=== PATIENT | female | born 1940 | race Caucasian/White ===

== ENCOUNTER 2016-12-23 14:49 | Emergency (ER) | payer OTHER, BC ==
--- NOTE | 2016-12-23 16:00 | CPEKG ---
Heart Rate: 89 RR Interval: 674 P-R Interval: 148 QRSD Interval: 94 QT Interval: 388 QTC Interval: 473 P Neville: 34 QRS Neville: -2 T Wave Neville: 28 EKG Severity - ABNORMAL ECG - EKG Impression: SINUS RHYTHM EKG Impression: PROBABLE LEFT VENTRICULAR HYPERTROPHY Electronically Signed By: Lucas Madrid 27-Dec-2016 09:02:51
[2016-12-23 16:02] LABS: % IMMATURE GRANULYOCYTES 0.6 % (0.0-1.1); ABSOLUTE IMMATURE GRANULOCYTES 0.11 10^3/uL (0.00-0.10); ADD DIFF? NO; ADD MORPH? YES; ADD SCAN? NO; ATYPICAL LYMPHOCYTE FLAG 0 (0-99); FRAGMENT RBC FLAG 40 (0-99); HEMATOCRIT 28.2 % (38.0-47.0); LEFT SHIFT FLG 0 (0-99); LIPEMIA HEMOLYSIS FLAG 80 (0-99); MEAN CELL HEMOGLOBIN 23.4 pg (27.9-34.1); MEAN CELL HEMOGLOBIN CONCENTR. 31.9 g/dL (32.4-36.7); MEAN CELL VOLUME 73.2 fL (81.5-99.8); PLATELET CLUMPS FLAG 0 (0-99); PLATELET COUNT 175 10^3/uL (150-400); RED BLOOD CELL COUNT 3.85 10^6/uL (4.18-5.33)
[2016-12-23 16:03] LABS: RED CELL DISTRIBUTION WIDTH 22.3 % (11.5-15.2)
[2016-12-23 16:16] LABS: ANION GAP 17 mEq/L (8-16); CALCIUM 9.5 mg/dL (8.5-10.4); CARBON DIOXIDE 24 mEq/l (22-31); CHLORIDE 85 mEq/L (97-110); CREATININE 1.1 mg/dL (0.6-1.0); GLOMERULAR FILTRATION RATE 48; GLUCOSE 144 mg/dL (70-100); POTASSIUM 4.2 mEq/L (3.5-5.2); SODIUM 126 mEq/L (134-144)
[2016-12-23 16:28] LABS: TROPONIN I < 0.012 ng/mL (0-0.034)
[2016-12-23] MEDS ORDERED: NS 500 ML IV ONE ×2 (16:36→17:02)
[2016-12-23 16:43] LABS: HYPOCHROMIA 1+; MICROCYTES 1+; PLATELET ESTIMATE ADEQUATE (ADEQ); STOMATOCYTES 1+
[2016-12-23] MEDS ORDERED: ACETAMINOPHEN 325 MG TAB PO ONE (17:05)
[2016-12-23 17:39] LABS: COLOR YELLOW; LEUKOCYTE ESTERASE,URINE TRACE (NEGATIVE); NITRITE,URINE NEGATIVE (NEGATIVE)
--- NOTE | 2016-12-23 17:39 | EDPHY ---
H & P Stated Complaint: Neck and low back pain after fall onto back 3 days ago. NO LOC. Time Seen by Provider: 12/23/16 15:19 HPI/ROS: While still in [place] preparing to move here to [place] this patient stumbled over her feet in her kitchen and fell backward striking the occiput of her head against a cardboard box and then falling to the floor. She reports that she was not dazed but she has had a steady headache since that time that is moderate in intensity, similar to previous headaches but is not resolving. She reports that she had nausea and vomiting x2 over the past 2 days associated with her headache. She flew from [place] to [place], arriving today and her son, hearing about the fall and her symptoms brought her in for evaluation. She is moving to [place] in this is her 1st day here. She reports associated neck pain that is 6/10 in intensity from the fall and upper thoracic pain that is 8/10 and feels muscular to her. On top of the symptoms she feels very fatigued. She also reports mild dyspnea that she attributes to altitude and fatigue. She also reports a chronic cough. She explains that she has had this cough for more than a year and that she does not know the cause of it. She is uncertain of when she has had most recent chest x-ray. She explains that she has not established care here in [place] in all of her records are in [place] regarding her past medical history. She does report a recent UTI and she is taking Cipro antibiotic for that starting this antibiotic 4 days prior to arrival. She denies any ongoing urinary symptoms at this time. ROS: No high fevers or chills. Fatigue as noted no other constitutional symptoms HEENT: Headache is generalized in location. She has no recent URI symptoms. No sore throat. No other complaints Neuro: No visual changes. No numbness tingling or focal weakness. Pulmonary: She reports that her chronic cough has not changed recently and is dry in nature. No hemoptysis. Cardiovascular: No chest pain. No calf swelling or pain. GI: No belly pain. She did tolerate breakfast this morning but has not had lunch. : Her urinary symptoms have resolved starting Cipro Endocrine: She denies polyuria or polydipsia. Her last hemoglobin A1c was 6.6 3 weeks ago. Integumentary: No lacerations or abrasions from the fall. 10 point ROS is otherwise negative. Source: Patient, Family (Her son accompanies her) Exam Limitations: No limitations - Personal History Current Tetanus Diphtheria and Acellular Pertussis (TDAP): Yes Tetanus Vaccine Date: within 10 years - Medical/Surgical History Hx Asthma: No Hx Chronic Respiratory Disease: No Hx Diabetes: Yes Hx Cardiac Disease: Yes Hx Renal Disease: No Hx Cirrhosis: No Hx Alcoholism: No Hx HIV/AIDS: No Hx Splenectomy or Spleen Trauma: No Other PMH: C1 FX, heart arrythmia, tonsillectomy, c section, cholecystectomy, pacemaker, HTN, DM type II, hyperlipidemia - Social History Smoking Status: Never smoked Alcohol Use: None Drug Use: None Additional Social History: Moved here from [place] arriving today. Accompanied by her son - Physical Exam Exam: Pleasant, kyphotic 68-year-old female in no acute distress General Appearance: Alert, no distress. Eyes: Pupils equal and round no pallor or injection. ENT, Mouth: Mucous membranes moist. Respiratory: Diminished breath sounds at the bases, otherwise clear to auscultation bilaterally. Cardiovascular: Regular rate and rhythm. She has a 2/6 systolic murmur. No JVD. No peripheral edema. Gastrointestinal: Abdomen is soft and nontender, no masses, bowel sounds normal. Neurological: GCS 15. Cranial nerves 2-12 grossly intact 5/5 strength in all extremities. No pronator drift. Skin: Warm and dry, no rashes. Musculoskeletal: Neck: Mild tenderness from T1 to the occiput. She retains a good range of motion despite this. Back: She has midline thoracic pain to about T6. Paraspinous muscular tenderness as well in this region. No significant lumbar tenderness. She is very kyphotic. Mild left CVA tenderness Extremities are symmetrical, full range of motion. Psychiatric: Mood and affect normal. DIFFERENTIAL DIAGNOSIS: After history and physical exam differential diagnosis was considered for minor head injury, concussion, subdural hemorrhage, cervical strain, cervical fracture, thoracic strain, thoracic fracture, the bronchitis, pneumonia, pulmonary lesion, coronary syndrome, metabolic disarray, UTI Constitutional: Initial Vital Signs Temperature (C) 37 C 12/23/16 15:02 Heart Rate 94 12/23/16 15:02 Respiratory Rate 18 12/23/16 15:02 Blood Pressure 108/63 12/23/16 15:02 O2 Sat (%) 91 L 12/23/16 15:02 O2 Delivery Mode Room Air Allergies/Adverse Reactions: adhesive Allergy (Intermediate, Verified 12/23/16 15:10) Rash cephalexin Allergy (Intermediate, Verified 12/23/16 15:10) Rash niacin Allergy (Intermediate, Verified 12/23/16 15:10) Rash sulfamethoxazole [Sulfamethoxazole] Allergy (Intermediate, Verified 12/23/16 15: 10) "UPSET STOMACH" gabapentin Allergy (Unknown, Verified 12/23/16 15:10) UNABLE TO FALL ASLEEP Home Medications: Medication Instructions Recorded Albuterol Hfa Anes Only [Proair 2 puffs IH Q4 PRN #1 mdi 12/23/16 Hfa Icu (*)] Aleve 12/23/16 Aspirin 12/23/16 Azithromycin [Zithromax] 250 mg PO DAILY #6 tab 12/23/16 Duloxetine HCl 12/23/16 Hydrochlorothiazide 12/23/16 ISOSORBIDE DINITRATE 12/23/16 Janumet 50-1,000 mg Tablet 12/23/16 Levemir 12/23/16 Metanx Capsule 12/23/16 Metoclopramide 12/23/16 Metoclopramide HCl 12/23/16 Nitroglycerin 12/23/16 Ondansetron Odt [Zofran Odt] 4 - 8 mg PO Q4PRN PRN #4 tab 12/23/16 Rosuvastatin Calcium 12/23/16 Tums 500MG (*) 12/23/16 Medical Decision Making - Diagnostics EKG Interpretation: 12 lead EKG performed shortly after arrival reveals sinus rhythm at 89 Intervals: Normal throughout Overall assessment: sinus rhythm with inferior Q-wave no acute ST abnormalities , no previous for comparison, voltage criteria consistent with LVH Imaging Results: Imaging Impressions Chest X-Ray 12/23/16 15:48 Impression: 1. Mild perihilar bronchitis, without a focal infiltrate. 2. Borderline-cardiomegaly (without congestive heart failure), and evidence of a prior pacemaker. 3. Nodular asymmetry in the left apex. Correlation with prior studies versus proceeding to chest CT imaging is suggested. Findings were discussed with CONRAD LIMA MD at 16:47, on 12/23/2016. Cervical Spine CT 12/23/16 15:49 Impression: 1. Old C1 and C2 fractures. 2. Severe degenerative disk disease and facet arthropathy from C4-C5 to C7-T1. 3. No acute fracture. Findings and recommendations discussed with Dr. Conrad Lima at 1650 hour , 12/23/2016. Final report concurs with initial preliminary interpretation. Head CT 12/23/16 15:49 Impression: Atrophy and microvascular ischemic disease. Findings and recommendations discussed with CONRAD LIMA at 1650 hour, 12/23/2016. Final report concurs with initial preliminary interpretation. Thoracic Spine CT 12/23/16 15:49 Impression: No definitive acute process in the thoracic spine. Findings and recommendations discussed with Dr. Conrad Lima at 1655 hour , 12/23/2016. Final report concurs with initial preliminary interpretation. Chest x-ray: Significant kyphosis bronchitic findings no acute pneumonia by my interpretation. Also discussed his with radiologist. Imaging: Discussed imaging studies w/ call center recruiter Radiologist ED Course/Re-evaluation: IV normal saline bolus I counseled the patient regarding her hyponatremia and leukocytosis She is given a DuoNeb with decreased cough and wheeze. History with 1st dose of Zithromax for bronchitis. I called the outpatient physician on-call to help establish a close follow up with Dr. Mota. Their office has an answering machine but no physician to speak to. I did leave a message regarding this patient. Patient tolerated p.o. intake without emesis prior to discharge. Discussion: This patient is somewhat complicated having new arrived to [place] with multiple ailments. Her workup here ruled out intracranial injury from her head injury 3 days ago. She has no bony injury from the fall regarding her neck or back. She does have bronchitis and is improving with treatment for that here. She had significant leukocytosis but normal lactic acid level. She also has some hyponatremia the think is associated with dehydration and may be medication related. She is treated with a L of normal saline IV and felt improvement. She reports compliance with her Cipro. Her urine micro was not back prior to her discharge from here and her initial urinalysis revealed only leuk esterase positive. We do have a culture pending for her urine and she will have close follow up with Dr. Mota the outpatient physician on-call. She is accompanied by her son with her throughout the stay is familiar with today's findings and plan. She also does have a pulmonary lesion in the right lung discussed with her. She will seek to get records from the [facility] including recent radiographs see if that the baseline lesion or a new finding that will warrant outpatient CT scan for further evaluation. She states that her systolic heart murmur is longstanding for her. Technically the patient have 2 positive SIRS criteria source of infection-pulmonary in respiratory and that she had initial pulse of 94 and a white count was elevated. However with saline her pulse normalized and she is not interested in admission to the hospital. She will stay with her son who observe for any worsening of her condition and return her here call 911 should her clinical condition worsen. She does not have findings of severe sepsis or septic shock. - Data Points Laboratory Results: Laboratory Results 12/23/16 15:50 12/23/16 15:50 12/23/16 12/23/16 12/23/16 17:35 17:19 15:50 WBC RBC Hgb Hct MCV MCH MCHC RDW Plt Count MPV Neut % (Auto) Lymph % (Auto) Sherman % (Auto) Eos % (Auto) Baso % (Auto) Nucleat RBC Rel Count Absolute Neuts (auto) Absolute Lymphs (auto) Absolute Monos (auto) Absolute Eos (auto) Absolute Basos (auto) Absolute Nucleated RBC Immature Gran % Immature Gran # Platelet Estimate Hypochromasia Microcytic Cells Stomatocytes VBG Lactic Acid 1.1 mmol/L mmol/L (0.7-2.1) Sodium 126 mEq/L L mEq/L (134-144) Potassium 4.2 mEq/L mEq/L (3.5-5.2) Chloride 85 mEq/L L mEq/L (97-110) Carbon Dioxide 24 mEq/l mEq/l (22-31) Anion Gap 17 mEq/L H mEq/L (8-16) BUN 21 mg/dL mg/dL (7-23) Creatinine 1.1 mg/dL H mg/dL (0.6-1.0) Estimated GFR 48 Glucose 144 mg/dL H mg/dL (70-100) Calcium 9.5 mg/dL mg/dL (8.5-10.4) Troponin I < 0.012 ng/mL ng/mL (0-0.034) Urine Color YELLOW Urine Appearance HAZY Urine pH 6.0 (5.0-7.5) Ur Specific [place] 1.015 (1.002-1.030) Urine Protein TRACE H (NEGATIVE) Urine Ketones TRACE H (NEGATIVE) Urine Blood NEGATIVE (NEGATIVE) Urine Nitrate NEGATIVE (NEGATIVE) Urine Bilirubin NEGATIVE (NEGATIVE) Urine Urobilinogen 0.2 EU EU (0.2-1.0) Ur Leukocyte Esterase TRACE H (NEGATIVE) Urine RBC NONE SEEN /hpf /hpf (0-3) Urine WBC 50-182 /hpf H /hpf (0-3) Ur Epithelial Cells 3+ /lpf H /lpf (NONE-1+) Urine Bacteria 3+ /hpf H /hpf (NONE SEEN) Hyaline Casts 50-182 /lpf H /lpf (0-1) Urine Glucose NEGATIVE (NEGATIVE) 12/23/16 15:50 WBC 18.04 10^3/uL H 10^3/uL (3.80-9.50) RBC 3.85 10^6/uL L 10^6/uL (4.18-5.33) Hgb 9.0 g/dL L g/dL (12.6-16.3) Hct 28.2 % L % (38.0-47.0) MCV 73.2 fL L fL (81.5-99.8) MCH 23.4 pg L pg (27.9-34.1) MCHC 31.9 g/dL L g/dL (32.4-36.7) RDW 22.3 % H % (11.5-15.2) Plt Count 175 10^3/uL 10^3/uL (150-400) MPV 10.0 fL fL (8.7-11.7) Neut % (Auto) 82.9 % H % (39.3-74.2) Lymph % (Auto) 9.7 % L % (15.0-45.0) Sherman % (Auto) 5.1 % % (4.5-13.0) Eos % (Auto) 1.4 % % (0.6-7.6) Baso % (Auto) 0.3 % % (0.3-1.7) Nucleat RBC Rel Count 0.0 % % (0.0-0.2) Absolute Neuts (auto) 14.95 10^3/uL H 10^3/uL (1.70-6.50) Absolute Lymphs (auto) 1.75 10^3/uL 10^3/uL (1.00-3.00) Absolute Monos (auto) 0.92 10^3/uL H 10^3/uL (0.30-0.80) Absolute Eos (auto) 0.26 10^3/uL 10^3/uL (0.03-0.40) Absolute Basos (auto) 0.05 10^3/uL 10^3/uL (0.02-0.10) Absolute Nucleated RBC 0.00 10^3/uL 10^3/uL (0-0.01) Immature Gran % 0.6 % % (0.0-1.1) Immature Gran # 0.11 10^3/uL H 10^3/uL (0.00-0.10) Platelet Estimate ADEQUATE (ADEQ) Hypochromasia 1+ H Microcytic Cells 1+ H Stomatocytes 1+ H VBG Lactic Acid Sodium Potassium Chloride Carbon Dioxide Anion Gap BUN Creatinine Estimated GFR Glucose Calcium Troponin I Urine Color Urine Appearance Urine pH Ur Specific [place] Urine Protein Urine Ketones Urine Blood Urine Nitrate Urine Bilirubin Urine Urobilinogen Ur Leukocyte Esterase Urine RBC Urine WBC Ur Epithelial Cells Urine Bacteria Hyaline Casts Urine Glucose Medications Given: Discontinued Medications Acetaminophen (Tylenol) 975 mg PO EDNOW ONE Stop: 12/23/16 17:06 Last Admin: 12/23/16 17:10 Dose: 975 mg Sodium Chloride (Ns) 500 mls @ 0 mls/hr IV ONCE ONE; Wide Open PRN Reason: Protocol Stop: 12/23/16 16:37 Last Admin: 12/23/16 16:36 Dose: 500 mls Sodium Chloride (Ns) 500 mls @ 0 mls/hr IV ONCE ONE; Wide Open PRN Reason: Protocol Stop: 12/23/16 17:03 Last Admin: 12/23/16 17:14 Dose: 500 mls Levalbuterol (Xopenex 1.25mg Neb) 1.25 mg IH EDNOW ONE Stop: 12/23/16 17:46 Last Admin: 12/23/16 18:04 Dose: 1.25 mg Departure - Departure Disposition: Home, Routine, Self-Care Clinical Impression: Hyponatremia, Pulmonary lesion, right Minor head injury without loss of consciousness Qualifiers: Encounter type: initial encounter Qualified Code(s): S09.90XA - Unspecified injury of head, initial encounter Neck muscle strain Qualifiers: Encounter type: initial encounter Qualified Code(s): S16.1XXA - Strain of muscle, fascia and tendon at neck level, initial encounter Upper back strain Qualifiers: Encounter type: initial encounter Qualified Code(s): S29.012A - Strain of muscle and tendon of back wall of thorax, initial encounter Urinary tract infection Qualifiers: Urinary tract infection type: acute cystitis Hematuria presence: without hematuria Qualified Code(s): N30.00 - Acute cystitis without hematuria Acute bronchitis Qualifiers: Bronchitis organism: unspecified organism Qualified Code(s): J20.9 - Acute bronchitis, unspecified Condition: Good Instructions: Head Injury (ED), Acute Bronchitis (ED) Additional Instructions: Diagnoses: 1. Minor head injury 2. Neck strain 3. Back strain 4. Bronchitis 5. Right pulmonary lesion 6. Bladder infection 7. Low-sodium 8. Vomiting Plan: Humidifier Albuterol inhaler spacer for cough, wheeze or shortness of breath Zithromax Tylenol for headaches and back pain. Continue other medications. Zofran if needed for nausea or vomiting Call Dr. Mota-internal medicine physician [facility] to establish a primary care physician. Try to follow up with her within the next 2-7 days. Return for any recurrent vomiting, shortness of breath, unbearable headache or other concerns despite the treatment plan Referrals: NONE *PRIMARY CARE P,. [Primary Care Provider] - As per Instructions Samia Mota MD [Medical Doctor] - As per Instructions Prescriptions: Albuterol Hfa Anes Only [Proair Hfa Icu (*)] 2 puffs IH Q4 PRN #1 mdi PRN Reason: Wheezing Azithromycin [Zithromax] 250 mg PO DAILY #6 tab Ondansetron Odt [Zofran Odt] 4 - 8 mg PO Q4PRN PRN #4 tab PRN Reason: Vomiting
[2016-12-23] MEDS ORDERED: LEVALBUTEROL 1.25 MG/3 ML DEYVIAL IH ONE (17:45)
[2016-12-23 17:55] VITALS: TEMP 98.4
[2016-12-23 18:01] LABS: BACTERIA 3+ /hpf (NONE SEEN); RBC,URINE NONE SEEN /hpf (0-3); WBC,URINE 50-182 /hpf (0-3)
[2016-12-23 18:02] LABS: HYALINE CASTS 50-182 /lpf (0-1)
[2016-12-23 18:31] VITALS: BP 139/62; PULSE 95; RESP 20; O2SAT 91
== END 2016-12-23 18:15 | disposition home or self-care (01) ==
LOC: CED 14:49
DX: S09.90XA Unspecified injury of head, initial encounter (principal); S16.1XXA Strain of muscle, fascia and tendon at neck level, initial encounter; S29.012A Strain of muscle and tendon of back wall of thorax, initial encounter; E87.1 Hypo-osmolality and hyponatremia; J98.4 Other disorders of lung; N30.00 Acute cystitis without hematuria; J20.9 Acute bronchitis, unspecified; B96.89 Other specified bacterial agents as the cause of diseases classified elsewhere; Z79.82 Long term (current) use of aspirin; W01.198A Fall on same level from slipping, tripping and stumbling with subsequent striking against other object, initial encounter; Y92.000 Kitchen of unspecified non-institutional (private) residence as the place of occurrence of the external cause
CPT/HCPCS: 70450-PO; 71020-PO; 72125-PO; 72128-PO; 80048-PO; 81003-PO; 81015-PO; 83605-PO; 84484-PO; 85025-PO

== ENCOUNTER → 2017-01-02 | Outpatient (CLI) | payer OTHER, BC | LOC: CIMAGING 11:25 | PROVIDERS: ATTEND Internal Medicine | DX: M89.8X8 Other specified disorders of bone, other site (principal) | CPT/HCPCS: 71250-PO ==

== ENCOUNTER 2017-01-19 14:23 | Emergency (ER) | payer OTHER, BC ==
[2017-01-19 14:44] VITALS: TEMP 99
--- NOTE | 2017-01-19 14:49 | EDPHY ---
H & P - Personal History Tetanus Vaccine Date: within 10 years - Medical/Surgical History Hx Asthma: No Hx Chronic Respiratory Disease: No Hx Diabetes: Yes Hx Cardiac Disease: Yes Hx Renal Disease: No Hx Cirrhosis: No Hx Alcoholism: No Hx HIV/AIDS: No Hx Splenectomy or Spleen Trauma: No Other PMH: C1 FX, heart arrythmia, tonsillectomy, c section, cholecystectomy, pacemaker, HTN, DM type II, hyperlipidemia - Social History Smoking Status: Never smoked Time Seen by Provider: 01/19/17 14:36 Constitutional: Initial Vital Signs Temperature (C) 37.2 C 01/19/17 14:42 Heart Rate 74 01/19/17 14:42 Respiratory Rate 18 01/19/17 14:42 Blood Pressure 113/69 01/19/17 14:42 O2 Sat (%) 90 L 01/19/17 14:42 O2 Delivery Mode Room Air O2 (L/minute) 2 Allergies/Adverse Reactions: adhesive Allergy (Intermediate, Verified 12/23/16 15:10) Rash cephalexin Allergy (Intermediate, Verified 12/23/16 15:10) Rash niacin Allergy (Intermediate, Verified 12/23/16 15:10) Rash sulfamethoxazole [Sulfamethoxazole] Allergy (Intermediate, Verified 12/23/16 15: 10) "UPSET STOMACH" gabapentin Allergy (Unknown, Verified 12/23/16 15:10) UNABLE TO FALL ASLEEP Home Medications: Medication Instructions Recorded Albuterol Hfa Anes Only [Proair 2 puffs IH Q4 PRN #1 mdi 12/23/16 Hfa Icu (*)] Aleve 12/23/16 Aspirin 12/23/16 Azithromycin [Zithromax] 250 mg PO DAILY #6 tab 12/23/16 Duloxetine HCl 12/23/16 Hydrochlorothiazide 12/23/16 ISOSORBIDE DINITRATE 12/23/16 Janumet 50-1,000 mg Tablet 12/23/16 Levemir 12/23/16 Metanx Capsule 12/23/16 Metoclopramide 12/23/16 Metoclopramide HCl 12/23/16 Nitroglycerin 12/23/16 Ondansetron Odt [Zofran Odt] 4 - 8 mg PO Q4PRN PRN #4 tab 12/23/16 Rosuvastatin Calcium 06/09/17 Tums 500MG (*) 12/23/16 Lidocaine [Lidoderm] 1 each TP DAILY PRN #30 adh..patch 01/19/17 Medical Decision Making - Diagnostics Imaging Results: Imaging Impressions Chest X-Ray 01/19/17 14:41 Impression: Stable chest.. Extremity Venous Study 01/19/17 16:37 Impression: No evidence of deep vein thrombosis in the left leg. Results discussed with Ines Costa. Chest/Thorax CTA 01/19/17 16:38 Impression:1.No pulmonary embolic disease. 2. Coronary artery disease. 3. Dilated, incompletely included, extrahepatic biliary tree in a patient with previous cholecystectomy. Query choledocholithiasis? Is there elevated bilirubin ? 4. Small hiatal hernia and esophageal gas, suggesting reflux. Results discussed with Ines Costa. General information for patients regarding this examination can be found at [email or web address]. If you have questions or comments about this report, please contact me at (hospital) or [phone] (cell). ED Course/Re-evaluation: CHIEF COMPLAINT: Chronic back pain, left knee pain, dizziness and some shortness of breath HISTORY OF PRESENT ILLNESS: 76-year-old female who moved here from [place] just a couple weeks ago. She has established care with a local physician and has had her 1st visit. She states that she has has chronic back and neck pain after C1-2 fracture couple years ago. At that pain sometimes acts up and that was going on since yesterday. She tried to take hydrocodone overnight and she is not sure if that is why she is dizzy today but she does not think so. She took it because the back pain and a new pain which is in her left knee and she is not sure why that is occurring she does not have any trauma. The patient claims that she is having some difficulty catching her breath but not significant and her vital signs and oxygen saturation normal. She recently had a urinary tract infection and she does not know she still has that. REVIEW OF SYSTEMS: A 10 point review of systems was performed and is negative with the exception of the elements mentioned in the history of present illness. PHYSICAL EXAM: HR, BP, O2 Sat, RR. Temp noted General Appearance: Alert, well hydrated, appropriate, and non-toxic appearing. Head: Atraumatic without scalp tenderness or obvious injury Eyes: Pupils equal, round, reactive to light and accommodation, EOMI, no trauma , no injection. Ears: Clear bilaterally, no perforation, normal landmarks Nose: Atraumatic, no rhinorrhea, clear. Throat: There is no erythema or exudates, no lesions, normal tonsils, mucus membranes moist. Neck: Supple, 2+ carotid upstroke, nontender, no lymphadenopathy. Respiratory: No retractions, no distress, no wheezes, and no accessory muscle use. Lungs are clear to auscultation bilaterally. Cardiovascular: Regular rate and rhythm, no murmurs, rubs, or gallops. Bilateral carotid, radial, dorsalis pedis, and posterior tibial pulses intact. Good capillary refill all extremities. Gastrointestinal: Abdomen is soft, nontender, non-distended, no masses, no rebound, no guarding, no peritoneal signs. Musculoskeletal: Normal active ROM of all extremities, atraumatic. Neurological: Alert, appropriate, and interactive. The patient has normal DTRs and non-focal cranial nerves, motor, sensory, and cerebellar exam. Skin: No rashes, good turgor, no nodules on palpation. Past medical history: Hypertension, diabetes, chronic neck and back pain Past surgical history: Pacemaker Family history: Noncontributory Social history: , does not abuse tobacco drugs or alcohol, moved here from [facility] about 3 weeks ago DIAGNOSTICS/PROCEDURES/CRITICAL CARE TIME: The 12 lead EKG was interpreted by myself. See hard copy and/or "tracemaster" electronic copy for interpretation. Study: PA and Lateral Chest X-ray Indication: shortness of breath Results: After viewing the images myself on the PACS system. My interpretation of the images is: The x-ray will be interpreted by Dr. Costa DIFFERENTIAL DIAGNOSIS: The differential diagnosis for the patient's shortness of breath included but was not limited to pneumonia, myocardial infarction, acute mountain sickness, high altitude pulmonary edema, congestive heart failure , and pulmonary embolus. MEDICAL DECISION MAKING: This patient has some mild dizziness and some orthopedic complaints. I am not picking up any objective shortness of breath as her respiratory rate is normal, her heart rate is normal, she is not hypoxemic, she is new to altitude, and I have a normal lung exam. Chest x-ray is pending, EKG is pending, laboratory studies are pending including urinalysis to see if her dizziness is from an ongoing urinary tract infection. This patient will be signed out at shift change for final evaluation of laboratory studies, chest x-ray, EKG and disposition (Jassi Kaur) Other Provider: Patient care turned over to me at 3:00 p.m. pending laboratory studies, EKG and chest x-ray. EKG shows a normal sinus rhythm with no acute ischemic changes Chest x-ray stable chest Laboratories with a positive D-dimer Ultrasound left lower extremity negative for DVT CT chest negative for pulmonary embolus Troponin negative Hemoglobin 8.9, patient states this is chronic Magnesium 1.1 Patient given 2 g IV piggyback magnesium Patient also given morphine 4 mg for pain control. Impression/plan Patient with multiple complaints since moving to [place] Difficult to ascertain if some of this is altitude related illness With patient's combination of complaints of dizziness and shortness of breath, I recommended admission for further evaluation of her cardiac Health, after discussing the case with the hospitalist , he recommended an observation admission with potential nuclear scan tomorrow. Patient refused admission Allowed the patient to sign out against medical advice Patient given Rx for lidocaine patches for her back and neck pain Advised to follow up with her primary care physician for our concern with her Cardiac Health. (Ines Costa) - Data Points Laboratory Results: Laboratory Results 01/19/17 14:50 01/19/17 14:50 01/19/17 01/19/17 01/19/17 Unknown Unknown Unknown WBC RBC Hgb Hct MCV MCH MCHC RDW Plt Count MPV Neut % (Auto) Lymph % (Auto) [place] % (Auto) Eos % (Auto) Baso % (Auto) Nucleat RBC Rel Count Absolute Neuts (auto) Absolute Lymphs (auto) Absolute Monos (auto) Absolute Eos (auto) Absolute Basos (auto) Absolute Nucleated RBC Immature Gran % Immature Gran # ESR PT 13.3 SEC SEC (12.0-15.0) INR 1.04 (0.83-1.16) APTT 29.6 SEC SEC (23.0-38.0) D-Dimer 2.46 ug/mLFEU H ug/mLFEU (0.00-0.50) Sodium Potassium Chloride Carbon Dioxide Anion Gap BUN Creatinine Estimated GFR Glucose Calcium Magnesium 1.1 mg/dL L mg/dL (1.6-2.3) Total Bilirubin 0.7 mg/dL mg/dL (0.1-1.4) Conjugated Bilirubin 0.4 mg/dL mg/dL (0.0-0.5) Unconjugated Bilirubin 0.3 mg/dL mg/dL (0.0-1.1) AST 33 IU/L IU/L (14-46) ALT 28 IU/L IU/L (9-52) Alkaline Phosphatase 66 IU/L IU/L (38-126) Creatine Kinase 123 IU/L IU/L (0-156) Troponin I < 0.012 ng/mL ng/mL (0-0.034) NT-Pro-B Natriuret Pep Total Protein 6.6 g/dL g/dL (6.3-8.2) Albumin 3.9 g/dL g/dL (3.5-5.0) Urine Color Urine Appearance Urine pH Ur Specific Webster Urine Protein Urine Ketones Urine Blood Urine Nitrate Urine Bilirubin Urine Urobilinogen Ur Leukocyte Esterase Urine RBC Urine WBC Ur Epithelial Cells Urine Bacteria Hyaline Casts Urine Mucus Urine Yeast Urine Glucose 01/19/17 01/19/17 01/19/17 16:05 14:50 14:50 WBC 13.32 10^3/uL H 10^3/uL (3.80-9.50) RBC 3.95 10^6/uL L 10^6/uL (4.18-5.33) Hgb 8.9 g/dL L g/dL (12.6-16.3) Hct 28.8 % L % (38.0-47.0) MCV 72.9 fL L fL (81.5-99.8) MCH 22.5 pg L pg (27.9-34.1) MCHC 30.9 g/dL L g/dL (32.4-36.7) RDW 19.2 % H % (11.5-15.2) Plt Count 177 10^3/uL 10^3/uL (150-400) MPV 9.8 fL fL (8.7-11.7) Neut % (Auto) 78.9 % H % (39.3-74.2) Lymph % (Auto) 13.4 % L % (15.0-45.0) Hickory % (Auto) 4.9 % % (4.5-13.0) Eos % (Auto) 2.1 % % (0.6-7.6) Baso % (Auto) 0.2 % L % (0.3-1.7) Nucleat RBC Rel Count 0.0 % % (0.0-0.2) Absolute Neuts (auto) 10.50 10^3/uL H 10^3/uL (1.70-6.50) Absolute Lymphs (auto) 1.79 10^3/uL 10^3/uL (1.00-3.00) Absolute Monos (auto) 0.65 10^3/uL 10^3/uL (0.30-0.80) Absolute Eos (auto) 0.28 10^3/uL 10^3/uL (0.03-0.40) Absolute Basos (auto) 0.03 10^3/uL 10^3/uL (0.02-0.10) Absolute Nucleated RBC 0.00 10^3/uL 10^3/uL (0-0.01) Immature Gran % 0.5 % % (0.0-1.1) Immature Gran # 0.07 10^3/uL 10^3/uL (0.00-0.10) ESR 49 MM/HR H MM/HR (0-30) PT INR APTT D-Dimer Sodium 130 mEq/L L mEq/L (134-144) Potassium 4.4 mEq/L mEq/L (3.5-5.2) Chloride 92 mEq/L L mEq/L (97-110) Carbon Dioxide 24 mEq/l mEq/l (22-31) Anion Gap 14 mEq/L mEq/L (8-16) BUN 25 mg/dL H mg/dL (7-23) Creatinine 0.9 mg/dL mg/dL (0.6-1.0) Estimated GFR > 60 Glucose 205 mg/dL H mg/dL (70-100) Calcium 9.9 mg/dL mg/dL (8.5-10.4) Magnesium Total Bilirubin Conjugated Bilirubin Unconjugated Bilirubin AST ALT Alkaline Phosphatase Creatine Kinase Troponin I < 0.012 ng/mL ng/mL (0-0.034) NT-Pro-B Natriuret Pep 1020 pg/mL H pg/mL (0-450) Total Protein Albumin Urine Color DARK YELLOW Urine Appearance HAZY Urine pH 5.5 (5.0-7.5) Ur Specific Webster 1.020 (1.002-1.030) Urine Protein TRACE H (NEGATIVE) Urine Ketones NEGATIVE (NEGATIVE) Urine Blood NEGATIVE (NEGATIVE) Urine Nitrate NEGATIVE (NEGATIVE) Urine Bilirubin NEGATIVE (NEGATIVE) Urine Urobilinogen 0.2 EU EU (0.2-1.0) Ur Leukocyte Esterase TRACE H (NEGATIVE) Urine RBC NONE SEEN /hpf /hpf (0-3) Urine WBC 3-5 /hpf H /hpf (0-3) Ur Epithelial Cells 1+ /lpf /lpf (NONE-1+) Urine Bacteria 2+ /hpf H /hpf (NONE SEEN) Hyaline Casts 10-15 /lpf H /lpf (0-1) Urine Mucus 2+ /lpf H /lpf (NONE-1+) Urine Yeast OCCASIONAL /hpf H /hpf (NONE SEEN) Urine Glucose NEGATIVE (NEGATIVE) Medications Given: Discontinued Medications Magnesium Sulfate (Magnesium Sulf 2 Gm (Premix)) 50 mls @ 50 mls/hr IV EDNOW ONE Stop: 01/19/17 18:43 Last Admin: 01/19/17 18:00 Dose: 50 mls Morphine Sulfate (Morphine) 4 mg IVP EDNOW ONE Stop: 01/19/17 16:45 Last Admin: 01/19/17 16:56 Dose: 4 mg Morphine Sulfate (Morphine) 2 mg IVP EDNOW ONE Stop: 01/19/17 18:02 Last Admin: 01/19/17 18:16 Dose: 2 mg Departure - Departure Disposition: Against Medical Advice Clinical Impression: Dizziness, Neck pain, Anemia, Low magnesium level Condition: Good Instructions: Hypomagnesemia (ED), Dizziness (ED), Anemia (ED) Additional Instructions: Follow up with your primary care as soon as possible Referrals: Poncho Terry MD [Primary Care Provider] - As per Instructions Prescriptions: Lidocaine [Lidoderm] 1 each TP DAILY PRN #30 adh..patch PRN Reason: Pain, Severe
[2017-01-19 14:57] LABS: % IMMATURE GRANULYOCYTES 0.5 % (0.0-1.1); ABSOLUTE IMMATURE GRANULOCYTES 0.07 10^3/uL (0.00-0.10); ADD DIFF? NO; ADD MORPH? NO; ADD SCAN? NO; ATYPICAL LYMPHOCYTE FLAG 0 (0-99); FRAGMENT RBC FLAG 40 (0-99); HEMATOCRIT 28.8 % (38.0-47.0); HEMOGLOBIN 8.9 g/dL (12.6-16.3); LEFT SHIFT FLG 0 (0-99); LIPEMIA HEMOLYSIS FLAG 80 (0-99); MEAN CELL HEMOGLOBIN 22.5 pg (27.9-34.1); MEAN CELL HEMOGLOBIN CONCENTR. 30.9 g/dL (32.4-36.7); MEAN CELL VOLUME 72.9 fL (81.5-99.8); MEAN PLATELET VOLUME 9.8 fL (8.7-11.7); PLATELET CLUMPS FLAG 10 (0-99); PLATELET COUNT 177 10^3/uL (150-400); RED BLOOD CELL COUNT 3.95 10^6/uL (4.18-5.33); RED CELL DISTRIBUTION WIDTH 19.2 % (11.5-15.2)
--- NOTE | 2017-01-19 15:01 | CPEKG ---
Heart Rate: 81 RR Interval: 741 P-R Interval: 136 QRSD Interval: 82 QT Interval: 359 QTC Interval: 417 P Lenora: 34 QRS Lenora: 3 T Wave Lenora: 24 EKG Severity - NORMAL ECG - EKG Impression: SINUS RHYTHM Electronically Signed By: Ming Palacio 20-Jan-2017 14:00:06
[2017-01-19 15:10] LABS: ANION GAP 14 mEq/L (8-16); CALCIUM 9.9 mg/dL (8.5-10.4); CARBON DIOXIDE 24 mEq/l (22-31); CHLORIDE 92 mEq/L (97-110); CREATININE 0.9 mg/dL (0.6-1.0); GLOMERULAR FILTRATION RATE > 60; GLUCOSE 205 mg/dL (70-100); POTASSIUM 4.4 mEq/L (3.5-5.2); SODIUM 130 mEq/L (134-144)
[2017-01-19 15:23] LABS: TROPONIN I < 0.012 ng/mL (0-0.034)
[2017-01-19 15:23] LABS: APTT 29.6 SEC (23.0-38.0); INR 1.04 (0.83-1.16); PROTIME(PATIENT) 13.3 SEC (12.0-15.0)
[2017-01-19 16:12] LABS: LEUKOCYTE ESTERASE,URINE TRACE (NEGATIVE); NITRITE,URINE NEGATIVE (NEGATIVE); PH,URINE 5.5 (5.0-7.5)
[2017-01-19 16:13] LABS: COLOR DARK YELLOW
[2017-01-19 16:21] LABS: BACTERIA 2+ /hpf (NONE SEEN); MUCUS 2+ /lpf (NONE-1+); RBC,URINE NONE SEEN /hpf (0-3); YEAST OCCASIONAL /hpf (NONE SEEN)
[2017-01-19] MEDS ORDERED: IOPAMIDOL (ISOVUE 370) 100 ML BTL IV ONE (16:49)
[2017-01-19 17:00] LABS: MAGNESIUM 1.1 mg/dL (1.6-2.3)
[2017-01-19 17:01] VITALS: O2SAT 91
[2017-01-19 17:01] LABS: SEDIMENTATION RATE 49 MM/HR (0-30)
[2017-01-19] MEDS ORDERED: MAGNESIUM SULF 2 GM/WATER 50 ML IV ONE (17:44)
[2017-01-19 17:55] LABS: ALANINE AMINOTRANSFERASE 28 IU/L (9-52); ALBUMIN 3.9 g/dL (3.5-5.0); ALKALINE PHOSPHATASE 66 IU/L (38-126); ASPARTATE AMINOTRANSFERASE 33 IU/L (14-46); BILIRUBIN,TOTAL 0.7 mg/dL (0.1-1.4); BILIRUBIN-CONJUGATED 0.4 mg/dL (0.0-0.5); BILIRUBIN-UNCONJUGATED 0.3 mg/dL (0.0-1.1); TOTAL PROTEIN 6.6 g/dL (6.3-8.2)
[2017-01-19 18:05] LABS: TROPONIN I < 0.012 ng/mL (0-0.034)
[2017-01-19 20:30] VITALS: BP 104/55; PULSE 92; RESP 16
== END 2017-01-19 20:18 | disposition left against medical advice (07) ==
LOC: CED 14:23
DX: M54.2 Cervicalgia (principal); D64.9 Anemia, unspecified; E83.42 Hypomagnesemia; E11.9 Type 2 diabetes mellitus without complications; I10 Essential (primary) hypertension; Z79.82 Long term (current) use of aspirin; Z95.0 Presence of cardiac pacemaker
CPT/HCPCS: 71010; 71275; 93005; 93971; 96365; 96375; 96376; 99285; Q9967; 80048-PO; 80076-PO; 81003-PO; 81015-PO; 82550-PO; 83735-PO; 83880-PO; 84484-PO; 85025-PO; 85378-PO; 85610-PO; 85652-PO; 85730-PO

== ENCOUNTER → 2017-03-10 | Outpatient (CLI) | payer OTHER, BC | LOC: FIMAGING 08:21 | PROVIDERS: ATTEND Internal Medicine ==

== ENCOUNTER 2017-05-13 12:05 | Inpatient (IN) | payer OTHER, BC ==
--- NOTE | 2017-05-13 12:22 | CPEKG ---
Heart Rate: 70 RR Interval: 857 P-R Interval: 136 QRSD Interval: 88 QT Interval: 404 QTC Interval: 436 P Oxford: 13 QRS Oxford: -4 T Wave Oxford: 19 EKG Severity - ABNORMAL ECG - EKG Impression: SINUS RHYTHM EKG Impression: PROBABLE LEFT VENTRICULAR HYPERTROPHY EKG Impression: Similar to previous Electronically Signed By: Tu Smalls 13-May-2017 12:30:49
[2017-05-13] MEDS ORDERED: ASPIRIN 81 MG CHEWABLE TAB PO ONE (12:27)
--- NOTE | 2017-05-13 12:30 | EDPHY ---
H & P Stated Complaint: CP 2 days mid sternal worse when aying flat Time Seen by Provider: 05/13/17 12:21 HPI/ROS: CHIEF COMPLAINT: Chest pain HISTORY OF PRESENT ILLNESS: Patient is a 76-year-old female with history of pacemaker for 30 years who comes to the emergency department complaining of mild chest pain for the last 3 days that has been consistent. Also shortness of breath when she lies flat or exerts herself. She denies history of CHF. No lower extremity swelling. No recent fevers or illness. She also has a history of diabetes and hypertension. She denies any pulmonary history. No diaphoresis , nausea vomiting. Nonsmoker. REVIEW OF SYSTEMS: Constitutional: denies: chills, fever, recent illness, recent injury EENTM: denies: blurred vision, double vision, nose congestion Respiratory: denies: cough, shortness of breath Cardiac: See HPI Gastrointestinal/Abdominal: denies: abdominal pain, diarrhea, nausea, vomiting, blood streaked stools Genitourinary: denies: dysuria, frequency, hematuria, pain Musculoskeletal: denies: joint pain, muscle pain Skin: denies: lesions, rash, jaundice, bruising Neurological: denies: headache, numbness, paresthesia, tingling, dizziness, weakness Hematologic/Lymphatic: denies: blood clots, easy bleeding, easy bruising Immunologic/allergic: denies: HIV/AIDS, transplant EXAM: GENERAL: Well-appearing, well-nourished and in no acute distress. HEAD: Atraumatic, normocephalic. EYES: Pupils equal round and reactive to light, extraocular movements intact, sclera anicteric, conjunctiva are normal. ENT: TMs normal, nares patent, oropharynx clear without exudates. Moist mucous membranes. NECK: Normal range of motion, supple without lymphadenopathy or JVD. LUNGS: Breath sounds clear to auscultation bilaterally and equal. No wheezes rales or rhonchi. HEART: Regular rate and rhythm without murmurs, rubs or gallops. ABDOMEN: Soft, nontender, normoactive bowel sounds. No guarding, no rebound. No masses appreciated. BACK: No CVA tenderness, no spinal tenderness, step-offs or deformities EXTREMITIES: Normal range of motion, no pitting or edema. No clubbing or cyanosis. NEUROLOGICAL: Cranial nerves II through XII grossly intact. Normal speech, normal gait. 5/5 strength, normal movement in all extremities, normal sensation PSYCH: Normal mood, normal affect. SKIN: Warm, dry, normal turgor, no visible rashes or lesions. Source: Patient Exam Limitations: No limitations - Personal History Current Tetanus Diphtheria and Acellular Pertussis (TDAP): Yes Tetanus Vaccine Date: within 10 years - Medical/Surgical History Hx Asthma: No Hx Chronic Respiratory Disease: No Hx Diabetes: Yes Hx Cardiac Disease: Yes Hx Renal Disease: No Hx Cirrhosis: No Hx Alcoholism: No Hx HIV/AIDS: No Hx Splenectomy or Spleen Trauma: No Other PMH: C1 FX, heart arrythmia, tonsillectomy, c section, cholecystectomy, pacemaker, HTN, DM type II, hyperlipidemia - Family History Significant Family History: No pertinent family hx - Social History Smoking Status: Never smoked Alcohol Use: Sober Drug Use: None Constitutional: Initial Vital Signs Temperature (C) 36.8 C 05/13/17 12:16 Heart Rate 72 05/13/17 12:16 Respiratory Rate 16 05/13/17 12:16 Blood Pressure 153/113 H 05/13/17 12:16 O2 Sat (%) 89 L 05/13/17 12:16 O2 Delivery Mode Room Air O2 (L/minute) 1 Allergies/Adverse Reactions: adhesive Allergy (Intermediate, Verified 05/13/17 12:16) Rash cephalexin Allergy (Intermediate, Verified 05/13/17 12:16) Rash niacin Allergy (Intermediate, Verified 05/13/17 12:16) Rash sulfamethoxazole [Sulfamethoxazole] Allergy (Intermediate, Verified 05/13/17 12: 16) "UPSET STOMACH" gabapentin Allergy (Unknown, Verified 05/13/17 12:16) UNABLE TO FALL ASLEEP Home Medications: Medication Instructions Recorded Aspirin EC [Aspirin EC 81 mg (*)] 81 mg PO HS 05/13/17 Cholecalciferol Vit D3 [Vitamin D3 1,000 units PO DAILY 05/13/17 (*)] Cyanocobalamin [Vitamin B12 (*)] 1,000 mcg PO DAILY 05/13/17 DULoxetine [Cymbalta 60 MG (*)] 60 mg PO DAILY 05/13/17 Herbals/Supplements -Info Only 1 ea PO DAILY 05/13/17 Hydrochlorothiazide [HCTZ (*)] 12.5 mg PO BID PRN 05/13/17 Insulin Detemir [Levemir Flextouch] 20 unit SQ HS 05/13/17 Isosorbide Mononitrate [Imdur 30 30 mg PO DAILY 05/13/17 mg (*)] Lisinopril [Zestril 10 mg (*)] 10 mg PO DAILY 05/13/17 Metoclopramide [Reglan 10 mg tab 10 mg PO AC 05/13/17 (*)] Multivitamins [Multivitamin (*)] 1 each PO DAILY 05/13/17 Nebivolol HCl [Bystolic 5 mg (*)] 5 mg PO DAILY 05/13/17 Nortriptyline HCl [Pamelor 10 mg 20 mg PO HS 05/13/17 (*)] Rosuvastatin Calcium [Crestor 5mg] 5 mg PO DAILY 05/13/17 Sitagliptin Phos/Metformin HCl 1 each PO BIDMEAL 05/13/17 [Janumet 50-1,000 mg Tablet] Medical Decision Making - Diagnostics EKG Interpretation: An EKG obtained and was read and documented in trace view. Please see trace view for full reading and report. Sinus rhythm, no acute ischemic changes Imaging Results: Imaging Impressions Myocardial Perfusion Scan Nuc Med 05/14/17 10:00 Impression: 1. Inferior lateral myocardial wall defect which appears larger on the stress images than the rest images either representing inferior lateral ischemia or inferior lateral eddie-infarct ischemia. 2. Recommend cardiology consultation. Findings and recommendations given to Dr. Sofy Orantes at 13:04 hour, 2016. Final report concurs with initial preliminary interpretation. Cosign: Dr. Harpreet Owens Imaging: Discussed imaging studies w/ call or contact centre team leader Radiologist ED Course/Re-evaluation: 2:00 p.m. the patient is feeling well. We discussed her lab imaging results which are reassuring. She is tells us now that she has vomited several times over the last 24 hours and had diarrhea. This may be primarily dehydration and electrolyte abnormality rather than what initially presented with complaints consistent with CHF. I will admit her for hydration and observation. Patient understands and agrees with this plan. Differential Diagnosis: Partial list of the Differential diagnosis considered include but were not limited to; CHF, acute coronary disease, PE, dehydration, electrolyte abnormality and although unlikely based on the history and physical exam, I also considered infection, aneurysm, dissection. - Data Points Laboratory Results: Laboratory Results 05/14/17 04:20 05/14/17 04:20 Medications Given: Acetaminophen (Tylenol) 650 mg PO Q4HRS PRN PRN Reason: Pain, Mild/Fever, Can Take PO Stop: 11/09/17 17:02 Last Admin: 05/15/17 08:57 Dose: 650 mg Aspirin Buffered (Aspirin Ec) 81 mg PO HS BETSEY Stop: 11/09/17 20:59 Last Admin: 05/14/17 20:17 Dose: 81 mg Duloxetine HCl (Cymbalta) 60 mg PO DAILY BETSEY Stop: 11/10/17 08:59 Last Admin: 05/15/17 08:38 Dose: 60 mg Ferrous Sulfate (Slow Fe) 140 mg PO DAILY BETSEY Stop: 11/10/17 12:59 Last Admin: 05/15/17 08:37 Dose: 140 mg Sodium Chloride (Ns) 1,000 mls @ 75 mls/hr IV CONT BETSEY Stop: 11/09/17 16:14 Last Admin: 05/14/17 08:34 Dose: 1,000 mls Insulin Human Lispro (Humalog Lispro) 0 unit SC TIDMEAL BETSEY PRN Reason: Protocol Stop: 11/10/17 17:59 Last Admin: 05/15/17 11:57 Dose: 2 units Isosorbide Mononitrate (Imdur) 30 mg PO DAILY BETSEY Stop: 11/10/17 08:59 Last Admin: 05/15/17 08:38 Dose: 30 mg Lisinopril (Zestril) 10 mg PO DAILY BETSEY Stop: 11/10/17 08:59 Last Admin: 05/15/17 04:09 Dose: 10 mg Metoclopramide HCl (Reglan) 10 mg PO AC BETSEY Stop: 11/09/17 17:29 Last Admin: 05/15/17 11:57 Dose: 10 mg Nebivolol (Bystolic) 5 mg PO DAILY BETSEY Stop: 11/10/17 08:59 Last Admin: 05/15/17 08:38 Dose: 5 mg Nitroglycerin (Nitrostat) 0.4 mg SL Q5M PRN PRN Reason: Chest Pain Last Admin: 05/13/17 12:40 Dose: 0.4 mg Nortriptyline HCl (Pamelor) 20 mg PO HS BETSEY Stop: 11/09/17 20:59 Last Admin: 05/14/17 20:17 Dose: 20 mg Rosuvastatin Calcium (Crestor) 5 mg PO DAILY BETSEY Stop: 11/10/17 08:59 Last Admin: 05/15/17 08:46 Dose: 5 mg Temazepam (Restoril) 15 mg PO HS PRN PRN Reason: Sleep/Insomnia Stop: 11/09/17 17:02 Last Admin: 05/14/17 21:27 Dose: 15 mg Discontinued Medications Aspirin (Aspirin) 324 mg PO EDNOW ONE Stop: 05/13/17 12:28 Last Admin: 05/13/17 12:37 Dose: 324 mg Sodium Chloride (Ns) 1,000 mls @ 0 mls/hr IV EDNOW ONE; Wide Open PRN Reason: Protocol Stop: 05/13/17 14:07 Last Admin: 05/13/17 14:13 Dose: 1,000 mls Influenza Virus Vaccine Quadrival (Fluarix Quad [id number]) 0.5 ml IM .ONCE ONE Stop: 05/14/17 14:23 Last Admin: 05/14/17 15:37 Dose: 0.5 ml Departure - Departure Disposition: [facility] Clinical Impression: Hyponatremia, Shortness of breath Condition: Fair
[2017-05-13] MEDS: NITROGLYCERIN 0.4 MG BTL SL PRN (12:40)
[2017-05-13 12:41] LABS: PLATELET COUNT 180 10^3/uL (150-400)
[2017-05-13 12:54] LABS: INR 0.93 (0.83-1.16); PROTIME(PATIENT) 12.2 SEC (12.0-15.0)
[2017-05-13] MEDS ORDERED: IOPAMIDOL (ISOVUE 370) 100 ML BTL IV ONE (13:26)
[2017-05-13] MEDS ORDERED: NS 1,000 ML IV ONE (14:06)
[2017-05-13] MEDS ORDERED: ONDANSETRON DISINTEGRATING 4 MG TAB PO PRN (17:03)
[2017-05-13] MEDS ORDERED: ONDANSETRON 4 MG/2 ML VIAL IVP PRN (17:03)
--- NOTE | 2017-05-13 17:38 | GHP ---
[f rep st] HISTORY AND PHYSICAL DATE OF ADMISSION: 05/13/2017 CHIEF COMPLAINT: Chest pain, weakness, diarrhea. HISTORY OF PRESENT ILLNESS: This is a 76-year-old female, with a history of pacemaker, type 2 diabet es, presents with several days of diarrhea. This is nonbloody. She usually actually has 1 to 2 loos e bowel movements per day, but this has been more, especially over last night. She is not having any abdominal pain. She does intermittently vomit and attributes this to GERD and coughing spells. Thi s has not increased. She has had some chills. She has had some urinary frequency as well, but no dy suria. She complains of mostly back pain when she lies on her back that is sharp and radiates someti mes to her chest. She also describes a little bit of shortness of breath when lying flat as well. N o sick contacts. REVIEW OF SYSTEMS: A 10-point review of systems was obtained. Other than stated above, is negative. PAST MEDICAL HISTORY: 1. Type 2 diabetes. 2. GERD. 3. Hypertension. 4. Cervical fracture, but it has not been operated on. SOCIAL HISTORY: No smoking or alcohol. Lives alone. FAMILY HISTORY: Reviewed and noncontributory. PHYSICAL EXAMINATION: VITAL SIGNS: Afebrile. Blood pressure is 145/76, heart rate 84, oxygen satur ation 92% on 1 L. GENERAL: Patient is well developed, no apparent distress. HEENT: Nonicteric scl erae. Extraocular movements intact. Slightly dry mucous membranes. NECK: Supple without thyromega ly. LUNGS: Good effort. Decreased breath sounds. CARDIOVASCULAR: Regular rate and rhythm. No mu rmurs or gallops. ABDOMEN: Positive bowel sounds. Soft, nontender, nondistended. No hepatosplenom egaly. EXTREMITIES: No clubbing, cyanosis, or edema. SKIN: Without rash, dry, intact. NEURO: Al ert and oriented x3. Moving all 4 extremities equally. PSYCHIATRIC: Normal mood and affect. LABORATORY DATA: CBC showed microcytic anemia. Chemistry shows sodium 128, potassium 4.1, creatinin e is 0.7, glucose 148. Troponin is negative. CT scan of the chest showed no pulmonary embolism. EK G does not show any acute changes, personally reviewed, interpreted. ASSESSMENT: This is a 76-year-old female presenting with diarrhea, dehydration, and chest pain. PLAN: 1. Diarrhea. We will check stool studies. 2. Dehydration, continue IV fluids. She is on a diuretic, and in the setting of diarrhea, is probab ly dry and possibly precipitating some of her other symptoms. 3. Hyponatremia, probably related to dehydration. We will hold the hydrochlorothiazide and give IV fluids. We will check the urine studies, although this may not be accurate due to the use of her hyd rochlorothiazide. 4. Chest pain. Somewhat atypical, but she does have significant risk factors for coronary artery di sease. Her EKG is normal. We will check another troponin in the morning. We will go ahead and get a nuclear stress test in the morning. We will also probably get an echocardiogram due to her shortne ss of breath. 5. Type 2 diabetes. We will use a sliding scale insulin, probably hold her long-acting since she wi ll probably be n.p.o. for some period of time. CODE STATUS: Patient is full code. /[id number]/MODL
[2017-05-13] MEDS: NS 1,000 ML IV SCH (17:39)
[2017-05-13] MEDS: METOCLOPRAMIDE 10 MG TAB PO SCH (17:41)
[2017-05-13] MEDS: ASPIRIN EC 81 MG TAB PO SCH (21:12)
[2017-05-13] MEDS: NORTRIPTYLINE HCL 10 MG CAP PO SCH (21:12)
[2017-05-13] MEDS: ACETAMINOPHEN 325 MG TAB PO PRN (21:17)
[2017-05-13] MEDS: TEMAZEPAM 15 MG CAP PO PRN (21:17)
[2017-05-14 05:06] LABS: PLATELET COUNT 135 10^3/uL (150-400)
[2017-05-14] MEDS: METOCLOPRAMIDE 10 MG TAB PO SCH ×3 (07:54→17:35)
[2017-05-14] MEDS: LISINOPRIL 10 MG TAB PO SCH (08:05)
[2017-05-14] MEDS: DULoxetine 60 MG CAP PO SCH (08:05)
[2017-05-14] MEDS: ROSUVASTATIN CALCIUM 10 MG TAB PO SCH (08:05)
[2017-05-14] MEDS: NEBIVOLOL HCL 5 MG TAB PO SCH (08:05)
[2017-05-14] MEDS: ISOSORBIDE MONONITRATE 30 MG TAB.SR PO SCH (08:07)
[2017-05-14] MEDS: NS 1,000 ML IV SCH (08:34)
[2017-05-14] MEDS ORDERED: NON-FORMULARY NEW DRUG (Rosuvastatin Calcium [Crestor 5mg] 5 MG) PO SCH (09:00)
[2017-05-14] MEDS ORDERED: REGADENOSON 0.4 MG/5 ML SYR IVP ONE (09:46)
[2017-05-14] MEDS: ACETAMINOPHEN 325 MG TAB PO PRN ×2 (12:30→21:27)
[2017-05-14] MEDS ORDERED: D50W 25 GM/50 ML SYR IVP PRN (12:46)
--- NOTE | 2017-05-14 12:51 | HOSPPROG ---
Hospitalist Progress Note Assessment/Plan: 76y female with c/o CP, n/v. First encounter, chart reviewed. D/W RN. #CP resolved trop neg stress test for further eval #N/V ?etiol possible viral cont supportive care #Diarrhea none since admission check stool studies #Dehydration resolved with fluids in the setting of D/V #Hyponatremia resolved with hydration #Anemia iron def add replacement consider GI consult heme stools #DM add SSI follow #Dispo unclear, nuc stress pending cont supportive care stool studies change to inpt, further workup of CP and acute illness needed Subjective: Feeling ok. Still having some nausea and epigastric discomfort. Objective: Vital Signs Temp Pulse Resp BP Pulse Ox 36.3 C 89 16 126/92 H 92 05/14/17 11:25 05/14/17 11:25 05/14/17 11:25 05/14/17 11:25 05/14/17 11:25 Laboratory Results 05/14/17 04:20 05/14/17 04:20 05/13/17 05/14/17 05/15/17 05:59 05:59 05:59 Intake Total 1500 Output Total 800 Balance 700 PT 12.2 SEC (12.0-15.0) 05/13/17 12:30 INR 0.93 (0.83-1.16) 05/13/17 12:30 - Physical Exam Constitutional: appears nourished, not in pain, uncomfortable Eyes: PERRL, anicteric sclera, EOMI Ears, Nose, Mouth, Throat: moist mucous membranes, hearing normal, ears appear normal Cardiovascular: regular rate and rhythym, No JVD, No edema Respiratory: no respiratory distress, no rales or rhonchi, reduced air movement Gastrointestinal: normoactive bowel sounds, No tenderness, No ascites Skin: warm, normal color, No mottled Musculoskeletal: normal joint ROM, no joint effusions, generalized weakness Neurologic: AAOx3 Psychiatric: interacting appropriately, not encephalopathic, thought process linear ICD10 Worksheet Patient Problems: Problems Problem Status Onset Hyponatremia Acute Shortness of breath Acute
--- NOTE | 2017-05-14 13:22 | PDMN ---
Medical Necessity Medical necessity: C/M review: est. > 2 MN LOS for eval and TX of acute chest pain, myocardial perfusion scan pending, nausea / vomiting, diarrhea, dehydration, hyponatremia, anemia requiring planned stool studies, ongoing cardiac monitoring, IV fluids, comorbid diabetes per 05/14/2017 Hospitalist progress note.
[2017-05-14] MEDS: FERROUS SULFATE 140 MG TAB.ER PO SCH (13:55)
[2017-05-14] MEDS ORDERED: FLU VACC QS 2017-18 (3YR+)/PF 0.5 ML SYR (FLUARIX QUAD) IM ONE (14:22)
--- NOTE | 2017-05-14 14:27 | ASMTCMCOM ---
CM Note CM Note Notes: Pt admitted with chest pain, diarrhea, n/v. CP resolved. Currently on IVF and PT eval is pending. Pt lives alone and has hx of pacer and DM2. CM to follow for any d/c needs. Date Signed: 05/14/2017 02:27 PM Electronically Signed By:ERASMO Strong
[2017-05-14] MEDS: INSULIN LISPRO 100 UNIT/ML SC SCH (17:40)
[2017-05-14] MEDS: NORTRIPTYLINE HCL 10 MG CAP PO SCH (20:17)
[2017-05-14] MEDS: ASPIRIN EC 81 MG TAB PO SCH (20:17)
[2017-05-14] MEDS: TEMAZEPAM 15 MG CAP PO PRN (21:27)
[2017-05-15] MEDS: LISINOPRIL 10 MG TAB PO SCH (04:09)
[2017-05-15] MEDS: INSULIN LISPRO 100 UNIT/ML SC SCH ×3 (08:36→17:37)
[2017-05-15] MEDS: FERROUS SULFATE 140 MG TAB.ER PO SCH (08:37)
[2017-05-15] MEDS: METOCLOPRAMIDE 10 MG TAB PO SCH ×3 (08:38→17:37)
[2017-05-15] MEDS: DULoxetine 60 MG CAP PO SCH (08:38)
[2017-05-15] MEDS: ISOSORBIDE MONONITRATE 30 MG TAB.SR PO SCH (08:38)
[2017-05-15] MEDS: NEBIVOLOL HCL 5 MG TAB PO SCH (08:38)
[2017-05-15] MEDS: ROSUVASTATIN CALCIUM 10 MG TAB PO SCH (08:46)
[2017-05-15] MEDS: ACETAMINOPHEN 325 MG TAB PO PRN ×2 (08:57→21:38)
--- NOTE | 2017-05-15 15:35 | HOSPPROG ---
Hospitalist Progress Note Assessment/Plan: 76y female with c/o CP, n/v. D/W RN. D/W Cards and GI. #CP resolved trop neg stress test abnormal cards consult ordered wants diagnostic cath but will need anemia evaluated first #N/V nausea resolved, vomiting with eating, sounds mechanical in nature esophagram reviewed GI consult ordered cont supportive care #Diarrhea none since admission unable to check stool studies #Dehydration resolved with fluids in the setting of D/V #Hyponatremia resolved with hydration #Anemia iron def add replacement GI consult heme stools may need EGD and colon #DM add SSI follow #Hiatal hernia per report #Constipation since iron replacement started pt with hx of this add bowel protocol #Dispo unclear, needs further GI and cards eval cont supportive care stool studies Subjective: Feeling better. Still having some throwing up. Still having some chest discomfort when moving. Objective: Vital Signs Temp Pulse Resp BP Pulse Ox 36.9 C 93 16 122/78 H 92 05/15/17 11:44 05/15/17 11:44 05/15/17 11:44 05/15/17 11:44 05/15/17 11:44 05/14/17 05/15/17 05/16/17 05:59 05:59 05:59 Intake Total 550 Output Total 2550 Balance -2000 PT 12.2 SEC (12.0-15.0) 05/13/17 12:30 INR 0.93 (0.83-1.16) 05/13/17 12:30 - Physical Exam Constitutional: no apparent distress, appears nourished, not in pain Eyes: PERRL, anicteric sclera, EOMI Ears, Nose, Mouth, Throat: moist mucous membranes, hearing normal, ears appear normal Cardiovascular: regular rate and rhythym, No JVD, No edema Respiratory: no respiratory distress, no rales or rhonchi, reduced air movement Gastrointestinal: normoactive bowel sounds, No tenderness, No ascites Skin: warm, normal color, No erythema Musculoskeletal: normal joint ROM, no joint effusions, generalized weakness Neurologic: AAOx3 Psychiatric: interacting appropriately, not anxious, not encephalopathic, thought process linear ICD10 Worksheet Patient Problems: Problems Problem Status Onset Hyponatremia Acute Shortness of breath Acute
--- NOTE | 2017-05-15 17:12 | ECHO ---
[email or web address] [address] [address] Main: [phone] Fax: Transthoracic Echocardiogram Name: HALEY ZAVALA MR#: [id number] Study Date: 05/15/2017 Study Time: 03:08 PM Date of : 1940 Age: 76 year(s) Height: 149.9 cm (59 in.) Weight: 59.87 kg (132 lb.) BSA: 1.55 m2 Gender: Female Examination: Echo Indication: CP, abn stress; mpi unable to assess LVFX Image Quality: Adequate Contrast: Requested by: Marco Perry BP: 102 mmHg/61 mmHg Heart Rate: 75 bpm Rhythm: Normal sinus rhythm Indication: CP, abn stress; mpi unable to assess LVFX Procedure Staff Microfiche Camera Operator: Kelsey Reddy Reading Physician: Serafin Millard Requesting Provider: Conclusions: normal left ventricular size. Normal left ventricular systolic function without regional wall motion abnormalities. Sclerosis of thickening of the mitral and aortic valves. Trace mitral regurgitation mild tricuspid regurgitation with normal right ventricular systolic pressure. Measurements: Chambers Valvular Assessment AV/MV Valvular Assessment TV/PV Normal Normal Normal Name Value Range Name Value Range Name Value Range Ao Ashli (MM): 3.2 cm (2.2 cm-3.7 AV Vmax: 1.38 m/s (1 m/s-1.7 TR Vmax: 2.52 mm/s ( - ) cm) m/s) TR PGmax: 25 mmHg ( - ) IVSd (2D): 0.9 cm (0.6 cm-1.1 AV maxP mmHg ( - ) syst. PAP: 30 mmHg ( - ) cm) LVOT Vmax: 0.97 m/s (0.7 m/s-1.1 PV Vmax: 0.76 m/s (0.6 m/s-0.9 LVDd (2D): 4.2 cm (3.9 cm-5.3 m/s) m/s) cm) MV E Vmax: 0.73 m/s ( - ) PV PGmax: 2 mmHg ( - ) LVDs (2D): 2.6 cm (2.1 cm-4 MV A Vmax: 1.06 m/s ( - ) cm) MV E/A: 0.69 ( - ) LVPWd (2D): 0.9 cm ( - ) LVEF (BP): 59 % (>=55 %) Continued Measurements: Chambers Valvular Assessment AV/MV Valvular Assessment TV/PV Name Value Name Value Name Value LADs Lon.2 cm MV DecTime: 264 m/s CVP (est.): 5 mmHg LA Area: 19.4 cm2 MV E/E' Septal: 16.70 LA Volume: 58 ml MV E/E' Lateral: 17.40 LA Volume Index: 37.4 ml/m2 RA Area: 10.5 cm2 Patient: HALEY ZAVALA Study Date: 05/15/2017 Page 1 of 2 03:08 PM Additional Vessels Name Value Ao Ascendin.3 cm Findings: Left Ventricle: Normal size left ventricle. No LV hypertrophy. Normal global systolic LV function. EF is 59 %. No regional wall motion abnormality. Grade 1 diastolic dysfunction (abnormal relaxation). Right Ventricle: Normal size right ventricle. Normal RV function. Left Atrium: The left atrium is mildly dilated. Right Atrium: The right atrium is normal in size. Mitral Valve: The mitral valve is normal in appearance and function. There is mild thickening of the mitral valve leaflets. Mild mitral annular calcification. Trivial mitral valve regurgitation. Aortic Valve: The aortic valve is tri-leaflet and functions normally. Aortic sclerosis is present. There is no aortic valve regurgitation. No aortic valve stenosis is present. Tricuspid Valve: The tricuspid valve is normal in appearance and function. Mild tricuspid regurgitation is present. The pulmonary artery pressure is normal. Pulmonic Valve: Pulmonary valve not well visualized. Aorta: The aorta is normal. Normal size aortic root measuring 3.2 cm. Normal size ascending aorta measuring 3.3 cm. IVC: The IVC is normal sized. There is inspiratory collapse of the IVC. Pericardium: No pericardial effusion. (No Signature Object) Patient: HALEY ZAVALA Study Date: 05/15/2017 Page 2 of 2 03:08 PM [id number]
--- NOTE | 2017-05-15 17:12 | ECHO ---
[email or web address] [address] [address] Main: [phone] Fax: Transthoracic Echocardiogram Name: HALEY ZAVALA MR#: [id number] Study Date: 05/15/2017 Study Time: 03:08 PM Date of : 1940 Age: 76 year(s) Height: 149.9 cm (59 in.) Weight: 59.87 kg (132 lb.) BSA: 1.55 m2 Gender: Female Examination: Echo Indication: CP, abn stress; mpi unable to assess LVFX Image Quality: Adequate Contrast: Requested by: Marco Perry BP: 102 mmHg/61 mmHg Heart Rate: 75 bpm Rhythm: Normal sinus rhythm Indication: CP, abn stress; mpi unable to assess LVFX Procedure Staff Imaging Manager: Kelsey Reddy Reading Physician: Serafin Millard Requesting Provider: Conclusions: normal left ventricular size. Normal left ventricular systolic function without regional wall motion abnormalities. Sclerosis of thickening of the mitral and aortic valves. Trace mitral regurgitation mild tricuspid regurgitation with normal right ventricular systolic pressure. Measurements: Chambers Valvular Assessment AV/MV Valvular Assessment TV/PV Normal Normal Normal Name Value Range Name Value Range Name Value Range Ao Ashli (MM): 3.2 cm (2.2 cm-3.7 AV Vmax: 1.38 m/s (1 m/s-1.7 TR Vmax: 2.52 mm/s ( - ) cm) m/s) TR PGmax: 25 mmHg ( - ) IVSd (2D): 0.9 cm (0.6 cm-1.1 AV maxP mmHg ( - ) syst. PAP: 30 mmHg ( - ) cm) LVOT Vmax: 0.97 m/s (0.7 m/s-1.1 PV Vmax: 0.76 m/s (0.6 m/s-0.9 LVDd (2D): 4.2 cm (3.9 cm-5.3 m/s) m/s) cm) MV E Vmax: 0.73 m/s ( - ) PV PGmax: 2 mmHg ( - ) LVDs (2D): 2.6 cm (2.1 cm-4 MV A Vmax: 1.06 m/s ( - ) cm) MV E/A: 0.69 ( - ) LVPWd (2D): 0.9 cm ( - ) LVEF (BP): 59 % (>=55 %) Continued Measurements: Chambers Valvular Assessment AV/MV Valvular Assessment TV/PV Name Value Name Value Name Value LADs Lon.2 cm MV DecTime: 264 m/s CVP (est.): 5 mmHg LA Area: 19.4 cm2 MV E/E' Septal: 16.70 LA Volume: 58 ml MV E/E' Lateral: 17.40 LA Volume Index: 37.4 ml/m2 RA Area: 10.5 cm2 Patient: HALEY ZAVALA Study Date: 05/15/2017 Page 1 of 2 03:08 PM Additional Vessels Name Value Ao Ascendin.3 cm Findings: Left Ventricle: Normal size left ventricle. No LV hypertrophy. Normal global systolic LV function. EF is 59 %. No regional wall motion abnormality. Grade 1 diastolic dysfunction (abnormal relaxation). Right Ventricle: Normal size right ventricle. Normal RV function. Left Atrium: The left atrium is mildly dilated. Right Atrium: The right atrium is normal in size. Mitral Valve: The mitral valve is normal in appearance and function. There is mild thickening of the mitral valve leaflets. Mild mitral annular calcification. Trivial mitral valve regurgitation. Aortic Valve: The aortic valve is tri-leaflet and functions normally. Aortic sclerosis is present. There is no aortic valve regurgitation. No aortic valve stenosis is present. Tricuspid Valve: The tricuspid valve is normal in appearance and function. Mild tricuspid regurgitation is present. The pulmonary artery pressure is normal. Pulmonic Valve: Pulmonary valve not well visualized. Aorta: The aorta is normal. Normal size aortic root measuring 3.2 cm. Normal size ascending aorta measuring 3.3 cm. IVC: The IVC is normal sized. There is inspiratory collapse of the IVC. Pericardium: No pericardial effusion. (No Signature Object) Patient: HALEY ZAVALA Study Date: 05/15/2017 Page 2 of 2 03:08 PM [id number]
--- NOTE | 2017-05-15 17:12 | ECHO ---
[email or web address] [address] [address] Main: [phone] Fax: Transthoracic Echocardiogram Name: HALEY ZAVALA MR#: [id number] Study Date: 05/15/2017 Study Time: 03:08 PM Date of : 1940 Age: 76 year(s) Height: 149.9 cm (59 in.) Weight: 59.87 kg (132 lb.) BSA: 1.55 m2 Gender: Female Examination: Echo Indication: CP, abn stress; mpi unable to assess LVFX Image Quality: Adequate Contrast: Requested by: Marco Perry BP: 102 mmHg/61 mmHg Heart Rate: 75 bpm Rhythm: Normal sinus rhythm Indication: CP, abn stress; mpi unable to assess LVFX Procedure Staff First Cook: Kelsey Reddy Reading Physician: Serafin Millard Requesting Provider: Conclusions: normal left ventricular size. Normal left ventricular systolic function without regional wall motion abnormalities. Sclerosis of thickening of the mitral and aortic valves. Trace mitral regurgitation mild tricuspid regurgitation with normal right ventricular systolic pressure. Measurements: Chambers Valvular Assessment AV/MV Valvular Assessment TV/PV Normal Normal Normal Name Value Range Name Value Range Name Value Range Ao Ashli (MM): 3.2 cm (2.2 cm-3.7 AV Vmax: 1.38 m/s (1 m/s-1.7 TR Vmax: 2.52 mm/s ( - ) cm) m/s) TR PGmax: 25 mmHg ( - ) IVSd (2D): 0.9 cm (0.6 cm-1.1 AV maxP mmHg ( - ) syst. PAP: 30 mmHg ( - ) cm) LVOT Vmax: 0.97 m/s (0.7 m/s-1.1 PV Vmax: 0.76 m/s (0.6 m/s-0.9 LVDd (2D): 4.2 cm (3.9 cm-5.3 m/s) m/s) cm) MV E Vmax: 0.73 m/s ( - ) PV PGmax: 2 mmHg ( - ) LVDs (2D): 2.6 cm (2.1 cm-4 MV A Vmax: 1.06 m/s ( - ) cm) MV E/A: 0.69 ( - ) LVPWd (2D): 0.9 cm ( - ) LVEF (BP): 59 % (>=55 %) Continued Measurements: Chambers Valvular Assessment AV/MV Valvular Assessment TV/PV Name Value Name Value Name Value LADs Lon.2 cm MV DecTime: 264 m/s CVP (est.): 5 mmHg LA Area: 19.4 cm2 MV E/E' Septal: 16.70 LA Volume: 58 ml MV E/E' Lateral: 17.40 LA Volume Index: 37.4 ml/m2 RA Area: 10.5 cm2 Patient: HALEY ZAVALA Study Date: 05/15/2017 Page 1 of 2 03:08 PM Additional Vessels Name Value Ao Ascendin.3 cm Findings: Left Ventricle: Normal size left ventricle. No LV hypertrophy. Normal global systolic LV function. EF is 59 %. No regional wall motion abnormality. Grade 1 diastolic dysfunction (abnormal relaxation). Right Ventricle: Normal size right ventricle. Normal RV function. Left Atrium: The left atrium is mildly dilated. Right Atrium: The right atrium is normal in size. Mitral Valve: The mitral valve is normal in appearance and function. There is mild thickening of the mitral valve leaflets. Mild mitral annular calcification. Trivial mitral valve regurgitation. Aortic Valve: The aortic valve is tri-leaflet and functions normally. Aortic sclerosis is present. There is no aortic valve regurgitation. No aortic valve stenosis is present. Tricuspid Valve: The tricuspid valve is normal in appearance and function. Mild tricuspid regurgitation is present. The pulmonary artery pressure is normal. Pulmonic Valve: Pulmonary valve not well visualized. Aorta: The aorta is normal. Normal size aortic root measuring 3.2 cm. Normal size ascending aorta measuring 3.3 cm. IVC: The IVC is normal sized. There is inspiratory collapse of the IVC. Pericardium: No pericardial effusion. (No Signature Object) Patient: HALEY ZAVALA Study Date: 05/15/2017 Page 2 of 2 03:08 PM [id number]
[2017-05-15] MEDS: TEMAZEPAM 15 MG CAP PO PRN (21:38)
[2017-05-15] MEDS: ASPIRIN EC 81 MG TAB PO SCH (21:38)
[2017-05-15] MEDS: NORTRIPTYLINE HCL 10 MG CAP PO SCH (21:38)
[2017-05-16] MEDS: METOCLOPRAMIDE 10 MG TAB PO SCH ×3 (07:49→17:51)
[2017-05-16 08:58] LABS: PLATELET COUNT 140 10^3/uL (150-400)
[2017-05-16] MEDS: INSULIN LISPRO 100 UNIT/ML SC SCH ×3 (09:21→19:23)
[2017-05-16] MEDS: DULoxetine 60 MG CAP PO SCH (09:22)
[2017-05-16] MEDS: ISOSORBIDE MONONITRATE 30 MG TAB.SR PO SCH (09:22)
[2017-05-16] MEDS: FERROUS SULFATE 140 MG TAB.ER PO SCH (09:22)
[2017-05-16] MEDS: ROSUVASTATIN CALCIUM 10 MG TAB PO SCH (09:22)
[2017-05-16] MEDS: NEBIVOLOL HCL 5 MG TAB PO SCH (09:22)
[2017-05-16] MEDS: LISINOPRIL 10 MG TAB PO SCH (09:22)
--- NOTE | 2017-05-16 10:20 | ASMTCMCOM ---
CM Note CM Note Notes: CM spoke w/ Sofy O'Gonzalez regarding d/c POC. Pts stress test result came back abnormal. Pt is having a colonoscopy today and scheduled for a possible heart cath. As of 05/15/17, PT is recommending home independent. CM available should d/c needs arise. Date Signed: 05/16/2017 10:19 AM Electronically Signed By:GRETEL Garrido
[2017-05-16] MEDS ORDERED: PEG 3350/NA SULF,BICARB,CL/KCL (GAVILYTE-G) 4000 ML BTL PO ONE (10:24)
--- NOTE | 2017-05-16 10:42 | PDCARPN ---
Cardiology Progress Note Chief Complaint: Patient reporting episode of back pain, but no episodes of chest pressure last evening Assessment/Plan: Assessment: 76-year-old female with reported history of syncope caused by bradycardia ( uncertain of what arrhythmia) with remote pacemaker implantation, hypertension, hyperlipidemia, and reported past history of fast heart rate in which she had been on Eliquis in the past, but was stopped due to bleeding. Admitted on 05/13 for chest pain, nausea, and diarrhea. Negative troponins x2, no significant EKG changes suggesting acute ischemia. Reports no further episodes of chest pressure since hospital admission. MPI study done on 05/15, showing inferior lateral myocardial wall deficit which appeared larger on stress imaging than on rest imaging either representing inferior lateral ischemia or inferior lateral eddie-infarct ischemia. Echocardiogram done on 05/15 showing normal LV size and LV systolic function without regional wall motion abnormality cues comma EF was estimated at 59%. Mild MR. PPM check done on showed episode of what appears to be atrial tachycardia in late February, lasting 15 minutes. No other malignant arrhythmias or pauses noted. Patient only uses the device around 1% of the time. Patient noted on admission to be mildly anemic H&H of 9.4 and 28.6. Today, patient reports no chest pressure, but reports occasional episode of back pressure that brought her in on admission. Reports no shortness of breath , orthopnea PND, palpitations, lightheadedness, near-syncope or syncopal events. On continuous cardiac monitoring showing sinus rhythm with occasional PVC comma noted 2 days ago 1 run of SVT for round 16 beats. Patient was asymptomatic. H&H mildly improved to 10.2 in 32.3. Plan: 1. Chest pain/abnormal stress test: Patient with multiple cardiac risk factors including age, hypertension, hyperlipidemia, and diabetes. No further episodes of chest pressure since hospital admission. Patient reporting normal MPI study in 2012 (done in [facility]). Patient has been continued on anti- platelet therapy of aspirin, remains on beta-trena Bystolic, long-acting nitrate isosorbide. Patient denies of any significant history of CAD in the past, but is somewhat a poor historian of her medical health. We have request copies from her previous fish agent in [facility]. Reports are pending. I do think it would be valid for patient to undergo cardiac catheterization for further evaluation, but concerning with anemia, and reported bleeding history, if patient needs to be started on dual anti-platelet therapy if requiring stents. She is being worked up currently by GI, with plan colonoscopy today. Pending results, we will tentatively plan for her to undergo coronary angiogram tomorrow for evaluation. She will be made NPO after midnight. 2. Tachy-andrews arrhythmias: Patient reporting history of past bradycardic arrhythmia, ppm check done yesterday showing patient uses pacemaker around 1% of the time. Patient noted to have episodes of what appears to be atrial tachycardia on device check in late February. Patient reports in the past she has been on full anticoagulation of Eliquis for arrhythmia, but this was stopped due to bleeding issues. She will continue on current beta-trena. Again, awaiting for past medical reports from prior fish agent. Device check showed pacemaker function within normal limits. 3. Hypertension: Blood pressure appears to be fairly controlled on current doses of Bystolic, lisinopril, and isosorbide. Echocardiogram did show some diastolic dysfunction, pending on catheterization results, consideration of about potentially restarting her on low-dose diuretic. Will hold off of this time due to appearing mildly dehydrated on admission. 4. Anemia: The patient noted with initial H&H of 9 and 30. Being worked up by GI with colonoscopy later today. 5. Hyperlipidemia: Patient has resume home dosage of Crestor. 05/16/17 10:34 Subjective: Patient reports back pain last evening, but no chest pressure. Denies of any palpitations, orthopnea, lightheadedness, PND, near-syncope or syncopal events. Reviewed/Discussed With: hospitalist (Vashti MONIQUE), other (Dr Millard) Objective: Vital Signs (8 Hrs) Temp Pulse Resp BP Pulse Ox 05/16/17 09:22 66 138/87 H 05/16/17 07:21 36.3 C 66 18 138/87 H 89 L 05/16/17 04:00 36.9 C 88 14 142/77 H 91 L Intake/Output (24 Hrs) 05/15/17 05/16/17 05/17/17 05:59 05:59 05:59 Intake Total 550 Output Total 2550 Balance -1999 Intake: Oral (ml) 550 Output: Urine (ml) 2550 Toilet 2550 Other: Intake Quantity Yes Sufficient Output Comment Toilet emptied 300 from previous Number of Voids Toilet 5 3 Number of Stools Toilet 0 Result Diagrams: 05/16/17 08:46 05/14/17 04:20 - Physical Exam Constitutional: WDWN, no apparent distress Ears, Nose, Mouth, Throat: moist mucous membranes Cardiovascular: regular rate and rhythm, no murmurs, no rubs, no gallops Peripheral Pulses: 1+: dorsalis-pedis (R), dorsalis-pedis (L), 2+: carotid (R), carotid (L) Respiratory: clear to auscultate bilat, no crackles, no wheezes Gastrointestinal: normoactive bowel sounds, no tenderness, no masses Skin: no rashes, warm, no edema Neurologic: AAOx3 Psychiatric: cooperative, following commands ICD10 Worksheet Patient Problems: Problems Problem Status Onset Hyponatremia Acute Shortness of breath Acute
--- NOTE | 2017-05-16 11:24 | GCON ---
[f rep st] CONSULTATION CARDIOLOGY CONSULTATION INDICATION FOR CARDIOLOGY CONSULTATION: Chest pressure, abnormal stress testing. HISTORY OF PRESENT ILLNESS: The patient is a 76-year-old female. She reports she has recently moved from [facility] to [place] to be closer to her sons in January of this year. She reports significant past history of "slow heart rates " in which she has had pacemaker implanted in 1993. She reports she is on her current 3rd generator in which the last revision was done in 2012. She also reports past cardiology history of "irregular fast heartbeat" in which she was placed on Eliquis and reported it was discontinued due to bleeding issues. She reports few months' history of nausea and diarrhea, not reporting it happening every day, but happening more frequently. She reports symptoms had worsened on the . She also developed a mild back pain with radiation into her chest, reporting that she felt some mild shortness of breath when she lay flat but denied any diaphoresis. She reports she has had "angina" in the past in [place] in 2012, in which she was started on medications. She does report she had a stress test done in 2012, which was negative. Upon arrival to the hospital, she reports she was pretty much chest pain-free. Her initial troponin level in the emergency department was negative. Electrocardiogram was done showing sinus rhythm, leftward axis, with no significant ST or T-wave abnormalities suggesting of ischemia. She was admitted to [facility] to [facility], which she was given hydration. She reports she has had no further episodes of chest pressure or pain since hospitalization. Due to her multiple cardiac risk factors, diabetes, hyperlipidemia, age and hypertension, she did undergo myocardial perfusion imaging. Resting images were done this morning. Those results showed an inferolateral myocardial wall deficit which appeared larger on stressing images than resting images either representing inferolateral ischemia or inferolateral eddie-infarct ischemia. Unfortunately, LV function was unable to be assessed. She has had a repeated troponin in the hospital ans it has all been negative. Also described on hospitalization, the patient to be anemic with initial hemoglobin of 10.4 and 31.4. Hemoglobin repeated was 9.4 and 28 yesterday. She reports that, despite diarrhea, she has had no bloody stools. Denies any hematemesis. Reports no significant bleeding issues. Besides as mentioned above , she also denies any recent fevers, chills or night sweats. PAST MEDICAL HISTORY: Includes 1. Arrhythmias, both tachy and andrews per patient. 2. Gastroesophageal reflux disease. 3. Hypertension. 4. Hyperlipidemia. 5. Diabetes. 6. Anemia. PAST SURGICAL HISTORY: Includes pacemaker implantation, originally in 1993. Patient reports [employer] device. Last revision in 2013 in [place]. FAMILY HISTORY: The patient reports mother of emphysema. Father dying of cancer. Younger brother, who is 8 years younger, recently just diagnosed with CAD and requiring stents. SOCIAL HISTORY: She lives 1 block from her son, alone. 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 She is a for 3 years. She has 4 adult sons that are alive and well. She denies of any significant history of smoking, but does mention that she was exposed to secondhand exposure extensively from both her parents when she was a child. She drinks 1-2 alcoholic beverages a day. Denies any illicit drug use. ALLERGIES: The patient has significant allergies that include 1. Adhesives. 2. Cephalexin. 3. Niacin. 4. Sulfa. 5. Gabapentin. MEDICATIONS: 1. Crestor 5 mg p.o. daily. 2. Hydrochlorothiazide 12.5 mg p.o. b.i.d. p.r.n. 3. Reglan 10 mg p.o. a.c. 4. Vitamin D3 1000 units p.o. daily. 5. Multivitamin 1 tablet p.o. daily. 6. Vitamin B12 1000 mcg p.o. daily. 7. Aspirin 81 mg p.o. h.s. 8. Janumet mg 1 tablet p.o. b.i.d. meals. 9. Pamelor (nortriptyline) 20 mg p.o. h.s. 10. Bystolic 5 mg p.o. daily. 11. Lisinopril 10 mg p.o. daily. 12. Isosorbide 30 mg p.o. daily. 13. Levemir insulin 20 units subcu h.s. 14. Cymbalta 60 mg p.o. daily. REVIEW OF SYSTEMS: A 10-point review of systems done on this patient all negative except as mentioned above. PHYSICAL EXAMINATION: GENERAL APPEARANCE: Medium built, well-groomed female. She is alert and oriented to person, place, time and situation. Appears to be under no acute distress. VITAL SIGNS: Blood pressure 122/78. Heart rate 93 , sinus rhythm on the monitor. Respirations are 16. Saturating 92% on room air. Temperature 36.9 degrees Celsius. HEENT: Head is normocephalic. Lips and tongue are pink and moist with no signs of cyanosis. Conjunctivae pink. NECK: Trachea is midline, +2 carotid pulses bilateral. No auscultated bruits. No jugular vein distention. RESPIRATORY: Lungs are clear to auscultation. No rhonchi, rales or wheezes. No accessory muscle use. No intercostal muscle retraction noted. CARDIAC: Regular rate, regular rhythm. S1, S2. 1-2 over 6 systolic murmur along the left sternal border. No rubs or gallops noted. ABDOMEN: Soft, nontender. Bowel sounds x4 quadrants. No organomegaly. No palpable masses. SKIN: Pale, pink. Warm, dry. EXTREMITIES: No cyanosis. No clubbing. No peripheral edema. VASCULAR: +2 carotids bilateral. +2 radials bilateral. +1 dorsal pedal and posterior tibial pulses bilateral. LABORATORY: Drawn 05/14/2017: WBC of 4.03, hemoglobin 9.4, hematocrit 28.6, platelet count 135. Sodium 135, potassium 3.9, chloride 97, CO2 28, BUN 11, creatinine 0.6, glucose 133, calcium 9.0. The patient did have an iron study done on the 05/13/2017, showing iron of 23.0, TIBC 435 and saturation 5, ferritin 7.9. Patient noted to have 2 troponin levels drawn since admission; both of them less than 0.012. On admission, was noted to have a proBNP of 311. UA was done showing a specific gravity of 1.035. The rest are negative. IMAGING: Chest x-ray on admission showing no acute cardiopulmonary process with dual chamber pacemaker implantation. CTA of the chest done on 05/13/2017, showing negative CT exam for acute pulmonary thrombolytic disease. Myocardial perfusion imaging as mentioned above. Electrocardiogram on admission as mentioned above. ASSESSMENT/PLAN: 1. Chest pain, abnormal stress test. Patient reports no further episodes of chest pain since hospital admission. Reports no significant history of coronary artery disease. Does have cardiac risk factors including age, hypertension, hyperlipidemia, diabetes. Reporting she had a normal stress test in 2012 in [place] by her previous director of physiotherapy services. Recommendation is for patient to undergo further evaluation for cardiac ischemia by coronary angiogram. We are somewhat hesitant at this time especially in light of her recent anemia due to unknown cause, Negative troponins, and having no further episodes of chest pain. I have discussed this with Sofy MONIQUE of the hospitalist services, who will be consulting GI for further evaluation prior to Heart catheterization. At the current time, she will continue on current anti-platelet therapy of aspirin. She is also already on a beta-trena of Bystolic and isosorbide. Pending results of her GI workup, we will schedule her for a coronary angiogram to follow; more than likely be done on Monday. We will attempt to contact her director of physiotherapy services in [place] and try to get her old records to evaluate what arrhythmias she has had, any previous echocardiogram results, pacemaker results and stress testing results. Will order for patient to have an echocardiogram evaluate LV systolic function comma since MPI study was unable to determine. 2. History of arrhythmias. The patient is uncertain of exactly what arrhythmias she has had, but it does sound like a tachy arrhythmia in the past and bradycardia. She does have a permanent pacemaker. She knows device is [employer]. I have asked the [employer] rep to come out and interrogate her device. She will need long-term followup. Before she is discharged, I would like to make sure that she is entered into our [facility] for future followup. On continuous cardiac monitoring since she has been in the hospital, it appears she has been sinus rhythm with rare premature ventricular contraction. No pauses have been noted. I did note one 16-beat of supraventricular tachycardia at 2 a.m. on 05/13/2017. The patient denies of any palpitations, lightheadedness , near-syncope or syncopal events. 3. Hyperlipidemia. Patient with noted history of hyperlipidemia. She has been continued on her current Crestor dosage. 4. Hypertension. Her blood pressure appears fairly well controlled at the current time. No change in her Bystolic as mentioned above. Continue on current dose of lisinopril. Thank you for this consultation. We will be glad to follow along with you. /[id number]/MODL MTDD
--- NOTE | 2017-05-16 14:58 | HOSPPROG ---
Hospitalist Progress Note Assessment/Plan: 76y female with c/o CP, n/v. D/W RN. D/W Cards and GI. #CP resolved trop neg stress test abnormal cards consult appreciated needs cath but will need anemia evaluated first #N/V nausea resolved, vomiting with eating, sounds mechanical in nature esophagram reviewed GI consult ordered EGD today cont supportive care #Diarrhea none since admission unable to check stool studies #Dehydration resolved with fluids in the setting of D/V #Hyponatremia resolved with hydration #Anemia iron def add replacement GI consult heme stools getting EGD and colon today #DM add SSI follow #Hiatal hernia per report #Constipation since iron replacement started pt with hx of this bowel prep today #Hx ulcerative colitis pt from [place], trying to get records #Dispo unclear, needs further GI and cards eval cont supportive care stool studies Subjective: Still feeling weak. Eating well. Still some throwing up. Objective: Vital Signs Temp Pulse Resp BP Pulse Ox 36.6 C 77 14 136/80 H 91 L 05/16/17 11:36 05/16/17 11:36 05/16/17 11:36 05/16/17 11:36 05/16/17 11:36 Laboratory Results 05/16/17 08:46 05/15/17 05/16/17 05/17/17 05:59 05:59 05:59 Intake Total 550 Output Total 2550 Balance -2000 PT 12.2 SEC (12.0-15.0) 05/13/17 12:30 INR 0.93 (0.83-1.16) 05/13/17 12:30 - Physical Exam Constitutional: no apparent distress, appears nourished, not in pain Eyes: PERRL, anicteric sclera, EOMI Ears, Nose, Mouth, Throat: moist mucous membranes, hearing normal, ears appear normal Cardiovascular: regular rate and rhythym, No JVD, No edema Respiratory: no respiratory distress, no rales or rhonchi, reduced air movement Gastrointestinal: normoactive bowel sounds, No tenderness, No ascites, No guarding Skin: warm, normal color, No erythema Musculoskeletal: full muscle strength, normal joint ROM, no joint effusions Neurologic: AAOx3 Psychiatric: interacting appropriately, not anxious, not encephalopathic, thought process linear ICD10 Worksheet Patient Problems: Problems Problem Status Onset Hyponatremia Acute Shortness of breath Acute
[2017-05-16] MEDS: ACETAMINOPHEN 325 MG TAB PO PRN ×2 (17:51→22:20)
[2017-05-16] MEDS: ASPIRIN EC 81 MG TAB PO SCH (22:14)
[2017-05-16] MEDS: NORTRIPTYLINE HCL 10 MG CAP PO SCH (22:14)
[2017-05-16] MEDS: TEMAZEPAM 15 MG CAP PO PRN (22:20)
--- NOTE | 2017-05-17 03:32 | GCON ---
[f rep st] CONSULTATION GI CONSULTATION DATE OF CONSULTATION: 05/16/2017 CHIEF COMPLAINT: Chest pain, weakness, diarrhea, and nausea and vomiting. HISTORY OF PRESENT ILLNESS: The patient is a 76-year-old female who was admitted today with recent onset of watery diarrhea, as well as recurrent nausea and vomiting. I was asked to see this patient in consultation by Dr Micheal helton the above symptosm. She does have a longstanding history of GERD, as well as remote history of ulcerative colitis of greater than 20 years duration. Her last colonoscopy was performed 2 years ago in [facility], which she states was normal. She has not had a recent esophagogastroduodenoscopy. She has relocated from [facility] to [place] several years ago. MEDICATION: Prior to admission included Humalog insulin, Imdur, Zestril, Raglan , Bystolic, Nitrostat, and daily aspirin. ALLERGIES: She is allergic to adhesives, cephalosporins, niacin, sulfamethoxazole, and gabapentin. PAST MEDICAL HISTORY: Significant for type 2 diabetes mellitus, GERD, remote history of ulcerative colitis which has "burned out", essential hypertension, and a history of cervical fracture which was not treated surgically. SOCIAL HISTORY: She does not drink alcohol or smoke tobacco. She lives independently and alone. She has 2 sons who live in the area. FAMILY HISTORY: Negative for GI malignancies or inflammatory bowel disease, peptic ulcer disease. REVIEW OF SYSTEMS: Significant for heartburn, recurrent nausea and vomiting, diarrhea which has resolved since admission. Otherwise, comprehensive review of systems is negative. PHYSICAL EXAMINATION: VITAL SIGNS: On my examination, temperature 36.3 Celsius , pulse 68, respiratory rate 12, blood pressure 136/69, O2 saturation 90% on room air. GENERAL: Well developed, well nourished female in no apparent distress. INTEGUMENT: Clear without ecchymosis. HEENT: Head atraumatic, normocephalic. Pupils equally round, reactive to light. EOMs intact. Sclerae nonicteric. Nares patent. Mucous membranes moist. Dentition good. NECK: Supple. Trachea was midline. LYMPHATICS: No palpable cervical adenopathy. PULMONARY: Lungs show decreased breath sounds bilaterally without wheezing or rhonchi. CARDIOVASCULAR: Regular rhythm rate. Normal S1, S2 without murmur. Peripheral pulses strong bilaterally. No pedal edema. GASTROINTESTINAL: Abdomen protuberant and soft. Positive bowel sounds. No fluid wave. No liver edge or spleen tip palpable. EXTREMITIES: Without deformity. NEUROLOGIC: Patient was alert, oriented x3. There are no focal neurologic deficits. LABORATORY DATA: White count 4.59, hemoglobin 10.2, hematocrit 32.3, MCV 77.1, MCHC 31.6. RDW 17.4, blood sugar 235. Prothrombin time 12.2, INR 0.93, PTT 27.1. Radionucleotide: Myocardial perfusion stress and rest scan showed inferior lateral myocardial wall defect, larger on stress images versus rest. Echocardiogram revealed normal LV size, normal LV systolic function without regional wall motion abnormalities. Sclerotic thickening of the mitral and aortic valves with trace mitral regurgitation. Mild tricuspid regurgitation and normal right ventricular systolic pressure. IMPRESSION: 1. History of diarrhea in a patient with longstanding ulcerative colitis, it has since resolved, rule out active colitis. 2. Microcytic anemia. Rule out iron deficiency. Rule out GI malignancy or peptic ulcer disease. 3. Questionable underlying atherosclerotic cardiovascular disease. 4. History of gastroesophageal reflux disease, rule out Browning's esophagus. 5. Type 2 diabetes mellitus. RECOMMENDATIONS: 1. Colyte prep. 2. Esophagogastroduodenoscopy and total colonoscopy tomorrow with propofol anesthesia. Copy requested to: Domingo Garcia /[id number]/MODL MTDD
[2017-05-17 05:23] LABS: INR 1.12 (0.83-1.16); PROTIME(PATIENT) 14.3 SEC (12.0-15.0)
[2017-05-17] MEDS ORDERED: NS 1,000 ML IV ONE (06:00)
[2017-05-17] MEDS ORDERED: ATROPINE SULFATE 1 MG/10 ML SYR IVP ONE (06:00)
--- NOTE | 2017-05-17 08:01 | PDANEPAE ---
ANE Past Medical History - Cardiovascular History Hx Hypertension: Yes Hx Arrhythmias: Yes Hx Chest Pain: Yes - Pulmonary History Hx Oxygen in Use at Home: No Hx Sleep Apnea: No Sleep Apnea Screening Result - Last Documented: Positive - Endocrine History Hx Diabetes: Yes - Chronic Pain History Chronic Pain: No ANE Review of Systems Review of Systems: - Pacemaker Pacemaker [employer] Professional: 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 Model: [id number] Date Pacemaker Last Checked: during this admit ANE Patient History - Allergies Allergies/Adverse Reactions: adhesive Allergy (Intermediate, Verified 05/13/17 12:16) Rash cephalexin Allergy (Intermediate, Verified 05/13/17 12:16) Rash niacin Allergy (Intermediate, Verified 05/13/17 12:16) Rash sulfamethoxazole [Sulfamethoxazole] Allergy (Intermediate, Verified 05/13/17 12: 16) "UPSET STOMACH" gabapentin Allergy (Unknown, Verified 05/13/17 12:16) UNABLE TO FALL ASLEEP - Home Medications Home Medications: Aspirin EC [Aspirin EC 81 mg (*)] 81 mg PO HS 05/13/17 [Last Taken 05/12/17] Cholecalciferol Vit D3 [Vitamin D3 (*)] 1,000 units PO DAILY 05/13/17 [Last Taken 05/13/17] Cyanocobalamin [Vitamin B12 (*)] 1,000 mcg PO DAILY 05/13/17 [Last Taken ] DULoxetine [Cymbalta 60 MG (*)] 60 mg PO DAILY 05/13/17 [Last Taken 05/13/17] Herbals/Supplements -Info Only 1 ea PO DAILY 05/13/17 [Last Taken Unknown] Hydrochlorothiazide [HCTZ (*)] 12.5 mg PO BID PRN 05/13/17 [Last Taken Unknown] Insulin Detemir [Levemir Flextouch] 20 unit SQ HS 05/13/17 [Last Taken 05/12/17] Isosorbide Mononitrate [Imdur 30 mg (*)] 30 mg PO DAILY 05/13/17 [Last Taken ] Lisinopril [Zestril 10 mg (*)] 10 mg PO DAILY 05/13/17 [Last Taken 05/13/17] Metoclopramide [Reglan 10 mg tab (*)] 10 mg PO AC 05/13/17 [Last Taken 05/13/17] Multivitamins [Multivitamin (*)] 1 each PO DAILY 05/13/17 [Last Taken 05/13/17] Nebivolol HCl [Bystolic 5 mg (*)] 5 mg PO DAILY 05/13/17 [Last Taken 05/13/17] Nortriptyline HCl [Pamelor 10 mg (*)] 20 mg PO HS 05/13/17 [Last Taken 05/12/17] Rosuvastatin Calcium [Crestor 5mg] 5 mg PO DAILY 05/13/17 [Last Taken 05/13/17] Sitagliptin Phos/Metformin HCl [Janumet 50-1,000 mg Tablet] 1 each PO BIDMEAL [Last Taken 05/13/17 09:00] - NPO status NPO Since - Liquids (Date): 05/17/17 NPO Since - Liquids (Time): 00:00 NPO Since - Solids (Date): 05/17/17 NPO Since - Solids (Time): 00:00 - Smoking Hx Smoking Status: Never smoked - Alcohol Use Alcohol Use: None ANE Labs/Vital Signs - Labs Result Diagrams: 05/16/17 08:46 05/17/17 04:19 - Vital Signs Blood Pressure: 86/60 Heart Rate: 108 Respiratory Rate: 9 O2 Sat (%): 100 Height: 152.4 cm Weight: 60.129 kg ANE Physical Exam - Airway Mallampati Score: Class 2 - ASA Status ASA Status: III ANE Anesthesia Plan Total IV Anesthesia: Yes
[2017-05-17] MEDS ORDERED: LR 1,000 ML IV ONE (08:12)
[2017-05-17] MEDS ORDERED: PROPOFOL/EMULSION 500 MG/50 ML BOTTLE IV ONE (08:14)
--- NOTE | 2017-05-17 08:35 | HOSPPROG ---
Hospitalist Progress Note Assessment/Plan: 76y female with c/o CP. Reviewed her care with the nursing staff. Patient had a large Liquid red bloody bowel movement this morning. The plan was her to get a colonoscopy and EGD. Of note she was also hypotensive and tachycardic. #CP echo ok trop neg stress test abnormal cards consult appreciated needs cath but will need anemia evaluated first # hypotension Parameters placed on when to hold blood pressure medications Due to blood loss #N/V none during my evaluation #Diarrhea GI panel is negative #Dehydration resolved with fluids #Hyponatremia resolved with hydration #Anemia iron def EGD was done and it was noted that she had a hiatal hernia that was clipped Notes from procedures not posted yet Hemoglobin down to 6.8 and hematocrit 21.1 Will give her 2 units of packed red blood cells with Lasix in between #DM add SSI follow #Hiatal hernia per report #Constipation since iron replacement started pt with hx of this bowel prep today #Hx ulcerative colitis pt from [place] area #Dispo: Reviewed her care with Cardiology. They would like to do a heart catheterization when she is stable. In the meantime will transfer to ICU for close monitoring. Will give her 2 units of packed red blood cells with Lasix in between. I reviewed this plan with the patient. And she is comfortable with being transferred to the unit for further and closer monitoring. During my evaluation she is not having any chest pain. Of note aspirin has been placed on hold Subjective: Sarah has no complaints of pain. Just up from the endoscopy suite Objective: Vital Signs Temp Pulse Resp BP Pulse Ox 98.5 C H 108 H 9 L 86/60 L 100 05/17/17 08:13 05/17/17 08:13 05/17/17 08:13 05/17/17 08:13 05/17/17 08:13 Microbiology 05/16/17 Unknown Gastrointestinal Tract Panel (PCR) - Final Stool No Organism Detected Laboratory Results 05/16/17 08:46 05/17/17 04:19 05/16/17 05/17/17 05/18/17 05:59 05:59 05:59 Output Total 1999 Balance -1999 PT 14.3 SEC (12.0-15.0) 05/17/17 04:19 INR 1.12 (0.83-1.16) 05/17/17 04:19 - Physical Exam Constitutional: no apparent distress, not in pain, chronically ill appearing Eyes: PERRL Ears, Nose, Mouth, Throat: hearing normal Cardiovascular: regular rate and rhythym, no murmur, rub, or gallop, tachycardia Respiratory: no respiratory distress Skin: warm, No normal color (Pale) Neurologic: AAOx3 Psychiatric: interacting appropriately, not anxious, not encephalopathic, thought process linear ICD10 Worksheet Patient Problems: Problems Problem Status Onset Hyponatremia Acute Shortness of breath Acute
[2017-05-17] MEDS ORDERED: fentaNYL 100 MCG/2 ML INJ IVP PRN (08:54)
[2017-05-17] MEDS ORDERED: NALOXONE HCL 0.4 MG/ML INJ IVP PRN (08:54)
[2017-05-17] MEDS ORDERED: LR 500 ML IV PRN (08:54)
--- NOTE | 2017-05-17 08:56 | POSTANESTH ---
Post Anesthetic Evaluation Cardiovascular Status: Other, See Comment (Stat hematocrit returned 21, t&c sent , hemodynamics stable.) Respiratory Status: Normal, Stable Level of Consciousness/Mental Status: Can Participate in Eval Pain Control: Adequate, Prn Tx Ordered Nausea/Vomiting Control: Adequate, Prn Tx Ordered Complications Possibly Related to Anesthesia: None Noted
--- NOTE | 2017-05-17 08:57 | GIREPORT ---
[facility] - Endoscopy Department Patient Name: Sarah Braswell Procedure Date: 05/17/2017 7:51 AM Patient Type: Inpatient Attending MD/ ER Physician: Joey Love MD Procedure: Upper GI endoscopy Indications: Heartburn, Melena, Iron deficiency anemia Providers: Joey Love MD Medicines: Monitored Anesthesia Care Complications: No immediate complications. Description of Procedure: After obtaining informed consent, the endoscope was passed under direct vision. Throughout the procedure, the patient's blood pressure, pulse, and oxygen saturations were monitored continuously. The Endoscope was intro duced through the mouth, and advanced to the second part of duodenum. The [facility] er GI endoscopy was accomplished without difficulty. The patient tolerated th e procedure well. Findings: The examined esophagus was normal. A medium-sized hiatal hernia was present. One oozing cratered and linear gastric ulcer with a visible vessel was found in the hiatal hernia/cardia. The lesion was 10 mm in largest dimension. For hemostasis, four hemostatic clips were successfully placed. There was n o bleeding at the end of the procedure. The gastric fundus, gastric body and gastric antrum were normal. The examined duodenum was normal. Estimated Blood Loss: Estimated blood loss: none. Estimated blood loss was minimal. Post Op Diagnosis: - Normal esophagus. - Medium-sized hiatal hernia. - Oozing gastric ulcer with a visible vessel. Clips were placed. - Normal gastric fundus, gastric body and antrum. - Normal examined duodenum. - No specimens collected. Recommendation: - Return patient to [facility] for [facility] care. - Clear liquid diet today. - Type and cross 2 u prbc and transfuse today (HGB 6.8 this morning). - Give Protonix (pantoprazole): initiate therapy with 80 mg IV bolus, t hen 8 mg/hr IV by continuous infusion today. - Colonoscopy cancelled today due to patient's deteriated medical condi tion (severe anemia) as well as inadequite prep (likely melena throughout co melyssa). Attending Participation: I personally performed the entire procedure. Joey Love MD Joey Love MD 05/17/2017 8:56:33 AM This report has been signed electronicallyJoey Love MD Number of Addenda: 0 Note Initiated On: 05/17/2017 7:51 AM [email or web address]
--- NOTE | 2017-05-17 08:57 | GIREPORT ---
[facility] Surgical Services - Endoscopy Department Patient Name: Sarah Braswell Procedure Date: 05/17/2017 7:51 AM Patient Type: Inpatient Attending MD/ ER Physician: Joey Love MD Procedure: Upper GI endoscopy Indications: Heartburn, Melena, Iron deficiency anemia Providers: Joey Love MD Medicines: Monitored Anesthesia Care Complications: No immediate complications. Description of Procedure: After obtaining informed consent, the endoscope was passed under direct vision. Throughout the procedure, the patient's blood pressure, pulse, and oxygen saturations were monitored continuously. The Endoscope was intro duced through the mouth, and advanced to the second part of duodenum. The [facility] er GI endoscopy was accomplished without difficulty. The patient tolerated th e procedure well. Findings: The examined esophagus was normal. A medium-sized hiatal hernia was present. One oozing cratered and linear gastric ulcer with a visible vessel was found in the hiatal hernia/cardia. The lesion was 10 mm in largest dimension. For hemostasis, four hemostatic clips were successfully placed. There was n o bleeding at the end of the procedure. The gastric fundus, gastric body and gastric antrum were normal. The examined duodenum was normal. Estimated Blood Loss: Estimated blood loss: none. Estimated blood loss was minimal. Post Op Diagnosis: - Normal esophagus. - Medium-sized hiatal hernia. - Oozing gastric ulcer with a visible vessel. Clips were placed. - Normal gastric fundus, gastric body and antrum. - Normal examined duodenum. - No specimens collected. Recommendation: - Return patient to [facility] for [facility] care. - Clear liquid diet today. - Type and cross 2 u prbc and transfuse today (HGB 6.8 this morning). - Give Protonix (pantoprazole): initiate therapy with 80 mg IV bolus, t hen 8 mg/hr IV by continuous infusion today. - Colonoscopy cancelled today due to patient's deteriated medical condi tion (severe anemia) as well as inadequite prep (likely melena throughout co melyssa). Attending Participation: I personally performed the entire procedure. Joey Love MD Joey Love MD 05/17/2017 8:56:33 AM This report has been signed electronicallyJoey Love MD Number of Addenda: 0 Note Initiated On: 05/17/2017 7:51 AM [email or web address]
--- NOTE | 2017-05-17 08:57 | GIREPORT ---
[facility] Surgical Services - Endoscopy Department Patient Name: Sarah Braswell Procedure Date: 05/17/2017 7:51 AM Patient Type: Inpatient Attending MD/ ER Physician: Joey Love MD Procedure: Upper GI endoscopy Indications: Heartburn, Melena, Iron deficiency anemia Providers: Joey Love MD Medicines: Monitored Anesthesia Care Complications: No immediate complications. Description of Procedure: After obtaining informed consent, the endoscope was passed under direct vision. Throughout the procedure, the patient's blood pressure, pulse, and oxygen saturations were monitored continuously. The Endoscope was intro duced through the mouth, and advanced to the second part of duodenum. The [facility] er GI endoscopy was accomplished without difficulty. The patient tolerated th e procedure well. Findings: The examined esophagus was normal. A medium-sized hiatal hernia was present. One oozing cratered and linear gastric ulcer with a visible vessel was found in the hiatal hernia/cardia. The lesion was 10 mm in largest dimension. For hemostasis, four hemostatic clips were successfully placed. There was n o bleeding at the end of the procedure. The gastric fundus, gastric body and gastric antrum were normal. The examined duodenum was normal. Estimated Blood Loss: Estimated blood loss: none. Estimated blood loss was minimal. Post Op Diagnosis: - Normal esophagus. - Medium-sized hiatal hernia. - Oozing gastric ulcer with a visible vessel. Clips were placed. - Normal gastric fundus, gastric body and antrum. - Normal examined duodenum. - No specimens collected. Recommendation: - Return patient to [facility] for [facility] care. - Clear liquid diet today. - Type and cross 2 u prbc and transfuse today (HGB 6.8 this morning). - Give Protonix (pantoprazole): initiate therapy with 80 mg IV bolus, t hen 8 mg/hr IV by continuous infusion today. - Colonoscopy cancelled today due to patient's deteriated medical condi tion (severe anemia) as well as inadequite prep (likely melena throughout co melyssa). Attending Participation: I personally performed the entire procedure. Joey Love MD Joey Love MD 05/17/2017 8:56:33 AM This report has been signed electronicallyJoey Love MD Number of Addenda: 0 Note Initiated On: 05/17/2017 7:51 AM [email or web address]
[2017-05-17] MEDS ORDERED: ACETAMINOPHEN 325 MG TAB PO ONE (09:53)
[2017-05-17] MEDS ORDERED: FUROSEMIDE 20 MG/2 ML VIAL IVP ONE (09:53)
[2017-05-17] MEDS: PANTOPRAZOLE SODIUM 80 MG in NS 100 ML IV SCH ×2 (12:29→20:12)
[2017-05-17] MEDS: INSULIN LISPRO 100 UNIT/ML SC SCH ×4 (12:59→18:14)
[2017-05-17] MEDS: DULoxetine 60 MG CAP PO SCH (13:00)
[2017-05-17] MEDS: FERROUS SULFATE 140 MG TAB.ER PO SCH (13:00)
[2017-05-17] MEDS: ROSUVASTATIN CALCIUM 10 MG TAB PO SCH (13:01)
[2017-05-17] MEDS: ISOSORBIDE MONONITRATE 30 MG TAB.SR PO SCH (13:02)
[2017-05-17] MEDS: LISINOPRIL 10 MG TAB PO SCH (13:03)
[2017-05-17] MEDS: METOCLOPRAMIDE 10 MG TAB PO SCH ×2 (13:03→18:14)
[2017-05-17] MEDS: NEBIVOLOL HCL 5 MG TAB PO SCH (13:06)
--- NOTE | 2017-05-17 14:07 | PDCARPN ---
Cardiology Progress Note Chief Complaint: Patient reports significant fatigue. Assessment/Plan: Assessment: 76-year-old female with reported history of syncope caused by bradycardia ( uncertain of what arrhythmia) with remote pacemaker implantation, hypertension, hyperlipidemia, and reported past history of fast heart rate in which she had been on Eliquis in the past, but was stopped due to bleeding. Admitted on 05/13 for chest pain, nausea, and diarrhea. Negative troponins x2, no significant EKG changes suggesting acute ischemia. Reports no further episodes of chest pressure since hospital admission. MPI study done on 05/15, showing inferior lateral myocardial wall deficit which appeared larger on stress imaging than on rest imaging either representing inferior lateral ischemia or inferior lateral eddie-infarct ischemia. Echocardiogram done on 05/15 showing normal LV size and LV systolic function without regional wall motion abnormality cues comma EF was estimated at 59%. Mild MR. PPM check done on showed episode of what appears to be atrial tachycardia in late February, lasting 15 minutes. No other malignant arrhythmias or pauses noted. Patient only uses the device around 1% of the time. Patient noted on admission to be mildly anemic H&H of 9.4 and 28.6. Patient was prepped colonoscopy and EGD today, unfortunately, earlier this morning she became hypotensive, H&H drop (6.8 and 21.1) , was taken to GI at lab by Dr. Love. Upper GI was done, noting large gastric ulcer and hiatal hernia requiring for clips. Colonoscopy was not done due to do to deteriorating medical condition and melena throughout colon. She been transferred to the intensive care unit. Her blood pressures been stable. She remains in sinus rhythm, occasional PVC, no other malignant arrhythmias noted. She informs me she has had no chest pain or pressure. Her lisinopril has been held due to hypotension. Her aspirin is also on hold. She is currently awaiting to be transfused 2 units of PRBC. I have been able to review her most recent office visit from previous cullet crusher and washer in [facility], Dr Hoyos, reviewing the records, it shows she has significant past cardiac history that includes hypertension, previous history of syncope, AV lobo disease, paroxysmal SVT, hyperlipidemia, CAD (uncertain of diagnosis no catheterization report with records), and history of heart failure at higher [place]. Plan: 1. Chest pain/abnormal stress test: Per patient's prior cullet crusher and washer, patient with known history of CAD. Patient with multiple cardiac risk factors including age, hypertension, hyperlipidemia, and diabetes. No further episodes of chest pressure since hospital admission. Stress testing during this hospitalization showed inferior lateral wall ischemia. Patient has had no further episodes of chest pressure or pain. Echocardiogram noted to have normal LV wall motion, with EF of 59%. At this current time, in the setting of GI bleed, We will not be taking her to the cardiac catheterization lab, until bleeding has resolved, and she is cleared by GI, unless absolutely necessary. Aspirin therapy has been held in the setting of GI bleeding. She remains on beta-trena Bystolic and long-acting nitrate Imdur. She is planning to have 2 units of packed red blood cells transfused today, would consider goal of transfusion of Hct of 30 with suspected underlying ischemic heart disease. 2. Tachy-andrews arrhythmias: Reviewing patient's previous cullet crusher and washer notes, showing patient with history of PSVT, and AV node disease, ppm check done during this admission, patient uses pacemaker around 1% of the time. Patient noted to have episodes of what appears to be atrial tachycardia on device check in late February. Device functioning within normal limits. Patient is on continuous cardiac 3. Hypertension: Blood pressure appears to be fairly controlled on current doses of Bystolic, lisinopril, and isosorbide. Echocardiogram did show some diastolic dysfunction, pending on catheterization results, consideration of about potentially restarting her on low-dose diuretic. Will hold off of this time due to appearing mildly dehydrated on admission. 4. Anemia: Upper EGD done today, showing large gastric ulcer, requiring clips. Drop in H&H, plan on transfusion today. Colonoscopy was not done at this time. 5. Hyperlipidemia: Patient has resume home dosage of Crestor. 05/17/17 14:07 Subjective: She denies of any chest pressure, palpitations, orthopnea, lightheadedness. Reviewed/Discussed With: hospitalist (Catrina Scott NP), other (Dr Millard and Dr Wang) Objective: Vital Signs (8 Hrs) Temp Pulse Resp BP Pulse Ox 05/17/17 13:06 102 H 135/71 H 05/17/17 12:00 101 H 16 135/71 H 100 05/17/17 09:54 97 16 125/69 H 100 05/17/17 09:32 133/77 H 100 11/01/17 09:26 148/83 H 100 05/17/17 09:23 37.0 C 91 16 151/79 H 86 L 05/17/17 09:11 118/70 95 05/17/17 09:06 17 118/63 96 05/17/17 09:01 16 99/54 L 98 05/17/17 08:57 20 90/54 L 96 05/17/17 08:51 20 106/53 L 97 05/17/17 08:49 18 103/60 96 05/17/17 08:13 98.5 C H 108 H 9 L 86/60 L 100 05/17/17 08:01 108 H 9 L 86/60 L 100 05/17/17 07:27 98.5 C H 108 H 9 L 86/60 L 100 05/17/17 07:15 36.9 C 108 H 9 L 86/60 L 100 Intake/Output (24 Hrs) 05/16/17 05/17/17 05/18/17 05:59 05:59 05:59 Intake Total 1650 Output Total 1999 Balance -1999 1650 Intake: IV Intake (ml) 1650 Output: Liquid Stool (ml) 1999 Bedside Commode 1000 Toilet 1000 Other: Weight 60.129 kg Intake Quantity Yes Sufficient Number of Voids Toilet 3 Number of Stools Bedside Commode 1 Result Diagrams: 05/17/17 08:05 05/17/17 04:19 - Physical Exam Constitutional: no apparent distress, other (Pale) Ears, Nose, Mouth, Throat: moist mucous membranes Cardiovascular: regular rate and rhythm, pulses symmetric bilat, No jugular vein distention Respiratory: clear to auscultate bilat, no crackles, no wheezes Skin: no edema, other (Pale) Neurologic: AAOx3 Psychiatric: cooperative, following commands ICD10 Worksheet Patient Problems: Problems Problem Status Onset Hyponatremia Acute Shortness of breath Acute
--- NOTE | 2017-05-17 14:33 | CPEKG ---
Heart Rate: 95 RR Interval: 632 P-R Interval: 144 QRSD Interval: 88 QT Interval: 360 QTC Interval: 453 P [place]: 51 QRS [place]: 22 T Wave [place]: 40 EKG Severity - ABNORMAL ECG - EKG Impression: SINUS RHYTHM EKG Impression: PROBABLE INFERIOR INFARCT, OLD EKG Impression: CONSIDER POSTERIOR WALL INVOLVEMENT Electronically Signed By: Lucas Madrid 17-May-2017 17:38:44
--- NOTE | 2017-05-17 14:33 | CPEKG ---
Heart Rate: 95 RR Interval: 632 P-R Interval: 144 QRSD Interval: 88 QT Interval: 360 QTC Interval: 453 P [place]: 51 QRS [place]: 22 T Wave [place]: 40 EKG Severity - ABNORMAL ECG - EKG Impression: SINUS RHYTHM EKG Impression: PROBABLE INFERIOR INFARCT, OLD EKG Impression: CONSIDER POSTERIOR WALL INVOLVEMENT Electronically Signed By: Lucas Madrid 17-May-2017 17:38:44
[2017-05-17] MEDS: NORTRIPTYLINE HCL 10 MG CAP PO SCH (21:02)
[2017-05-17] MEDS: NITROGLYCERIN 0.4 MG BTL SL PRN (21:04)
[2017-05-17] MEDS ORDERED: FUROSEMIDE 20 MG/2 ML VIAL ONE (23:58)
[2017-05-18] MEDS: TEMAZEPAM 15 MG CAP PO PRN ×2 (01:26→22:21)
[2017-05-18] MEDS: PANTOPRAZOLE SODIUM 80 MG in NS 100 ML IV SCH (05:21)
[2017-05-18 05:34] LABS: PLATELET COUNT 105 10^3/uL (150-400)
[2017-05-18] MEDS: METOCLOPRAMIDE 10 MG TAB PO SCH ×3 (08:55→19:05)
--- NOTE | 2017-05-18 09:07 | SOAPPROG ---
SOAP Progress Note Assessment/Plan: Assessment: 1. UGI bleed secondary to hiatal hernia ulcer; s/p endo-clipped x 4 with hemostasis. 2. Post-hemorrhagic anemia; improved after transfusion of prbcs. 3. 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 4. Probable IHD. Plan: 1. No need for colonoscopy from GI perspective at this time. 2. 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 3. Regular diet. 4. Daily H/H. 5. Cardiac work-up per [employer] humanities council director. Joey Love MD 05/18/17 09:09 Subjective: CC: Bleeding . Interval HPI: No BM since endoscopy. Tolerating po clears. Objective: Vital Signs Temp Pulse Resp BP Pulse Ox 36.6 C 94 16 161/68 H 98 05/18/17 04:00 05/18/17 04:00 05/18/17 04:00 05/18/17 04:00 05/18/17 04:00 Laboratory Results 05/18/17 04:36 05/18/17 04:36 05/17/17 05/18/17 05/19/17 05:59 05:59 05:59 Intake Total 3283 Output Total 1999 1000 Balance -1999 2283 PT 14.3 SEC (12.0-15.0) 05/17/17 04:19 INR 1.12 (0.83-1.16) 05/17/17 04:19 Physical Exam - Physical Exam General Appearance: WD/WN, alert, no apparent distress Neck: supple Respiratory: lungs clear, normal breath sounds Cardiac/Chest: normal peripheral pulses, regular rate, rhythm Abdomen: normal bowel sounds, non-tender, soft Skin: normal color, warm/dry Neuro/Psych: alert, normal mood/affect, oriented x 3 ICD10 Worksheet Patient Problems: Problems Problem Status Onset Hyponatremia Acute Shortness of breath Acute
--- NOTE | 2017-05-18 09:07 | SOAPPROG ---
SOAP Progress Note Assessment/Plan: Assessment: 1. UGI bleed secondary to hiatal hernia ulcer; s/p endo-clipped x 4 with hemostasis. 2. Post-hemorrhagic anemia; improved after transfusion of prbcs. 3. 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 4. Probable IHD. Plan: 1. No need for colonoscopy from GI perspective at this time. 2. 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 3. Regular diet. 4. Daily H/H. 5. Cardiac work-up per electrical and instrument mechanic. Joey Love MD 05/18/17 09:09 Subjective: CC: Bleeding . Interval HPI: No BM since endoscopy. Tolerating po clears. Objective: Vital Signs Temp Pulse Resp BP Pulse Ox 36.6 C 94 16 161/68 H 98 05/18/17 04:00 05/18/17 04:00 05/18/17 04:00 05/18/17 04:00 05/18/17 04:00 Laboratory Results 05/18/17 04:36 05/18/17 04:36 05/17/17 05/18/17 05/19/17 05:59 05:59 05:59 Intake Total 3283 Output Total 1999 1000 Balance -1999 2283 PT 14.3 SEC (12.0-15.0) 05/17/17 04:19 INR 1.12 (0.83-1.16) 05/17/17 04:19 Physical Exam - Physical Exam General Appearance: WD/WN, alert, no apparent distress Neck: supple Respiratory: lungs clear, normal breath sounds Cardiac/Chest: normal peripheral pulses, regular rate, rhythm Abdomen: normal bowel sounds, non-tender, soft Skin: normal color, warm/dry Neuro/Psych: alert, normal mood/affect, oriented x 3 ICD10 Worksheet Patient Problems: Problems Problem Status Onset Hyponatremia Acute Shortness of breath Acute
--- NOTE | 2017-05-18 09:07 | SOAPPROG ---
SOAP Progress Note Assessment/Plan: Assessment: 1. UGI bleed secondary to hiatal hernia ulcer; s/p endo-clipped x 4 with hemostasis. 2. Post-hemorrhagic anemia; improved after transfusion of prbcs. 3. 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 4. Probable IHD. Plan: 1. No need for colonoscopy from GI perspective at this time. 2. bung remover to oral Protonix 40 mg PO BID. 3. Regular diet. 4. Daily H/H. 5. Cardiac work-up per chief general pediatric clinic. Joey Love MD 05/18/17 09:09 Subjective: CC: Bleeding . Interval HPI: No BM since endoscopy. Tolerating po clears. Objective: Vital Signs Temp Pulse Resp BP Pulse Ox 36.6 C 94 16 161/68 H 98 05/18/17 04:00 05/18/17 04:00 05/18/17 04:00 05/18/17 04:00 05/18/17 04:00 Laboratory Results 05/18/17 04:36 05/18/17 04:36 05/17/17 05/18/17 05/19/17 05:59 05:59 05:59 Intake Total 3283 Output Total 1999 1000 Balance -1999 2283 PT 14.3 SEC (12.0-15.0) 05/17/17 04:19 INR 1.12 (0.83-1.16) 05/17/17 04:19 Physical Exam - Physical Exam General Appearance: WD/WN, alert, no apparent distress Neck: supple Respiratory: lungs clear, normal breath sounds Cardiac/Chest: normal peripheral pulses, regular rate, rhythm Abdomen: normal bowel sounds, non-tender, soft Skin: normal color, warm/dry Neuro/Psych: alert, normal mood/affect, oriented x 3 ICD10 Worksheet Patient Problems: Problems Problem Status Onset Hyponatremia Acute Shortness of breath Acute
[2017-05-18] MEDS: POTASSIUM CL 20 MEQ/15 ML UDCUP PO SCH (09:39)
[2017-05-18] MEDS: ROSUVASTATIN CALCIUM 10 MG TAB PO SCH (09:39)
[2017-05-18] MEDS: FERROUS SULFATE 140 MG TAB.ER PO SCH (09:39)
[2017-05-18] MEDS: DULoxetine 60 MG CAP PO SCH (09:41)
[2017-05-18] MEDS: NEBIVOLOL HCL 5 MG TAB PO SCH (09:41)
[2017-05-18] MEDS: INSULIN LISPRO 100 UNIT/ML SC SCH ×3 (09:44→19:04)
[2017-05-18] MEDS ORDERED: LISINOPRIL 10 MG TAB PO ONE (09:45)
--- NOTE | 2017-05-18 12:18 | HOSPPROG ---
Hospitalist Progress Note Assessment/Plan: #. UGI - secondary to gastric ulcer. The ulcer was noted to be oozing and with a visible vessel. PPI has been adjusted to PO BID. Diet has been advanced. Monitor closely over the next 72 hours after endoscopic treatment. #. ABLA - appropriate improvement s/p 2 units yesterday. #. Chest Pain - asymptomatic today, negative troponins but abnormal nuclear medicine testing. Cardiac Cath when more stable. #. Hypokalemia - daily potassium supplementation started. #. HTN - resolved hypotension. Lisinopril resume. Continue along with Bystolic and isosorbide. #. DM2 - Good control with current insulin. No changes today. Check A1c with AM labs. #. Bowel/Bladder - no constipation. Monitor. #. DVT prophylaxis - compression, mobilization. No heparin/lovenox in light of bleed. #. Dispo - will need close monitoring over the next 48 hours, likely could return home. Will see how she does with PT. Subjective: Patient's nursed contacted me regarding elevated SBP into the 160' s. Lisinopril resumed. Patient states no BM's this morning. No nausea or vomiting and she is ordering a regular diet. Objective: Vital Signs Temp Pulse Resp BP Pulse Ox 36.6 C 94 16 161/68 H 98 05/18/17 04:00 05/18/17 04:00 05/18/17 04:00 05/18/17 04:00 05/18/17 04:00 Laboratory Results 05/18/17 04:36 05/18/17 04:36 05/17/17 05/18/17 05/19/17 05:59 05:59 05:59 Intake Total 3283 Output Total 1999 999 Balance -19993 PT 14.3 SEC (12.0-15.0) 05/17/17 04:19 INR 1.12 (0.83-1.16) 05/17/17 04:19 - Physical Exam Constitutional: no apparent distress (sitting in chair at bedside), appears nourished, not in pain Cardiovascular: regular rate and rhythym, no murmur, rub, or gallop, No edema Respiratory: no respiratory distress, no rales or rhonchi, clear to auscultation Gastrointestinal: normoactive bowel sounds, soft, non-tender abdomen, no palpable masses ICD10 Worksheet Patient Problems: Problems Problem Status Onset Hyponatremia Acute Shortness of breath Acute
--- NOTE | 2017-05-18 14:15 | PDCARPN ---
Cardiology Progress Note Chief Complaint: Patient reports fatigue symptoms have improved with transfusion Assessment/Plan: Assessment: 76-year-old female with reported history of syncope caused by bradycardia ( uncertain of what arrhythmia) with remote pacemaker implantation, hypertension, hyperlipidemia, and reported past history of fast heart rate in which she had been on Eliquis in the past, but was stopped due to bleeding. Admitted on 05/13 for chest pain, nausea, and diarrhea. Negative troponins x2, no significant EKG changes suggesting acute ischemia. MPI study done on 05/15, showing inferior lateral myocardial wall deficit which appeared larger on stress imaging than on rest imaging either representing inferior lateral ischemia or inferior lateral eddie-infarct ischemia. Echocardiogram done on showing normal LV size and LV systolic function without regional wall motion abnormality cues comma EF was estimated at 59%. Mild MR. PPM check done on showed episode of what appears to be atrial tachycardia in late February, lasting 15 minutes. No other malignant arrhythmias or pauses noted. Patient only uses the device around 1% of the time. Patient noted on admission to be anemic H&H of 9.4 and 28.6. 05/17 comma patient hypotensive with H&H drop to 6.8 and 21.1, upper GI done noting a large for of gastric ulcer requiring clips. Today, patient's H&H improved to 9.4 and 29.2 status post 2 units packed red blood cells. She reports no chest pain or shortness of breath. She has been resumed on lisinopril for hypertension, she remains on Bystolic. Potassium 3.3 this morning. On continuous cardiac monitoring she has been sinus rhythm, noted with 1 episode of SVT for 11 beats with a rate around 150 BPM at 04:42 this morning. Patient has had no chest pressure or pain or symptoms suggesting of ischemia since hospital admission. Plan: 1. 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 Cardiac risk factors including age, hypertension, hyperlipidemia, and diabetes. No further episodes of chest pressure since hospital admission. Stress testing during this hospitalization showed inferior lateral wall ischemia. Echocardiogram noted to have normal LV wall motion, with EF of 59%. With recent GI bleed,it is felt best that we grocery manager her with medical therapy at this time re-evaluate her in few weeks in out patient setting for need of cardiac cath. She will continue current medication regime Bystolic, lisinopril isosorbide. Currently aspirin is hold, I will attempt to contact GI to see when be an appropriate time for to resume. Patient is in agreement with this plan. 2. Tachy-andrews arrhythmias: Reviewing patient's previous correspondence school instructor notes, showing patient with history of PSVT, and AV node disease, ppm check done during this admission, patient uses pacemaker around 1% of the time. Patient noted to have episodes of what appears to be atrial tachycardia on device check in late February. Device functioning within normal limits. Continuous cardiac monitoring showing 1 episode of SVT this early AM, lasting for approximately 4- 5 seconds, patient asymptomatic. Continue on current beta-trena as above. 3. Hypertension: Bout of hypotension with GI bleed yesterday, patient hypertensive today post transfusion, has been resumed on Bystolic, lisinopril, and isosorbide. 4. GI bleed: Upper GI scope done yesterday, showing ulcer requiring clips, 2 units of PRBC given. Being followed by GI services, continue monitoring anemia. 5. Hyperlipidemia: Patient has resume home dosage of Crestor. 05/18/17 14:12 Subjective: Patient denies of any chest pressure or pain, reports no orthopnea, PND palpitations, lightheadedness, or shortness of breath. Reviewed/Discussed With: hospitalist (Dr Torres), other (Dr Wang) Objective: Vital Signs (8 Hrs) Temp Pulse Resp BP Pulse Ox 05/18/17 12:00 37.2 C 86 13 133/86 H 92 05/18/17 08:00 37.0 C 82 16 166/96 H 92 Intake/Output (24 Hrs) 05/17/17 05/18/17 05/19/17 05:59 05:59 05:59 Intake Total 3283 Output Total 1999 999 Balance -1999 2282 Intake: Oral (ml) 1580 IV Intake (ml) 1650 IV Infused (ml) 53 Pantoprazole Sodium 80 mg 53 In Ns 100 ml @ 10 mls/hr IV Q[facility] Rx#: [id number] Output: Urine (ml) 400 Bedside Commode 400 Liquid Stool (ml) 2000 600 Bedside Commode 1000 600 Toilet 1000 Other: Weight 60.129 kg Output Comment Bedside Commode about 600 of maroon dark blood Number of Voids Bedside Commode 2 Toilet 1 Number of Stools Bedside Commode 1 Toilet 4 Result Diagrams: 05/18/17 04:36 05/18/17 04:36 - Physical Exam Constitutional: WDWN Ears, Nose, Mouth, Throat: moist mucous membranes Cardiovascular: regular rate and rhythm, no murmurs, no rubs, no gallops, pulses symmetric bilat, No jugular vein distention Peripheral Pulses: 1+: dorsalis-pedis (R), dorsalis-pedis (L), 2+: carotid (R), carotid (L) Respiratory: clear to auscultate bilat, no crackles, no wheezes Gastrointestinal: normoactive bowel sounds, no tenderness Skin: warm, no edema Neurologic: AAOx3 Psychiatric: cooperative, interactive, following commands ICD10 Worksheet Patient Problems: Problems Problem Status Onset Hyponatremia Acute Shortness of breath Acute
--- NOTE | 2017-05-18 14:15 | PDCARPN ---
Cardiology Progress Note Chief Complaint: Patient reports fatigue symptoms have improved with transfusion Assessment/Plan: Assessment: 76-year-old female with reported history of syncope caused by bradycardia ( uncertain of what arrhythmia) with remote pacemaker implantation, hypertension, hyperlipidemia, and reported past history of fast heart rate in which she had been on Eliquis in the past, but was stopped due to bleeding. Admitted on 05/13 for chest pain, nausea, and diarrhea. Negative troponins x2, no significant EKG changes suggesting acute ischemia. MPI study done on 05/15, showing inferior lateral myocardial wall deficit which appeared larger on stress imaging than on rest imaging either representing inferior lateral ischemia or inferior lateral eddie-infarct ischemia. Echocardiogram done on showing normal LV size and LV systolic function without regional wall motion abnormality cues comma EF was estimated at 59%. Mild MR. PPM check done on showed episode of what appears to be atrial tachycardia in late February, lasting 15 minutes. No other malignant arrhythmias or pauses noted. Patient only uses the device around 1% of the time. Patient noted on admission to be anemic H&H of 9.4 and 28.6. 05/17 comma patient hypotensive with H&H drop to 6.8 and 21.1, upper GI done noting a large for of gastric ulcer requiring clips. Today, patient's H&H improved to 9.4 and 29.2 status post 2 units packed red blood cells. She reports no chest pain or shortness of breath. She has been resumed on lisinopril for hypertension, she remains on Bystolic. Potassium 3.3 this morning. On continuous cardiac monitoring she has been sinus rhythm, noted with 1 episode of SVT for 11 beats with a rate around 150 BPM at 04:42 this morning. Patient has had no chest pressure or pain or symptoms suggesting of ischemia since hospital admission. Plan: 1. Chest pain/abnormal stress test: Per patient's prior escrow agent, patient with known history of CAD. Cardiac risk factors including age, hypertension, hyperlipidemia, and diabetes. No further episodes of chest pressure since hospital admission. Stress testing during this hospitalization showed inferior lateral wall ischemia. Echocardiogram noted to have normal LV wall motion, with EF of 59%. With recent GI bleed,it is felt best that we manager game her with medical therapy at this time re-evaluate her in few weeks in out patient setting for need of cardiac cath. She will continue current medication regime Bystolic, lisinopril isosorbide. Currently aspirin is hold, I will attempt to contact GI to see when be an appropriate time for to resume. Patient is in agreement with this plan. 2. Tachy-andrews arrhythmias: Reviewing patient's previous escrow agent notes, showing patient with history of PSVT, and AV node disease, ppm check done during this admission, patient uses pacemaker around 1% of the time. Patient noted to have episodes of what appears to be atrial tachycardia on device check in late February. Device functioning within normal limits. Continuous cardiac monitoring showing 1 episode of SVT this early AM, lasting for approximately 4- 5 seconds, patient asymptomatic. Continue on current beta-trena as above. 3. Hypertension: Bout of hypotension with GI bleed yesterday, patient hypertensive today post transfusion, has been resumed on Bystolic, lisinopril, and isosorbide. 4. GI bleed: Upper GI scope done yesterday, showing ulcer requiring clips, 2 units of PRBC given. Being followed by GI services, continue monitoring anemia. 5. Hyperlipidemia: Patient has resume home dosage of Crestor. 05/18/17 14:12 Subjective: Patient denies of any chest pressure or pain, reports no orthopnea, PND palpitations, lightheadedness, or shortness of breath. Reviewed/Discussed With: hospitalist (Dr Torres), other (Dr Wang) Objective: Vital Signs (8 Hrs) Temp Pulse Resp BP Pulse Ox 05/18/17 12:00 37.2 C 86 13 133/86 H 92 05/18/17 08:00 37.0 C 82 16 166/96 H 92 Intake/Output (24 Hrs) 05/17/17 05/18/17 05/19/17 05:59 05:59 05:59 Intake Total 3283 Output Total 1999 999 Balance -1999 2282 Intake: Oral (ml) 1580 IV Intake (ml) 1650 IV Infused (ml) 53 Pantoprazole Sodium 80 mg 53 In Ns 100 ml @ 10 mls/hr IV Q10H [facility] Rx#: [id number] Output: Urine (ml) 400 Bedside Commode 400 Liquid Stool (ml) 2000 600 Bedside Commode 1000 600 Toilet 1000 Other: Weight 60.129 kg Output Comment Bedside Commode about 600 of maroon dark blood Number of Voids Bedside Commode 2 Toilet 1 Number of Stools Bedside Commode 1 Toilet 4 Result Diagrams: 05/18/17 04:36 05/18/17 04:36 - Physical Exam Constitutional: WDWN Ears, Nose, Mouth, Throat: moist mucous membranes Cardiovascular: regular rate and rhythm, no murmurs, no rubs, no gallops, pulses symmetric bilat, No jugular vein distention Peripheral Pulses: 1+: dorsalis-pedis (R), dorsalis-pedis (L), 2+: carotid (R), carotid (L) Respiratory: clear to auscultate bilat, no crackles, no wheezes Gastrointestinal: normoactive bowel sounds, no tenderness Skin: warm, no edema Neurologic: AAOx3 Psychiatric: cooperative, interactive, following commands ICD10 Worksheet Patient Problems: Problems Problem Status Onset Hyponatremia Acute Shortness of breath Acute
--- NOTE | 2017-05-18 14:15 | PDCARPN ---
Cardiology Progress Note Chief Complaint: Patient reports fatigue symptoms have improved with transfusion Assessment/Plan: Assessment: 76-year-old female with reported history of syncope caused by bradycardia ( uncertain of what arrhythmia) with remote pacemaker implantation, hypertension, hyperlipidemia, and reported past history of fast heart rate in which she had been on Eliquis in the past, but was stopped due to bleeding. Admitted on 05/13 for chest pain, nausea, and diarrhea. Negative troponins x2, no significant EKG changes suggesting acute ischemia. MPI study done on 05/15, showing inferior lateral myocardial wall deficit which appeared larger on stress imaging than on rest imaging either representing inferior lateral ischemia or inferior lateral eddie-infarct ischemia. Echocardiogram done on showing normal LV size and LV systolic function without regional wall motion abnormality cues comma EF was estimated at 59%. Mild MR. PPM check done on showed episode of what appears to be atrial tachycardia in late February, lasting 15 minutes. No other malignant arrhythmias or pauses noted. Patient only uses the device around 1% of the time. Patient noted on admission to be anemic H&H of 9.4 and 28.6. 05/17 comma patient hypotensive with H&H drop to 6.8 and 21.1, upper GI done noting a large for of gastric ulcer requiring clips. Today, patient's H&H improved to 9.4 and 29.2 status post 2 units packed red blood cells. She reports no chest pain or shortness of breath. She has been resumed on lisinopril for hypertension, she remains on Bystolic. Potassium 3.3 this morning. On continuous cardiac monitoring she has been sinus rhythm, noted with 1 episode of SVT for 11 beats with a rate around 150 BPM at 04:42 this morning. Patient has had no chest pressure or pain or symptoms suggesting of ischemia since hospital admission. Plan: 1. 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 Cardiac risk factors including age, hypertension, hyperlipidemia, and diabetes. No further episodes of chest pressure since hospital admission. Stress testing during this hospitalization showed inferior lateral wall ischemia. Echocardiogram noted to have normal LV wall motion, with EF of 59%. With recent GI bleed,it is felt best that we manager support her with medical therapy at this time re-evaluate her in few weeks in out patient setting for need of cardiac cath. She will continue current medication regime Bystolic, lisinopril isosorbide. Currently aspirin is hold, I will attempt to contact GI to see when be an appropriate time for to resume. Patient is in agreement with this plan. 2. Tachy-andrews arrhythmias: Reviewing patient's previous purifying plant operator notes, showing patient with history of PSVT, and AV node disease, ppm check done during this admission, patient uses pacemaker around 1% of the time. Patient noted to have episodes of what appears to be atrial tachycardia on device check in late February. Device functioning within normal limits. Continuous cardiac monitoring showing 1 episode of SVT this early AM, lasting for approximately 4- 5 seconds, patient asymptomatic. Continue on current beta-trena as above. 3. Hypertension: Bout of hypotension with GI bleed yesterday, patient hypertensive today post transfusion, has been resumed on Bystolic, lisinopril, and isosorbide. 4. GI bleed: Upper GI scope done yesterday, showing ulcer requiring clips, 2 units of PRBC given. Being followed by GI services, continue monitoring anemia. 5. Hyperlipidemia: Patient has resume home dosage of Crestor. 05/18/17 14:12 Subjective: Patient denies of any chest pressure or pain, reports no orthopnea, PND palpitations, lightheadedness, or shortness of breath. Reviewed/Discussed With: hospitalist (Dr Torres), other (Dr Wang) Objective: Vital Signs (8 Hrs) Temp Pulse Resp BP Pulse Ox 05/18/17 12:00 37.2 C 86 13 133/86 H 92 05/18/17 08:00 37.0 C 82 16 166/96 H 92 Intake/Output (24 Hrs) 05/17/17 05/18/17 05/19/17 05:59 05:59 05:59 Intake Total 3283 Output Total 1999 999 Balance -1999 2282 Intake: Oral (ml) 1580 IV Intake (ml) 1650 IV Infused (ml) 53 Pantoprazole Sodium 80 mg 53 In Ns 100 ml @ 10 mls/hr IV Q10H [facility] Rx#: [id number] Output: Urine (ml) 400 Bedside Commode 400 Liquid Stool (ml) 2000 600 Bedside Commode 1000 600 Toilet 1000 Other: Weight 60.129 kg Output Comment Bedside Commode about 600 of maroon dark blood Number of Voids Bedside Commode 2 Toilet 1 Number of Stools Bedside Commode 1 Toilet 4 Result Diagrams: 05/18/17 04:36 05/18/17 04:36 - Physical Exam Constitutional: WDWN Ears, Nose, Mouth, Throat: moist mucous membranes Cardiovascular: regular rate and rhythm, no murmurs, no rubs, no gallops, pulses symmetric bilat, No jugular vein distention Peripheral Pulses: 1+: dorsalis-pedis (R), dorsalis-pedis (L), 2+: carotid (R), carotid (L) Respiratory: clear to auscultate bilat, no crackles, no wheezes Gastrointestinal: normoactive bowel sounds, no tenderness Skin: warm, no edema Neurologic: AAOx3 Psychiatric: cooperative, interactive, following commands ICD10 Worksheet Patient Problems: Problems Problem Status Onset Hyponatremia Acute Shortness of breath Acute
--- NOTE | 2017-05-18 16:17 | ASMTCMCOM ---
CM Note CM Note Notes: 05/18/2017 Case Management Note Attempted to meet w/pt but pt was sound asleep. Reviewed chart. PT recommends no further PT follow up. No other case management d/c needs identified. Case Management d/c poc: Home independent when medically stable with follow up as directed. Case management available if needs change. Date Signed: 05/18/2017 04:16 PM Electronically Signed By:Ángela Naranjo RN
[2017-05-18] MEDS ORDERED: INSULIN GLARGINE 100 UNITS/ML SYRINGE SC ONE (21:00)
[2017-05-18] MEDS: ACETAMINOPHEN 325 MG TAB PO PRN (21:04)
[2017-05-18] MEDS: NORTRIPTYLINE HCL 10 MG CAP PO SCH (22:18)
[2017-05-18] MEDS: PANTOPRAZOLE SODIUM 40 MG TAB PO SCH (22:20)
[2017-05-19 05:07] LABS: PLATELET COUNT 129 10^3/uL (150-400)
[2017-05-19 08:04] VITALS: O2SAT 95
[2017-05-19] MEDS: METOCLOPRAMIDE 10 MG TAB PO SCH ×2 (08:31→12:49)
[2017-05-19] MEDS: INSULIN LISPRO 100 UNIT/ML SC SCH ×2 (08:31→14:55)
[2017-05-19] MEDS: DULoxetine 60 MG CAP PO SCH (09:37)
[2017-05-19] MEDS: FERROUS SULFATE 140 MG TAB.ER PO SCH (09:38)
[2017-05-19] MEDS: ROSUVASTATIN CALCIUM 10 MG TAB PO SCH (09:38)
[2017-05-19] MEDS: LISINOPRIL 10 MG TAB PO SCH (09:38)
[2017-05-19] MEDS: ISOSORBIDE MONONITRATE 30 MG TAB.SR PO SCH (09:38)
[2017-05-19] MEDS: POTASSIUM CL 20 MEQ/15 ML UDCUP PO SCH (09:39)
[2017-05-19] MEDS: PANTOPRAZOLE SODIUM 40 MG TAB PO SCH (09:39)
[2017-05-19] MEDS: NEBIVOLOL HCL 5 MG TAB PO SCH (09:39)
--- NOTE | 2017-05-19 10:57 | SOAPPROG ---
SOAP Progress Note Assessment/Plan: Assessment: 1. UGI bleed secondary to hiatal hernia ulcer; s/p endo-clipped x 4 with hemostasis. 2. Post-hemorrhagic anemia; stabilized. 3. 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 4. Probable IHD; stable. Plan: 1. No need for colonoscopy from GI perspective at this time , well do as outpatient in 2 months combined with F/U EGD. 2. Protonix 40 mg PO BID x 2 months. 3. Regular diet. 4. OK to D/C home today from GI standpoint Joey Love MD 05/19/17 10:54 Subjective: CC: with bleed. Interval HPI; Patient tolerating diet. No BM in 24 hours. Objective: Vital Signs Temp Pulse Resp BP Pulse Ox 36.7 C 83 13 138/88 H 95 05/19/17 08:00 05/19/17 08:00 05/19/17 08:00 05/19/17 08:00 05/19/17 08:00 Laboratory Results 05/19/17 03:42 05/19/17 03:42 05/18/17 05/19/17 05/20/17 05:59 05:59 05:59 Intake Total 3283 800 Output Total 1000 950 Balance 2283 -150 PT 14.3 SEC (12.0-15.0) 05/17/17 04:19 INR 1.12 (0.83-1.16) 05/17/17 04:19 Physical Exam - Physical Exam General Appearance: alert, no apparent distress Neck: supple Respiratory: lungs clear, normal breath sounds Cardiac/Chest: normal peripheral pulses, regular rate, rhythm Abdomen: normal bowel sounds, non-tender, soft Skin: warm/dry Neuro/Psych: alert, normal mood/affect, oriented x 3 ICD10 Worksheet Patient Problems: Problems Problem Status Onset Hyponatremia Acute Shortness of breath Acute
[2017-05-19 11:14] VITALS: BP 128/76; PULSE 84; RESP 14; TEMP 98.4
--- NOTE | 2017-05-19 11:27 | PDCARPN ---
Cardiology Progress Note Chief Complaint: Patient reports she is anxious and would like to go home. Assessment/Plan: Assessment: 76-year-old female with reported history of syncope caused by bradycardia ( uncertain of what arrhythmia) with remote pacemaker implantation, hypertension, hyperlipidemia, and reported past history of fast heart rate in which she had been on Eliquis in the past, but was stopped due to bleeding. Admitted on 05/13 for chest pain, nausea, and diarrhea. Negative troponins x2, no significant EKG changes suggesting acute ischemia. MPI study done on 05/15, showing inferior lateral myocardial wall deficit which appeared larger on stress imaging than on rest imaging either representing inferior lateral ischemia or inferior lateral eddie-infarct ischemia. Echocardiogram done on showing normal LV size and LV systolic function without regional wall motion abnormality cues comma EF was estimated at 59%. Mild MR. PPM check done on showed episode of what appears to be atrial tachycardia in late February, lasting 15 minutes. No other malignant arrhythmias or pauses noted. Patient only uses the device around 1% of the time. Patient noted on admission to be anemic H&H of 9.4 and 28.6. 05/17 Patient hypotensive with H&H drop to 6.8 and 21.1, upper GI done noting a large for of gastric ulcer requiring clips. Today, patient's H&H appears to be stable, (9.5 and 28.5), she reports no episodes of chest pain or pressure. Denies of any orthopnea or PND. On continuous import export manager she remains in sinus rhythm, no runs of PSVT or malignant arrhythmias noted overnight. No further episodes of hypotension, she has been resumed on all home blood pressure medications except hydrochlorothiazide. Plan: 1. 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 Cardiac risk factors including age, hypertension, hyperlipidemia, and diabetes. No further episodes of chest pressure since hospital admission. Negative troponins comma Stress testing during this hospitalization showed inferior lateral wall ischemia. Echocardiogram noted to have normal LV wall motion, with EF of 59%. With recent GI bleed,it is felt best that we manager commercial sales her with medical therapy at this time re-evaluate her in few weeks in out patient setting for need of cardiac cath. She will continue current medication regime Bystolic, lisinopril isosorbide. I have spoken with Dr. Bruno, GI Services, they would like to hold off on restarting patient on aspirin therapy at this time, for at least a week. Potentially patient will be discharged today, I have made an appointment for her to see Dr. Madrid, 1 of our cardiologists, in our [place] office close to her home on May 29. Patient is in agreement with this plan. 2. Tachy-andrews arrhythmias: Reviewing patient's previous technical sales support manager notes, showing patient with history of PSVT, and AV node disease, ppm check done during this admission, patient uses pacemaker around 1% of the time. Patient noted to have episodes of what appears to be atrial tachycardia on device check in late February. Device functioning within normal limits. No runs of PSVT overnight, patient denies of any palpitations. Will continue her on current beta blockage therapy. We will schedule her to be seen in our outpatient pacemaker clinic for routine follow-up. 3. Hypertension: Patient's blood pressure appears to be well controlled on current medication regime, echocardiogram did show some diastolic dysfunction, at some point we may consider starting her back on low-dose hydrochlorothiazide , consideration to be done as an outpatient. 4. GI bleed: H&H stable after upper GI procedure with clipping and 2 units of packed red blood cells given 2 days ago. Patient is being followed GI services. 5. Hyperlipidemia: Patient has resume home dosage of Crestor. 05/19/17 11:19 Subjective: Patient denies of any chest pressure or pain, reports no shortness of breath, orthopnea, palpitations, or lightheadedness. Reviewed/Discussed With: other (Dr Wang, Dr Keys) Objective: Vital Signs (8 Hrs) Temp Pulse Resp BP Pulse Ox 05/19/17 11:14 36.9 C 84 14 128/76 H 95 05/19/17 08:00 36.7 C 83 13 138/88 H 95 05/19/17 03:54 36.5 C 83 11 L 145/82 H 94 Intake/Output (24 Hrs) 05/18/17 05/19/17 05/20/17 05:59 05:59 05:59 Intake Total 3283 800 Output Total 1000 950 Balance 2283 -150 Intake: Oral (ml) 1580 800 IV Intake (ml) 1650 IV Infused (ml) 53 Pantoprazole Sodium 80 mg 53 In Ns 100 ml @ 10 mls/hr IV Q10H [facility] Rx#: [id number] Output: Urine (ml) 400 600 Bedside Commode 400 600 Liquid Stool (ml) 600 350 Bedside Commode 600 350 Other: Weight 60.129 kg Intake Quantity Yes Sufficient Output Comment Bedside Commode about 600 of maroon dark blood Number of Voids Bedside Commode 2 2 Toilet 1 3 Number of Stools Toilet 4 Result Diagrams: 05/19/17 03:42 05/19/17 03:42 - Physical Exam Constitutional: no apparent distress Ears, Nose, Mouth, Throat: moist mucous membranes Cardiovascular: regular rate and rhythm, no gallops, systolic murmur (1-2/6 LSB) , pulses symmetric bilat, carotid bruit, No jugular vein distention Peripheral Pulses: 1+: dorsalis-pedis (R), dorsalis-pedis (L) Respiratory: clear to auscultate bilat, no crackles, no wheezes Gastrointestinal: normoactive bowel sounds, no tenderness Skin: warm, no edema Neurologic: AAOx3 Psychiatric: cooperative, interactive, following commands ICD10 Worksheet Patient Problems: Problems Problem Status Onset Hyponatremia Acute Shortness of breath Acute
--- NOTE | 2017-05-19 11:27 | PDCARPN ---
Cardiology Progress Note Chief Complaint: Patient reports she is anxious and would like to go home. Assessment/Plan: Assessment: 76-year-old female with reported history of syncope caused by bradycardia ( uncertain of what arrhythmia) with remote pacemaker implantation, hypertension, hyperlipidemia, and reported past history of fast heart rate in which she had been on Eliquis in the past, but was stopped due to bleeding. Admitted on 05/13 for chest pain, nausea, and diarrhea. Negative troponins x2, no significant EKG changes suggesting acute ischemia. MPI study done on 05/15, showing inferior lateral myocardial wall deficit which appeared larger on stress imaging than on rest imaging either representing inferior lateral ischemia or inferior lateral eddie-infarct ischemia. Echocardiogram done on showing normal LV size and LV systolic function without regional wall motion abnormality cues comma EF was estimated at 59%. Mild MR. PPM check done on showed episode of what appears to be atrial tachycardia in late February, lasting 15 minutes. No other malignant arrhythmias or pauses noted. Patient only uses the device around 1% of the time. Patient noted on admission to be anemic H&H of 9.4 and 28.6. 05/17 Patient hypotensive with H&H drop to 6.8 and 21.1, upper GI done noting a large for of gastric ulcer requiring clips. Today, patient's H&H appears to be stable, (9.5 and 28.5), she reports no episodes of chest pain or pressure. Denies of any orthopnea or PND. On continuous guide winder she remains in sinus rhythm, no runs of PSVT or malignant arrhythmias noted overnight. No further episodes of hypotension, she has been resumed on all home blood pressure medications except hydrochlorothiazide. Plan: 1. 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 Cardiac risk factors including age, hypertension, hyperlipidemia, and diabetes. No further episodes of chest pressure since hospital admission. Negative troponins comma Stress testing during this hospitalization showed inferior lateral wall ischemia. Echocardiogram noted to have normal LV wall motion, with EF of 59%. With recent GI bleed,it is felt best that we data processing manager her with medical therapy at this time re-evaluate her in few weeks in out patient setting for need of cardiac cath. She will continue current medication regime Bystolic, lisinopril isosorbide. I have spoken with Dr. Bruno, GI Services, they would like to hold off on restarting patient on aspirin therapy at this time, for at least a week. Potentially patient will be discharged today, I have made an appointment for her to see Dr. Madrid, 1 of our cardiologists, in our [place] office close to her home on May 29. Patient is in agreement with this plan. 2. Tachy-andrews arrhythmias: Reviewing patient's previous womens volleyball coach notes, showing patient with history of PSVT, and AV node disease, ppm check done during this admission, patient uses pacemaker around 1% of the time. Patient noted to have episodes of what appears to be atrial tachycardia on device check in late February. Device functioning within normal limits. No runs of PSVT overnight, patient denies of any palpitations. Will continue her on current beta blockage therapy. We will schedule her to be seen in our outpatient pacemaker clinic for routine follow-up. 3. Hypertension: Patient's blood pressure appears to be well controlled on current medication regime, echocardiogram did show some diastolic dysfunction, at some point we may consider starting her back on low-dose hydrochlorothiazide , consideration to be done as an outpatient. 4. GI bleed: H&H stable after upper GI procedure with clipping and 2 units of packed red blood cells given 2 days ago. Patient is being followed GI services. 5. Hyperlipidemia: Patient has resume home dosage of Crestor. 05/19/17 11:19 Subjective: Patient denies of any chest pressure or pain, reports no shortness of breath, orthopnea, palpitations, or lightheadedness. Reviewed/Discussed With: other (Dr Wang, Dr Keys) Objective: Vital Signs (8 Hrs) Temp Pulse Resp BP Pulse Ox 05/19/17 11:14 36.9 C 84 14 128/76 H 95 05/19/17 08:00 36.7 C 83 13 138/88 H 95 05/19/17 03:54 36.5 C 83 11 L 145/82 H 94 Intake/Output (24 Hrs) 05/18/17 05/19/17 05/20/17 05:59 05:59 05:59 Intake Total 3283 800 Output Total 1000 950 Balance 2283 -150 Intake: Oral (ml) 1580 800 IV Intake (ml) 1650 IV Infused (ml) 53 Pantoprazole Sodium 80 mg 53 In Ns 100 ml @ 10 mls/hr IV Q10H [facility] Rx#: [id number] Output: Urine (ml) 400 600 Bedside Commode 400 600 Liquid Stool (ml) 600 350 Bedside Commode 600 350 Other: Weight 60.129 kg Intake Quantity Yes Sufficient Output Comment Bedside Commode about 600 of maroon dark blood Number of Voids Bedside Commode 2 2 Toilet 1 3 Number of Stools Toilet 4 Result Diagrams: 05/19/17 03:42 05/19/17 03:42 - Physical Exam Constitutional: no apparent distress Ears, Nose, Mouth, Throat: moist mucous membranes Cardiovascular: regular rate and rhythm, no gallops, systolic murmur (1-2/6 LSB) , pulses symmetric bilat, carotid bruit, No jugular vein distention Peripheral Pulses: 1+: dorsalis-pedis (R), dorsalis-pedis (L) Respiratory: clear to auscultate bilat, no crackles, no wheezes Gastrointestinal: normoactive bowel sounds, no tenderness Skin: warm, no edema Neurologic: AAOx3 Psychiatric: cooperative, interactive, following commands ICD10 Worksheet Patient Problems: Problems Problem Status Onset Hyponatremia Acute Shortness of breath Acute
--- NOTE | 2017-05-19 11:27 | PDCARPN ---
Cardiology Progress Note Chief Complaint: Patient reports she is anxious and would like to go home. Assessment/Plan: Assessment: 76-year-old female with reported history of syncope caused by bradycardia ( uncertain of what arrhythmia) with remote pacemaker implantation, hypertension, hyperlipidemia, and reported past history of fast heart rate in which she had been on Eliquis in the past, but was stopped due to bleeding. Admitted on 05/13 for chest pain, nausea, and diarrhea. Negative troponins x2, no significant EKG changes suggesting acute ischemia. MPI study done on 05/15, showing inferior lateral myocardial wall deficit which appeared larger on stress imaging than on rest imaging either representing inferior lateral ischemia or inferior lateral eddie-infarct ischemia. Echocardiogram done on showing normal LV size and LV systolic function without regional wall motion abnormality cues comma EF was estimated at 59%. Mild MR. PPM check done on showed episode of what appears to be atrial tachycardia in late February, lasting 15 minutes. No other malignant arrhythmias or pauses noted. Patient only uses the device around 1% of the time. Patient noted on admission to be anemic H&H of 9.4 and 28.6. 05/17 Patient hypotensive with H&H drop to 6.8 and 21.1, upper GI done noting a large for of gastric ulcer requiring clips. Today, patient's H&H appears to be stable, (9.5 and 28.5), she reports no episodes of chest pain or pressure. Denies of any orthopnea or PND. On continuous band sawyer she remains in sinus rhythm, no runs of PSVT or malignant arrhythmias noted overnight. No further episodes of hypotension, she has been resumed on all home blood pressure medications except hydrochlorothiazide. Plan: 1. 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 Cardiac risk factors including age, hypertension, hyperlipidemia, and diabetes. No further episodes of chest pressure since hospital admission. Negative troponins comma Stress testing during this hospitalization showed inferior lateral wall ischemia. Echocardiogram noted to have normal LV wall motion, with EF of 59%. 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 She will continue current medication regime Bystolic, lisinopril isosorbide. I have spoken with Dr. Bruno, GI Services, they would like to hold off on restarting patient on aspirin therapy at this time, for at least a week. Potentially patient will be discharged today, I have made an appointment for her to see Dr. Madrid, 1 of our cardiologists, in our [place] office close to her home on May 29. Patient is in agreement with this plan. 2. Tachy-andrews arrhythmias: Reviewing patient's previous switch technician notes, showing patient with history of PSVT, and AV node disease, ppm check done during this admission, patient uses pacemaker around 1% of the time. Patient noted to have episodes of what appears to be atrial tachycardia on device check in late February. Device functioning within normal limits. No runs of PSVT overnight, patient denies of any palpitations. Will continue her on current beta blockage therapy. We will schedule her to be seen in our outpatient pacemaker clinic for routine follow-up. 3. Hypertension: Patient's blood pressure appears to be well controlled on current medication regime, echocardiogram did show some diastolic dysfunction, at some point we may consider starting her back on low-dose hydrochlorothiazide , consideration to be done as an outpatient. 4. GI bleed: H&H stable after upper GI procedure with clipping and 2 units of packed red blood cells given 2 days ago. Patient is being followed GI services. 5. Hyperlipidemia: Patient has resume home dosage of Crestor. 05/19/17 11:19 Subjective: Patient denies of any chest pressure or pain, reports no shortness of breath, orthopnea, palpitations, or lightheadedness. Reviewed/Discussed With: other (Dr Wang, Dr Keys) Objective: Vital Signs (8 Hrs) Temp Pulse Resp BP Pulse Ox 05/19/17 11:14 36.9 C 84 14 128/76 H 95 05/19/17 08:00 36.7 C 83 13 138/88 H 95 05/19/17 03:54 36.5 C 83 11 L 145/82 H 94 Intake/Output (24 Hrs) 05/18/17 05/19/17 05/20/17 05:59 05:59 05:59 Intake Total 3283 800 Output Total 1000 950 Balance 2283 -150 Intake: Oral (ml) 1580 800 IV Intake (ml) 1650 IV Infused (ml) 53 Pantoprazole Sodium 80 mg 53 In Ns 100 ml @ 10 mls/hr IV Q10H [facility] Rx#: [id number] Output: Urine (ml) 400 600 Bedside Commode 400 600 Liquid Stool (ml) 600 350 Bedside Commode 600 350 Other: Weight 60.129 kg Intake Quantity Yes Sufficient Output Comment Bedside Commode about 600 of maroon dark blood Number of Voids Bedside Commode 2 2 Toilet 1 3 Number of Stools Toilet 4 Result Diagrams: 05/19/17 03:42 05/19/17 03:42 - Physical Exam Constitutional: no apparent distress Ears, Nose, Mouth, Throat: moist mucous membranes Cardiovascular: regular rate and rhythm, no gallops, systolic murmur (1-2/6 LSB) , pulses symmetric bilat, carotid bruit, No jugular vein distention Peripheral Pulses: 1+: dorsalis-pedis (R), dorsalis-pedis (L) Respiratory: clear to auscultate bilat, no crackles, no wheezes Gastrointestinal: normoactive bowel sounds, no tenderness Skin: warm, no edema Neurologic: AAOx3 Psychiatric: cooperative, interactive, following commands ICD10 Worksheet Patient Problems: Problems Problem Status Onset Hyponatremia Acute Shortness of breath Acute
--- NOTE | 2017-05-19 14:09 | GDS ---
[f rep st] DISCHARGE SUMMARY IN-HOSPITAL CONSULTANTS: 1. Dr. Madrid with cardiology. 2. Dr. Love with gastroenterology. DISCHARGE DIAGNOSES: 1. Gastric ulcer causing upper gastrointestinal bleed. 2. Chest pain with abnormal nuclear medicine stress testing. HISTORY OF PRESENT ILLNESS: The patient is a pleasant 76-year-old female who recently moved to [facility] to live closer to her 2 sons. She is . She presented to [facility] on 05/13/2017 after experiencing chest pain. She has a history of hypertension and dayami betes mellitus type 2. She was evaluated with a nuclear medicine stress test which was abnormal, alize wing an inferior lateral myocardial wall defect which appeared larger on stress images than with rest images. Cardiology was consulted on her case. However, on 05/17/2017, she had a rather abrupt drop in her hemoglobin from 10.2 to 6.8 in the setting of diarrhea and lightheadedness. She was then sub sequently prepared for endoscopy and Dr. Love consulted. On endoscopy, a gastric ulcer was not ed. It was oozing blood and there was also a visible vessel. This was treated with clipping x4 and after this procedure and transfusion of blood, her hemoglobin responded appropriately up to 9, where it has remained stable. She has not had any persistent melena or loose stools after her endoscopy. Cardiology and Gastroenterology both are comfortable with the discharge home today, as is the patient . She is quite ready to go home. She states that she has already discussed the discharge potential with her son, who is able and willing to bring her home. He apparently lives very close to her. At this time, Cardiology is recommending cardiac catheterization when her GI situation has stabilized an d a followup with Cardiology has been arranged for. HOSPITAL COURSE BY PROBLEM: 1. Upper GI bleed. This is secondary to gastric ulcer noted on endoscopy, which was oozing with a v isible vessel. This has been clipped x4 and clinically appears to have stabilized. Her diet has bee n already advanced to a regular diet. We will keep her on Protonix 40 mg twice a day for a total of 2 months. She will have followup with Dr. Love and will ultimately have a followup endoscopy a nd colonoscopy performed. 2. Acute blood loss anemia. Appropriate improvement [facility] This has been stable at 9. I have discharged her with iron supplement. 3. Chest pain. She has been asymptomatic over the past few days. Troponins were negative when she first came in, but she did have abnormal nuclear medicine stress testing as mentioned above. The alber n tentatively is for cardiac catheterization when her gastric ulcer has healed. 4. Hypertension. She was continued on her outpatient regimen of Bystolic, lisinopril, and isosorbid e. 5. Diabetes mellitus type 2. Hemoglobin A1c was 6.5 when it was checked here in the hospital. No c hanges were made to her insulin regimen. PHYSICAL EXAMINATION: VITAL SIGNS: On day of discharge, temperature 36.9, blood pressure 128/76, he art rate 84, respirations 14, saturating 95% on room air. GENERAL: Patient is comfortable, sitting in a chair at the bedside. No acute distress. HEART: Regular. No murmurs are appreciated. LUNGS: Clear to auscultation with normal respiratory effort. ABDOMEN: Nondistended, nontender. : No Fall catheter in place. EXTREMITIES: No significant pitting edema noted. NOTABLE STUDIES: 1. Chest x-ray negative chest. 2. CTA of the chest: No acute pulmonary thromboembolic disease noted. No mass or effusions noted. 3. Myocardial perfusion study showed inferior lateral myocardial wall defect which appears larger on the stress images than the rest images, either representing inferior lateral ischemia or inferior la teral eddie-infarct ischemia. 4. Echocardiogram: Normal left ventricular function with EF estimated at 59%. No regional wall mot ion abnormality. Grade 1 diastolic dysfunction. 5. Endoscopy report: Normal esophagus. Medium-sized hiatal hernia, oozing gastric ulcer with visib le vessel. Clips were placed. Normal gastric fundus, gastric body and antrum. Normal examined duod enum. 6. Hemoglobin 9.5 today from 9.4 yesterday and 10.4 on admission. Hemoglobin A1c 6.5%. DISCHARGE MEDICATIONS: 1. Ferrous sulfate 140 mg daily. 2. Protonix 40 mg twice a day #60 with 1 refill. 3. Sitagliptin/metformin 550/1000 one tablet twice a day. 4. Nortriptyline 20 mg nightly. 5. Bystolic 5 mg daily. 6. Lisinopril 10 mg daily. 7. Isosorbide mononitrate 30 mg daily. 8. Insulin detemir 20 units nightly. 9. Cymbalta 60 mg daily. 10. Reglan 10 mg before meals. 11. Vitamin D3 supplementation. 12. Vitamin B12 1000 mcg daily. 13. Crestor 5 mg daily. 14. Hydrochlorothiazide 12.5 mg twice a day as needed for leg swelling. DISCHARGE INSTRUCTIONS: Followup visit with Dr. Terry is recommended in 1-2 weeks' time. Followup visit with Dr. Madrid at [facility] has also been arranged for, as well as with Dr. Love. 35 minutes of time dedicated to discharge efforts. /[id number]/MODL
[2017-05-19] MEDS ORDERED: NON-FORMULARY NEW DRUG (Insulin Detemir [Levemir Flextouch] 20 UNIT) SQ SCH (21:00)
[2017-05-19] MEDS ORDERED: INSULIN GLARGINE 100 UNITS/ML SYRINGE SC SCH (21:00)
== END 2017-05-19 15:45 | disposition home or self-care (01) | DRG 378 ==
LOC: CED 12:05 → CEDHOLD 14:20 → F3E 15:50 → OBSVTOIN 05-14 12:55 → F2N 05-17 10:31 → F2W 05-17 20:09
PROVIDERS: ADMIT Internal Medicine; ATTEND Internal Medicine
PROC: 0W3P8ZZ Control Bleeding in Gastrointestinal Tract, Via Natural or Artificial Opening Endoscopic (ICD-10-PCS; principal; 2017-05-17 08:00)
PROC: 30233N1 Transfusion of Nonautologous Red Blood Cells into Peripheral Vein, Percutaneous Approach (ICD-10-PCS; principal; 2017-05-17 08:00)
DX: K25.4 Chronic or unspecified gastric ulcer with hemorrhage (principal); D62 Acute posthemorrhagic anemia; K44.9 Diaphragmatic hernia without obstruction or gangrene; R94.30 Abnormal result of cardiovascular function study, unspecified; E87.6 Hypokalemia; E87.1 Hypo-osmolality and hyponatremia; I47.1 Supraventricular tachycardia; E11.9 Type 2 diabetes mellitus without complications; K21.9 Gastro-esophageal reflux disease without esophagitis; K59.00 Constipation, unspecified; E78.5 Hyperlipidemia, unspecified; I25.10 Atherosclerotic heart disease of native coronary artery without angina pectoris; I10 Essential (primary) hypertension; Z95.0 Presence of cardiac pacemaker; Z79.4 Long term (current) use of insulin
CPT/HCPCS: 71020-PO; 71275-PO; 80048-PO; 83880-PO; 84484-PO; 85025-PO; 85378-PO; 85610-PO; 85730-PO; 86870-90; 86905-90; 86922-90; 97161-GP; 97530-GP; A9500; G0008; G0378; G8978-GP-CI; G8979-GP-CI; G8980-GP-CI; J1815; J1940; J2405; J2704; J2785; P9016; Q9967

== ENCOUNTER 2017-06-02 08:16 | Day surgery (SDC) | payer OTHER, BC ==
[2017-06-02] MEDS ORDERED: DIAZEPAM 5 MG TAB PO ONE (08:18)
[2017-06-02] MEDS ORDERED: FAMOTIDINE 20 MG TAB PO ONE (08:18)
[2017-06-02] MEDS ORDERED: ASPIRIN EC 325 MG TAB PO ONE ×2 (08:18→08:49)
[2017-06-02] MEDS ORDERED: NS 1,000 ML IV ONE (08:18)
[2017-06-02] MEDS ORDERED: diphenhydrAMINE 25 MG CAP PO ONE ×2 (08:18→08:49)
--- NOTE | 2017-06-02 08:41 | CPEKG ---
Heart Rate: 83 RR Interval: 723 P-R Interval: 132 QRSD Interval: 86 QT Interval: 384 QTC Interval: 452 P [place]: 34 QRS [place]: 4 T Wave [place]: 27 EKG Severity - ABNORMAL ECG - EKG Impression: SINUS RHYTHM EKG Impression: MULTIPLE ATRIAL PREMATURE COMPLEXES Electronically Signed By: Lucas Hagan 02-Jun-2017 12:07:00
[2017-06-02] MEDS ORDERED: FAMOTIDINE 20 MG TAB ONE (08:49)
[2017-06-02] MEDS ORDERED: DIAZEPAM 5 MG TAB ONE (08:49)
[2017-06-02 09:02] LABS: % IMMATURE GRANULYOCYTES 0.3 % (0.0-1.1); ABSOLUTE IMMATURE GRANULOCYTES 0.02 10^3/uL (0.00-0.10); ADD DIFF? NO; ADD MORPH? NO; ADD SCAN? NO; ATYPICAL LYMPHOCYTE FLAG 10 (0-99); FRAGMENT RBC FLAG 20 (0-99); HEMATOCRIT 29.6 % (38.0-47.0); HEMOGLOBIN 10.2 g/dL (12.6-16.3); LEFT SHIFT FLG 0 (0-99); LIPEMIA HEMOLYSIS FLAG 90 (0-99); MEAN CELL HEMOGLOBIN 27.6 pg (27.9-34.1); MEAN CELL HEMOGLOBIN CONCENTR. 34.5 g/dL (32.4-36.7); MEAN PLATELET VOLUME 10.7 fL (8.7-11.7); PLATELET CLUMPS FLAG 0 (0-99); PLATELET COUNT 200 10^3/uL (150-400); RED CELL DISTRIBUTION WIDTH 17.9 % (11.5-15.2)
[2017-06-02 09:13] LABS: ANION GAP 11 mEq/L (8-16); CALCIUM 9.2 mg/dL (8.5-10.4); CARBON DIOXIDE 27 mEq/l (22-31); CHLORIDE 92 mEq/L (97-110); CHOLESTEROL 207 mg/dL (140-220); CHOLESTEROL/HDL RATIO 3.51 RATIO (1.00-4.44); CREATININE 0.7 mg/dL (0.6-1.0); GLOMERULAR FILTRATION RATE > 60; GLUCOSE 128 mg/dL (70-100); HIGH DENSITY LIPOPROTEIN 59 mg/dL (40-85); LDL/HDL RATIO 1.49 RATIO (1.00-3.22); LOW DENSITY LIPOPROTEIN 88 mg/dL (80-100); MAGNESIUM 1.2 mg/dL (1.6-2.3); NON-HIGH DENSITY LIPOPROTEIN 148 mg/dL (90-129); POTASSIUM 4.2 mEq/L (3.5-5.2); SODIUM 130 mEq/L (134-144); TRIGLYCERIDE 304 mg/dL (35-135); VERY LOW DENSITY LIPOPROTEINS 60 mg/dL (8-25)
[2017-06-02 09:26] LABS: INR 0.94 (0.83-1.16); PROTIME(PATIENT) 12.5 SEC (12.0-15.0)
[2017-06-02] MEDS ORDERED: MAGNESIUM SULF 1 GM/DEXTROSE 100 ML IV ONE (09:30)
--- NOTE | 2017-06-02 10:02 | PDPROPOC ---
Sedation Plan of Care Sedation Plan of Care: vital signs stable, mental status noted, patient educated of risks, benefits, alternatives, patient can tolerate sedation ASA Classification: ASA 2 Planned drugs: fentanyl, midazolam Mallampati Score: Class 2 Mallampati Reference Image: Patient passed 3-3-2 rule?: Yes
--- NOTE | 2017-06-02 10:02 | PDHPUP ---
History & Physical Update H&P update statement: This history and physical update is based on an assessment of the patient which was completed after admission or registration (within 24 hours), but prior to the surgery/procedure. H&P update: H&P reviewed & patient examined, no change in patient's condition since H&P completed
[2017-06-02] MEDS ORDERED: LIDOCAINE 1% 300 MG/30 ML SDV ONE (10:14)
[2017-06-02] MEDS ORDERED: fentaNYL 100 MCG/2 ML INJ ONE (10:14)
[2017-06-02] MEDS ORDERED: VERAPAMIL 5 MG/2 ML VIAL ONE (10:15)
[2017-06-02] MEDS ORDERED: HEPARIN 10,000 UNIT/10 ML MDV ONE (10:15)
[2017-06-02] MEDS ORDERED: MIDAZOLAM 2 MG/2 ML VIAL ONE (10:15)
[2017-06-02] MEDS ORDERED: IOPAMIDOL (ISOVUE-370) 150 ML BTL IV ONE (10:16)
[2017-06-02] MEDS ORDERED: ATROPINE SULFATE 1 MG/10 ML SYR IVP PRN (11:29)
[2017-06-02] MEDS ORDERED: OXYCODONE/APAP 5/325 TAB PO PRN (11:29)
[2017-06-02] MEDS ORDERED: NITROGLYCERIN 0.4 MG BTL SL PRN (11:29)
[2017-06-02] MEDS ORDERED: ONDANSETRON 4 MG/2 ML VIAL IVP PRN (11:29)
--- NOTE | 2017-06-02 11:36 | PDDXCAT ---
Diagnostic Cath Note - . Date: 06/02/17 Estimator Jewelry: Felipe Indication: other ([place] cardiovascular society class 3 angina. Abnormal nuclear stress test with inferolateral reversible ischemia. Currently on maximal medical management.) - Procedure Access: right groin Procedure: left heart catheterization, coronary angiography, left ventriculogram - Materials Left Heart Cath size: 4F Left Heart Cath materials: JL4.0, JR4.0, pigtail - Findings-Left Heart Catheterization LM: Large caliber vessel. Appropriate bifurcation into the LAD and circumflex. No angiographic evidence of disease. LAD: Large caliber transapical vessel. Single principal 1st diagonal branch. Angiographically normal. LCX: Large caliber dominant vessel. There is a large multi branching obtuse marginal branch and the PDA identified. Angiographically normal. RCA: Small caliber, nondominant vessel. Angiographically normal. EDP: 149/23/27 mmHg. LVEF: Greater than 70%. Wall motion: Normal wall motion. Complications: None. Estimated blood loss: <50ml Closure method: manual pressure Assessment: 1. Unsuccessful attempt at cardiac catheterization via the right radial approach. The procedure was subsequently changed to a right femoral arterial approach. 2. Angiographically normal epicardial coronary arteries in a left dominant system. 3. Hyperdynamic left ventricular systolic function. Normal wall motion. 4. Evidence of diastolic dysfunction. 5. Likely false positive nuclear stress test. Plan: Maximal medical therapy in light of her history of diabetes and hypertension. Intervention: None. Patient Problems: Problems Problem Status Onset Hyponatremia Acute Shortness of breath Acute
[2017-06-02] MEDS: HYDROCODONE/APAP 5/325 TAB PO PRN ×2 (12:28→15:56)
== END 2017-06-02 17:33 | disposition home or self-care (01) ==
LOC: FCATH 08:16
PROVIDERS: ATTEND Internal Medicine Cardiovascular Disease
DX: R94.39 Abnormal result of other cardiovascular function study (principal); R07.9 Chest pain, unspecified; E11.9 Type 2 diabetes mellitus without complications; I10 Essential (primary) hypertension
CPT/HCPCS: C1769; J1644; J2250; J3010; J3475; Q9967

== ENCOUNTER 2017-06-05 13:21 | Emergency (ER) | payer OTHER, BC ==
--- NOTE | 2017-06-05 13:38 | EDPHY ---
H & P Stated Complaint: fall last night. eccymosis to rt eye Time Seen by Provider: 06/05/17 13:26 HPI/ROS: CHIEF COMPLAINT: Fall yesterday HISTORY OF PRESENT ILLNESS: The patient is a 76-year-old female who was recently admitted to the hospital with chest pain and had an abnormal stress test and catheterization planned however that was deferred when she developed a GI bleed. She had endoscopy and bleeding ulcer. She received blood transfusion and several clips. She then stabilized and was discharged on Protonix and plans were made for an outpatient cardiac catheterization. She does have a pacemaker as well. She states that she fell yesterday before the football game. She watch the football game on TV and went to bed last night feeling well. She woke up this morning and noticed significant bruising to her right eye and forehead. This scared her so she called for an ambulance. She complains of a mild headache. She denies neck pain. She is not on any blood thinners currently. She states she does not remember falling and is not sure why she fell. She only remembers getting up. No recent fevers or infections. No focal weakness or numbness. She also reports a history of chronic C1 fracture. REVIEW OF SYSTEMS: Constitutional: denies: chills, fever, recent illness, recent injury EENTM: denies: blurred vision, double vision, nose congestion Respiratory: denies: cough, shortness of breath Cardiac: denies: chest pain, irregular heart rate, lightheadedness, palpitations Gastrointestinal/Abdominal: denies: abdominal pain, diarrhea, nausea, vomiting, blood streaked stools Genitourinary: denies: dysuria, frequency, hematuria, pain Musculoskeletal: denies: joint pain, muscle pain Skin: denies: lesions, rash, jaundice, bruising Neurological: See HPI denies: numbness, paresthesia, tingling, dizziness, weakness Hematologic/Lymphatic: denies: blood clots, easy bleeding, easy bruising Immunologic/allergic: denies: HIV/AIDS, transplant EXAM: GENERAL: Well-appearing, well-nourished and in no acute distress. HEAD: Atraumatic, normocephalic. EYES: Pupils equal round and reactive to light, extraocular movements intact, sclera anicteric, conjunctiva are normal. ENT: Bruising and edema to right forehead and eye. Small scleral hematoma to medial aspect of right eye. Extraocular muscles intact. TMs normal, nares patent, oropharynx clear without exudates. Moist mucous membranes. NECK: Normal range of motion, supple without lymphadenopathy or JVD. LUNGS: Breath sounds clear to auscultation bilaterally and equal. No wheezes rales or rhonchi. HEART: Regular rate and rhythm without murmurs, rubs or gallops. ABDOMEN: Soft, nontender, normoactive bowel sounds. No guarding, no rebound. No masses appreciated. BACK: No CVA tenderness, no spinal tenderness, step-offs or deformities EXTREMITIES: Normal range of motion, no pitting or edema. No clubbing or cyanosis. NEUROLOGICAL: Cranial nerves II through XII grossly intact. Normal speech, normal gait. 5/5 strength, normal movement in all extremities, normal sensation PSYCH: Normal mood, normal affect. SKIN: Warm, dry, normal turgor, no visible rashes or lesions. Source: Patient, Old records - Personal History Current Tetanus/Diphtheria Vaccine: Unsure Current Tetanus Diphtheria and Acellular Pertussis (TDAP): Unsure Tetanus Vaccine Date: within 10 years - Medical/Surgical History Hx Asthma: No Hx Chronic Respiratory Disease: No Hx Diabetes: Yes Hx Cardiac Disease: Yes Hx Renal Disease: No Hx Cirrhosis: No Hx Alcoholism: No Hx HIV/AIDS: No Hx Splenectomy or Spleen Trauma: No Other PMH: C1 FX, heart arrythmia, tonsillectomy, c section, cholecystectomy, pacemaker, HTN, DM type II, hyperlipidemia - Social History Smoking Status: Never smoked Constitutional: Initial Vital Signs Temperature (C) 37.2 C 06/05/17 13:21 Heart Rate 94 06/05/17 13:21 Respiratory Rate 16 06/05/17 13:21 Blood Pressure 124/87 H 06/05/17 13:21 O2 Sat (%) 95 06/05/17 13:21 O2 Delivery Mode Nasal Cannula O2 (L/minute) 1 Allergies/Adverse Reactions: adhesive Allergy (Intermediate, Verified 05/13/17 12:16) Rash cephalexin Allergy (Intermediate, Verified 05/13/17 12:16) Rash niacin Allergy (Intermediate, Verified 05/13/17 12:16) Rash sulfamethoxazole [Sulfamethoxazole] Allergy (Intermediate, Verified 05/13/17 12: 16) "UPSET STOMACH" gabapentin Allergy (Unknown, Verified 05/13/17 12:16) UNABLE TO FALL ASLEEP latex Allergy (Verified 06/02/17 07:20) ranolazine [From Ranexa] Allergy (Verified 06/02/17 07:20) trimethoprim [From Bactrim] Allergy (Verified 06/02/17 07:20) Home Medications: Medication Instructions Recorded Cholecalciferol Vit D3 [Vitamin D3 1,000 units PO DAILY 05/13/17 (*)] Cyanocobalamin [Vitamin B12 (*)] 1,000 mcg PO DAILY 05/13/17 DULoxetine [Cymbalta 60 MG (*)] 60 mg PO DAILY 05/13/17 Hydrochlorothiazide [HCTZ (*)] 12.5 mg PO HS PRN 05/13/17 Insulin Detemir [Levemir Flextouch] 20 unit SQ HS 05/13/17 Isosorbide Mononitrate [Imdur 30 30 mg PO DAILY 05/13/17 mg (*)] Lisinopril [Zestril 10 mg (*)] 10 mg PO DAILY 05/13/17 Nortriptyline HCl [Pamelor 10 mg 20 mg PO HS 05/13/17 (*)] Rosuvastatin Calcium [Crestor 5mg] 5 mg PO DAILY 05/13/17 Sitagliptin Phos/Metformin HCl 1 each PO BIDMEAL 05/13/17 [Janumet 50-1,000 mg Tablet] Ferrous Sulfate [Slow Fe 140 MG 140 mg PO DAILY #30 tab.er 05/19/17 (*)] Pantoprazole Sodium [Protonix 40mg 40 mg PO BID #60 tab 05/19/17 (*)] Albuterol [Proventil Inhaler HFA 1 - 2 puffs IH Q4H 05/30/17 (*)] Aspirin EC [Aspirin EC 81 mg (*)] 81 mg PO DAILY 05/30/17 Docusate Sodium [Colace 100 MG (*)] 100 mg PO DAILY PRN 05/30/17 Herbals/Supplements -Info Only 1 ea PO DAILY 05/30/17 Ibuprofen [Motrin (*)] 200 mg PO Q6HRS PRN 05/30/17 Naproxen Sodium [Aleve 220 MG (*)] 220 mg PO BID PRN 05/30/17 Nitroglycerin [Nitrostat 0.4 mg 0.4 mg SL Q5M PRN 05/30/17 (*)] Nortriptyline HCl [Pamelor 10 mg 20 mg PO HS 05/30/17 (*)] Ondansetron Odt [Zofran Odt 4 mg 4 mg PO DAILY PRN 05/30/17 (*)] Medical Decision Making - Diagnostics EKG Interpretation: An EKG obtained and was read and documented in trace view. Please see trace view for full reading and report. Sinus rhythm, no acute ischemic changes Imaging Results: Imaging Impressions Cervical Spine CT 06/05/17 13:34 Impression: No evidence for acute intracranial abnormality. Moderate periventricular and deep hemispheric white matter change that can be seen with small vessel ischemic disease. Mild soft tissue swelling is seen in the right supraorbital region, without evidence for an orbital rim fracture or skull fracture. CT cervical spine without contrast History: Pain after fall. History of C1 and C2 fracture. Comparison: December 2016. Technique: 1.5-mm helical images were obtained of the cervical spine without contrast. Multiplanar reformation was performed. Findings: A chronic nondisplaced fracture is seen in the anterior arch of C1 and both posterior arches of C1. There is mild sclerosis and cortication along the fracture. No evidence for acute fracture of C1 or significant interval change. The anterior arch of C1 is fused with the dens. There is a transverse fracture through the mid dens with sclerosis and irregularity and hypertrophy, compatible with a chronic fracture, stable in alignment. There is posterior subluxation of C1 to C2, stable in appearance. No other findings for acute fracture in the cervical spine. Multilevel degenerative disk and degenerative joint disease are seen in the cervical spine, stable in appearance. No evidence for prevertebral soft tissue swelling. There is mild anterolisthesis of C4 on C5 , stable in appearance. Impression: 1. Chronic nondisplaced fracture of C1 of the anterior arch of C1 and the posterior arch bilaterally. There is also a mildly displaced chronic fracture of the mid dens with mild subluxation posteriorly of C1 in relation to C2, stable in appearance. 2. No evidence for acute fracture of the cervical spine. 3. Multilevel degenerative disk and degenerative joint disease in the cervical spine, stable in appearance. Results called and discussed with Dr. Tu Smalls, on June 05, 2017 at [address] 06/05/17 13:34 Impression: No evidence for acute intracranial abnormality. Moderate periventricular and deep hemispheric white matter change that can be seen with small vessel ischemic disease. Mild soft tissue swelling is seen in the right supraorbital region, without evidence for an orbital rim fracture or skull fracture. CT cervical spine without contrast History: Pain after fall. History of C1 and C2 fracture. Comparison: December 2016. Technique: 1.5-mm helical images were obtained of the cervical spine without contrast. Multiplanar reformation was performed. Findings: A chronic nondisplaced fracture is seen in the anterior arch of C1 and both posterior arches of C1. There is mild sclerosis and cortication along the fracture. No evidence for acute fracture of C1 or significant interval change. The anterior arch of C1 is fused with the dens. There is a transverse fracture through the mid dens with sclerosis and irregularity and hypertrophy, compatible with a chronic fracture, stable in alignment. There is posterior subluxation of C1 to C2, stable in appearance. No other findings for acute fracture in the cervical spine. Multilevel degenerative disk and degenerative joint disease are seen in the cervical spine, stable in appearance. No evidence for prevertebral soft tissue swelling. There is mild anterolisthesis of C4 on C5 , stable in appearance. Impression: 1. Chronic nondisplaced fracture of C1 of the anterior arch of C1 and the posterior arch bilaterally. There is also a mildly displaced chronic fracture of the mid dens with mild subluxation posteriorly of C1 in relation to C2, stable in appearance. 2. No evidence for acute fracture of the cervical spine. 3. Multilevel degenerative disk and degenerative joint disease in the cervical spine, stable in appearance. Results called and discussed with Dr. Tu Smalls, on June 05, 2017 at 1411 hours. Imaging: Discussed imaging studies w/ call center support representative Radiologist ED Course/Re-evaluation: We discussed the CT and lab results which are reassuring. Patient tells me now that she had her catheterization 1 week ago and was normal. She is eager to go home. She declines further workup or testing. She will call her to pick her up. Head CT ordered in this adult patient for trauma for the following indication: age greater than 65, significant bruising Differential Diagnosis: Partial list of the Differential diagnosis considered include but were not limited to; syncope, contusion, facial fracture, intracranial injury and although unlikely based on the history and physical exam, I also considered neck injury, thoracic injury. I discussed these differential diagnoses and the plan with the patient as well as the usual and expected course. The patient understands that the diagnosis is provisional and that in medicine we are not always correct and that further workup is often warranted. Usual and customary warnings were given. All of the patient's questions were answered. The patient was instructed to return to the emergency department should the symptoms at all worsen or return, otherwise to followup with the physician as we discussed. - Data Points Laboratory Results: Laboratory Results 06/05/17 Unknown 06/05/17 Unknown 06/05/17 06/05/17 06/05/17 Unknown Unknown Unknown WBC 8.26 10^3/uL 10^3/uL (3.80-9.50) RBC 3.91 10^6/uL L 10^6/uL (4.18-5.33) Hgb 10.7 g/dL L g/dL (12.6-16.3) Hct 31.9 % L % (38.0-47.0) MCV 81.6 fL fL (81.5-99.8) MCH 27.4 pg L pg (27.9-34.1) MCHC 33.5 g/dL g/dL (32.4-36.7) RDW 18.3 % H % (11.5-15.2) Plt Count 219 10^3/uL 10^3/uL (150-400) MPV 10.5 fL fL (8.7-11.7) Neut % (Auto) 60.0 % % (39.3-74.2) Lymph % (Auto) 29.3 % % (15.0-45.0) [place] % (Auto) 7.5 % % (4.5-13.0) Eos % (Auto) 1.9 % % (0.6-7.6) Baso % (Auto) 0.7 % % (0.3-1.7) Nucleat RBC Rel Count 0.0 % % (0.0-0.2) Absolute Neuts (auto) 4.95 10^3/uL 10^3/uL (1.70-6.50) Absolute Lymphs (auto) 2.42 10^3/uL 10^3/uL (1.00-3.00) Absolute Monos (auto) 0.62 10^3/uL 10^3/uL (0.30-0.80) Absolute Eos (auto) 0.16 10^3/uL 10^3/uL (0.03-0.40) Absolute Basos (auto) 0.06 10^3/uL 10^3/uL (0.02-0.10) Absolute Nucleated RBC 0.00 10^3/uL 10^3/uL (0-0.01) Immature Gran % 0.6 % % (0.0-1.1) Immature Gran # 0.05 10^3/uL 10^3/uL (0.00-0.10) PT 12.1 SEC SEC (12.0-15.0) INR 0.91 (0.83-1.16) APTT 25.8 SEC SEC (23.0-38.0) Sodium 134 mEq/L mEq/L (134-144) Potassium 4.0 mEq/L mEq/L (3.5-5.2) Chloride 93 mEq/L L mEq/L (97-110) Carbon Dioxide 26 mEq/l mEq/l (22-31) Anion Gap 15 mEq/L mEq/L (8-16) BUN 8 mg/dL mg/dL (7-23) Creatinine 0.6 mg/dL mg/dL (0.6-1.0) Estimated GFR > 60 Glucose 169 mg/dL H mg/dL (70-100) Calcium 9.7 mg/dL mg/dL (8.5-10.4) Troponin I < 0.012 ng/mL ng/mL (0.000-0.034) Departure - Departure Disposition: Home, Routine, Self-Care Clinical Impression: Fall Qualifiers: Encounter type: initial encounter Qualified Code(s): W19.XXXA - Unspecified fall, initial encounter Contusion Qualifiers: Encounter type: initial encounter Contusion area: head Contusion of head detail : periocular area Laterality: right Qualified Code(s): S00.11XA - Contusion of right eyelid and periocular area, initial encounter Condition: Fair Instructions: Fall Prevention (ED), Facial Contusion (ED) Referrals: Poncho Terry MD [Primary Care Provider] - As per Instructions
[2017-06-05 14:00] LABS: % IMMATURE GRANULYOCYTES 0.6 % (0.0-1.1); ABSOLUTE IMMATURE GRANULOCYTES 0.05 10^3/uL (0.00-0.10); ADD DIFF? NO; ADD MORPH? NO; ADD SCAN? NO; ATYPICAL LYMPHOCYTE FLAG 0 (0-99); FRAGMENT RBC FLAG 30 (0-99); HEMATOCRIT 31.9 % (38.0-47.0); HEMOGLOBIN 10.7 g/dL (12.6-16.3); INR 0.91 (0.83-1.16); LEFT SHIFT FLG 0 (0-99); LIPEMIA HEMOLYSIS FLAG 80 (0-99); MEAN CELL HEMOGLOBIN 27.4 pg (27.9-34.1); MEAN CELL HEMOGLOBIN CONCENTR. 33.5 g/dL (32.4-36.7); MEAN CELL VOLUME 81.6 fL (81.5-99.8); MEAN PLATELET VOLUME 10.5 fL (8.7-11.7); PLATELET CLUMPS FLAG 20 (0-99); PLATELET COUNT 219 10^3/uL (150-400); PROTIME(PATIENT) 12.1 SEC (12.0-15.0); RED BLOOD CELL COUNT 3.91 10^6/uL (4.18-5.33); RED CELL DISTRIBUTION WIDTH 18.3 % (11.5-15.2)
[2017-06-05 14:01] LABS: APTT 25.8 SEC (23.0-38.0)
[2017-06-05 14:11] LABS: ANION GAP 15 mEq/L (8-16); CALCIUM 9.7 mg/dL (8.5-10.4); CARBON DIOXIDE 26 mEq/l (22-31); CHLORIDE 93 mEq/L (97-110); CREATININE 0.6 mg/dL (0.6-1.0); GLOMERULAR FILTRATION RATE > 60; GLUCOSE 169 mg/dL (70-100); SODIUM 134 mEq/L (134-144)
[2017-06-05 14:15] VITALS: RESP 18; TEMP 98.1
[2017-06-05 14:23] LABS: TROPONIN I < 0.012 ng/mL (0.000-0.034)
[2017-06-05 14:26] VITALS: BP 142/89; PULSE 82; O2SAT 100
--- NOTE | 2017-06-05 14:33 | CPEKG ---
Heart Rate: 94 RR Interval: 638 P-R Interval: 140 QRSD Interval: 86 QT Interval: 376 QTC Interval: 471 P Sarita: 42 QRS Sarita: 2 T Wave Sarita: 26 EKG Severity - BORDERLINE ECG - EKG Impression: SINUS RHYTHM EKG Impression: CONSIDER ANTERIOR INFARCT Electronically Signed By: Tu Smalls 05-Jun-2017 14:43:46
== END 2017-06-05 15:12 | disposition home or self-care (01) ==
LOC: EDUNIT#
DX: S00.11XA Contusion of right eyelid and periocular area, initial encounter (principal); E11.9 Type 2 diabetes mellitus without complications; I10 Essential (primary) hypertension; Z95.0 Presence of cardiac pacemaker; Z91.040 Latex allergy status; Z79.4 Long term (current) use of insulin; Z79.82 Long term (current) use of aspirin; W18.39XA Other fall on same level, initial encounter

== ENCOUNTER 2017-06-14 12:37 | Observation (INO) | payer OTHER, BC ==
--- NOTE | 2017-06-14 13:19 | EDPHY ---
H & P Stated Complaint: anxiety Source: Patient Exam Limitations: No limitations - Personal History Current Tetanus/Diphtheria Vaccine: Yes Current Tetanus Diphtheria and Acellular Pertussis (TDAP): Yes Tetanus Vaccine Date: within 10 years - Medical/Surgical History Hx Asthma: No Hx Chronic Respiratory Disease: No Hx Diabetes: Yes Hx Cardiac Disease: Yes Hx Renal Disease: No Hx Cirrhosis: No Hx Alcoholism: Yes Hx HIV/AIDS: No Hx Splenectomy or Spleen Trauma: No Other PMH: C1 FX, heart arrythmia, tonsillectomy, c section, cholecystectomy, pacemaker, HTN, DM type II, hyperlipidemia - Social History Smoking Status: Never smoked Time Seen by Provider: 06/14/17 13:19 HPI/ROS: HPI: This is a 76-year-old female presents with Chief Complaint: Anxiety Location: Chest Quality: Dyspnea Duration: 1 day Signs and Symptoms: No fever, no chills,+ nausea, + orthopnea, + approximates well nocturnal dyspnea, no leg swelling, no chest pain, no abdominal pain Timing: Sudden, constant Severity: Moderate Context: Patient has a history of what seems like peptic ulcer disease, pacemaker, heart arrhythmia, but has not started her Protonix but did decrease from 1 bottle champagne a day to discussion of coffee in the morning presents with 1 day history of shortness of breath, having to sleep on 2 pillows at night. She reports that she felt very anxious today, lives alone, and called EMS. Reports she takes baby aspirin daily. Denies any fever, chest pain, palpitations, lower extremity edema, cough. Modifying Factors: Regular home medications Comment: ROS: see HPI Constitutional: No fever, no chills, no weight loss Eyes: No blurred vision Respiratory: No shortness of breath, no cough Cardiovascular: No chest pain Gastrointestinal: No nausea, no vomiting, no diarrhea Genitourinary: No dysuria Extremities: No myalgias Neurologic: No weakness, no numbness Skin: No rashes Hematologic: No bruising, no bleeding MEDICAL/SURGICAL/SOCIAL HISTORY: Medical/surgical history: C1 FX, heart arryhthmia, tonsillectomy, c section, cholecystectomy, pacemaker, HTN, DM type II, hyperlipidemia Social history: Lives alone. CONSTITUTIONAL: Pleasant elderly white female, awake and alert, no obvious distress HEENT: Atraumatic and normocephalic, PERRL, EOMI. Tympanic membranes clear. Oropharynx clear, no exudate and moist pink mucosa. Airway patent. No lymphadenopathy. NECK: No JVD. No meningismus. Cardiovascular: Normal S1/S2, irregular rate, regular rhythm, without murmur rub or gallop. PULMONARY/CHEST: Symmetrical and nontender. Clear to auscultation bilaterally. Good air movement. No accessory muscle usage. ABDOMEN: Soft, nondistended, nontender, no rebound, no guarding, no peritoneal signs, no masses or organomegaly. No CVAT. EXTREMITIES: 2/2 pulses, strength 5/5, no deformities, no clubbing, no cyanosis or edema. NEUROLOGICAL: no focal neuro deficits. GCS 15. SKIN: Warm and dry, no erythema. no rash. Good capillary refill. (Cris Harris) Constitutional: Initial Vital Signs Temperature (C) 36.6 C 06/14/17 12:37 Heart Rate 78 06/14/17 12:37 Respiratory Rate 24 H 06/14/17 12:37 Blood Pressure 125/95 H 06/14/17 12:37 O2 Sat (%) 98 06/14/17 12:37 O2 Delivery Mode Nasal Cannula O2 (L/minute) 2 Allergies/Adverse Reactions: adhesive Allergy (Intermediate, Verified 06/14/17 12:51) Rash cephalexin Allergy (Intermediate, Verified 06/14/17 12:51) Rash niacin Allergy (Intermediate, Verified 06/14/17 12:51) Rash sulfamethoxazole [Sulfamethoxazole] Allergy (Intermediate, Verified 06/14/17 12: 51) "UPSET STOMACH" gabapentin Allergy (Unknown, Verified 06/14/17 12:51) UNABLE TO FALL ASLEEP latex Allergy (Verified 06/14/17 12:51) ranolazine [From Ranexa] Allergy (Verified 06/14/17 12:51) trimethoprim [From Bactrim] Allergy (Verified 06/14/17 12:51) Home Medications: Medication Instructions Recorded Cholecalciferol Vit D3 [Vitamin D3 1,000 units PO DAILY 05/13/17 (*)] Cyanocobalamin [Vitamin B12 (*)] 1,000 mcg PO DAILY 05/13/17 DULoxetine [Cymbalta 60 MG (*)] 60 mg PO DAILY 05/13/17 Hydrochlorothiazide [HCTZ (*)] 12.5 mg PO HS PRN 05/13/17 Insulin Detemir [Levemir Flextouch] 20 unit SQ HS 05/13/17 Isosorbide Mononitrate [Imdur 30 30 mg PO BID 05/13/17 mg (*)] Lisinopril [Zestril 10 mg (*)] 10 mg PO DAILY 05/13/17 Rosuvastatin Calcium [Crestor 5mg] 5 mg PO HS 05/13/17 Pantoprazole Sodium [Protonix 40mg 40 mg PO BID #60 tab 05/19/17 (*)] Aspirin EC [Aspirin EC 81 mg (*)] 81 mg PO DAILY 05/30/17 Herbals/Supplements -Info Only 1 ea PO DAILY 05/30/17 Naproxen Sodium [Aleve 220 MG (*)] 220 mg PO BID PRN 05/30/17 Nitroglycerin [Nitrostat 0.4 mg 0.4 mg SL Q5M PRN 05/30/17 (*)] Nortriptyline HCl [Pamelor 10 mg 20 mg PO HS 05/30/17 (*)] Ferrous Sulfate [Slow Fe 140 MG 140 mg PO Q2D 06/14/17 (*)] Levomefolate/B6/B12/Algal Oil 1 each PO BID 06/14/17 [Metanx Capsule] Multivitamins [Multivitamin (*)] 1 each PO DAILY 06/14/17 Nebivolol HCl [Bystolic 5 mg (*)] 5 mg PO DAILY 06/14/17 Sitagliptin Phos/Metformin HCl 1 each PO DAILY 06/14/17 [Janumet 50-500 mg Tablet] Medical Decision Making - Diagnostics Imaging Results: Imaging Impressions Chest X-Ray 06/14/17 13:48 Impression: Mild airways disease. No acute process. Chest/Thorax CTA 06/14/17 14:25 Impression: 1. No definite pulmonary thromboemboli. 2. Coronary artery calcifications. 3. Atherosclerotic thoracic aorta without aneurysm or dissection. 4. Pill or radiopaque foreign body in the distal esophagogastric junction. Please clinically correlate. 5. No acute pneumonia. Findings and recommendations discussed with Emergency Department physician, Cris Harris PA-C at 1555 hours on June 14, 2017. Final report concurs with initial preliminary interpretation. A test result has been communicated to a licensed care provider and documented in the [facility] Critical Result system on 06/14/2017 15:55, Message ID [id number]. ED Course/Re-evaluation: Chest x-ray labs EKG ordered Vital signs reviewed upon arrival and stable D-dimer elevated CTA chest CTA chest is unchanged from the [address] Ventura saw knee no pulmonary embolism, pneumonia, aortic dissection, pleural effusion. Pill or radiopaque foreign body in the distal esophagogastric junction. Patient is having no difficulty swallowing or speaking. No signs of airway compromise. Reports that it may be a cough drop that she swallowed. Chart review: Myocardial Perfusion Scan Nuc Med 05/14/17 10:00 Impression: Inferior lateral myocardial wall defect which appears larger on the stress images than the rest images either representing inferior lateral ischemia or inferior lateral eddie-infarct ischemia. May 2017 had left heart catheterization that showed no ischemia. Sitting up in bed pulse ox 86% on room air without ambulation. No signs of congestive heart failure, arrhythmia, pulmonary embolism, pneumonia , hypoventilation obesity syndrome. ED decision to consult for admission. Spoke with Dr. Palacios who kindly agrees to placed in observation on PCU. (Cris Harris) 1600-this patient was seen and examined by me. She presents with sudden onset of shortness of breath this morning. Oxygen saturation is 90% on room air and she is tachycardiac, with a heart rate of 105. Chest is clear to auscultation, heart regular tachycardia EKG reveals normal sinus rhythm, rate 81, without evidence of ischemia. CT pulmonary angiogram is unremarkable. Unclear etiology of hypoxia, with normal lung exam and normal CT pulmonary angiogram. She will need to be admitted for further evaluation. (Paulette Wade) Differential Diagnosis: Shortness of breath including but not limited to pulmonary infectious process, COPD, asthma, pulmonary embolus and congestive heart failure. (Cris Harris) - Data Points Laboratory Results: Laboratory Results 06/14/17 13:35 06/14/17 13:35 06/14/17 06/14/17 06/14/17 13:35 13:35 13:35 WBC 6.95 10^3/uL 10^3/uL (3.80-9.50) RBC 3.87 10^6/uL L 10^6/uL (4.18-5.33) Hgb 10.3 g/dL L g/dL (12.6-16.3) Hct 31.9 % L % (38.0-47.0) MCV 82.4 fL fL (81.5-99.8) MCH 26.6 pg L pg (27.9-34.1) MCHC 32.3 g/dL L g/dL (32.4-36.7) RDW 18.2 % H % (11.5-15.2) Plt Count 161 10^3/uL 10^3/uL (150-400) MPV 11.2 fL fL (8.7-11.7) Neut % (Auto) 57.1 % % (39.3-74.2) Lymph % (Auto) 29.1 % % (15.0-45.0) [place] % (Auto) 8.8 % % (4.5-13.0) Eos % (Auto) 3.3 % % (0.6-7.6) Baso % (Auto) 1.3 % % (0.3-1.7) Nucleat RBC Rel Count 0.0 % % (0.0-0.2) Absolute Neuts (auto) 3.97 10^3/uL 10^3/uL (1.70-6.50) Absolute Lymphs (auto) 2.02 10^3/uL 10^3/uL (1.00-3.00) Absolute Monos (auto) 0.61 10^3/uL 10^3/uL (0.30-0.80) Absolute Eos (auto) 0.23 10^3/uL 10^3/uL (0.03-0.40) Absolute Basos (auto) 0.09 10^3/uL 10^3/uL (0.02-0.10) Absolute Nucleated RBC 0.00 10^3/uL 10^3/uL (0-0.01) Immature Gran % 0.4 % % (0.0-1.1) Immature Gran # 0.03 10^3/uL 10^3/uL (0.00-0.10) PT 12.5 SEC SEC (12.0-15.0) INR 0.91 (0.83-1.16) APTT 25.7 SEC SEC (23.0-38.0) D-Dimer 0.69 ug/mLFEU H ug/mLFEU (0.00-0.50) Sodium 135 mEq/L mEq/L (134-144) Potassium 3.6 mEq/L mEq/L (3.5-5.2) Chloride 95 mEq/L L mEq/L (97-110) Carbon Dioxide 22 mEq/l mEq/l (22-31) Anion Gap 18 mEq/L H mEq/L (8-16) BUN 11 mg/dL mg/dL (7-23) Creatinine 0.6 mg/dL mg/dL (0.6-1.0) Estimated GFR > 60 Glucose 147 mg/dL H mg/dL (70-100) Calcium 9.5 mg/dL mg/dL (8.5-10.4) Total Bilirubin 0.5 mg/dL mg/dL (0.1-1.4) Conjugated Bilirubin 0.2 mg/dL mg/dL (0.0-0.5) Unconjugated Bilirubin 0.3 mg/dL mg/dL (0.0-1.1) AST 38 IU/L IU/L (14-46) ALT 38 IU/L IU/L (9-52) Alkaline Phosphatase 77 IU/L IU/L (38-126) Troponin I < 0.012 ng/mL ng/mL (0.000-0.034) NT-Pro-B Natriuret Pep 175 pg/mL pg/mL (0-450) Total Protein 7.7 g/dL g/dL (6.3-8.2) Albumin 4.5 g/dL g/dL (3.5-5.0) Lipase 88 IU/L IU/L (23-300) Medications Given: Discontinued Medications Aspirin (Aspirin) 324 mg PO EDNOW ONE Stop: 06/14/17 16:13 Last Admin: 06/14/17 16:40 Dose: 324 mg Lorazepam (Ativan Injection) 0.5 mg IVP EDNOW ONE Stop: 06/14/17 14:45 Last Admin: 06/14/17 14:48 Dose: 0.5 mg Ondansetron HCl (Zofran Odt) 4 mg PO EDNOW ONE Stop: 06/14/17 13:24 Last Admin: 06/14/17 13:25 Dose: 4 mg Pantoprazole Sodium (Protonix) 40 mg IVP EDNOW ONE Stop: 06/14/17 13:49 Last Admin: 06/14/17 14:06 Dose: 40 mg Departure - Departure Disposition: [facility] Inpatient Acute Clinical Impression: Hypoxia Esophageal foreign body Qualifiers: Encounter type: initial encounter Qualified Code(s): T18.108A - Unspecified foreign body in esophagus causing other injury, initial encounter
[2017-06-14] MEDS ORDERED: ONDANSETRON DISINTEGRATING 4 MG TAB PO ONE (13:23)
[2017-06-14] MEDS ORDERED: PANTOPRAZOLE SODIUM 40 MG VIAL IVP ONE (13:48)
[2017-06-14 14:01] LABS: % IMMATURE GRANULYOCYTES 0.4 % (0.0-1.1); ABSOLUTE IMMATURE GRANULOCYTES 0.03 10^3/uL (0.00-0.10); ADD DIFF? NO; ADD MORPH? NO; ADD SCAN? NO; ATYPICAL LYMPHOCYTE FLAG 10 (0-99); FRAGMENT RBC FLAG 20 (0-99); HEMATOCRIT 31.9 % (38.0-47.0); HEMOGLOBIN 10.3 g/dL (12.6-16.3); LEFT SHIFT FLG 0 (0-99); LIPEMIA HEMOLYSIS FLAG 80 (0-99); MEAN CELL HEMOGLOBIN 26.6 pg (27.9-34.1); MEAN CELL HEMOGLOBIN CONCENTR. 32.3 g/dL (32.4-36.7); MEAN CELL VOLUME 82.4 fL (81.5-99.8); MEAN PLATELET VOLUME 11.2 fL (8.7-11.7); PLATELET CLUMPS FLAG 0 (0-99); PLATELET COUNT 161 10^3/uL (150-400); RED BLOOD CELL COUNT 3.87 10^6/uL (4.18-5.33); RED CELL DISTRIBUTION WIDTH 18.2 % (11.5-15.2)
--- NOTE | 2017-06-14 14:01 | CPEKG ---
Heart Rate: 81 RR Interval: 741 P-R Interval: 140 QRSD Interval: 82 QT Interval: 428 QTC Interval: 497 P Salem: 28 QRS Salem: 5 T Wave Salem: 37 EKG Severity - BORDERLINE ECG - EKG Impression: SINUS RHYTHM EKG Impression: TALL R WAVE IN V2, CONSIDER RVH OR PMI EKG Impression: BORDERLINE PROLONGED QT INTERVAL Electronically Signed By: Paulette Wade 14-Jun-2017 20:54:01
[2017-06-14 14:10] LABS: APTT 25.7 SEC (23.0-38.0); INR 0.91 (0.83-1.16); PROTIME(PATIENT) 12.5 SEC (12.0-15.0)
[2017-06-14 14:19] LABS: ALANINE AMINOTRANSFERASE 38 IU/L (9-52); ALBUMIN 4.5 g/dL (3.5-5.0); ALKALINE PHOSPHATASE 77 IU/L (38-126); ANION GAP 18 mEq/L (8-16); ASPARTATE AMINOTRANSFERASE 38 IU/L (14-46); BILIRUBIN,TOTAL 0.5 mg/dL (0.1-1.4); BILIRUBIN-CONJUGATED 0.2 mg/dL (0.0-0.5); BILIRUBIN-UNCONJUGATED 0.3 mg/dL (0.0-1.1); CALCIUM 9.5 mg/dL (8.5-10.4); CARBON DIOXIDE 22 mEq/l (22-31); CHLORIDE 95 mEq/L (97-110); CREATININE 0.6 mg/dL (0.6-1.0); GLOMERULAR FILTRATION RATE > 60; GLUCOSE 147 mg/dL (70-100); POTASSIUM 3.6 mEq/L (3.5-5.2); SODIUM 135 mEq/L (134-144); TOTAL PROTEIN 7.7 g/dL (6.3-8.2)
[2017-06-14 14:27] LABS: TROPONIN I < 0.012 ng/mL (0.000-0.034)
[2017-06-14] MEDS ORDERED: LORazepam 2 MG/ML INJ IVP ONE (14:44)
[2017-06-14] MEDS ORDERED: IOPAMIDOL (ISOVUE 370) 100 ML BTL IV ONE (14:44)
[2017-06-14] MEDS ORDERED: ASPIRIN 81 MG CHEWABLE TAB PO ONE (16:12)
[2017-06-14] MEDS ORDERED: ONDANSETRON DISINTEGRATING 4 MG TAB PO PRN (17:35)
[2017-06-14] MEDS ORDERED: ACETAMINOPHEN 325 MG TAB PO PRN (17:35)
[2017-06-14] MEDS ORDERED: ONDANSETRON 4 MG/2 ML VIAL IVP PRN (17:35)
[2017-06-14] MEDS ORDERED: IPRATROPIUM/ALBUTEROL 3 ML DEYVIAL IH PRN (17:59)
[2017-06-14] MEDS ORDERED: HYDROCHLOROTHIAZIDE 12.5 MG CAP PO PRN (17:59)
[2017-06-14] MEDS ORDERED: ALBUTEROL 3 ML DEYVIAL IH PRN (17:59)
[2017-06-14] MEDS ORDERED: NAPROXEN SODIUM 220 MG TAB PO PRN (17:59)
[2017-06-14] MEDS ORDERED: NITROGLYCERIN 0.4 MG BTL SL PRN (17:59)
[2017-06-14] MEDS ORDERED: traZODone 50 MG TAB PO PRN (18:26)
--- NOTE | 2017-06-14 19:01 | GHP ---
[f rep st] HISTORY AND PHYSICAL DATE OF ADMISSION: 06/14/2017 CHIEF COMPLAINT: Shortness of breath. HISTORY OF PRESENT ILLNESS: The patient is a 76-year-old female with a history of diabetes, hypertension, alcohol use and peptic ulcer disease who presents to the emergency department with shortness of breath. She reports a chronic cough which is increased in frequency and severity over the past few days. Her cough is productive. She denies fevers or chills. She denies chest pain. She states this afternoon she felt like she began to have a panic attack. She had difficulty breathing and felt heart palpitations. She is a nonsmoker and denies a history of COPD, though does have a significant secondhand smoke exposure history, growing up in a family with heavy smokers. She was admitted to the hospital last month and diagnosed with peptic ulcer disease for which she has been treated with PPI twice daily. She denies abdominal pain, nausea, vomiting, or diarrhea. She also underwent a nuclear medicine stress test in April 2017 which was abnormal. This was followed by an angiogram on June 02, 2017, which showed normal coronary arteries. Evidence of diastolic dysfunction was noted on her recent echocardiogram as well as her angiogram. However, she has a normal BNP and no evidence of pulmonary edema on her chest x-ray or CTA on arrival. She was found to be 90% oxygen saturation on room air and at the time of my evaluation she is saturating 93% on 1 L. Due to her hypoxemia, she was admitted to the hospital for further evaluation. PAST MEDICAL HISTORY: 1. Diabetes mellitus type 2. 2. Peptic ulcer disease/GERD. 3. Hypertension. 4. History of chronic cervical fracture over 2 years ago which has been managed nonoperatively. 5. Hyperlipidemia. 6. Peripheral neuropathy. MEDICATIONS: Please see [facility] for complete and updated outpatient medication list. ALLERGIES: Adhesives, cephalexin, niacin, sulfamethoxazole, gabapentin, latex, Ranexa, and Bactrim. FAMILY HISTORY: Reviewed and noncontributory. SOCIAL HISTORY: The patient lives alone and is functional in all of her ADLs. She denies alcohol or tobacco, or drug use. REVIEW OF SYSTEMS: A 10-point review of systems was performed and is negative except as per HPI. OBJECTIVE: VITAL SIGNS: Temperature is 36.6, blood pressure 123/74, heart rate 96, respiratory rate 18, she is 93% on 1 L of oxygen by nasal cannula. GENERAL: The patient is awake, alert, and oriented, in no acute distress. HEENT: Head is atraumatic, normocephalic. Pupils equal, round, and reactive to light. Extraocular muscles intact. Oropharynx is clear. Mucous members are moist. She has some facial ecchymosis on the right side. NECK: Supple. There is no JVD. HEART: Regular rate and rhythm without murmur. LUNGS: Reveal decreased air exchange with mild scattered expiratory wheezes. EXTREMITIES: Without cyanosis, clubbing, or edema. She has a distal petechial rash in the bilateral lower extremities which is blanchable and chronic per the patient report. NEUROLOGIC: Grossly nonfocal. LABORATORY DATA: CBC reveals a white blood cell count 6.97, hemoglobin 10.3 which is stable from her chronic baseline, platelets 161. INR 0.91. D-dimer 0.69. NT-proBNP is normal at 175. Basic metabolic panel is remarkable for a normal serum bicarb of 22, anion gap is 18, chloride 95, electrolytes otherwise normal, blood sugar 147. EKG in the emergency department, personally reviewed and interpreted, shows normal sinus rhythm with no ST-segment or T-wave changes concerning for ischemia. Chest x-ray is personally reviewed and interpreted. There is poor inspiratory effort and mild diffuse peribronchial thickening with a dual-lead pacemaker noted. Heart size has borderline cardiomegaly. No evidence of consolidation, pulmonary edema or pleural effusion. CT pulmonary angiogram is negative for definite pulmonary emboli. Coronary artery calcifications are noted. Atherosclerotic thoracic aorta without aneurysm or dissection. A pill or radiopaque foreign body in the distal esophagogastric junction is noted. This was discussed with the radiologist and is thought to be nonobstructive and is expected to pass and may be simply related to timing. There is no evidence of pneumonia or pulmonary edema on her CT. ASSESSMENT AND PLAN: The patient is a 76-year-old female with a history of diabetes, hypertension, hyperlipidemia who presents to the emergency department with shortness of breath. 1. Acute hypoxemic respiratory failure. She is no longer dyspneic. She does not have a baseline oxygen requirement but was saturating at 87% on arrival. Her CTA is negative for PE. She had a recent coronary angiogram which showed clear coronary arteries in the left main system. I reviewed her prior echocardiogram. There is grade 1 diastolic dysfunction, though she has no evidence of acute heart failure exacerbation, with normal BNP and no evidence of pulmonary edema or lower extremity edema. I suspect she may have a viral URI or bronchitis contributing to her mild hypoxemia. Will send a respiratory pathogen panel. Start q.i.d. DuoNeb, p.r.n. albuterol nebs as well as prednisone 40 mg daily for mild wheezing detected on exam. Continue to wean oxygen as able. 2. Diabetes mellitus type 2. She has a hemoglobin A1c of 6.5 from earlier this month and is thus well controlled. We will continue her home insulin regimen as well as metformin, her TAMIE inhibitor and statin. 3. Hypertension. This is fairly well controlled. Will continue her outpatient regimen including hydrochlorothiazide, lisinopril, and Bystolic. 4. Peptic ulcer disease. Continue proton pump inhibitor. 5. History of alcohol abuse. She had no evidence of withdrawal during her previous hospitalization last month. Will monitor closely for any signs of withdrawal and initiate CIWA protocol should that occur. 6. Deep vein thrombosis prophylaxis. The patient is high risk. Will start Lovenox. CODE STATUS: Patient is a full code. DISPOSITION: Patient was admitted to inpatient status. I suspect she may require greater than 48 hours hospitalization for ongoing management of her hypoxemia. PT, OT evaluations are ordered as well as case management. /[id number]/MODL MTDD
[2017-06-14] MEDS ORDERED: NORTRIPTYLINE HCL 10 MG CAP PO SCH (21:00)
[2017-06-14] MEDS ORDERED: INSULIN GLARGINE 100 UNITS/ML SYRINGE SC SCH (21:00)
[2017-06-14] MEDS ORDERED: ROSUVASTATIN CALCIUM 10 MG TAB PO SCH (21:00)
[2017-06-14] MEDS: PANTOPRAZOLE SODIUM 40 MG TAB PO SCH (21:24)
[2017-06-14] MEDS: ISOSORBIDE MONONITRATE 30 MG TAB.SR PO SCH (21:24)
[2017-06-14] MEDS: predniSONE 20 MG TAB PO SCH (21:30)
[2017-06-15] MEDS: ISOSORBIDE MONONITRATE 30 MG TAB.SR PO SCH (07:32)
[2017-06-15] MEDS: PANTOPRAZOLE SODIUM 40 MG TAB PO SCH (07:33)
[2017-06-15] MEDS: predniSONE 20 MG TAB PO SCH (07:33)
[2017-06-15] MEDS ORDERED: CYANO/VITAMIN B12 1000 MCG TAB PO SCH (09:00)
[2017-06-15] MEDS ORDERED: FERROUS SULFATE 140 MG TAB.ER PO SCH (09:00)
[2017-06-15] MEDS ORDERED: ASPIRIN EC 81 MG TAB PO SCH (09:00)
[2017-06-15] MEDS ORDERED: DULoxetine 60 MG CAP PO SCH (09:00)
[2017-06-15] MEDS ORDERED: ENOXAPARIN 40 MG/0.4 ML SYR SC SCH (09:00)
[2017-06-15] MEDS ORDERED: LISINOPRIL 10 MG TAB PO SCH (09:00)
[2017-06-15] MEDS ORDERED: NEBIVOLOL HCL 5 MG TAB PO SCH (09:00)
[2017-06-15] MEDS ORDERED: CHOLECALCIFEROL VIT D3 1,000 UNITS TAB PO SCH (09:00)
--- NOTE | 2017-06-15 09:59 | ASMTCASEMG ---
Living Arrangements What is your living Answers: Alone arrangement? Who do you live with? Type Of Residence What kind of residence do Answers: House you live in? Discharge Plan Comments Coordination Status Comments Notes: CM spoke w/ JASON Cornejo regarding d/c POC. Pt is a 76 y/o female admitted for hypoxia and dyspnea. Therapies have been ordered. OT is recommending home independent. Awaiting PT recommendations. Anticipates that pt will most likely d/c independent when medically stable. CM available for d/c needs. Plan: Independent Date Signed: 06/15/2017 09:59 AM Electronically Signed By:GRETEL Garrido
--- NOTE | 2017-06-15 11:33 | HOSPPROG ---
Hospitalist Progress Note Assessment/Plan: 76 yo F a/w SOB, neg eval dc today if not hypoxic see dc summary Subjective: cxr: no infiltrate, airways disease (interp by me). tele: no events (interp by me) Objective: Vital Signs Temp Pulse Resp BP Pulse Ox 36.1 C 87 10 L 124/83 H 97 06/15/17 07:53 06/15/17 07:53 06/15/17 07:53 06/15/17 07:53 06/15/17 07:53 Microbiology 06/14/17 23:05 Respiratory Panel (PCR) - Final Nasal, Sinus - Swab No Organism Detected 06/14/17 06/15/17 06/16/17 05:59 05:59 05:59 Intake Total 500 Output Total 800 Balance -300 PT 12.5 SEC (12.0-15.0) 06/14/17 13:35 INR 0.91 (0.83-1.16) 06/14/17 13:35 - Physical Exam Constitutional: no apparent distress, appears nourished Eyes: PERRL, anicteric sclera Ears, Nose, Mouth, Throat: moist mucous membranes, hearing normal Cardiovascular: regular rate and rhythym, no murmur, rub, or gallop Respiratory: no respiratory distress, no rales or rhonchi, No expiratory wheeze , No inspiratory crackles Gastrointestinal: normoactive bowel sounds, soft, non-tender abdomen Genitourinary: No rangel in urethra Skin: warm, normal color Musculoskeletal: full muscle strength, no muscle tenderness Neurologic: AAOx3 ICD10 Worksheet Patient Problems: Problems Problem Status Onset Esophageal foreign body Acute Hypoxia Acute Hyponatremia Acute Shortness of breath Acute
[2017-06-15 11:43] VITALS: BP 129/77; PULSE 79; RESP 13; TEMP 98.4; O2SAT 94
--- NOTE | 2017-06-15 15:12 | ASMTCMCOM ---
CM Note CM Note Notes: Pt is being discharged today. CM met w/ pt for dispo planning. PT is recommending HC. Pt is agreeable to having [facility] to follow. CM sent referral to [facility] and they are able to follow pt. CM avilable for changes. Plan: [facility], PT Date Signed: 06/15/2017 03:11 PM Electronically Signed By:GRETEL Garrido
--- NOTE | 2017-06-15 16:13 | PDIAF ---
- Diagnosis Diagnosis: dyspnea Code Status: Full Code - Medication Management Discharge Medications: Medications to Continue on Transfer Cholecalciferol Vit D3 [Vitamin D3 (*)] 1,000 units PO DAILY 05/13/17 [Last Taken 06/14/17] Cyanocobalamin [Vitamin B12 (*)] 1,000 mcg PO DAILY 05/13/17 [Last Taken ] DULoxetine [Cymbalta 60 MG (*)] 60 mg PO DAILY 05/13/17 [Last Taken 06/14/17] Hydrochlorothiazide [HCTZ (*)] 12.5 mg PO HS PRN 05/13/17 [Last Taken 06/13/17] Insulin Detemir [Levemir Flextouch] 20 unit SQ HS 05/13/17 [Last Taken 06/13/17] Isosorbide Mononitrate [Imdur 30 mg (*)] 30 mg PO BID 05/13/17 [Last Taken 06/14 09:00] Lisinopril [Zestril 10 mg (*)] 10 mg PO DAILY 05/13/17 [Last Taken 06/14/17] Rosuvastatin Calcium [Crestor 5mg] 5 mg PO HS 05/13/17 [Last Taken 06/13/17] Pantoprazole Sodium [Protonix 40mg (*)] 40 mg PO BID #60 tab 05/19/17 [Last Taken 06/14/17 09:00] Aspirin EC [Aspirin EC 81 mg (*)] 81 mg PO DAILY 05/30/17 [Last Taken Unknown] Herbals/Supplements -Info Only 1 ea PO DAILY 05/30/17 [Last Taken 06/13/17] Naproxen Sodium [Aleve 220 MG (*)] 220 mg PO BID PRN 05/30/17 [Last Taken 1 Week Ago ~06/07/17] Nitroglycerin [Nitrostat 0.4 mg (*)] 0.4 mg SL Q5M PRN 05/30/17 [Last Taken Unknown] Nortriptyline HCl [Pamelor 10 mg (*)] 20 mg PO HS 05/30/17 [Last Taken 06/13/17] Ferrous Sulfate [Slow Fe 140 MG (*)] 140 mg PO Q2D 06/14/17 [Last Taken 06/13/17 ] Levomefolate/B6/B12/Algal Oil [Metanx Capsule] 1 each PO BID 06/14/17 [Last Taken 06/14/17 09:00] Multivitamins [Multivitamin (*)] 1 each PO DAILY 06/14/17 [Last Taken 06/14/17] Nebivolol HCl [Bystolic 5 mg (*)] 5 mg PO DAILY 06/14/17 [Last Taken 06/14/17] Sitagliptin Phos/Metformin HCl [Janumet 50-500 mg Tablet] 1 each PO DAILY [Last Taken 06/14/17] Discharge Medications: Refer to the Discharge Home Medication list for PRN reason. - Orders Services needed: Home Care, Physical Therapy Home Care Face to Face: I certify that this patient was under my care and that I had the required [id number] encounter meeting the encounter requirements on the discharge day. My findings support the fact that the patient is homebound as defined in Home Care Face to Face Continued: CMS Chapter 7 Medicare Benefits Manual 30.1.1 , The condition of the patient is such that there exists a normal inability to leave home and consequently, leaving home would require a considerable and taxing effort. - Follow Up Care Current Providers and Referrals: Poncho Terry MD [Primary Care Provider] - As per Instructions
--- NOTE | 2017-06-15 18:57 | GDS ---
[f rep st] DISCHARGE SUMMARY DISCHARGE DIAGNOSES: 1. Shortness of breath with wheezing, now resolved. 2. History of diabetes. 3. History of peptic ulcer disease. 4. Hyperlipidemia. HOSPITAL COURSE: Please see Admission History and Physical by Dr. Trinity Palacios. The patient was mcintyre ving shortness of breath. She had a CTA negative for pulmonary embolism, showing airways disease con firmed by chest x-ray. She had a nonischemic EKG. She had negative troponin. On the first hospital day, the patient ambulated with normal oxygen saturations. The patient is anxious for discharge and no wheezing on exam. She is therefore discharged on unchanged medication regimen. /[id number]/MODL
[2017-06-16] MEDS ORDERED: metFORMIN HCL 500 MG TAB PO SCH (09:00)
--- NOTE | 2017-06-16 09:49 | ASDISCHSUM ---
Discharge Information Plan Status:Home with Home Health Medically Cleared to Leave:06/14/2017 Discharge Date:06/15/2017 04:54 PM CM D/C Disposition: ADT D/C Disposition:Home, Routine, Self-Care Projected Discharge Date:06/15/2017 11:00 AM Transportation at D/C: Discharge Delay Reason: Follow-Up Date:06/15/2017 11:00 AM Discharge Slot: Final Diagnosis: Placement Information Referral Type:*Home Health Care Services Referral ID:[id number] Provider Name:[facility] (formerly [facility]) Address 1:[address] [address] Address 2: City:[place] Selection Factors: State:[place] Patient Contact Information Contact Name:CORINNE Relationship:Son Address: Work Phone: City: [facility] Phone: [facility] Code: Email: Financial Information Financial Class: Primary Plan Desc:MEDICARE OUTPATIENT Primary Plan Number:[id number] Secondary Plan Desc: OUT OF STATE [facility] Secondary Plan Number:[id number] Assessment Information [facility] Initial CM Assessment Living Arrangements What is your living Answers: Alone arrangement? Who do you live with? Type Of Residence What kind of residence do Answers: House you live in? Discharge Plan Comments Coordination Status Comments Notes: CM spoke w/ JASON Cornejo regarding d/c POC. Pt is a 76 y/o female admitted for hypoxia and dyspnea. Therapies have been ordered. OT is recommending home independent. Awaiting PT recommendations. Anticipates that pt will most likely d/c independent when medically stable. CM available for d/c needs. Plan: Independent Date Signed: 06/15/2017 09:59 AM Electronically Signed By:GRETEL Garrido [facility] CM Progress Note CM Note CM Note Notes: Pt is being discharged today. CM met w/ pt for dispo planning. PT is recommending HC. Pt is agreeable to having [facility] to follow. CM sent referral to [facility] and they are able to follow pt. CM avilable for changes. Plan: [facility], PT Date Signed: 06/15/2017 03:11 PM Electronically Signed By:GRETEL Garrido Intervention Information Intervention Type:*Condition Code 44 Date of Service:06/15/2017 09:15 AM Patient Type:Observation Staff Member:JASON Xie, Melissa Hours: Discipline: Severity: Comment:
== END 2017-06-15 16:54 | disposition home or self-care (01) ==
LOC: EDUNIT# → OBSVTOIN 17:35 → INTOOBSV 17:35 → F2W 18:18
PROVIDERS: ADMIT Hospitalist; ATTEND Internal Medicine
DX: R06.02 Shortness of breath (principal); E11.9 Type 2 diabetes mellitus without complications; E78.5 Hyperlipidemia, unspecified; I25.10 Atherosclerotic heart disease of native coronary artery without angina pectoris; Z87.11 Personal history of peptic ulcer disease; Z95.0 Presence of cardiac pacemaker
CPT/HCPCS: 71020; 71275; 93005; 96374; 96375; 97161; 97165; 99285; G8978; G8979; G8987; G8988; G8989; J1650; J1815; J2060; Q9967

== ENCOUNTER 2017-07-25 18:24 | Inpatient (IN) | payer OTHER, BC ==
--- NOTE | 2017-07-25 19:58 | EDPHY ---
H & P Stated Complaint: anemia/hx ulcers/etoh Time Seen by Provider: 07/25/17 19:17 HPI/ROS: CHIEF COMPLAINT: Cough, difficulty swallowing, generalized weakness HISTORY OF PRESENT ILLNESS: Patient is a 77-year-old female with a history of diabetes, anemia, alcoholism and peptic ulcer disease with a admission few months ago that required a upper endoscopy and a clip for a GI bleed and admission 2 months ago for hypoxia that was thought to be due to bronchitis. She presented to her primary care doctor pain this afternoon complaining of generalized weakness, difficulty swallowing solid food and had lab work done. She was found to be anemic even more so than baseline. Her hematocrit is 25 and her baseline is around 30. She has not noticed any blood in her stool. Dr. Armenta did a rectal exam that was grossly negative but occult is pending. He also performed a chest x-ray exam that was read as a mild airway disease but no focal infiltrates or edema or effusions. Here triage she was hypoxic at 88% and corrects easily with oxygen. She does not wear oxygen at home. No chest pain. She admits to having a fever earlier today. REVIEW OF SYSTEMS: Constitutional: denies: chills, fever, recent illness, recent injury EENTM: denies: blurred vision, double vision, nose congestion Respiratory: denies: cough, shortness of breath Cardiac: denies: chest pain, irregular heart rate, lightheadedness, palpitations Gastrointestinal/Abdominal: denies: abdominal pain, diarrhea, nausea, vomiting, blood streaked stools Genitourinary: denies: dysuria, frequency, hematuria, pain Musculoskeletal: denies: joint pain, muscle pain Skin: denies: lesions, rash, jaundice, bruising Neurological: denies: headache, numbness, paresthesia, tingling, dizziness, weakness Hematologic/Lymphatic: denies: blood clots, easy bleeding, easy bruising Immunologic/allergic: denies: HIV/AIDS, transplant EXAM: GENERAL: Well-appearing, well-nourished and in no acute distress. HEAD: Atraumatic, normocephalic. EYES: Pupils equal round and reactive to light, extraocular movements intact, sclera anicteric, conjunctiva are normal. ENT: TMs normal, nares patent, oropharynx clear without exudates. Moist mucous membranes. NECK: Normal range of motion, supple without lymphadenopathy or JVD. LUNGS: Mild rhonchi at the bases. No wheezing HEART: Regular rate and rhythm without murmurs, rubs or gallops. ABDOMEN: Soft, nontender, normoactive bowel sounds. No guarding, no rebound. No masses appreciated. BACK: No CVA tenderness, no spinal tenderness, step-offs or deformities EXTREMITIES: Normal range of motion, no pitting or edema. No clubbing or cyanosis. NEUROLOGICAL: Cranial nerves II through XII grossly intact. Normal speech, normal gait. 5/5 strength, normal movement in all extremities, normal sensation PSYCH: Normal mood, normal affect. SKIN: Warm, dry, normal turgor, no visible rashes or lesions. Source: Patient Exam Limitations: No limitations - Personal History Current Tetanus/Diphtheria Vaccine: No Tetanus Vaccine Date: within 10 years - Medical/Surgical History Hx Asthma: No Hx Chronic Respiratory Disease: No Hx Diabetes: Yes Hx Cardiac Disease: Yes Hx Renal Disease: No Hx Cirrhosis: No Hx Alcoholism: Yes Hx HIV/AIDS: No Hx Splenectomy or Spleen Trauma: No Other PMH: C1 C2 FX, heart arrythmia, tonsillectomy, c section, cholecystectomy , pacemaker, HTN, DM type II, hyperlipidemia, fall at home 06/09/17 r/t syncope. - Family History Significant Family History: No pertinent family hx - Social History Smoking Status: Never smoked Alcohol Use: Sober Drug Use: None Constitutional: Initial Vital Signs Temperature (C) 36.8 C 07/25/17 18:30 Heart Rate 74 07/25/17 18:30 Respiratory Rate 18 07/25/17 18:30 Blood Pressure 153/84 H 07/25/17 18:30 O2 Sat (%) 88 L 07/25/17 18:30 O2 Delivery Mode Room Air O2 (L/minute) 2 Allergies/Adverse Reactions: adhesive Allergy (Intermediate, Verified 07/25/17 18:29) Rash cephalexin Allergy (Intermediate, Verified 07/25/17 18:29) Rash niacin Allergy (Intermediate, Verified 07/25/17 18:29) Rash sulfamethoxazole [Sulfamethoxazole] Allergy (Intermediate, Verified 07/25/17 18: 29) "UPSET STOMACH" gabapentin Allergy (Unknown, Verified 07/25/17 18:29) UNABLE TO FALL ASLEEP latex Allergy (Verified 07/25/17 22:12) Rash ranolazine [From Ranexa] Allergy (Verified 07/25/17 18:29) trimethoprim [From Bactrim] Allergy (Verified 07/25/17 18:29) Home Medications: Medication Instructions Recorded Cholecalciferol Vit D3 [Vitamin D3 1,000 units PO DAILY 05/13/17 (*)] Cyanocobalamin [Vitamin B12 (*)] 1,000 mcg PO DAILY 05/13/17 DULoxetine [Cymbalta 60 MG (*)] 60 mg PO DAILY 05/13/17 Hydrochlorothiazide [HCTZ (*)] 12.5 mg PO HS PRN 05/13/17 Insulin Detemir [Levemir Flextouch] 20 unit SQ HS 05/13/17 Isosorbide Mononitrate [Imdur 30 30 mg PO BID 05/13/17 mg (*)] Lisinopril [Zestril 10 mg (*)] 10 mg PO DAILY 05/13/17 Rosuvastatin Calcium [Crestor 5mg] 5 mg PO HS 05/13/17 Pantoprazole Sodium [Protonix 40mg 40 mg PO BID #60 tab 05/19/17 (*)] Aspirin EC [Aspirin EC 81 mg (*)] 81 mg PO DAILY 05/30/17 Herbals/Supplements -Info Only 1 ea PO DAILY 05/30/17 Naproxen Sodium [Aleve 220 MG (*)] 220 mg PO BID PRN 05/30/17 Nitroglycerin [Nitrostat 0.4 mg 0.4 mg SL Q5M PRN 05/30/17 (*)] Nortriptyline HCl [Pamelor 10 mg 20 mg PO HS 05/30/17 (*)] Ferrous Sulfate [Slow Fe 140 MG 140 mg PO Q2D 06/14/17 (*)] Levomefolate/B6/B12/Algal Oil 1 each PO BID 06/14/17 [Metanx Capsule] Multivitamins [Multivitamin (*)] 1 each PO DAILY 06/14/17 Nebivolol HCl [Bystolic 5 mg (*)] 5 mg PO DAILY 06/14/17 Sitagliptin Phos/Metformin HCl 1 each PO BID 07/25/17 [Janumet 50-1,000 mg Tablet] Medical Decision Making - Diagnostics EKG Interpretation: An EKG obtained and was read and documented in trace view. Please see trace view for full reading and report. Sinus rhythm with PACs ED Course/Re-evaluation: Are reviewed the lab work and imaging performed at the primary care's office. I will add on a respiratory panel because she is hypoxic here. I will add on a type and screen in case she requires transfusion. I have spoke with Dr. Love on who will consult tomorrow in his seen her previously. I have paged the hospitalist for admission. 8:55 p.m. I discussed the case with Dr. Burton who will admit to medical service Differential Diagnosis: Partial list of the Differential diagnosis considered include but were not limited to; peptic ulcer disease, anemia, upper respiratory tract infection, bronchitis, stricture, varices and although unlikely based on the history and physical exam, I also considered pneumonia, acute coronary disease. I discussed these differential diagnoses and the plan with the patient as well as the usual and expected course. The patient understands that the diagnosis is provisional and that in medicine we are not always correct and that further workup is often warranted. Usual and customary warnings were given. All of the patient's questions were answered. The patient was instructed to return to the emergency department should the symptoms at all worsen or return, otherwise to followup with the physician as we discussed. - Data Points Medications Given: Dextrose (Dextrose 50% Vial) 12.5 - 25 gm IVP PRN PRN; Protocol PRN Reason: Hypoglycemia, see protocol Stop: 01/21/18 23:01 Last Admin: 07/26/17 06:24 Dose: 12.5 gm Insulin Glargine (Lantus Syringe) 20 units SC HS BETSEY Stop: 01/21/18 23:44 Last Admin: 07/26/17 00:33 Dose: 20 units Melatonin (Melatonin) 3 mg PO HS PRN PRN Reason: Sleep/Insomnia Stop: 01/21/18 22:52 Last Admin: 07/25/17 23:06 Dose: 3 mg Departure - Departure Disposition: [facility] Acute Clinical Impression: Hypoxia Anemia Qualifiers: Anemia type: unspecified type Qualified Code(s): D64.9 - Anemia, unspecified Condition: Fair
--- NOTE | 2017-07-25 20:42 | CPEKG ---
Heart Rate: 76 RR Interval: 789 P-R Interval: 133 QRSD Interval: 96 QT Interval: 392 QTC Interval: 441 P [place]: 47 QRS [place]: 3 T Wave [place]: 19 EKG Severity - ABNORMAL ECG - EKG Impression: SINUS RHYTHM EKG Impression: MULTIPLE ATRIAL PREMATURE COMPLEXES Electronically Signed By: Tu Smalls 25-Jul-2017 20:47:18
[2017-07-25] MEDS ORDERED: ONDANSETRON DISINTEGRATING 4 MG TAB PO PRN (22:31)
[2017-07-25] MEDS ORDERED: ONDANSETRON 4 MG/2 ML VIAL IVP PRN (22:31)
[2017-07-25] MEDS ORDERED: HYDROCHLOROTHIAZIDE 12.5 MG CAP PO PRN (22:49)
[2017-07-25] MEDS ORDERED: D50W 25 GM/50 ML SYR IVP PRN (23:02)
[2017-07-25] MEDS: MELATONIN 3 MG TAB PO PRN (23:06)
[2017-07-25] MEDS ORDERED: D50W 25 GM/50 ML VIAL IVP PRN (23:30)
[2017-07-25] MEDS ORDERED: INSULIN GLARGINE 100 UNITS/ML SYRINGE SC SCH (23:45)
--- NOTE | 2017-07-25 23:51 | PDGENHP ---
History and Physical - Chief Complaint Weakness - History of Present Illness 77 yo F w/ hx of PUD, GIB, ETOH abuse, IDDM, and HTN presents with 3 days of weakness. She is also complaining of subjective fevers, cough, and runny nose. She denies BRBPR or melena. She presented to the ED and was noted to be anemic beyond her baseline so she was admitted for further evaluation. Of note, in May of 2017 she underwent an EGD that revealed a gastric ulcer with exposed vessel that was treated with 4 clips. She has been compliant with her BID PPI since. She also takes oral iron but cannot only tolerate this qOD due to GI symptoms. History Information - Allergies/Home Medication List Allergies/Adverse Reactions: adhesive Allergy (Intermediate, Verified 07/25/17 18:29) Rash cephalexin Allergy (Intermediate, Verified 07/25/17 18:29) Rash niacin Allergy (Intermediate, Verified 07/25/17 18:29) Rash sulfamethoxazole [Sulfamethoxazole] Allergy (Intermediate, Verified 07/25/17 18: 29) "UPSET STOMACH" gabapentin Allergy (Unknown, Verified 07/25/17 18:29) UNABLE TO FALL ASLEEP latex Allergy (Verified 07/25/17 22:12) Rash ranolazine [From Ranexa] Allergy (Verified 07/25/17 18:29) trimethoprim [From Bactrim] Allergy (Verified 07/25/17 18:29) Home Medications: Cholecalciferol Vit D3 [Vitamin D3 (*)] 1,000 units PO DAILY 05/13/17 [Last Taken 07/25/17] Cyanocobalamin [Vitamin B12 (*)] 1,000 mcg PO DAILY 05/13/17 [Last Taken ] DULoxetine [Cymbalta 60 MG (*)] 60 mg PO DAILY 05/13/17 [Last Taken 07/25/17] Hydrochlorothiazide [HCTZ (*)] 12.5 mg PO HS PRN 05/13/17 [Last Taken 07/25/17] Insulin Detemir [Levemir Flextouch] 20 unit SQ HS 05/13/17 [Last Taken 07/24/17] Isosorbide Mononitrate [Imdur 30 mg (*)] 30 mg PO BID 05/13/17 [Last Taken 07/25] Lisinopril [Zestril 10 mg (*)] 10 mg PO DAILY 05/13/17 [Last Taken 07/25/17] Rosuvastatin Calcium [Crestor 5mg] 5 mg PO HS 05/13/17 [Last Taken 07/24/17] Aspirin EC [Aspirin EC 81 mg (*)] 81 mg PO DAILY 05/30/17 [Last Taken 07/25/17] Herbals/Supplements -Info Only 1 ea PO DAILY 05/30/17 [Last Taken 07/25/17] Naproxen Sodium [Aleve 220 MG (*)] 220 mg PO BID PRN 05/30/17 [Last Taken ] Nitroglycerin [Nitrostat 0.4 mg (*)] 0.4 mg SL Q5M PRN 05/30/17 [Last Taken Unknown] Nortriptyline HCl [Pamelor 10 mg (*)] 20 mg PO HS 05/30/17 [Last Taken 07/24/17] Ferrous Sulfate [Slow Fe 140 MG (*)] 140 mg PO Q2D 06/14/17 [Last Taken 07/23/17 ] Levomefolate/B6/B12/Algal Oil [Metanx Capsule] 1 each PO BID 06/14/17 [Last Taken 06/14/17 09:00] Multivitamins [Multivitamin (*)] 1 each PO DAILY 06/14/17 [Last Taken 06/14/17] Nebivolol HCl [Bystolic 5 mg (*)] 5 mg PO DAILY 06/14/17 [Last Taken 07/25/17] Sitagliptin Phos/Metformin HCl [Janumet 50-1,000 mg Tablet] 1 each PO BID [Last Taken 07/25/17] I have personally reviewed and updated: family history, medical history - Past Medical History diabetes type 2, hypertension Additional medical history: ETOH abuse. PUD. Neuropathy - Surgical History Additional surgical history: EGD 06/02 with gastric ulcer treated with 4 clips - Social History Smoking Status: Never smoked Alcohol Use: Heavy (Drinks up to 1/2 liter scotch daily) Drug Use: None Review of Systems Review of Systems: ROS: 10pt was reviewed & negative except for what was stated in HPI & below Physical Exam Physical Exam: Temp Pulse Resp BP Pulse Ox 37.1 C 83 18 158/94 H 98 01/09/18 22:02 07/25/17 22:02 07/25/17 22:02 07/25/17 22:02 07/25/17 22:02 O2 (L/minute) 1.5 Constitutional: no apparent distress, not in pain Eyes: PERRL, EOMI Ears, Nose, Mouth, Throat: moist mucous membranes, no oral mucosal ulcers Cardiovascular: regular rate and rhythym, systolic murmur Respiratory: no respiratory distress, clear to auscultation Gastrointestinal: normoactive bowel sounds, soft, non-tender abdomen Skin: warm, normal color Musculoskeletal: full muscle strength, no muscle tenderness Neurologic: AAOx3, CN II-XII Intact Psychiatric: interacting appropriately, not anxious Lab Data & Imaging Review Patient ABO/Rh O POSITIVE 07/25/17 20:10 Antibody Screen POSITIVE 07/25/17 20:10 Antibody Identification Anti-Fya 07/25/17 20:10 Visualized and Interpreted Chest x-ray results: Yes Chest X-Ray results: no infiltrate Visualized and Interpreted EKG results: Yes EKG Interpretation: Positive for: normal sinsus rhythm, other (PACs) Assessment & Plan Assessment: 77 yo F w/ IDDM, HTN, ETOH abuse, and PUD presents with weakness and anemia in setting of likely URI. Plan: 1. Fatigue - Associated with cough, congestion, and subjective fever. Constellation of symptoms c/w viral URI. Anemia beyond her baseline may also be playing a role. - Respiratory PCR - Anemia work-up as below - PT/OT evaluations 2. Acute on chronic anemia - Most likely iron deficiency anemia with inadequate repletion and possible chronic blood loss. She underwent EGD in May that revealed gastric ulcer treated with 4 clips. She has been compliant with PPI BID since but can only tolerate iron qOD. She also drinks significant ETOH daily. Her last ferritin value was 7 in April. - Check ferritin with morning labs, may benefit form IV repletion while inpatient - GI consulted for possible EGD, NPO @ [place] 3. IDDM - Takes insulin detemir 20 u qHS + Sitagliptin/Metformin as an outpatient. - Insulin detemir 10 u tonight noting NPO @ [place] - Standard SSI - Continue home meds for neuropathy 4. ETOH abuse - Admits to drinking up to 1/2 liter of scotch daily. Denies hx of ETOH withdrawal with no signs currently. - Monitor lytes closely including Mg, Ph - Monitor for signs of withdrawal 5. HTN - Takes lisinopril and nebivolol as outpatient. Diet - NPO @ [place] Code - Full Ppx - SCDs Dispo - Admit to observation status
[2017-07-26] MEDS: INSULIN GLARGINE 100 UNITS/ML SYRINGE SC SCH ×2 (00:33→22:46)
[2017-07-26 05:34] LABS: PLATELET COUNT 136 10^3/uL (150-400)
[2017-07-26] MEDS ORDERED: INSULIN LISPRO 100 UNIT/ML SC SCH (08:00)
[2017-07-26] MEDS: DULoxetine 60 MG CAP PO SCH (08:21)
[2017-07-26] MEDS: LISINOPRIL 10 MG TAB PO SCH (08:21)
[2017-07-26] MEDS: CYANO/VITAMIN B12 1000 MCG TAB PO SCH (08:22)
[2017-07-26] MEDS: ISOSORBIDE MONONITRATE 30 MG TAB.SR PO SCH ×2 (08:22→22:40)
[2017-07-26] MEDS: CHOLECALCIFEROL VIT D3 1,000 UNITS TAB PO SCH (08:22)
[2017-07-26] MEDS: NEBIVOLOL HCL 5 MG TAB PO SCH (08:24)
[2017-07-26] MEDS: PANTOPRAZOLE SODIUM 40 MG VIAL IVP SCH ×2 (08:29→22:41)
[2017-07-26] MEDS: INSULIN LISPRO 100 UNIT/ML SC SCH ×2 (12:00→18:28)
[2017-07-26] MEDS ORDERED: SODIUM FERRIC GLUCONAT/SUCROSE 125 MG in NS 100 ML IV ONE (12:58)
--- NOTE | 2017-07-26 12:58 | HOSPPROG ---
Hospitalist Progress Note Assessment/Plan: 77 yo F w/ IDDM, HTN, ETOH abuse, and PUD presents with weakness and anemia in setting of likely URI. First encounter, chart reviewed. D/W Dr Love. Plan: 1. Fatigue - Associated with cough, congestion, and subjective fever. Constellation of symptoms c/w viral URI. Anemia beyond her baseline may also be playing a role. Respiratory PCR negative Anemia work-up as below PT/OT evaluations 2. Acute on chronic anemia - Most likely iron deficiency anemia with inadequate repletion and possible chronic blood loss. She underwent EGD in May that revealed gastric ulcer treated with 4 clips. She has been compliant with PPI BID since but can only tolerate iron qOD. She also drinks significant ETOH daily. Her last ferritin value was 7 in April. ferritin low, will give IV iron GI consulted EGD, today, NPO 3. IDDM - Takes insulin detemir 20 u qHS + Sitagliptin/Metformin as an outpatient. Standard SSI Continue home meds for neuropathy 4. ETOH abuse - Admits to drinking up to 1/2 liter of scotch daily. Denies hx of ETOH withdrawal with no signs currently. Monitor lytes closely including Mg, Ph Monitor for signs of withdrawal 5. HTN - Takes lisinopril and nebivolol as outpatient. Diet - NPO @ [place] Code - Full Ppx - SCDs Dispo -change to inpt will need EGD and further eval possible DC in am if doing well Objective: Vital Signs Temp Pulse Resp BP Pulse Ox 36.6 C 68 14 108/66 100 07/26/17 11:28 07/26/17 11:28 07/26/17 11:28 07/26/17 11:28 07/26/17 11:28 Microbiology 07/25/17 20:10 Respiratory Panel (PCR) - Final Nasal, Sinus - Swab No Organism Detected Laboratory Results 07/26/17 05:11 07/26/17 05:11 07/25/17 07/26/17 07/27/17 05:59 05:59 05:59 Output Total 400 Balance -400 - Physical Exam Constitutional: appears nourished, not in pain, chronically ill appearing Eyes: PERRL, anicteric sclera, EOMI Ears, Nose, Mouth, Throat: moist mucous membranes, hearing normal, ears appear normal Cardiovascular: regular rate and rhythym, No JVD, No edema Respiratory: no respiratory distress, no rales or rhonchi, reduced air movement Gastrointestinal: normoactive bowel sounds, No tenderness, No ascites Skin: warm, normal color, No erythema Musculoskeletal: normal joint ROM, no joint effusions, generalized weakness Neurologic: AAOx3 Psychiatric: interacting appropriately, not anxious, not encephalopathic, thought process linear ICD10 Worksheet Patient Problems: Problems Problem Status Onset Hyponatremia Acute Shortness of breath Acute Hypoxia Acute Esophageal foreign body Acute Anemia Acute
--- NOTE | 2017-07-26 14:36 | PDMN ---
Medical Necessity Medical necessity: change to IP; los>2mn for fatigue r/t viral URI, acute on chronic anemia; requires EGD, PT/OT evals; comorbid IDDM, HTN, etoh abuse; per order and progress note 07/26/17
--- NOTE | 2017-07-26 16:45 | ASMTCMCOM ---
CM Note CM Note Notes: Pt lives alone in apt, close to sons. Does not drive, walks to get groceries. Drinks 1/2 litre of scotch daily, CM discussed with SW, who will talk with her tomorrow. DC Plan: TBD Date Signed: 07/26/2017 04:44 PM Electronically Signed By:Maricarmen Cohn RN
--- NOTE | 2017-07-26 17:00 | PDANEPAE ---
ANE History of Present Illness Patient presents for EGD ANE Past Medical History - Cardiovascular History Hx Hypertension: Yes Hx Arrhythmias: Yes Hx Chest Pain: Yes - Pulmonary History Hx Oxygen in Use at Home: No Hx Sleep Apnea: No Sleep Apnea Screening Result - Last Documented: Positive - Endocrine History Hx Diabetes: Yes - Chronic Pain History Chronic Pain: Yes (back pain) ANE Review of Systems Review of Systems: - Pacemaker Pacemaker Mis Specialist: [facility] Date Pacemaker Last Checked: during this admit ANE Patient History - Allergies Allergies/Adverse Reactions: adhesive Allergy (Intermediate, Verified 07/25/17 18:29) Rash cephalexin Allergy (Intermediate, Verified 07/25/17 18:29) Rash niacin Allergy (Intermediate, Verified 07/25/17 18:29) Rash sulfamethoxazole [Sulfamethoxazole] Allergy (Intermediate, Verified 07/25/17 18: 29) "UPSET STOMACH" gabapentin Allergy (Unknown, Verified 07/25/17 18:29) UNABLE TO FALL ASLEEP latex Allergy (Verified 07/25/17 22:12) Rash ranolazine [From Ranexa] Allergy (Verified 07/25/17 18:29) trimethoprim [From Bactrim] Allergy (Verified 07/25/17 18:29) - Home Medications Home Medications: Cholecalciferol Vit D3 [Vitamin D3 (*)] 1,000 units PO DAILY 05/13/17 [Last Taken 07/25/17] Cyanocobalamin [Vitamin B12 (*)] 1,000 mcg PO DAILY 05/13/17 [Last Taken ] DULoxetine [Cymbalta 60 MG (*)] 60 mg PO DAILY 05/13/17 [Last Taken 07/25/17] Hydrochlorothiazide [HCTZ (*)] 12.5 mg PO HS PRN 05/13/17 [Last Taken 07/25/17] Insulin Detemir [Levemir Flextouch] 20 unit SQ HS 05/13/17 [Last Taken 07/24/17] Isosorbide Mononitrate [Imdur 30 mg (*)] 30 mg PO BID 05/13/17 [Last Taken 07/25] Lisinopril [Zestril 10 mg (*)] 10 mg PO DAILY 05/13/17 [Last Taken 07/25/17] Rosuvastatin Calcium [Crestor 5mg] 5 mg PO HS 05/13/17 [Last Taken 07/24/17] Aspirin EC [Aspirin EC 81 mg (*)] 81 mg PO DAILY 05/30/17 [Last Taken 07/25/17] Herbals/Supplements -Info Only 1 ea PO DAILY 05/30/17 [Last Taken 07/25/17] Naproxen Sodium [Aleve 220 MG (*)] 220 mg PO BID PRN 05/30/17 [Last Taken ] Nitroglycerin [Nitrostat 0.4 mg (*)] 0.4 mg SL Q5M PRN 05/30/17 [Last Taken Unknown] Nortriptyline HCl [Pamelor 10 mg (*)] 20 mg PO HS 05/30/17 [Last Taken 07/24/17] Ferrous Sulfate [Slow Fe 140 MG (*)] 140 mg PO Q2D 06/14/17 [Last Taken 07/23/17 ] Levomefolate/B6/B12/Algal Oil [Metanx Capsule] 1 each PO BID 06/14/17 [Last Taken 06/14/17 09:00] Multivitamins [Multivitamin (*)] 1 each PO DAILY 06/14/17 [Last Taken 06/14/17] Nebivolol HCl [Bystolic 5 mg (*)] 5 mg PO DAILY 06/14/17 [Last Taken 07/25/17] Sitagliptin Phos/Metformin HCl [Janumet 50-1,000 mg Tablet] 1 each PO BID [Last Taken 07/25/17] - NPO status NPO Status: no food or drink >8 hours NPO Since - Liquids (Date): 07/26/17 NPO Since - Liquids (Time): 08:30 NPO Since - Solids (Date): 07/25/17 NPO Since - Solids (Time): 00:00 - Anes Hx Anes Hx: no prior problems - Smoking Hx Smoking Status: Never smoked - Alcohol Use Alcohol Use: Sober ANE Labs/Vital Signs - Labs Result Diagrams: 07/26/17 05:11 07/26/17 05:11 - Vital Signs Blood Pressure: 127/73 Heart Rate: 67 Respiratory Rate: 20 O2 Sat (%): 98 Height: 152.4 cm Weight: 62.1 kg ANE Physical Exam - Airway Neck exam: FROM Mallampati Score: Class 2 Mouth exam: normal dental/mouth exam - Pulmonary Pulmonary: no respiratory distress - Cardiovascular Cardiovascular: regular rate and rhythym, pulses symmetric bilaterally - ASA Status ASA Status: III ANE Anesthesia Plan Anesthesia Plan: GA with mask
[2017-07-26] MEDS ORDERED: PROPOFOL/EMULSION 500 MG/50 ML BOTTLE IV ONE (17:02)
[2017-07-26] MEDS ORDERED: NALOXONE HCL 0.4 MG/ML INJ IVP PRN (17:28)
[2017-07-26] MEDS ORDERED: LR 500 ML IV PRN (17:28)
--- NOTE | 2017-07-26 17:28 | POSTANESTH ---
Post Anesthetic Evaluation Cardiovascular Status: Similar to Pre-Op Cond Respiratory Status: Similar to Pre-op Cond. Level of Consciousness/Mental Status: Can Participate in Eval Pain Control: Adequate, Prn Tx Ordered Nausea/Vomiting Control: Adequate, Prn Tx Ordered Complications Possibly Related to Anesthesia: None Noted (No electrocautery used , no magnet applied. No Pacemaker spikes noted on monitor during case.)
[2017-07-26] MEDS: ROSUVASTATIN CALCIUM 10 MG TAB PO SCH (22:39)
[2017-07-26] MEDS: NORTRIPTYLINE HCL 10 MG CAP PO SCH (22:40)
[2017-07-27] MEDS: ACETAMINOPHEN 325 MG TAB PO PRN ×3 (03:12→20:44)
[2017-07-27] MEDS: MELATONIN 3 MG TAB PO PRN (03:12)
--- NOTE | 2017-07-27 03:21 | GCON ---
[f rep st] CONSULTATION GI CONSULTATION DATE OF CONSULTATION: 07/26/2017 REASON FOR CONSULTATION: Weakness, anemia, microcytosis with a history of large proximal gastric/Hiatal Hernia ulceration, which was endoscopically clipped 2 months ago, query chronic gastric ulcer. HISTORY OF PRESENT ILLNESS: The patient is a 77-year-old female with history of giant proximal gastric ulcer and hiatal hernia, which was in endo clipped with 4 clips by me 2 months ago, and she has since been on double-dose PPI therapy. She was admitted to the hospital for fatigue and weakness, and was noted to have a hemoglobin of 8.0 with a hematocrit of 25.3, MCV low at 75, MCHC low at 31.6, and low normal ferritin at 10.38. The patient has denied any nausea or vomiting, any heartburn, indigestion, change in bowel habits, or black tarry stools since her last admission. She complains of severe fatigue and malaise. I was asked to see the patient by Berna Scott PA-C for consultation. MEDICATIONS: Prior to admission included hydrochlorothiazide 12.5 mg p.o. q.h.s., insulin 20 units subcu daily, isosorbide mononitrate 30 mg p.o. b.i.d., lisinopril 10 mg p.o. daily, Crestor 5 mg p.o. q.h.s., Ecotrin 81 mg p.o. daily , Aleve 220 mg p.o. b.i.d. p.r.n. aches and pains, Nitrostat 0.4 mg sublingual p.r.n. chest pain, nortriptyline 20 mg p.o. q.h.s., ferrous sulfate 220 mg p.o. daily, Bystolic 5 mg p.o. daily, sitagliptin phosphate/metformin 1 tab p.o. b.i.d., vitamin D3, vitamin B12, and multivitamins daily. ALLERGIES: Cephalexin, gabapentin, SMZ, and triamterene. She has sensitivities to tape. PAST MEDICAL HISTORY: Significant for chronic cardiac pacer, type 2 diabetes mellitus, hypertension, peripheral neuropathy, peptic ulcer, and alcohol abuse. PAST SURGICAL HISTORY: Significant for EGD and intervention of proximal gastric /HH ulcer with endo clips in May of last year. SOCIAL HISTORY: She is a nonsmoker. She drinks a half a liter of scotch daily. She has not had GI bleeds related to drinking. FAMILY HISTORY: Negative for PUD or GI malignancies. REVIEW OF SYSTEMS: Other than fatigue and malaise were negative for comprehensive review of systems. PHYSICAL EXAMINATION: VITAL SIGNS: Temperature was 37.0 Celsius, pulse was 67 and regular, blood pressure 127/73, respiratory rate 20, O2 saturation 98% on 3 L per nasal cannula. GENERAL: Well-developed, well-nourished female in no apparent distress. INTEGUMENT: Clear. HEENT: Head atraumatic, normocephalic. Pupils equal, round, reactive to light. EOMs were intact. Sclerae anicteric. Nares patent. Mucous membranes moist. Dentition fair. NECK: Supple. Trachea midline. LYMPHATICS: No cervical or axillary adenopathy. PULMONARY: Lungs were clear to percussion auscultation. CARDIOVASCULAR: Regular rhythm rate. Normal S1, S2 without murmur. There is a pacer in the left upper chest wall. Peripheral pulses were decreased bilaterally with trace to +1 pedal edema. GASTROINTESTINAL: Abdomen supple. Positive bowel sounds. No liver, spleen tip palpable. No masses or tenderness. EXTREMITIES: Without deformities. NEURO: Patient was alert, oriented x3. There are no focal neurologic deficits. LABORATORY DATA: Hemoglobin 8.0 Bowling, hematocrit 25.3, white count 5.46, MCV 75.1, MCHC 31.6, RDW elevated at 16.9, platelets 136,000, ferritin 10.3, sodium 133, potassium 3.4, chloride 92, CO2 29, anion gap 12, BUN 15, creatinine 0.7, glucose 52, phosphorus 3.7, magnesium 1.4, calcium 9.0. EKG showed normal sinus rhythm with multiple atrial premature complexes. IMPRESSION: 1. A 77-year-old female with persistent anemia with microcytosis, elevated RDW and borderline low ferritin with fatigue, rule out chronic bleeding from previously identified and treated gastric ulcer and hiatal hernia pouch. 2. Hypertension by history. 3. Diabetes mellitus type 2. 4. Cardiac pacer. 5. 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 RECOMMENDATION: Would be to proceed with esophagogastroduodenoscopy today, because of the patient's concurrent medical problems and advanced age would recommend this be done with propofol anesthesia due to the patient's increased risk for complication with endoscopy. /[id number]/MODL MTDD
[2017-07-27] MEDS: CYANO/VITAMIN B12 1000 MCG TAB PO SCH (08:21)
[2017-07-27] MEDS: INSULIN LISPRO 100 UNIT/ML SC SCH ×3 (08:21→18:19)
[2017-07-27] MEDS: ISOSORBIDE MONONITRATE 30 MG TAB.SR PO SCH ×2 (08:21→20:41)
[2017-07-27] MEDS: DULoxetine 60 MG CAP PO SCH (08:22)
[2017-07-27] MEDS: FERROUS SULFATE 140 MG TAB.ER PO SCH (08:22)
[2017-07-27] MEDS: CHOLECALCIFEROL VIT D3 1,000 UNITS TAB PO SCH (08:22)
[2017-07-27] MEDS: NEBIVOLOL HCL 5 MG TAB PO SCH (08:22)
[2017-07-27] MEDS: LISINOPRIL 10 MG TAB PO SCH (08:22)
[2017-07-27] MEDS: PANTOPRAZOLE SODIUM 40 MG VIAL IVP SCH (08:23)
--- NOTE | 2017-07-27 09:28 | HOSPPROG ---
Hospitalist Progress Note Assessment/Plan: 77 yo F w/ IDDM, HTN, ETOH abuse, and PUD presents with weakness and anemia in setting of likely URI. First encounter, chart reviewed. * Fatigue - -multifactorial with history of alcohol use, diabetes and anemia, and upper respiratory likely viral infection *Acute on chronic anemia - -status post EGD -no formal report is up get but per nursing staff this is residual the bleeding and she is not actively bleeding -continue PPI twice daily -takes oral iron every other day * IDDM - Takes insulin detemir 20 u qHS + Sitagliptin/Metformin as an outpatient. Standard SSI Continue home meds for neuropathy * ETOH abuse - Admits to drinking up to 1/2 liter of scotch daily. Denies hx of ETOH withdrawal with no signs currently. Monitor lytes closely including Mg, added thiamine iv and folic acid Monitor for signs of withdrawal she increased her drinking after her 3 years ago, moved to [place] to be closer to her children, but misses her friends * HTN - Takes lisinopril and nebivolol as outpatient. *DVT prophylaxis: due to lower h/h, this is contraindicated, christian isidro Subjective: Sarah is feeling better today, wants to go to rehab for strengthening, had a fall recently at home. Objective: Vital Signs Temp Pulse Resp BP Pulse Ox 37.1 C 73 16 157/96 H 98 07/27/17 08:00 07/27/17 08:00 07/27/17 08:00 07/27/17 08:00 07/27/17 08:00 07/26/17 07/27/17 07/28/17 05:59 05:59 05:59 Intake Total 170 Output Total 0 Balance 170 - Physical Exam Constitutional: no apparent distress, appears nourished Eyes: PERRL Ears, Nose, Mouth, Throat: hearing normal Cardiovascular: regular rate and rhythym Respiratory: no respiratory distress Gastrointestinal: normoactive bowel sounds Skin: warm, No normal color (pale) Musculoskeletal: generalized weakness Neurologic: AAOx3 Psychiatric: interacting appropriately, not anxious ICD10 Worksheet Patient Problems: Problems Problem Status Onset Anemia Acute Hypoxia Acute Esophageal foreign body Acute Hyponatremia Acute Shortness of breath Acute
[2017-07-27] MEDS: FOLIC ACID 1 MG TAB PO SCH (12:06)
[2017-07-27] MEDS: THIAMINE HCL 500 MG in NS 100 ML IV SCH (12:10)
--- NOTE | 2017-07-27 12:12 | GIREPORT ---
[facility] Surgical Services - Endoscopy Department Patient Name: Sarah Braswell Procedure Date: 07/26/2017 4:51 PM Patient Type: Inpatient Attending MD/ ER Physician: Joey Love MD Procedure: Upper GI endoscopy Indications: Iron deficiency anemia due to suspected upper gastrointestinal bleeding , Recent history of large gastric ulcer in Hiatal Hernia. Providers: Joey Love MD Medicines: General Anesthesia Complications: No immediate complications. Description of Procedure: After obtaining informed consent, the endoscope was passed under direct vision. Throughout the procedure, the patient's blood pressure, pulse, and oxygen saturations were monitored continuously. The Endoscope was intro duced through the mouth, and advanced to the second part of duodenum. The [facility] er GI endoscopy was accomplished without difficulty. The patient tolerated th e procedure well. Findings: The examined esophagus was normal. A small hiatal hernia was present. Endoclip noted without ulceration. The entire examined stomach was normal. The examined duodenum was normal. Estimated Blood Loss: Estimated blood loss: none. Post Op Diagnosis: - Normal esophagus. - Small hiatal hernia with healed ulceration and retained endoclip. - Normal stomach. - Normal examined duodenum. - No specimens collected. Recommendation: - Return patient to [facility] for [facility] care. - Continue present medications. - No need for further endoscopic evaluation. - Advance diet as tolerated today. - Continue present medications. Attending Participation: I personally performed the entire procedure. Joey Love MD Joey Love MD 07/27/2017 12:12:05 PM This report has been signed electronicallyJoey Love MD Number of Addenda: 0 Note Initiated On: 07/26/2017 4:51 PM Total Procedure Duration Time 0 hours 4 minutes 6 seconds [email or web address]
--- NOTE | 2017-07-27 12:20 | SOAPPROG ---
SOAP Progress Note Assessment/Plan: Assessment: Chronic anemia, stable. Healed HH ulcer on EGD yesterday. 2. Chronic fatigue. Plan: 07/27/17 12:17 1. Chronic PPI therapy. 2. Will sign off case today. Joey Love MD Subjective: CC: Anemia and fatigue. Interval HPI: Continues to c/o fatigue. No GI complaints. Objective: Vital Signs Temp Pulse Resp BP Pulse Ox 36.7 C 67 16 116/66 95 07/27/17 11:13 07/27/17 11:13 07/27/17 11:13 07/27/17 11:13 07/27/17 11:13 Laboratory Results 07/27/17 10:28 07/26/17 07/27/17 07/28/17 05:59 05:59 05:59 Intake Total 170 Output Total 0 Balance 170 Physical Exam - Physical Exam General Appearance: WD/WN, alert, no apparent distress Respiratory: lungs clear, normal breath sounds Cardiac/Chest: regular rate, rhythm Abdomen: normal bowel sounds, non-tender, soft Skin: warm/dry Neuro/Psych: alert, normal mood/affect, oriented x 3 ICD10 Worksheet Patient Problems: Problems Problem Status Onset Anemia Acute Hypoxia Acute Esophageal foreign body Acute Hyponatremia Acute Shortness of breath Acute
--- NOTE | 2017-07-27 14:49 | ASMTCMCOM ---
CM Note CM Note Notes: Pt. is a 77-year-old woman admitted with weakness. Hx. gastric ulcer, hiatal hernia, Type 2 diabetes, HTN, periphery neuropathy, and excessive alcohol intake. Pt. drinks some "1/2 liter of scotch per day". CM colleague asked Danitar to see Pt. Pt. acknowledges drinking more alcohol after her some three years ago while living in their home state of [place]. Pt. agreed to move to [place] to be closer to her sons. Pt. grateful for them, but states they act like they are the parents. Pt. 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 States she needs to get involved again. 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 PT recommending SNF, [facility] Homecare. Pt. open to going to SNF for rehab. Today Pt. asleep when returned to room. Faxed allscripts referral to [facility] due to proximity to home. Plan to give Pt. referrals for [facility] and [facility] should she want to live in a more social environment than alone in her apt. RENE/MANDO to follow. Date Signed: 07/27/2017 02:48 PM Electronically Signed By:Odalys Patrick LCSW
[2017-07-27] MEDS ORDERED: PROTOCOL MAGNESIUM 1 DOSE IV PRN (16:56)
[2017-07-27] MEDS ORDERED: MAGNESIUM SULF 1 GM/DEXTROSE 100 ML IV ONE (17:00)
[2017-07-27] MEDS: PANTOPRAZOLE SODIUM 40 MG TAB PO SCH (20:41)
[2017-07-27] MEDS: INSULIN GLARGINE 100 UNITS/ML SYRINGE SC SCH (20:41)
[2017-07-27] MEDS: ROSUVASTATIN CALCIUM 10 MG TAB PO SCH (20:41)
[2017-07-27] MEDS: NORTRIPTYLINE HCL 10 MG CAP PO SCH (20:41)
[2017-07-28 07:37] VITALS: RESP 16
[2017-07-28] MEDS: INSULIN LISPRO 100 UNIT/ML SC SCH ×3 (08:36→18:29)
[2017-07-28] MEDS ORDERED: MAGNESIUM SULF 2 GM/WATER 50 ML IV ONE (09:00)
[2017-07-28] MEDS: LISINOPRIL 10 MG TAB PO SCH (10:18)
[2017-07-28] MEDS: CHOLECALCIFEROL VIT D3 1,000 UNITS TAB PO SCH (10:18)
[2017-07-28] MEDS: ISOSORBIDE MONONITRATE 30 MG TAB.SR PO SCH ×2 (10:18→20:59)
[2017-07-28] MEDS: NEBIVOLOL HCL 5 MG TAB PO SCH (10:19)
[2017-07-28] MEDS: CYANO/VITAMIN B12 1000 MCG TAB PO SCH (10:19)
[2017-07-28] MEDS: FERROUS SULFATE 140 MG TAB.ER PO SCH (10:19)
[2017-07-28] MEDS: FOLIC ACID 1 MG TAB PO SCH (10:19)
[2017-07-28] MEDS: PANTOPRAZOLE SODIUM 40 MG TAB PO SCH ×2 (10:19→21:00)
[2017-07-28] MEDS: DULoxetine 60 MG CAP PO SCH (10:19)
[2017-07-28] MEDS: THIAMINE HCL 500 MG in NS 100 ML IV SCH (11:37)
--- NOTE | 2017-07-28 13:17 | HOSPPROG ---
Hospitalist Progress Note Assessment/Plan: 77 yo F w/ IDDM, HTN, ETOH abuse, and PUD presents with weakness and anemia in setting of likely URI. First encounter, chart reviewed. * Fatigue - -multifactorial with history of alcohol use, diabetes and anemia, and upper respiratory likely viral infection *Acute on chronic anemia - -status post EGD/no active bleeding noted -continue PPI twice daily -takes oral iron every other day * IDDM - Takes insulin detemir 20 u qHS + Sitagliptin/Metformin as an outpatient. Standard SSI Continue home meds for neuropathy * ETOH abuse - Admits to drinking up to 1/2 liter of scotch daily. Denies hx of ETOH withdrawal with no significant signs currently. (had some tremors) Monitor lytes closely including Mg (has low magnesium/ getting coverage) thiamine iv (#2) and folic acid Monitor for signs of withdrawal she increased her drinking after her 3 years ago, moved to [place] to be closer to her children, but misses her friends * HTN - Takes lisinopril and nebivolol bp stable *DVT prophylaxis: due to lower h/h, this is contraindicated, christian isidro Objective: Vital Signs Temp Pulse Resp BP Pulse Ox 37.1 C 85 16 121/75 H 90 L 07/28/17 11:45 07/28/17 11:45 07/28/17 11:45 07/28/17 11:45 07/28/17 11:45 Laboratory Results 07/28/17 10:32 07/27/17 07/28/17 07/29/17 05:59 05:59 05:59 Intake Total 170 Output Total 0 500 Balance 170 -500 - Physical Exam Constitutional: no apparent distress, appears nourished, not in pain Eyes: PERRL Ears, Nose, Mouth, Throat: hearing normal Cardiovascular: regular rate and rhythym Respiratory: no respiratory distress Skin: warm, No normal color (pale) Musculoskeletal: full muscle strength Neurologic: AAOx3 Psychiatric: interacting appropriately ICD10 Worksheet Patient Problems: Problems Problem Status Onset Anemia Acute Hypoxia Acute Esophageal foreign body Acute Hyponatremia Acute Shortness of breath Acute
--- NOTE | 2017-07-28 14:39 | ASMTCMCOM ---
CM Note CM Note Notes: SWer met w/ Pt. in room today. Let Pt. know about [facility] referral and that Aida from [facility] would come to meet her today in her room. Let Pt. know to let SWer know if any problem with going to [facility]. Per Hospitalist, plan for d/c to [facility] tomorrow, Monday07/29/17. SWer provided Pt. information regarding volunteering at [facility] and also about [facility] should Pt. want a more social living space. Pt. grateful. CM to follow for d/c POC. Date Signed: 07/28/2017 02:38 PM Electronically Signed By:Odalys Patrick LCSW
[2017-07-28] MEDS: ACETAMINOPHEN 325 MG TAB PO PRN (19:47)
[2017-07-28] MEDS ORDERED: BISACODYL 10 MG SUPP PR PRN (20:28)
[2017-07-28] MEDS ORDERED: MAGNESIUM HYDROXIDE 30 ML UDCUP PO PRN (20:28)
[2017-07-28] MEDS ORDERED: POLYETHYLENE GLYCOL 3350 17 GM PKT PO PRN (20:28)
[2017-07-28] MEDS ORDERED: LACTULOSE 20 GM/30 ML UDCUP PO PRN (20:28)
[2017-07-28] MEDS: ROSUVASTATIN CALCIUM 10 MG TAB PO SCH (20:59)
[2017-07-28] MEDS: NORTRIPTYLINE HCL 10 MG CAP PO SCH (20:59)
[2017-07-28] MEDS: SENNOSIDES/DOCUSATE SODIUM TAB PO SCH (20:59)
[2017-07-28] MEDS: INSULIN GLARGINE 100 UNITS/ML SYRINGE SC SCH (20:59)
[2017-07-29] MEDS: ACETAMINOPHEN 325 MG TAB PO PRN (00:28)
[2017-07-29 08:16] VITALS: BP 124/77; PULSE 77; TEMP 97.9; O2SAT 92
--- NOTE | 2017-07-29 08:47 | HOSPPROG ---
Hospitalist Progress Note Assessment/Plan: 77 yo F w/ IDDM, HTN, ETOH abuse, and PUD presents with weakness and anemia in setting of likely URI. First encounter, chart reviewed. * Fatigue - -multifactorial with history of alcohol use, diabetes and anemia, and upper respiratory likely viral infection -has improved during her stay *Acute on chronic anemia - -status post EGD/no active bleeding noted -continue PPI twice daily -takes oral iron every other day * IDDM - Takes insulin detemir 20 u qHS + Sitagliptin/Metformin as an outpatient. Standard SSI Continue home meds for neuropathy * ETOH abuse - Admits to drinking up to 1/2 liter of scotch daily. Denies hx of ETOH withdrawal with no signs currently. Monitor lytes closely including Mg (has low magnesium/ getting coverage) thiamine iv (#3) and folic acid Monitor for signs of withdrawal she increased her drinking after her 3 years ago, moved to [place] to be closer to her children, but misses her friends * HTN - Takes lisinopril and nebivolol bp stable *DVT prophylaxis: due to lower h/h, this is contraindicated, christian isidro *plan; dc home Subjective: Sarah has no complaints except for not sleeping well. Objective: Vital Signs Temp Pulse Resp BP Pulse Ox 36.6 C 77 16 124/77 H 92 07/29/17 08:00 07/29/17 08:00 07/29/17 08:00 07/29/17 08:00 07/29/17 08:00 Laboratory Results 07/28/17 10:32 07/28/17 07/29/17 07/30/17 05:59 05:59 05:59 Output Total 500 Balance -500 - Physical Exam Constitutional: no apparent distress, appears nourished, not in pain Eyes: PERRL Ears, Nose, Mouth, Throat: hearing normal Cardiovascular: regular rate and rhythym Respiratory: no respiratory distress Gastrointestinal: normoactive bowel sounds Skin: warm Musculoskeletal: generalized weakness Neurologic: AAOx3 Psychiatric: interacting appropriately ICD10 Worksheet Patient Problems: Problems Problem Status Onset Anemia Acute Hypoxia Acute Esophageal foreign body Acute Hyponatremia Acute Shortness of breath Acute
[2017-07-29] MEDS: CYANO/VITAMIN B12 1000 MCG TAB PO SCH (09:29)
[2017-07-29] MEDS: NEBIVOLOL HCL 5 MG TAB PO SCH (09:30)
[2017-07-29] MEDS: LISINOPRIL 10 MG TAB PO SCH (09:30)
[2017-07-29] MEDS: CHOLECALCIFEROL VIT D3 1,000 UNITS TAB PO SCH (09:31)
[2017-07-29] MEDS: FOLIC ACID 1 MG TAB PO SCH (09:31)
[2017-07-29] MEDS: ISOSORBIDE MONONITRATE 30 MG TAB.SR PO SCH (09:31)
[2017-07-29] MEDS: DULoxetine 60 MG CAP PO SCH (09:32)
--- NOTE | 2017-07-29 09:40 | PDIAF ---
- Diagnosis Diagnosis: fatigue, anemia, weakness Code Status: Full Code - Medication Management Discharge Medications: Medications to Continue on Transfer Cholecalciferol Vit D3 [Vitamin D3 (*)] 1,000 units PO DAILY 05/13/17 [Last Taken 07/25/17] Cyanocobalamin [Vitamin B12 (*)] 1,000 mcg PO DAILY 05/13/17 [Last Taken ] DULoxetine [Cymbalta 60 MG (*)] 60 mg PO DAILY 05/13/17 [Last Taken 07/25/17] Hydrochlorothiazide [HCTZ (*)] 12.5 mg PO HS PRN 05/13/17 [Last Taken 07/25/17] Insulin Detemir [Levemir Flextouch] 20 unit SQ HS 05/13/17 [Last Taken 07/24/17] Isosorbide Mononitrate [Imdur 30 mg (*)] 30 mg PO BID 05/13/17 [Last Taken 07/25] Lisinopril [Zestril 10 mg (*)] 10 mg PO DAILY 05/13/17 [Last Taken 07/25/17] Rosuvastatin Calcium [Crestor 5mg] 5 mg PO HS 05/13/17 [Last Taken 07/24/17] Nitroglycerin [Nitrostat 0.4 mg (*)] 0.4 mg SL Q5M PRN 05/30/17 [Last Taken Unknown] Nortriptyline HCl [Pamelor 10 mg (*)] 20 mg PO HS 05/30/17 [Last Taken 07/24/17] Ferrous Sulfate [Slow Fe 140 MG (*)] 140 mg PO Q2D 06/14/17 [Last Taken 07/23/17 ] Levomefolate/B6/B12/Algal Oil [Metanx Capsule] 1 each PO BID 06/14/17 [Last Taken 06/14/17 09:00] Multivitamins [Multivitamin (*)] 1 each PO DAILY 06/14/17 [Last Taken 06/14/17] Nebivolol HCl [Bystolic 5 mg (*)] 5 mg PO DAILY 06/14/17 [Last Taken 07/25/17] Sitagliptin Phos/Metformin HCl [Janumet 50-1,000 mg Tablet] 1 each PO BID [Last Taken 07/25/17] Acetaminophen [Tylenol 325mg (*)] 650 mg PO Q4HRS PRN tab 07/29/17 [Last Taken Unknown] Folic Acid [Folic Acid 1 MG (*)] 1 mg PO DAILY tab 07/29/17 [Last Taken Unknown ] Insulin Lispro [HumaLOG LISPRO] 0 unit SC TIDMEAL unit 07/29/17 [Last Taken Unknown] Melatonin [Melatonin 3 MG (*)] 3 mg PO HS PRN tab 07/29/17 [Last Taken Unknown] Polyethylene Glycol 3350 [Miralax 17 gm (*)] 17 gm PO DAILY PRN pkt 07/29/17 [ Last Taken Unknown] Sennosides/Docusate Sodium [Senokot-S] 1 - 2 tab PO BID tab 07/29/17 [Last Taken Unknown] Discharge Medications: Refer to the Discharge Home Medication list for PRN reason. - Orders Services needed: Physical Therapy, Occupational Therapy Isolation Type: None Diet Recommendation: no restrictions on diet Diet Texture: Regular Texture Diet, Thin Liquids, Meds Whole w/Liquids Additional: avoid nsaids, aspirin held due to anemia - Labs/Radiology HCT/HGB Date: 08/02/17 - Follow Up Care Current Providers and Referrals: KIM,MELIA [Other] - As per Instructions
[2017-07-29] MEDS: INSULIN LISPRO 100 UNIT/ML SC SCH ×2 (09:59→12:26)
[2017-07-29] MEDS: PANTOPRAZOLE SODIUM 40 MG TAB PO SCH (10:38)
[2017-07-29] MEDS: THIAMINE HCL 500 MG in NS 100 ML IV SCH (10:39)
[2017-07-29] MEDS: SENNOSIDES/DOCUSATE SODIUM TAB PO SCH (11:00)
[2017-07-29] MEDS ORDERED: MAGNESIUM SULF 1 GM/DEXTROSE 100 ML IV ONE (12:51)
--- NOTE | 2017-07-29 13:47 | GDS ---
[f rep st] DISCHARGE SUMMARY DISCHARGE DIAGNOSES: 1. Weakness with overall failure to thrive. 2. Rrqah-ia-uaxzjue anemia. 3. Insulin-dependent diabetes. 4. Alcohol abuse. 5. Hypertension. CONSULTATION: Dr. Joey Love with gastroenterology. Briefly, the patient is a 77-year-old female with insulin-dependent diabetes, hypertension, and alcoh ol use, who presented with weakness and anemia in the setting of likely an upper respiratory infectio n. HOSPITAL COURSE: 1. Fatigue: This is likely multifactorial. She has a history of alcohol use. She is diabetic and was anemic. She has improved throughout her stay. She will go to rehab for strengthening. 2. Udcoa-kp-dotduod anemia: She had an EGD. No active bleeding noted. She is to continue her PPI b.i.d. and, in addition, take iron every other day. 3. Insulin-dependent diabetes: Resumed her home medications. 4. Alcohol abuse: She admits to drinking up to half a liter of scotch daily. She has had no signs or symptoms of withdrawal. She was treated with IV thiamine for 3 days and on folic acid. She incre ased her drinking after her approximately 3 years ago and then she moved to [place] to be closer to her children, but is missing her regular social support of friends. She is very motivat ed to cut back. She notes this is affecting her health. 5. Hypertension: Home medications resumed. CONDITION AT DISCHARGE: Stable. Blood pressure 124/77, heart rate 77, respiratory rate 16, O2 sat i n room air 92%, temperature 36.6 Celsius. MEDICATIONS AT DISCHARGE: Please see the EMR. DISCHARGE INSTRUCTIONS: 1. To avoid all alcohol. 2. To avoid all NSAIDs. Her aspirin has been discontinued. 3. Case Management has worked with her and recommend that she do some volunteer work. She is stevan g forward to that. TIME SPENT: Greater than 30 minutes discharging and coordinating her care. /[id number]/MODL
--- NOTE | 2017-07-29 18:06 | ASDISCHSUM ---
Discharge Information Plan Status:SNF Medically Cleared to Leave: Discharge Date:07/29/2017 12:40 PM CM D/C Disposition:[facility] Facility ADT D/C Disposition:[facility] Facility Projected Discharge Date:07/29/2017 11:00 AM Transportation at D/C:Wheelchair Van Discharge Delay Reason: Follow-Up Date:07/29/2017 11:00 AM Discharge Slot: Final Diagnosis: Placement Information Referral Type:*Penitentiary/SNF Referral ID:[id number] Provider Name:[facility] Address 1:[address] Address 2: City:[place] Selection Factors: State:[place] Patient Contact Information Contact Name:CORINNE Relationship:Son Address: Work Phone: City: [facility] Phone: [facility] Code: Email: Financial Information Financial Class: Primary Plan Desc:MEDICARE INPATIENT Primary Plan Number:[id number] Secondary Plan Desc: OUT OF STATE [facility] Secondary Plan Number:[id number] Assessment Information [facility] CM Progress Note CM Note CM Note Notes: Pt lives alone in apt, close to sons. Does not drive, walks to get groceries. Drinks 1/2 litre of scotch daily, CM discussed with SW, who will talk with her tomorrow. DC Plan: TBD Date Signed: 07/26/2017 04:44 PM Electronically Signed By:Maricarmen Cohn RN [facility] CM Progress Note CM Note CM Note Notes: Pt. is a 77-year-old woman admitted with weakness. Hx. gastric ulcer, hiatal hernia, Type 2 diabetes, HTN, periphery neuropathy, and excessive alcohol intake. Pt. drinks some "1/2 liter of scotch per day". CM colleague asked Danitar to see Pt. Pt. acknowledges drinking more alcohol after her some three years ago while living in their home state of [place]. Pt. agreed to move to [place] to be closer to her sons. Pt. grateful for them, but states they act like they are the parents. Pt. 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 States she needs to get involved again. SWer discussed possibly working at [email or web address] due to her interests in working with the homeless community and community organizing. PT recommending SNF, OT Homecare. Pt. open to going to SNF for rehab. Today Pt. asleep when returned to room. Faxed allscripts referral to [facility] due to proximity to home. Plan to give Pt. referrals for [facility] and [facility] should she want to live in a more social environment than alone in her apt. RENE/MANDO to follow. Date Signed: 07/27/2017 02:48 PM Electronically Signed By:Odalys Patrick LCSW [facility] Progress Note CM Note CM Note Notes: SWer met w/ Pt. in room today. Let Pt. know about [facility] referral and that Aida from [facility] would come to meet her today in her room. Let Pt. know to let SWer know if any problem with going to [facility]. Per Hospitalist, plan for d/c to [facility] tomorrow, Monday07/29/17. SWer provided Pt. information regarding volunteering at [facility] and also about [facility] should Pt. want a more social living space. Pt. grateful. RENE to follow for d/c POC. Date Signed: 07/28/2017 02:38 PM Electronically Signed By:Odalys Patrick LCSW Case Management Discharge Plan Note Case Management Discharge Discharge Order Complete? Answers: Yes Patient to Obtain Answers: Other Notes: [facility] Medications Transportation Arranged Answers: Other Notes: [facility] Transport will Pick (Date 07/29/2017 12:00 PM & Time) Faxed Final Orders Answers: Yes Discharge Comments Notes: D/w EMERGENCY ROOM TECHNICIAN, final orders faxed. Sparkle at [facility] notified. RN to call report. Date Signed: 07/29/2017 10:21 AM Electronically Signed By:Maricarmen Cohn RN Intervention Information Intervention Type:*CARIN-Signed Date of Service:07/26/2017 12:10 PM Patient Type:Observation Staff Member:Sofiya Tavarez Hours: Discipline: Severity: Comment:
== END 2017-07-29 12:40 | DRG 812 ==
LOC: F3E 21:41 → OBSVTOIN 07-26 12:59
PROVIDERS: ADMIT Internal Medicine; ATTEND Internal Medicine Pulmonary Disease
PROC: 0DJ08ZZ Inspection of Upper Intestinal Tract, Via Natural or Artificial Opening Endoscopic (ICD-10-PCS; principal; 2017-07-26 17:15)
DX: D50.9 Iron deficiency anemia, unspecified (principal); J06.9 Acute upper respiratory infection, unspecified; R53.83 Other fatigue; F10.10 Alcohol abuse, uncomplicated; G62.1 Alcoholic polyneuropathy; E11.9 Type 2 diabetes mellitus without complications; Z79.4 Long term (current) use of insulin; K44.9 Diaphragmatic hernia without obstruction or gangrene; I10 Essential (primary) hypertension; Z95.0 Presence of cardiac pacemaker
CPT/HCPCS: 81003-QW-PO; 92610-GN; 97116-GP; 97162-GP; 97166-GO; 97535-GO; G0378; G0463-PO; G8978-GP-CK; G8979-GP-CI; G8987-GO-CI; G8988-GO-CI; G8996-GN-CH; G8997-GN-CH; G8998-GN-CH; J1815; J2704; J2916; J3411; J3475

== ENCOUNTER → 2017-07-25 | Outpatient (CLI) | payer OTHER, BC | LOC: CIMAGING 16:45 | PROVIDERS: ATTEND Internal Medicine | DX: J44.9 Chronic obstructive pulmonary disease, unspecified (principal); M40.204 Unspecified kyphosis, thoracic region; Z95.0 Presence of cardiac pacemaker | CPT/HCPCS: 71046-PO ==

== ENCOUNTER 2017-12-09 23:28 | Inpatient (IN) | payer OTHER, BC ==
[2017-12-09] MEDS ORDERED: NS 500 ML IV ONE (23:39)
--- NOTE | 2017-12-09 23:44 | CPEKG ---
Heart Rate: 91 RR Interval: 659 P-R Interval: 148 QRSD Interval: 82 QT Interval: 372 QTC Interval: 458 P [place]: 32 QRS [place]: -7 T Wave [place]: 14 EKG Severity - ABNORMAL ECG - EKG Impression: SINUS RHYTHM EKG Impression: LEFT VENTRICULAR HYPERTROPHY Electronically Signed By: Moreno Lynn 13-Dec-2017 11:58:20
--- NOTE | 2017-12-09 23:45 | EDPHY ---
H & P Stated Complaint: syncopal episode Time Seen by Provider: 12/09/17 23:41 HPI/ROS: HPI CHIEF COMPLAINT: Syncope, left forehead hematoma, chest pain, vomiting HISTORY OF PRESENT ILLNESS: Patient is a 77-year-old female, she has a history of anemia, hypertension, history of weakness and failure to thrive, additionally drinks alcohol regularly she presents emergency room by EMS after she had a syncopal episode. Patient states the last thing she remembers she was sitting on the couch watching TV and then the next thing she knows she was on the ground waking up. She did fall in her private residence she lives alone. She had head strike against the ground. She presents emergency room GCS 15 alert and orient x4 with a hematoma to the left forehead rather large. Additionally she reports some mild epigastric and chest pain in route on the ambulance she did have 1 episode of vomiting prior to arrival. She does states she is chronically short of breath not more than normal. She denies any recent illness. She presents emergency room with vital signs are stable moves everything appropriately. Had 1 episode of vomiting prior to arrival. Patient reports she had 2 scotch beverages this evening. Patient has a right chest pacemaker. Past Medical History: Hypertension, anemia, weakness, failure to thrive, alcoholism, peptic ulcer disease, insulin-dependent diabetes Past Surgical History: Peptic ulcer disease status post clips, pacemaker Social History: Lives locally, daily alcohol use. Family History: Noncontributory ROS REVIEW OF SYSTEMS: Somewhat limited due to patient's syncopal episode and does not remember what happened. Exam Constitutional appears nontoxic, elderly, GCS 15, triage nursing summary reviewed, vital signs reviewed, awake/alert. Eyes normal conjunctivae and sclera, EOMI, PERRLA. HENT head/neck: Large left forehead hematoma present. No midline cervical spine pain. No step-offs or crepitus, moist mucus membranes, no epistaxis, neck supple/ no meningismus, no raccoon eyes. Respiratory clear to auscultation bilaterally, normal breath sounds, no respiratory distress, no wheezing. Cardiovascular rate normal, regular rhythm, no murmur, no edema, distal pulses normal. Gastrointestinal soft, non-tender, no rebound, no guarding, normal bowel sounds, no distension, no pulsatile mass. Genitourinary no CVA tenderness. Musculoskeletal no midline vertebral tenderness, full range of motion, no calf swelling, no tenderness of extremities, no meningismus, good pulses, neurovascularly intact. Skin pink, warm, & dry, no rash, skin atraumatic. Neurologic awake, alert and oriented x 3, AAOx3, moves all 4 extremities equally, motor intact, sensory intact, CN II-XII intact, normal cerebellar, normal vision, normal speech. Psychiatric normal mood/affect. Heme/Lymph/Immune no lymphadenopathy. Differential Diagnosis: Includes but is not limited to in a particular order syncope, dehydration, electrolyte abnormality, hypoglycemia, alcohol intoxication, infection, ACS, PE, intracranial bleed, traumatic subarachnoid, subdural, epidural Medical Decision Making: Plan for this patient rather large workup for syncope including EKG and blood work, full cardiac nurse specialist IV establishment, gentle IV fluid bolus 500 cc, chest x-ray, CT scan head and neck without contrast for trauma, Re-evaluation: EKG interpretation by me on record in [employer] system. Impression time of EKG 2336, this is sinus rhythm rate of 91 no acute ischemia appreciated. No acute ST elevation no acute ST depression. CT scan head without contrast and CT scan cervical spine without contrast for trauma negative for acute traumatic injury. Old C1 and C2 fractures visualized. Nothing acutely new. Called to me by Dr. Leal. ED x-ray chest one view: Cardiomegaly present. Pleural effusion present. Pacemaker appears appropriate position. Serum alcohol level 194. Troponin negative. EKG nonischemic. Patient be admitted for syncope in the setting of a forehead hematoma, alcohol intoxication and multiple comorbidities. Will discuss with the hospitalist service about further workup but the positive D-dimer. She did have a CT angiogram of her chest 6 months ago that was negative. 0124: Spoke with Dr. Weathers agrees to admit the patient however request a CT angiogram of the chest to rule out PE given syncope in the positive D-dimer. Patient need to be admitted the hospital due to alcohol intoxication, her age, her comorbidities, and syncope with a forehead hematoma. 0204: CT angiogram of the chest shows no evidence of PE called to me by Dr. Owens. There is anterior 3rd rib buckle fracture. New since 2017. Source: Patient, EMS - Personal History Current Tetanus/Diphtheria Vaccine: Unsure Tetanus Vaccine Date: within 10 years - Medical/Surgical History Hx Asthma: No Hx Chronic Respiratory Disease: No Hx Diabetes: Yes Hx Cardiac Disease: Yes Hx Renal Disease: No Hx Cirrhosis: No Hx Alcoholism: Yes Hx HIV/AIDS: No Hx Splenectomy or Spleen Trauma: No Other PMH: C1 C2 FX, heart arrythmia, tonsillectomy, c section, cholecystectomy , pacemaker, HTN, DM type II, hyperlipidemia, fall at home 06/09/17 r/t syncope. - Social History Smoking Status: Never smoked Constitutional: Initial Vital Signs Temperature (C) 36.3 C 12/09/17 23:39 Heart Rate 93 12/09/17 23:39 Respiratory Rate 20 12/09/17 23:39 Blood Pressure 110/71 12/09/17 23:39 O2 Sat (%) 89 L 12/09/17 23:39 O2 Delivery Mode Room Air O2 (L/minute) 2 Allergies/Adverse Reactions: adhesive Allergy (Intermediate, Verified 07/25/17 18:29) Rash cephalexin Allergy (Intermediate, Verified 07/25/17 18:29) Rash niacin Allergy (Intermediate, Verified 07/25/17 18:29) Rash sulfamethoxazole [Sulfamethoxazole] Allergy (Intermediate, Verified 07/25/17 18: 29) "UPSET STOMACH" gabapentin Allergy (Unknown, Verified 07/25/17 18:29) UNABLE TO FALL ASLEEP latex Allergy (Verified 07/25/17 22:12) Rash ranolazine [From Ranexa] Allergy (Verified 07/25/17 18:29) trimethoprim [From Bactrim] Allergy (Verified 07/25/17 18:29) Home Medications: Medication Instructions Recorded Cholecalciferol Vit D3 [Vitamin D3 1,000 units PO DAILY 05/13/17 (*)] Cyanocobalamin [Vitamin B12 (*)] 1,000 mcg PO DAILY 05/13/17 DULoxetine [Cymbalta 60 MG (*)] 60 mg PO DAILY 05/13/17 Hydrochlorothiazide [HCTZ (*)] 12.5 mg PO DAILY PRN 05/13/17 Insulin Detemir [Levemir Flextouch] 20 unit SQ HS 05/13/17 Isosorbide Mononitrate [Imdur 30 30 mg PO BID 05/13/17 mg (*)] Rosuvastatin Calcium [Crestor 5mg] 5 mg PO DAILY 10/28/17 Nitroglycerin [Nitrostat 0.4 mg 0.4 mg SL Q5M PRN 05/30/17 (*)] Nortriptyline HCl [Pamelor 10 mg 20 mg PO HS 05/30/17 (*)] Multivitamins [Multivitamin (*)] 1 each PO DAILY 06/14/17 Sitagliptin Phos/Metformin HCl 1 each PO BID 07/25/17 [Janumet 50-1,000 mg Tablet] Aspirin EC [Aspirin EC 81 mg (*)] 81 mg PO HS 12/10/17 Lisinopril [Zestril 10 mg (*)] 10 mg PO DAILY 12/10/17 Metoclopramide [Reglan 10 mg tab 10 mg PO ACHS 12/10/17 (*)] Nebivolol HCl [Bystolic 5 mg (*)] 5 mg PO DAILY 12/10/17 Medical Decision Making - Diagnostics Imaging Results: Imaging Impressions Chest/Thorax CTA 12/10/17 01:22 Impression: 1. No evidence of thrombopulmonary embolic disease. 2. No acute pulmonary process. 3. Minimal interstitial lung disease is unchanged. 4. New anterior left third rib fracture since 2017. The study was performed as an emergency on-call case and discussed by telephone with Dr. Jerrell Cain at 2:05 a.m. The final interpretation is concordant with the original communication. - Data Points Laboratory Results: Laboratory Results 12/09/17 23:30 12/09/17 23:30 Medications Given: Acetaminophen (Tylenol) 650 mg PO Q4HRS PRN PRN Reason: Pain, Mild/Fever, Can Take PO Stop: 06/08/18 01:22 Last Admin: 12/10/17 18:33 Dose: 650 mg Aspirin Buffered (Aspirin Ec) 81 mg PO HS BETSEY Stop: 06/08/18 20:59 Last Admin: 12/10/17 20:24 Dose: 81 mg Duloxetine HCl (Cymbalta) 60 mg PO DAILY BETSEY Stop: 06/08/18 10:59 Last Admin: 12/10/17 12:50 Dose: 60 mg Insulin Glargine (Lantus Syringe) 20 units SC HS BETSEY Stop: 06/08/18 20:59 Last Admin: 12/10/17 20:24 Dose: 20 units Insulin Human Lispro (Humalog Lispro) 0 unit SC TIDMEAL BETSEY PRN Reason: Protocol Stop: 06/08/18 07:59 Last Admin: 12/10/17 18:23 Dose: Not Given Metoclopramide HCl (Reglan) 10 mg PO ACHS BETSEY Stop: 06/08/18 11:29 Last Admin: 12/10/17 20:24 Dose: 10 mg Miscellaneous Medication (Icy Hot Lidocaine/Menthol 4%/1% Patch) 1 patch TD DAILY BETSEY Stop: 06/08/18 12:44 Last Admin: 12/10/17 15:32 Dose: 1 patch Nortriptyline HCl (Pamelor) 20 mg PO HS BETSEY Stop: 06/08/18 20:59 Last Admin: 12/10/17 20:24 Dose: 20 mg Sitagliptin Phosphate (Januvia) 50 mg PO BID BETSEY Stop: 06/08/18 20:59 Last Admin: 12/10/17 20:45 Dose: Not Given Tramadol HCl (Ultram) 50 mg PO Q6HRS PRN PRN Reason: Pain, Moderate Able to Take PO Stop: 06/08/18 09:10 Last Admin: 12/10/17 18:33 Dose: 50 mg Discontinued Medications Sodium Chloride (Ns) 500 mls @ 1,000 mls/hr IV EDNOW ONE PRN Reason: Protocol Stop: 12/10/17 00:08 Last Admin: 12/09/17 23:46 Dose: 500 mls Departure - Departure Disposition: [facility] Inpatient Acute Clinical Impression: Syncope Qualifiers: Syncope type: unspecified Qualified Code(s): R55 - Syncope and collapse Alcohol intoxication Qualifiers: Complication of substance-induced condition: uncomplicated Qualified Code(s): F10.920 - Alcohol use, unspecified with intoxication, uncomplicated Scalp hematoma Qualifiers: Encounter type: initial encounter Qualified Code(s): S00.03XA - Contusion of scalp, initial encounter Condition: Fair
[2017-12-09 23:53] LABS: PLATELET COUNT 210 10^3/uL (150-400)
[2017-12-10 00:56] LABS: CREATINE KINASE 93 IU/L (0-156)
[2017-12-10] MEDS ORDERED: ONDANSETRON DISINTEGRATING 4 MG TAB PO PRN (01:23)
[2017-12-10] MEDS ORDERED: ONDANSETRON 4 MG/2 ML VIAL IVP PRN (01:23)
[2017-12-10] MEDS ORDERED: D50W 25 GM/50 ML VIAL IVP PRN (01:25)
[2017-12-10] MEDS ORDERED: IOPAMIDOL (ISOVUE 370) 100 ML BTL IV ONE (01:26)
--- NOTE | 2017-12-10 01:45 | PDGENHP ---
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 Patient states she woke up on the ground without knowledge of how she got there. She has a significant bruise on her L forehead from apparently hitting the floor. Prior to this she states she was sitting on the couch watching TV. She had two cocktails that evening ( doubles), which she drinks most nights. She states she has done this for more than 20 years but denies prior ETOH w/d. History Information - Allergies/Home Medication List Allergies/Adverse Reactions: adhesive Allergy (Intermediate, Verified 07/25/17 18:29) Rash cephalexin Allergy (Intermediate, Verified 07/25/17 18:29) Rash niacin Allergy (Intermediate, Verified 07/25/17 18:29) Rash sulfamethoxazole [Sulfamethoxazole] Allergy (Intermediate, Verified 07/25/17 18: 29) "UPSET STOMACH" gabapentin Allergy (Unknown, Verified 07/25/17 18:29) UNABLE TO FALL ASLEEP latex Allergy (Verified 07/25/17 22:12) Rash ranolazine [From Ranexa] Allergy (Verified 07/25/17 18:29) trimethoprim [From Bactrim] Allergy (Verified 07/25/17 18:29) Home Medications: Cholecalciferol Vit D3 [Vitamin D3 (*)] 1,000 units PO DAILY 05/13/17 [Last Taken 07/25/17] Cyanocobalamin [Vitamin B12 (*)] 1,000 mcg PO DAILY 05/13/17 [Last Taken ] DULoxetine [Cymbalta 60 MG (*)] 60 mg PO DAILY 05/13/17 [Last Taken 07/25/17] Hydrochlorothiazide [HCTZ (*)] 12.5 mg PO HS PRN 05/13/17 [Last Taken 07/25/17] Insulin Detemir [Levemir Flextouch] 20 unit SQ HS 05/13/17 [Last Taken 07/24/17] Isosorbide Mononitrate [Imdur 30 mg (*)] 30 mg PO BID 05/13/17 [Last Taken 07/25] Rosuvastatin Calcium [Crestor 5mg] 5 mg PO HS 05/13/17 [Last Taken 07/24/17] Nitroglycerin [Nitrostat 0.4 mg (*)] 0.4 mg SL Q5M PRN 05/30/17 [Last Taken Unknown] Nortriptyline HCl [Pamelor 10 mg (*)] 20 mg PO HS 05/30/17 [Last Taken 07/24/17] Levomefolate/B6/B12/Algal Oil [Metanx Capsule] 1 each PO BID 06/14/17 [Last Taken 06/14/17 09:00] Multivitamins [Multivitamin (*)] 1 each PO DAILY 06/14/17 [Last Taken 06/14/17] Sitagliptin Phos/Metformin HCl [Janumet 50-1,000 mg Tablet] 1 each PO BID [Last Taken 07/25/17] Aspirin 81mg (*) 12/09/17 [Last Taken Unknown] I have personally reviewed and updated: family history - Past Medical History diabetes type 2, hypertension Additional medical history: ETOH abuse. PUD. Neuropathy - Surgical History Reports: pacemaker/AICD Additional surgical history: EGD 06/02 with gastric ulcer treated with 4 clips - Family History Positive for: diabetes type II - Social History Smoking Status: Never smoked Review of Systems Review of Systems: ROS: 10pt was reviewed & negative except for what was stated in HPI & below Physical Exam Physical Exam: Temp Pulse Resp BP Pulse Ox 36.3 C 93 20 110/71 98 12/09/17 23:39 12/09/17 23:39 12/09/17 23:39 12/09/17 23:39 12/09/17 23:47 Constitutional: no apparent distress, appears nourished Eyes: PERRL, EOMI, other ( L forehead ecchymosis) Ears, Nose, Mouth, Throat: moist mucous membranes, no oral mucosal ulcers Cardiovascular: regular rate and rhythym, systolic murmur Respiratory: no respiratory distress, clear to auscultation Gastrointestinal: normoactive bowel sounds, soft, non-tender abdomen Skin: warm, normal color Musculoskeletal: full muscle strength, no muscle tenderness Neurologic: AAOx3, CN II-XII Intact Psychiatric: interacting appropriately, not anxious Lab Data & Imaging Review 12/09/17 23:30 12/09/17 23:30 WBC 7.54 10^3/uL (3.80-9.50) 12/09/17 23: RBC 4.13 10^6/uL (4.18-5.33) L 12/09/17 23:30 Hgb 11.0 g/dL (12.6-16.3) L 12/09/17 23:30 Hct 34.4 % (38.0-47.0) L 12/09/17: MCV 83.3 fL (81.5-99.8) 12/09/17 23: MCH 26.6 pg (27.9-34.1) L 12/09/17: MCHC 32.0 g/dL (32.4-36.7) L 12/09/17: RDW 17.7 % (11.5-15.2) H 12/09/17: Plt Count 210 10^3/uL (150-400) 12/09/17: MPV 11.1 fL (8.7-11.7) 12/09/17: Neut % (Auto) 54.3 % (39.3-74.2) 12/09/17 23: Lymph % (Auto) 31.7 % (15.0-45.0) 12/09/17: Wake % (Auto) 7.6 % (4.5-13.0) 12/09/17: Eos % (Auto) 4.9 % (0.6-7.6) 12/09/17: Baso % (Auto) 0.8 % (0.3-1.7) 12/09/17: Nucleat RBC Rel Count 0.0 % (0.0-0.2) 12/09/17:30 Absolute Neuts (auto) 4.10 10^3/uL (1.70-6.50) 12/09/17:30 Absolute Lymphs (auto) 2.39 10^3/uL (1.00-3.00) 12/09/17 23:30 Absolute Monos (auto) 0.57 10^3/uL (0.30-0.80) 12/09/17 23:30 Absolute Eos (auto) 0.37 10^3/uL (0.03-0.40) 12/09/17 23:30 Absolute Basos (auto) 0.06 10^3/uL (0.02-0.10) 12/09/17 23:30 Absolute Nucleated RBC 0.00 10^3/uL (0-0.01) 12/09/17 23:30 Immature Gran % 0.7 % (0.0-1.1) 12/09/17: Immature Gran # 0.05 10^3/uL (0.00-0.10) 12/09/17 23:30 D-Dimer 0.88 ug/mLFEU (0.00-0.50) H 12/09/17 23:30 Sodium 133 mEq/L (135-145) L 12/09/17 23:30 Potassium 4.1 mEq/L (3.3-5.0) 12/09/17 23:30 Chloride 93 mEq/L (97-110) L 12/09/17: Carbon Dioxide 23 mEq/l (22-31) 12/09/17 23:30 Anion Gap 17 mEq/L (8-16) H 12/09/17 23:30 BUN 14 mg/dL (7-23) 12/09/17 23:30 Creatinine 0.7 mg/dL (0.6-1.0) 12/09/17 23:30 Estimated GFR > 60 12/09/17 23:30 Glucose 152 mg/dL (70-100) H 12/09/17 23:30 Calcium 9.9 mg/dL (8.5-10.4) 12/09/17: Magnesium 1.7 mg/dL (1.6-2.3) 12/09/17 23:30 Total Bilirubin 0.4 mg/dL (0.1-1.4) 12/09/17:30 Conjugated Bilirubin 0.3 mg/dL (0.0-0.5) 12/09/17: Unconjugated Bilirubin 0.1 mg/dL (0.0-1.1) 12/09/17 23:30 AST 48 IU/L (14-46) H 12/09/17 23:30 ALT 37 IU/L (9-52) 12/09/17 23:30 Alkaline Phosphatase 68 IU/L (38-126) 12/09/17 23:30 Creatine Kinase 93 IU/L (0-156) 12/09/17 23:30 CK-MB (CK-2) Fraction 10.60 ng/mL (0.00-4.55) H 12/09/17 23:30 CK-MB (CK-2) % 11.4 % (0.0-4.0) H 12/09/17 23:30 Creatine Kinase Interp POSITIVE (NEGATIVE) H 12/09/17 23:30 Troponin I < 0.012 ng/mL (0.000-0.034) 12/09/17 23:30 NT-Pro-B Natriuret Pep 170 pg/mL (0-450) 12/09/17 23:30 Total Protein 7.7 g/dL (6.3-8.2) 12/09/17 23:30 Albumin 4.6 g/dL (3.5-5.0) 12/09/17 23:30 Lipase 116 IU/L (23-300) 12/09/17 23:30 Ethyl Alcohol 194 mg/dL (0-10) H 12/09/17 23:30 Imaging Review: Imaging Impressions Chest X-Ray 12/09/17 23:39 Impression: 1. Query low-grade congestive heart failure. 2. Left basilar opacity, atelectasis versus less likely pneumonia with small pleural effusion also suspected. Cervical Spine CT 12/09/17 23:40 Impression: 1. Elderly brain with atrophy and probable white matter small vessel disease. 2. Negative for intracranial bleed or mass effect. CT Cervical Spine Without Contrast History: Trauma. Technique: Multislice helical CT through the cervical spine without contrast from the skull base to T1. Soft tissue and bone evaluation is performed. Sagittal and coronal reconstructions are obtained and reviewed. Dose reduction techniques were utilized. Into the prior CT of the cervical spine June 05, 2017. Findings: Again noted is a chronic mildly displaced fracture of the mid body of C2. There is also no change in the undisplaced fracture of the anterior arch of C1. Previously seen fractures of the posterior arch of C1 are less prominent and may have healed partially. There is no displacement. No other fracture is identified. Prevertebral soft tissues appear normal. Multilevel degenerative changes are noted with disk space loss and bony spurring extending from C4-C5 to the C7-T1 level. Multilevel facet and uncovertebral arthropathy is also noted. Impression: 1. Cervical spine negative for acute fracture. 2. No change in the chronic fracture of the dens of C2. 3. Stable appearance of fracture of the anterior arch of C1 with suspected progression in healing of posterior C1 arch fractures. 4. See above report for additional findings. Results called and discussed with Jerrell Cain MD on 12/10/2017 at 0:[address] 12/09/17 23:40 Impression: 1. Elderly brain with atrophy and probable white matter small vessel disease. 2. Negative for intracranial bleed or mass effect. CT Cervical Spine Without Contrast History: Trauma. Technique: Multislice helical CT through the cervical spine without contrast from the skull base to T1. Soft tissue and bone evaluation is performed. Sagittal and coronal reconstructions are obtained and reviewed. Dose reduction techniques were utilized. Into the prior CT of the cervical spine June 05, 2017. Findings: Again noted is a chronic mildly displaced fracture of the mid body of C2. There is also no change in the undisplaced fracture of the anterior arch of C1. Previously seen fractures of the posterior arch of C1 are less prominent and may have healed partially. There is no displacement. No other fracture is identified. Prevertebral soft tissues appear normal. Multilevel degenerative changes are noted with disk space loss and bony spurring extending from C4-C5 to the C7-T1 level. Multilevel facet and uncovertebral arthropathy is also noted. Impression: 1. Cervical spine negative for acute fracture. 2. No change in the chronic fracture of the dens of C2. 3. Stable appearance of fracture of the anterior arch of C1 with suspected progression in healing of posterior C1 arch fractures. 4. See above report for additional findings. 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 Plan: 1. Syncopal episode - Unclear etiology, patient does not recall anything aside from waking up on the floor. She has a scalp hematoma hinting at keren fall onto the floor. ETOH abuse is likely contributing, unclear if additional factor is present. D-dimer is elevated and patient has a pacemaker for hx of tachybrady syndrome. - Admit for observation - CTPE to evaluate for PE noting syncope and positive D-dimer - Monitor on telemetry, would have pacer interrogated if any abnormal findings or if syncope is recurrent - PT/OT evaluations 2. IDDM - Takes insulin detemir 20 u qPM + orals at home. Will manage with SSI for now. 3. HTN - Monitor BP, restart home meds if appropriate. 4. Tachy-andrews syndrome - S/p PPM, in NSR on admission. - Monitor on telemetry 5. ETOH abuse - Drinks about 4 drinks nightly; she denies prior hx of ETOH w/d. - Monitor for signs of w/d Diet - Regular Code - Full Ppx - SCDs noting scalp trauma Dispo - Admit under observation status
[2017-12-10] MEDS: ACETAMINOPHEN 325 MG TAB PO PRN ×3 (03:33→18:33)
[2017-12-10 05:38] LABS: PLATELET COUNT 152 10^3/uL (150-400)
[2017-12-10] MEDS: INSULIN LISPRO 100 UNIT/ML SC SCH ×3 (08:20→18:23)
[2017-12-10] MEDS: traMADol 50 MG TAB PO PRN ×2 (09:28→18:33)
[2017-12-10] MEDS ORDERED: NITROGLYCERIN 0.4 MG BTL SL PRN (10:50)
--- NOTE | 2017-12-10 11:39 | HOSPPROG ---
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 Chart reviewed. This is my first encounter with patient. ECG personally interpreted (NSR). Plan: #. Syncopal episode - Unclear etiology, patient does not recall anything aside from waking up on the floor. She has a scalp hematoma hinting at keren fall onto the floor. ETOH abuse is likely contributing, unclear if additional factor is present. D-dimer is elevated and patient has a pacemaker for hx of tachybrady syndrome. - Admit for observation - CTPA pending to evaluate for PE noting syncope and positive D-dimer - Pacer without any events and normal battery life - PT/OT evaluations #. Pain - due to above - Analgesia -PT/OT #. IDDM - Takes insulin detemir 20 u qPM + orals at home. Will manage with SSI for now. - Hold Metformin (in form of Janumet in light of recent contrast) #. HTN - Monitor BP - she is on multiple antihypertensives that may have lead to a hypotensive event - all her antihypertensives are held and will be resumed on prn basis and not all at once #. Tachy-andrews syndrome - S/p PPM, in NSR on admission. - Monitor on telemetry #. ETOH abuse - Drinks about 4 drinks nightly; she denies prior hx of ETOH w/d. - Monitor for signs of w/d #. abnormal stress test - has been on Imdur for unclear reasons - [facility] in 06/02 with normal epicardial vessels - d/c Imdur #. shortness of breath - describes dyspnea on minimal exertion - check echo (last echo 05/02 was unremarkable) Diet - Regular Code - Full Ppx - SCDs noting scalp trauma Dispo - Will warrant inpatient status due to pain and need for further evaluation and testing. Subjective: Notes L sided rib pain. No LIMA. Notes shortness of breath. Objective: Vital Signs Temp Pulse Resp BP Pulse Ox 98.9 F 86 16 134/70 H 91 L 12/10/17 11:25 12/10/17 11:25 12/10/17 11:25 12/10/17 11:25 12/10/17 11:25 Laboratory Results 12/10/17 04:55 12/10/17 04:55 12/09/17 12/10/17 12/11/17 05:59 05:59 05:59 Intake Total 500 Balance 500 - Physical Exam Constitutional: no apparent distress Eyes: other (Large L periorbital hematoma) Ears, Nose, Mouth, Throat: hearing normal Cardiovascular: regular rate and rhythym, no murmur, rub, or gallop Respiratory: no respiratory distress Gastrointestinal: normoactive bowel sounds, soft, non-tender abdomen Genitourinary: no bladder fullness Skin: warm, normal color Neurologic: AAOx3 Psychiatric: interacting appropriately, not anxious ICD10 Worksheet Patient Problems: Problems Problem Status Onset Alcohol intoxication Acute Scalp hematoma Acute Syncope Acute Anemia Acute Esophageal foreign body Acute Hyponatremia Acute Hypoxia Acute Shortness of breath Acute
--- NOTE | 2017-12-10 11:43 | ASMTCAGE ---
CAGE Do you feel you ought to Answers: No cut down on your drinking or drug use? Do people annoy you by Answers: Yes criticizing your drinking or drug use? Do you feel guilty about Answers: No your drinking or drug use? Additional Comments Pt reports that sometimes she mix scotch into her coffee Date Signed: 12/10/2017 11:42 AM Electronically Signed By:GRETEL Garrido
--- NOTE | 2017-12-10 11:48 | ASMTCASEMG ---
Living Arrangements What is your living Answers: Alone arrangement? Who do you live with? Type Of Residence What kind of residence do Answers: Apartment you live in? Discharge Plan Comments Coordination Status Comments Notes: Pt is a 77 y/o female admitted for syncope and falling to the ground and hitting the floor. CM met w/ pt to provide her w/ ETOH resources. Pt reports that she has been drinking for 47 years and does not plan on stopping. CAGE completed. Pt reports that she has 4 supportive sons. OT has been ordered and awaiting recommendations. Needs are TBD at this time. CM to follow. Plan: TBD Date Signed: 12/10/2017 11:47 AM Electronically Signed By:GRETEL Garrido
--- NOTE | 2017-12-10 12:20 | PDMN ---
Medical Necessity Medical necessity: C/M review: est. > 2 MN LOS for eval and TX of acute syncopal episode of unclear etiology, patient does not recall anything aside from waking up on the floor, acute scalp hematoma present on admission hinting at keren fall on the floor, pain due to above, CTPA pending to evaluate for PE noting syncope and positive D-Dimer, 89% RA sat on admission, shortness of breath, dyspnea with minimal exertion requiring planned echocardiogram. ongoing analgesia, monitoring for signs / symptoms of alcohol withdrawal, hypertensive medications held and will be resumed on an as needed basis, discontinue Imdur, SSI insulin for now, hold Metformin, cardiac monitoring, pulse oximetry, supplemental O2, acute inpt PT/OT/ST, comorbid insulin dependent diabetes, hypertension, tachy-andrews syndrome S/P permanent pacemaker , alcohol abuse, history of abnormal stress test, left heart cath 05/2017 with normal epicardial vessels per 12/10/2017 Hospitalist progress note.
[2017-12-10] MEDS: METOCLOPRAMIDE 10 MG TAB PO SCH ×3 (12:46→20:24)
[2017-12-10] MEDS: DULoxetine 60 MG CAP PO SCH (12:50)
[2017-12-10] MEDS: LIDOCAINE 4%/MENTHOL 1% PATCH TD SCH ×2 (13:19→15:32)
--- NOTE | 2017-12-10 14:41 | GCON ---
[f rep st] CONSULTATION DATE OF CONSULTATION: 12/10/2017 REFERRING PHYSICIAN: Santana Weathers MD CHIEF COMPLAINT: Fall. HISTORY OF PRESENT ILLNESS: The patient is a 77-year-old woman who typically has 2 alcoholic beverag es per night for numerous years. She does not measure them, but states the glass is not that big. I s likely consuming 4 shots of alcohol. Last night, she had syncope. She is unsure why. She has had 1 event like this before when she fell and struck her right side of her head. When this happened, s he was sitting on the couch watching TV. Her blood alcohol level was 180 when she presented. She mcintyre d a chest x-ray that did not show hemo or pneumothorax. She had a CT scan of her head, C-spine, and chest. It showed old fractures of C2, right anterior 3rd rib fracture, and scalp hematoma. PAST MEDICAL HISTORY: Includes hypertension, depression, diabetes, chronic alcohol use, neuropathy, peptic ulcer disease. PAST SURGICAL HISTORY: Includes pacemaker, gastric ulcer. FAMILY HISTORY: Significant for diabetes. SOCIAL HISTORY: She lives alone. She does not smoke. She does drink alcohol daily. REVIEW OF SYSTEMS: Significant for neuropathy, left lateral chest wall pain. Otherwise, 10-point re view of systems negative. PHYSICAL EXAMINATION: HEENT: She has a scalp hematoma on the left side, which is not tense. Her pu pils are equal and round. She does not report vision changes. No midface instability. No otorrhea. No rhinorrhea. Mucous membranes moist. Teeth fit together normally. NECK: No new cervical spine tenderness. BACK: No new back tenderness. CHEST: She has tenderness along the lateral rib cage o n the left side. She is slightly tender over the anterior 3rd rib. No ecchymosis noted. LUNGS: Cl ear to auscultation bilaterally. No increased work of breathing. CARDIOVASCULAR: Regular rate. AB DOMEN: Bowel sounds present. Soft, nontender, nondistended. MUSCULOSKELETAL: 5/5 strength upper a nd lower extremities. NEURO: 2 through 12 grossly intact. LABORATORY DATA: Per HPI. IMPRESSION/PLAN: The patient is a 77-year-old who fell. She has an anterior 3rd rib fracture and a scalp hematoma. No intervention is needed for the scalp hematoma. She can do cough, deep breathing incentive spirometer for her rib fracture. The Trauma team will not follow, but we are available if any new injuries arise or if there are any other questions or concerns. /[id number]/MODL
[2017-12-10] MEDS: ASPIRIN EC 81 MG TAB PO SCH (20:24)
[2017-12-10] MEDS: NORTRIPTYLINE HCL 10 MG CAP PO SCH (20:24)
[2017-12-10] MEDS: INSULIN GLARGINE 100 UNITS/ML UNIT SC SCH (20:24)
[2017-12-10] MEDS ORDERED: ISOSORBIDE MONONITRATE 30 MG TAB.SR PO SCH (21:00)
[2017-12-11] MEDS: ACETAMINOPHEN 325 MG TAB PO PRN ×2 (02:48→23:57)
[2017-12-11] MEDS: PATCH REMOVAL 1 EA PATCH TD SCH ×2 (03:00→20:54)
[2017-12-11] MEDS: traMADol 50 MG TAB PO PRN ×3 (04:35→20:49)
[2017-12-11 05:36] LABS: PLATELET COUNT 139 10^3/uL (150-400)
[2017-12-11] MEDS ORDERED: LISINOPRIL 10 MG TAB PO SCH (09:00)
[2017-12-11] MEDS: CYANO/VITAMIN B12 1000 MCG TAB PO SCH (09:00)
[2017-12-11] MEDS: MULTIVITAMINS 1 EACH TAB PO SCH (09:00)
[2017-12-11] MEDS ORDERED: NEBIVOLOL HCL 5 MG TAB PO SCH (09:00)
[2017-12-11] MEDS: DULoxetine 60 MG CAP PO SCH (09:00)
[2017-12-11] MEDS: METOCLOPRAMIDE 10 MG TAB PO SCH ×4 (09:00→20:49)
[2017-12-11] MEDS: INSULIN LISPRO 100 UNIT/ML SC SCH ×3 (09:01→17:41)
[2017-12-11] MEDS: CHOLECALCIFEROL VIT D3 1,000 UNITS TAB PO SCH (09:01)
[2017-12-11] MEDS: LIDOCAINE 4%/MENTHOL 1% PATCH TD SCH ×2 (09:02→10:59)
[2017-12-11] MEDS: ROSUVASTATIN CALCIUM 10 MG TAB PO SCH (09:02)
--- NOTE | 2017-12-11 09:46 | HOSPPROG ---
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 Chart reviewed. This is my first encounter with patient. D/W CM. Plan: #. Syncopal episode - -Unclear etiology, patient does not recall anything aside from waking up on the floor. She has a scalp hematoma hinting at keren fall onto the floor. ETOH abuse is likely contributing, unclear if additional factor is present. D-dimer is elevated and patient has a pacemaker for hx of tachybrady syndrome. - CTA no PE - Pacer without any events and normal battery life - PT/OT evaluations #Left 3rd rib fx -lido patch -stable #. Pain - due to above - Analgesia -PT/OT #. IDDM - Takes insulin detemir 20 u qPM + orals at home. Will manage with SSI for now. - Hold Metformin (in form of Janumet in light of recent contrast) #. HTN - Monitor BP - she is on multiple antihypertensives that may have lead to a hypotensive event - all her antihypertensives are held and will be resumed on prn basis and not all at once -some mild HTN overnight cont to follow before restarting meds #. Tachy-andrews syndrome - S/p PPM, in NSR on admission. - Monitor on telemetry -NSR #. ETOH abuse - Drinks about 4 drinks nightly; she denies prior hx of ETOH w/d. - Monitor for signs of w/d -Still pending #. abnormal stress test - has been on Imdur for unclear reasons - [facility] in 06/02 with normal epicardial vessels - d/c Imdur #. shortness of breath - describes dyspnea on minimal exertion - check echo (last echo 05/02 was unremarkable) Diet - Regular Code - Full Ppx - SCDs noting scalp trauma Dispo - Will warrant inpatient status due to pain and need for further evaluation and testing. Needs SNF rehab Subjective: Up in chair. Feels better. Still ahving rib pain. Feels weak. Objective: Vital Signs Temp Pulse Resp BP Pulse Ox 36.7 C 81 10 L 130/92 H 97 12/11/17 08:25 12/11/17 08:25 12/11/17 08:25 12/11/17 08:33 12/11/17 08:25 Laboratory Results 05/28/18 05:03 12/11/17 05:03 12/10/17 12/11/17 12/12/17 05:59 05:59 05:59 Intake Total 500 Balance 500 - Physical Exam Constitutional: no apparent distress, appears nourished, uncomfortable Eyes: PERRL, anicteric sclera, EOMI Ears, Nose, Mouth, Throat: moist mucous membranes, hearing normal, ears appear normal, other (hematoma) Cardiovascular: regular rate and rhythym, No JVD, No edema Respiratory: no respiratory distress, no rales or rhonchi, clear to auscultation Gastrointestinal: normoactive bowel sounds, No tenderness, No ascites Skin: warm, normal color, no fluctuance Musculoskeletal: no joint effusions, pain with ROM, generalized weakness Neurologic: AAOx3 Psychiatric: interacting appropriately, not anxious, not encephalopathic, thought process linear ICD10 Worksheet Patient Problems: Problems Problem Status Onset Hyponatremia Acute Shortness of breath Acute Hypoxia Acute Esophageal foreign body Acute Anemia Acute Syncope Acute Alcohol intoxication Acute Scalp hematoma Acute
--- NOTE | 2017-12-11 20:00 | ECHO ---
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 EF is 62 %. No regional wall motion abnormality. Normal diastolic LV function. There is a possible ICD lead noted in the right ventricle. The left atrium is severely dilated. Mild to moderate mitral regurgitation. Aortic sclerosis is present. Mild aortic valve regurgitation is present. No aortic valve stenosis is present. Mild to moderate tricuspid valve regurgitation. Right ventricular systolic pressure measures 51mmHg. No pericardial effusion. Measurements: Chambers Valvular Assessment AV/MV Valvular Assessment TV/PV Normal Normal Normal Name Value Range Name Value Range Name Value Range Ao Ashli (2D): 2.8 cm (1.4 cm-2.6 AV Vmax: 1.70 m/s (1 m/s-1.7 TR Vmax: 3.39 mm/s ( - ) cm) m/s) TR PGmax: 46 mmHg ( - ) IVSd (2D): 1.1 cm (0.6 cm-1.1 AV meanP mmHg ( - ) syst. PAP: 51 mmHg ( - ) cm) WILFRIDO (VTI): 1.9 cm ( - ) PV Vmax: 0.90 m/s (0.6 m/s-0.9 LVDd (2D): 4.4 cm (3.9 cm-5.3 MV E Vmax: 1.05 m/s ( - ) m/s) cm) MV A Vmax: 0.98 m/s ( - ) PV PGmax: 3 mmHg ( - ) LVDs (2D): 2.7 cm (2.1 cm-4 MV E/A: 1.07 ( - ) cm) MV PHT: 0.067 s ( - ) LVPWd (2D): 1.1 cm ( - ) MVA (PHT): 3.3 s ( - ) LVOTd 1.9 cm 1.9 cm mm LVEF (BP): 62 % (>=55 %) Patient: HALEY ZAVALA Study Date: 12/11/2017 Page 1 of 2 01:35 PM RVDd(2D): 3.1 cm (1.9 cm-3.8 cmmm) Continued Measurements: Chambers Valvular Assessment AV/MV Valvular Assessment TV/PV Name Value Name Value Name Value LADs: 3.4 cm MV DecTime: 229 m/s CVP (est.): 5 mmHg LADs Lon.5 cm MV E' Septal: 0.09 m/s LA Area: 24.5 cm2 MV E/E' Septal: 11.70 LA Volume: 79 ml MV E/E' Lateral: 9.90 LA Volume Index: 51.0 ml/m2 RA Area: 15.6 cm2 Additional Vessels Name Value Ao Ascendin.1 cm Inferior Vena Cava: 1.3 cm Findings: Left Ventricle: Normal size left ventricle. No LV hypertrophy. Normal global systolic LV function. EF is 62 %. No regional wall motion abnormality. Normal diastolic LV function. Right Ventricle: Normal size right ventricle. Normal RV function. There is a possible ICD lead noted in the right ventricle. Left Atrium: The left atrium is severely dilated. Right Atrium: The right atrium is normal in size. Mitral Valve: The mitral valve is normal in appearance and function. Mild to moderate mitral regurgitation. No mitral stenosis is present. Aortic Valve: The aortic valve is tri-leaflet. Aortic sclerosis is present. Mild aortic valve regurgitation is present. No aortic valve stenosis is present. Tricuspid Valve: The tricuspid valve is normal in appearance and function. Mild to moderate tricuspid valve regurgitation. The pulmonary artery pressure is mild to moderately increased. Right ventricular systolic pressure measures 51mmHg. Pulmonic Valve: The pulmonic valve is normal in appearance and function. There is no pulmonic regurgitation seen. Aorta: The aorta is normal. Normal size aortic root measuring 2.8 cm. Normal size ascending aorta measuring 3.1 cm. IVC: The IVC is normal sized. Pericardium: No pericardial effusion. No pleural effusion. Exam Comments: Patient is supine and in pain from broken left ribs. (No Signature Object) Patient: HALEY ZAVALA Study Date: 12/11/2017 Page 2 of 2 01:35 PM [id number]
[2017-12-11] MEDS: ASPIRIN EC 81 MG TAB PO SCH (20:49)
[2017-12-11] MEDS: NORTRIPTYLINE HCL 10 MG CAP PO SCH (20:49)
[2017-12-11] MEDS: INSULIN GLARGINE 100 UNITS/ML UNIT SC SCH (20:50)
[2017-12-12] MEDS: traMADol 50 MG TAB PO PRN ×3 (04:45→21:50)
[2017-12-12] MEDS: INSULIN LISPRO 100 UNIT/ML SC SCH ×3 (07:39→17:47)
[2017-12-12] MEDS: CYANO/VITAMIN B12 1000 MCG TAB PO SCH (08:10)
[2017-12-12] MEDS: METOCLOPRAMIDE 10 MG TAB PO SCH ×4 (08:10→21:50)
[2017-12-12] MEDS: CHOLECALCIFEROL VIT D3 1,000 UNITS TAB PO SCH (08:10)
[2017-12-12] MEDS: ROSUVASTATIN CALCIUM 10 MG TAB PO SCH (08:11)
[2017-12-12] MEDS: LIDOCAINE 4%/MENTHOL 1% PATCH TD SCH (08:11)
[2017-12-12] MEDS: MULTIVITAMINS 1 EACH TAB PO SCH (08:11)
[2017-12-12] MEDS: DULoxetine 60 MG CAP PO SCH (08:11)
[2017-12-12] MEDS: metFORMIN HCL 500 MG TAB PO SCH ×2 (08:11→21:50)
--- NOTE | 2017-12-12 10:05 | HOSPPROG ---
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 D/W CM. Plan: #. Syncopal episode - -Unclear etiology, patient does not recall anything aside from waking up on the floor. She has a scalp hematoma hinting at keren fall onto the floor. ETOH abuse is likely contributing, unclear if additional factor is present. D-dimer is elevated and patient has a pacemaker for hx of tachybrady syndrome. - CTA no PE - Pacer without any events and normal battery life - PT/OT evaluations #Left 3rd rib fx -lido patch -try toradol #. Pain - due to above - Analgesia -PT/OT #. IDDM - Takes insulin detemir 20 u qPM + orals at home. Will manage with SSI for now. - Hold Metformin (in form of Janumet in light of recent contrast) #. HTN - Monitor BP - she was on multiple antihypertensives that may have lead to a hypotensive event - all her antihypertensives have been held I will resume bystolic 5 mg today -some HTN now and slight tachy #. Tachy-andrews syndrome - S/p PPM, in NSR on admission. - Monitor on telemetry -tachy restart bystolic #. ETOH abuse - Drinks about 4 drinks nightly; she denies prior hx of ETOH w/d. - Monitor for signs of w/d -Still pending #. abnormal stress test - has been on Imdur for unclear reasons - [facility] in 06/02 with normal epicardial vessels - d/c Imdur #. shortness of breath - describes dyspnea on minimal exertion - echo unremarkable Diet - Regular Code - Full Ppx - SCDs noting scalp trauma Dispo - Will warrant inpatient status due to pain and need for further evaluation and testing. Needs SNF rehab likely DC in am Subjective: Feels tired today. Stil lhaving significant pain. Complains of cough. Objective: Vital Signs Temp Pulse Resp BP Pulse Ox 36.6 C 100 16 177/87 H 94 12/12/17 07:36 12/12/17 07:36 12/12/17 07:36 12/12/17 07:36 12/12/17 07:36 Laboratory Results 12/11/17 05:03 12/11/17 05:03 12/11/17 12/12/17 12/13/17 05:59 05:59 05:59 Intake Total 900 Balance 900 - Physical Exam Constitutional: chronically ill appearing, uncomfortable Eyes: PERRL, anicteric sclera Ears, Nose, Mouth, Throat: moist mucous membranes, hearing normal Cardiovascular: No JVD, No edema Respiratory: no respiratory distress, reduced air movement Gastrointestinal: No tenderness, No ascites Skin: warm, No mottled Musculoskeletal: pain with ROM, muscular tenderness, generalized weakness Neurologic: AAOx3 Psychiatric: interacting appropriately, not anxious, not encephalopathic ICD10 Worksheet Patient Problems: Problems Problem Status Onset Hyponatremia Acute Shortness of breath Acute Hypoxia Acute Esophageal foreign body Acute Anemia Acute Syncope Acute Alcohol intoxication Acute Scalp hematoma Acute
[2017-12-12] MEDS ORDERED: CEPACOL LOZENGE PO PRN (10:06)
[2017-12-12] MEDS: KETOROLAC 30 MG/1 ML SDV IVP PRN ×2 (10:15→16:45)
[2017-12-12] MEDS: NEBIVOLOL HCL 5 MG TAB PO SCH (10:20)
--- NOTE | 2017-12-12 11:22 | ASMTCMCOM ---
CM Note CM Note Notes: CM spoke w/ CARLA Goetz and Teri RN regarding d/c POC. Therapies are recommending SNF. CM met w/ pt for dispo planning. Pt would like to d/c to [facility]. CM made referral to [facility]. CM to follow. Plan: SNF/[facility] Date Signed: 12/12/2017 11:22 AM Electronically Signed By:GRETEL Garrido
[2017-12-12] MEDS: ACETAMINOPHEN 325 MG TAB PO PRN (19:50)
[2017-12-12] MEDS: NORTRIPTYLINE HCL 10 MG CAP PO SCH (21:50)
[2017-12-12] MEDS: INSULIN GLARGINE 100 UNITS/ML UNIT SC SCH (21:50)
[2017-12-12] MEDS: ASPIRIN EC 81 MG TAB PO SCH (21:50)
[2017-12-12] MEDS: PATCH REMOVAL 1 EA PATCH TD SCH (22:01)
[2017-12-13] MEDS: KETOROLAC 30 MG/1 ML SDV IVP PRN (05:49)
[2017-12-13] MEDS: INSULIN LISPRO 100 UNIT/ML SC SCH ×2 (07:29→11:29)
[2017-12-13] MEDS: LIDOCAINE 4%/MENTHOL 1% PATCH TD SCH (08:15)
[2017-12-13] MEDS: METOCLOPRAMIDE 10 MG TAB PO SCH ×2 (08:17→11:28)
[2017-12-13] MEDS: DULoxetine 60 MG CAP PO SCH (08:17)
[2017-12-13] MEDS: CYANO/VITAMIN B12 1000 MCG TAB PO SCH (08:17)
[2017-12-13] MEDS: metFORMIN HCL 500 MG TAB PO SCH (08:17)
[2017-12-13] MEDS: NEBIVOLOL HCL 5 MG TAB PO SCH (08:18)
[2017-12-13] MEDS: ROSUVASTATIN CALCIUM 10 MG TAB PO SCH (08:18)
[2017-12-13] MEDS: CHOLECALCIFEROL VIT D3 1,000 UNITS TAB PO SCH (08:18)
[2017-12-13] MEDS: MULTIVITAMINS 1 EACH TAB PO SCH (08:18)
--- NOTE | 2017-12-13 09:55 | PDIAF ---
- Diagnosis Diagnosis: fall Code Status: Full Code - Medication Management Discharge Medications: Medications to Continue on Transfer Cholecalciferol Vit D3 [Vitamin D3 (*)] 1,000 units PO DAILY 05/13/17 [Last Taken 07/25/17] Cyanocobalamin [Vitamin B12 (*)] 1,000 mcg PO DAILY 05/13/17 [Last Taken ] DULoxetine [Cymbalta 60 MG (*)] 60 mg PO DAILY 05/13/17 [Last Taken 12/09/17] Insulin Detemir [Levemir Flextouch] 20 unit SQ HS 05/13/17 [Last Taken 07/24/17] Rosuvastatin Calcium [Crestor 5mg] 5 mg PO DAILY 05/13/17 [Last Taken 12/09/17] Nitroglycerin [Nitrostat 0.4 mg (*)] 0.4 mg SL Q5M PRN 05/30/17 [Last Taken Unknown] Nortriptyline HCl [Pamelor 10 mg (*)] 20 mg PO HS 05/30/17 [Last Taken 07/24/17] Multivitamins [Multivitamin (*)] 1 each PO DAILY 06/14/17 [Last Taken 06/14/17] Sitagliptin Phos/Metformin HCl [Janumet 50-1,000 mg Tablet] 1 each PO BID [Last Taken 12/09/17] Aspirin EC [Aspirin EC 81 mg (*)] 81 mg PO HS 12/10/17 [Last Taken 12/08/17] Nebivolol HCl [Bystolic 5 mg (*)] 5 mg PO DAILY 12/10/17 [Last Taken Unknown] Acetaminophen [Tylenol 325mg (*)] 650 mg PO Q4HRS PRN tab 12/13/17 [Last Taken Unknown] Benzocaine/Menthol 15/4 [Cepacol Lozenge] 1 ea PO PRN PRN lozenge 12/13/17 [ Last Taken Unknown] Lidocaine 4%/Menthol 1% [Icy Hot Lidocaine/Menthol 4%/1% Patch (*)] 1 patch TD DAILY patch 12/13/17 [Last Taken Unknown] Patch Removal 1 ea TD DAILY21 patch 12/13/17 [Last Taken Unknown] traMADol [Ultram 50 mg (*)] 50 mg PO Q6HRS PRN tab 12/13/17 [Last Taken Unknown ] Discharge Medications: Refer to the Discharge Home Medication list for PRN reason. PICC Care - Routine: N/A - Orders Services needed: Registered Nurse, Physical Therapy, Occupational Therapy Isolation Type: None Diet Recommendation: no restrictions on diet - Follow Up Care Current Providers and Referrals: Patient,NotPresent [Unknown] - As per Instructions
--- NOTE | 2017-12-13 10:37 | ASMTLACE ---
LACE Length of stay for Answers: 3 days current admission Acuity / Level of Answers: Yes Care: Did the patient have an inpatient admission? Comorbidities - select Answers: Diabetes (uncontrolled or all that apply controlled) Other Notes: Hx of anemia; HTN # of Emergency department Answers: 3-4 visits in the last 6 months Social determinants Answers: History of substance abuse (ETOH, street drugs, prescription drugs, etc.) Score: 14 Date Signed: 12/13/2017 10:36 AM Electronically Signed By:GRETEL Garrido
[2017-12-13 11:13] VITALS: BP 105/72
--- NOTE | 2017-12-13 11:55 | GDS ---
[f rep st] DISCHARGE SUMMARY DISCHARGE DIAGNOSES: 1. Syncope. 2. Left third rib fracture. 3. Pain. 4. Diabetes mellitus. 5. Hypertension. 6. Tachy-andrews syndrome. 7. History of alcohol use. 8. History of abnormal stress test. 9. Shortness of breath. CONSULTATIONS: Daina Jimenez of Trauma. STUDIES AND PROCEDURES: 1. Cervical spine CT. 2. Head CT. 3. CT angio of the chest. 4. Echocardiogram. PHYSICAL EXAM: GENERAL: The patient is alert. VITAL SIGNS: Afebrile at 36.8. Pulse is 84. Respi ratory rate is 13. Blood pressure is 108/66. She is saturating 93% on room air. I have seen and ev aluated the patient on the day of discharge. HOSPITAL COURSE: The patient is a 77-year-old female who presented to the emergency room after suffe ring a syncopal episode. She was evaluated and diagnosed with: 1. Syncope. The etiology of this is unclear. The patient has been evaluated and monitored in the h ospital setting. She has had no further episodes or signs of syncope. Her blood pressure medication s have been adjusted, and it is likely that she was hypotensive in the setting of alcohol consumption and developed syncope. Pacemaker has been evaluated, and it was recommended [facility]. 2. Left third rib fracture. She has been treated with pain medications and a Lidoderm patch. This is stable. 3. Pain. Again, analgesic treatment. 4. Diabetes mellitus. We have restarted her home medications at the time of disposition. 5. Hypertension. Her Bystolic has been re-initiated. However, her other antihypertensive medicatio ns have been held, and it is recommended that they be held. Her blood pressure here is stable with B ystolic alone. No further antihypertensives are recommended. 6. Tachy-andrews syndrome. The patient has a permanent pacemaker in. This was evaluated during this hospitalization. She has been treated on telemetry with no abnormalities identified. 7. Alcohol use. The patient drinks 4 drinks nightly. She has had no signs of withdrawal during thi s hospitalization and is stable. 8. History of abnormal stress test. The patient was on Imdur. This has been discontinued, as well as Reglan. The etiology for these medications is unclear. She is tolerating the discontinuation of these medications. 9. Shortness of breath. Echocardiogram was performed that is unremarkable. She is no longer short of breath. 10. Scalp hematoma. This is stable in the hospital setting. DISPOSITION: The patient will be discharged to [facility] rehabilitation for strength and conditionin g. There are no pending studies. DISCHARGE MEDICATIONS: Please refer to EMR form. I have discontinued the patient's Reglan, lisinopr il, hydrochlorothiazide, Imdur. New medications include tramadol, as well as Lidoderm patch. FOLLOWUP: Followup will be with her primary care physician. I spent greater than 35 minutes in the care, coordination, and management of this patient's dispositi on. /[id number]/MODL
--- NOTE | 2017-12-13 16:44 | ASDISCHSUM ---
Discharge Information Plan Status:SNF Medically Cleared to Leave:12/13/2017 Discharge Date:12/13/2017 02:23 PM CM D/C Disposition: ADT D/C Disposition:Longterm Facility Projected Discharge Date:12/13/2017 11:00 AM Transportation at D/C: Discharge Delay Reason: Follow-Up Date:12/13/2017 11:00 AM Discharge Slot: Final Diagnosis: Placement Information Referral Type:*Prison/SNF Referral ID:[id number] Provider Name:[facility] Address 1:[address] Address 2: City:[place] Selection Factors: State:[place] Patient Contact Information Contact Name:ALEXJERED Relationship:Son Address: Work Phone: City: [facility] Phone: [facility] Code: Email: Financial Information Financial Class:Medicare Primary Plan Desc:MEDICARE INPATIENT Primary Plan Number:[id number] Secondary Plan Desc: OUT OF STATE [facility] Secondary Plan Number:[id number] Assessment Information [facility] Initial CM Assessment Living Arrangements What is your living Answers: Alone arrangement? Who do you live with? Type Of Residence What kind of residence do Answers: Apartment you live in? Discharge Plan Comments Coordination Status Comments Notes: Pt is a 77 y/o female admitted for syncope and falling to the ground and hitting the floor. CM met w/ pt to provide her w/ ETOH resources. Pt reports that she has been drinking for 47 years and does not plan on stopping. CAGE completed. Pt reports that she has 4 supportive sons. OT has been ordered and awaiting recommendations. Needs are TBD at this time. CM to follow. Plan: TBD Date Signed: 12/10/2017 11:47 AM Electronically Signed By:GRETEL Garrido CAGE Questionnaire CAGE Do you feel you ought to Answers: No cut down on your drinking or drug use? Do people annoy you by Answers: Yes criticizing your drinking or drug use? Do you feel guilty about Answers: No your drinking or drug use? Additional Comments Pt reports that sometimes she mix scotch into her coffee Date Signed: 12/10/2017 11:42 AM Electronically Signed By:GRETEL Garrido [facility] Progress Note CM Note CM Note Notes: CM spoke w/ CARLA Goetz and JASON Williamson regarding d/c POC. Therapies are recommending SNF. CM met w/ pt for dispo planning. Pt would like to d/c to [facility]. CM made referral to [facility]. CM to follow. Plan: SNF/[facility] Date Signed: 12/12/2017 11:22 AM Electronically Signed By:GRETEL Garrido LACE LACJulieta Length of stay for Answers: 3 days current admission Acuity / Level of Answers: Yes Care: Did the patient have an inpatient admission? Comorbidities - select Answers: Diabetes (uncontrolled or all that apply controlled) Other Notes: Hx of anemia; HTN # of Emergency department Answers: 3-4 visits in the last 6 months Social determinants Answers: History of substance abuse (ETOH, street drugs, prescription drugs, etc.) Score: 14 Date Signed: 12/13/2017 10:36 AM Electronically Signed By:GRETEL Garrido Case Management Discharge Plan Note Case Management Discharge Discharge Order Complete? Answers: Yes Patient to Obtain Answers: Other Notes: [facility] Medications Transportation Arranged Answers: Other Notes: [facility] Transport will Pick (Date 12/13/2017 01:00 PM & Time) EMTALA Complete Answers: No Case Management Transport Answers: Yes Form Complete Faxed Final Orders Answers: Yes Agency/Facility Transfer Answers: Yes Report Printed & Faxed to Receiving Agency Family Notified Answers: No Discharge Comments Notes: CM spoke w/ CARLA Goetz and Adriana RN regarding d/c POC. Pt is being discharged today to [facility]. DC orders sent. CM provided JASON Wright w/ phone number to give report. CM available for changes. Plan: Maximino Date Signed: 12/13/2017 12:04 PM Electronically Signed By:GRETEL Garrido Intervention Information Intervention Type:*IM-Signed Date of Service:12/13/2017 11:51 AM Patient Type:Inpatient Staff Member:Sofiya Tavarez Hours: Discipline: Severity: Comment:
== END 2017-12-13 14:23 | DRG 312 ==
LOC: EDUNIT# → EDBD → OBSVTOIN 12-10 01:23 → INTOOBSV 12-10 01:23 → F3E 12-10 02:30
PROVIDERS: ADMIT Student in an Organized Health Care Education/Training Program; ATTEND Student in an Organized Health Care Education/Training Program
DX: R55 Syncope and collapse (principal); S22.32XA Fracture of one rib, left side, initial encounter for closed fracture; S00.03XA Contusion of scalp, initial encounter; I49.5 Sick sinus syndrome; E11.9 Type 2 diabetes mellitus without complications; F10.220 Alcohol dependence with intoxication, uncomplicated; Y90.6 Blood alcohol level of 120-199 mg/100 ml; I10 Essential (primary) hypertension; R06.02 Shortness of breath; Z95.0 Presence of cardiac pacemaker; Z79.84 Long term (current) use of oral hypoglycemic drugs; Z87.11 Personal history of peptic ulcer disease
CPT/HCPCS: 92523-GN; 97116-GP; 97161-GP; 97165-GO; 97535-GO; G0480; G8978-GP-CK; G8979-GP-CJ; G8987-GO-CJ; G8988-GO-CI; G9165-GN-CH; G9166-GN-CH; G9167-GN-CH; J1815; J1885; Q9967

== ENCOUNTER 2018-01-15 12:02 | Emergency (ER) | payer OTHER, BC ==
[2018-01-15] MEDS ORDERED: FAMOTIDINE 20 MG/NACL 50 ML IV ONE (12:23)
[2018-01-15] MEDS ORDERED: ONDANSETRON 4 MG/2 ML VIAL IVP ONE (12:23)
[2018-01-15] MEDS ORDERED: NS 1,000 ML IV ONE ×2 (12:23)
[2018-01-15] MEDS ORDERED: PANTOPRAZOLE SODIUM 40 MG VIAL IVP ONE (12:24)
--- NOTE | 2018-01-15 12:25 | EDPHY ---
H & P Stated Complaint: son states she has cycles of etoh/dehydration and vomiting Time Seen by Provider: 01/15/18 12:24 HPI/ROS: HPI: This is a 77-year-old female who presents with Chief Complaint: son states she has cycles of etoh/dehydration and vomiting Location: Epigastric Quality: Nausea, vomiting Duration: Since this morning Signs and Symptoms: no fever, + nausea, + vomiting, no hematemesis, no blood in stool, no abdominal bloating, no diarrhea, no back pain, no urinary symptoms, no vaginal bleeding/discharge, no indigestion, no chest pain, no shortness of breath Timing: Acute on chronic Severity: Moderate Context: Patient reports that she drank whiskey with orange juice last night and woke up this morning feeling nauseous and has vomited approximately 5-6 times. She reports that she has not had any blood in her stool or hematemesis. She has not eaten any food today. 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 Patient reports that she did have a bowel movement this morning and denies any actual diarrhea, abdominal pain. She reports that she has cramping in the epigastric area prior to vomiting. She is diabetic and has not taken her blood sugar today. She did take her long acting insulin yesterday evening. Modifying Factors: None Comment: ROS: see HPI Constitutional: No fever, no chills, no weight loss Eyes: No blurred vision Respiratory: No shortness of breath, no cough Cardiovascular: No chest pain, no palpitations Gastrointestinal: + nausea, + vomiting, no diarrhea, no hematemesis, no blood in stool Genitourinary: No dysuria, no blood in urine Extremities: No myalgias, no edema Neurologic: No weakness, no numbness Skin: No rashes, no petechiae Hematologic: No bruising, no bleeding MEDICAL/SURGICAL/SOCIAL HISTORY: Medical/Surgical history: C1 C2 FX, heart arrhythmia, tonsillectomy, c section , cholecystectomy, pacemaker, HTN, DM type II, hyperlipidemia, fall at home r/t syncope.alcoholism ulcers Social history: Family history noncontributory. CONSTITUTIONAL: Elderly white female who appears nontoxic awake and alert, no obvious distress HEENT: Atraumatic and normocephalic, PERRL, EOMI. Nares patent; no rhinorrhea; no nasal mucosal edema. Tympanic membranes clear. Oropharynx clear, no exudate and moist pink mucosa. Airway patent. No lymphadenopathy. No meningismus. Cardiovascular: Normal S1/S2, mild tachycardia, regular rhythm, without murmur rub or gallop. PULMONARY/CHEST: Symmetrical and nontender. Clear to auscultation bilaterally. Good air movement. No accessory muscle usage. ABDOMEN: Soft, nondistended, nontender, no rebound, no guarding, no peritoneal signs, no masses or organomegaly. No CVAT. EXTREMITIES: 2/2 pulses, strength 5/5, no deformities, no clubbing, no cyanosis or edema. NEUROLOGICAL: no focal neuro deficits. GCS 15. SKIN: Warm and dry, no erythema. no rash. Good capillary refill. Source: Patient, Family (Son), Old records Exam Limitations: No limitations - Personal History Current Tetanus Diphtheria and Acellular Pertussis (TDAP): Yes Tetanus Vaccine Date: within 10 years - Medical/Surgical History Hx Asthma: No Hx Chronic Respiratory Disease: No Hx Diabetes: Yes Hx Cardiac Disease: Yes Hx Renal Disease: No Hx Cirrhosis: No Hx Alcoholism: Yes Hx HIV/AIDS: No Hx Splenectomy or Spleen Trauma: No Other PMH: C1 C2 FX, heart arrythmia, tonsillectomy, c section, cholecystectomy , pacemaker, HTN, DM type II, hyperlipidemia, fall at home 06/09/17 r/t syncope. alcoholism ulcers - Social History Smoking Status: Never smoked Constitutional: Initial Vital Signs Temperature (C) 36.3 C 01/15/18 12:11 Heart Rate 104 H 01/15/18 12:11 Respiratory Rate 18 01/15/18 12:11 Blood Pressure 172/137 H 01/15/18 12:11 O2 Sat (%) 98 01/15/18 12:11 O2 Delivery Mode Room Air Allergies/Adverse Reactions: adhesive Allergy (Intermediate, Verified 01/15/18 12:08) Rash cephalexin Allergy (Intermediate, Verified 01/15/18 12:08) Rash niacin Allergy (Intermediate, Verified 01/15/18 12:08) Rash sulfamethoxazole [Sulfamethoxazole] Allergy (Intermediate, Verified 01/15/18 12: 08) "UPSET STOMACH" gabapentin Allergy (Unknown, Verified 01/15/18 12:08) UNABLE TO FALL ASLEEP latex Allergy (Verified 01/15/18 12:08) Rash ranolazine [From Ranexa] Allergy (Verified 01/15/18 12:08) trimethoprim [From Bactrim] Allergy (Verified 01/15/18 12:08) Home Medications: Medication Instructions Recorded Cholecalciferol Vit D3 [Vitamin D3 1,000 units PO DAILY 05/13/17 (*)] Cyanocobalamin [Vitamin B12 (*)] 1,000 mcg PO DAILY 05/13/17 DULoxetine [Cymbalta 60 MG (*)] 60 mg PO DAILY 05/13/17 Insulin Detemir [Levemir Flextouch] 20 unit SQ HS 05/13/17 Rosuvastatin Calcium [Crestor 5mg] 5 mg PO DAILY 05/13/17 Nitroglycerin [Nitrostat 0.4 mg 0.4 mg SL Q5M PRN 05/30/17 (*)] Nortriptyline HCl [Pamelor 10 mg 20 mg PO HS 05/30/17 (*)] Multivitamins [Multivitamin (*)] 1 each PO DAILY 06/14/17 Sitagliptin Phos/Metformin HCl 1 each PO BID 07/25/17 [Janumet 50-1,000 mg Tablet] Aspirin EC [Aspirin EC 81 mg (*)] 81 mg PO HS 12/10/17 Nebivolol HCl [Bystolic 5 mg (*)] 5 mg PO DAILY 12/10/17 Acetaminophen [Tylenol 325mg (*)] 650 mg PO Q4HRS PRN tab 12/13/17 Benzocaine/Menthol 15/4 [Cepacol 1 ea PO PRN PRN lozenge 12/13/17 Lozenge] Lidocaine 4%/Menthol 1% [Icy Hot 1 patch TD DAILY patch 12/13/17 Lidocaine/Menthol 4%/1% Patch (*)] Patch Removal 1 ea TD DAILY21 patch 12/13/17 traMADol [Ultram 50 mg (*)] 50 mg PO Q6HRS PRN tab 12/13/17 Pantoprazole Sodium [Protonix 40mg 40 mg PO BID #28 tab 01/15/18 (*)] Sucralfate [Carafate 1 GM (*)] 1 gm PO ACHS #28 tab 01/15/18 Medical Decision Making ED Course/Re-evaluation: Vital signs reviewed and heart rate 104. Labs, IV medication, IV fluids ordered Patient given 2 L normal saline, IV Pepcid, IV Protonix, IV Zofran Abdomen is soft and nontender. Doubt surgical process. Will not image. Doubt cardiac etiology. Reviewed chart that show EGD by Dr. Love that showed healing gastric ulcer and hiatal hernia. 1317: Labs reviewed. No signs of leukocytosis/platelet dysfunction/PRISCILA/ elevated LFTs/electrolyte imbalance/pancreatitis. H&H 10.3/31.7 at which is actually improved from prior values; microcytic type 1340: Reassessed patient reports complete relief of symptoms. Eating Brian crackers and drinking ace garland without difficulty. Will give a prescription for Nexium 40 mg twice daily, Carafate x1 week and gastroenterology follow-up for EGD. advised alcohol cessation. Vital signs improved at discharge. Patient has no signs of active bleeding or hemorrhage. This patient was seen under the supervision of my secondary supervising physician. I evaluated care for this patient independently. Discussed this patient with Dr. Kaur. Differential Diagnosis: Differential diagnosis includes but is not limited to alcoholic gastritis, esophageal varices, esophagitis, peptic ulcer disease. - Data Points Laboratory Results: Laboratory Results 01/15/18 12:30 01/15/18 12:30 01/15/18 01/15/18 12:30 12:30 WBC 7.70 10^3/uL 10^3/uL (3.80-9.50) RBC 4.00 10^6/uL L 10^6/uL (4.18-5.33) Hgb 10.3 g/dL L g/dL (12.6-16.3) Hct 31.7 % L % (38.0-47.0) MCV 79.3 fL L fL (81.5-99.8) MCH 25.8 pg L pg (27.9-34.1) MCHC 32.5 g/dL g/dL (32.4-36.7) RDW 15.9 % H % (11.5-15.2) Plt Count 159 10^3/uL 10^3/uL (150-400) MPV 10.9 fL fL (8.7-11.7) Neut % (Auto) 85.1 % H % (39.3-74.2) Lymph % (Auto) 10.0 % L % (15.0-45.0) [place] % (Auto) 3.8 % L % (4.5-13.0) Eos % (Auto) 0.1 % L % (0.6-7.6) Baso % (Auto) 0.6 % % (0.3-1.7) Nucleat RBC Rel Count 0.0 % % (0.0-0.2) Absolute Neuts (auto) 6.55 10^3/uL H 10^3/uL (1.70-6.50) Absolute Lymphs (auto) 0.77 10^3/uL L 10^3/uL (1.00-3.00) Absolute Monos (auto) 0.29 10^3/uL L 10^3/uL (0.30-0.80) Absolute Eos (auto) 0.01 10^3/uL L 10^3/uL (0.03-0.40) Absolute Basos (auto) 0.05 10^3/uL 10^3/uL (0.02-0.10) Absolute Nucleated RBC 0.00 10^3/uL 10^3/uL (0-0.01) Immature Gran % 0.4 % % (0.0-1.1) Immature Gran # 0.03 10^3/uL 10^3/uL (0.00-0.10) Sodium 136 mEq/L mEq/L (135-145) Potassium 4.0 mEq/L mEq/L (3.3-5.0) Chloride 95 mEq/L L mEq/L (97-110) Carbon Dioxide 24 mEq/l mEq/l (22-31) Anion Gap 17 mEq/L H mEq/L (8-16) BUN 10 mg/dL mg/dL (7-23) Creatinine 0.5 mg/dL L mg/dL (0.6-1.0) Estimated GFR > 60 Glucose 165 mg/dL H mg/dL (70-100) Calcium 9.7 mg/dL mg/dL (8.5-10.4) Total Bilirubin 0.7 mg/dL mg/dL (0.1-1.4) Conjugated Bilirubin 0.3 mg/dL mg/dL (0.0-0.5) Unconjugated Bilirubin 0.4 mg/dL mg/dL (0.0-1.1) AST 43 IU/L IU/L (14-46) ALT 38 IU/L IU/L (9-52) Alkaline Phosphatase 78 IU/L IU/L (38-126) Total Protein 7.9 g/dL g/dL (6.3-8.2) Albumin 4.6 g/dL g/dL (3.5-5.0) Lipase 103 IU/L IU/L (23-300) Ethyl Alcohol < 10 mg/dL mg/dL (0-10) Medications Given: Discontinued Medications Sodium Chloride (Ns) 1,000 mls @ 0 mls/hr IV EDNOW ONE; Wide Open PRN Reason: Protocol Stop: 01/15/18 12:24 Last Admin: 01/15/18 12:35 Dose: 1,000 mls Sodium Chloride (Ns) 1,000 mls @ 0 mls/hr IV EDNOW ONE; Wide Open PRN Reason: Protocol Stop: 01/15/18 12:24 Last Admin: 01/15/18 12:37 Dose: 1,000 mls Famotidine/Sodium Chloride (Pepcid 20 Mg (Premix)) 50 mls @ 200 mls/hr IV EDNOW ONE Stop: 01/15/18 12:37 Last Admin: 01/15/18 12:35 Dose: 50 mls Ondansetron HCl (Zofran) 4 mg IVP EDNOW ONE Stop: 01/15/18 12:24 Last Admin: 01/15/18 12:36 Dose: 4 mg Pantoprazole Sodium (Protonix) 40 mg IVP EDNOW ONE Stop: 01/15/18 12:25 Last Admin: 01/15/18 12:36 Dose: 40 mg Departure - Departure Disposition: Home, Routine, Self-Care Clinical Impression: Microcytic anemia, History of bleeding peptic ulcer, Hiatal hernia 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 Eat a bland diet for the next 48 hours and then slowly advance as tolerated. Take Nexium twice daily x2 weeks and Carafate before meals and at bedtime x1 week. Refrain from drinking alcohol as this is causing your symptoms. Follow-up with Gastroenterology in the next 1-2 weeks for evaluation and determine if you are a candidate for EGD. Referrals: Poncho Terry MD [Primary Care Provider] - As per Instructions Joey Love MD [Medical Doctor] - 5-7 days, call for appt. Prescriptions: Pantoprazole Sodium [Protonix 40mg (*)] 40 mg PO BID #28 tab Sucralfate [Carafate 1 GM (*)] 1 gm PO ACHS #28 tab
[2018-01-15 12:45] LABS: PLATELET COUNT 159 10^3/uL (150-400)
[2018-01-15 13:41] VITALS: BP 167/102
== END 2018-01-15 14:22 | disposition home or self-care (01) ==
DX: K29.20 Alcoholic gastritis without bleeding (principal); D50.9 Iron deficiency anemia, unspecified; K44.9 Diaphragmatic hernia without obstruction or gangrene; E86.9 Volume depletion, unspecified; I10 Essential (primary) hypertension; E11.9 Type 2 diabetes mellitus without complications; Z79.4 Long term (current) use of insulin; Z95.0 Presence of cardiac pacemaker; Z90.49 Acquired absence of other specified parts of digestive tract; Z91.040 Latex allergy status; Z79.82 Long term (current) use of aspirin; Z87.11 Personal history of peptic ulcer disease
CPT/HCPCS: 96361; 96374; 96375; 99284; J2405; G0480

== ENCOUNTER 2018-08-16 13:06 | Emergency (ER) | payer OTHER, BC ==
--- NOTE | 2018-08-16 16:31 | EDPHY ---
H & P Stated Complaint: SOB/cough Time Seen by Provider: 08/16/18 16:27 - Personal History Current Tetanus/Diphtheria Vaccine: Yes Tetanus Vaccine Date: within 10 years - Medical/Surgical History Hx Asthma: No Hx Chronic Respiratory Disease: No Hx Diabetes: Yes Hx Cardiac Disease: Yes Hx Renal Disease: No Hx Cirrhosis: No Hx Alcoholism: Yes Hx HIV/AIDS: No Hx Splenectomy or Spleen Trauma: No Other PMH: C1 C2 FX, heart arrythmia, tonsillectomy, c section, cholecystectomy , pacemaker, HTN, DM type II, hyperlipidemia, fall at home 06/09/17 r/t syncope. alcoholism ulcers - Social History Smoking Status: Never smoked Constitutional: Initial Vital Signs Heart Rate 107 H 08/16/18 13:29 Respiratory Rate 18 08/16/18 13:29 Blood Pressure 183/111 H 08/16/18 13:29 O2 Sat (%) 96 08/16/18 13:29 O2 Delivery Mode Room Air Allergies/Adverse Reactions: adhesive Allergy (Intermediate, Verified 08/16/18 13:33) Rash cephalexin Allergy (Intermediate, Verified 08/16/18 13:33) Rash niacin Allergy (Intermediate, Verified 08/16/18 13:33) Rash sulfamethoxazole [Sulfamethoxazole] Allergy (Intermediate, Verified 08/16/18 13: 33) "UPSET STOMACH" gabapentin Allergy (Unknown, Verified 08/16/18 13:33) UNABLE TO FALL ASLEEP latex Allergy (Verified 08/16/18 13:33) Rash ranolazine [From Ranexa] Allergy (Verified 08/16/18 13:33) trimethoprim [From Bactrim] Allergy (Verified 08/16/18 13:33) Home Medications: Medication Instructions Recorded Cholecalciferol Vit D3 [Vitamin D3 1,000 units PO DAILY 05/13/17 (*)] Cyanocobalamin [Vitamin B12 (*)] 1,000 mcg PO DAILY 05/13/17 DULoxetine [Cymbalta 60 MG (*)] 60 mg PO DAILY 05/13/17 Insulin Detemir [Levemir Flextouch] 20 unit SQ HS 05/13/17 Rosuvastatin Calcium [Crestor 5mg] 5 mg PO DAILY 05/13/17 Nitroglycerin [Nitrostat 0.4 mg 0.4 mg SL Q5M PRN 05/30/17 (*)] Nortriptyline HCl [Pamelor 10 mg 20 mg PO HS 05/30/17 (*)] Multivitamins [Multivitamin (*)] 1 each PO DAILY 06/14/17 Sitagliptin Phos/Metformin HCl 1 each PO BID 07/25/17 [Janumet 50-1,000 mg Tablet] Aspirin EC [Aspirin EC 81 mg (*)] 81 mg PO HS 12/10/17 Nebivolol HCl [Bystolic 5 mg (*)] 5 mg PO DAILY 12/10/17 Acetaminophen [Tylenol 325mg (*)] 650 mg PO Q4HRS PRN tab 12/13/17 Benzocaine/Menthol 15/4 [Cepacol 1 ea PO PRN PRN lozenge 12/13/17 Lozenge] Lidocaine 4%/Menthol 1% [Icy Hot 1 patch TD DAILY patch 12/13/17 Lidocaine/Menthol 4%/1% Patch (*)] Patch Removal 1 ea TD DAILY21 patch 12/13/17 traMADol [Ultram 50 mg (*)] 50 mg PO Q6HRS PRN tab 12/13/17 Pantoprazole Sodium [Protonix 40mg 40 mg PO BID #28 tab 01/15/18 (*)] Sucralfate [Carafate 1 GM (*)] 1 gm PO ACHS #28 tab 01/15/18 Albuterol [Proventil Inhaler] 1 - 2 puffs IH Q4 #1 mdi 08/16/18 Azithromycin [Zithromax] 250 mg PO DAILY #6 tab 08/16/18 Medical Decision Making - Diagnostics Imaging Results: Imaging Impressions Chest X-Ray 08/16/18 16:37 Impression: Stable negative chest. Pacemaker. Imaging: I viewed and interpreted images myself ED Course/Re-evaluation: CHIEF COMPLAINT: Cough HISTORY OF PRESENT ILLNESS: The patient is an 78 y/o female with a history of a pacemaker, diabetes, and alcoholism complaining of a cough onset 1 week ago. In addition to her cough she feels shaky. She denies a history of smoking tobacco. She did receive a flu vaccination and has not been around anyone who has been sick. No fever, headache , chest pain, abdominal pain, urinary or bowel complaints, numbness, paresthesias. REVIEW OF SYSTEMS: A 10 point review of systems was performed and is negative with the exception of the elements mentioned in the history of present illness. PHYSICAL EXAM: HR, BP, O2 Sat, RR. Temp noted General Appearance: Alert, well hydrated, appropriate, and non-toxic appearing. Head: Atraumatic without scalp tenderness or obvious injury Eyes: Pupils equal, round, reactive to light and accommodation, EOMI, no trauma , no injection. Ears: Clear bilaterally, no perforation, normal landmarks Nose: Atraumatic, no rhinorrhea, clear. Throat: There is no erythema or exudates, no lesions, normal tonsils, mucus membranes moist. Neck: Supple, 2+ carotid upstroke, nontender, no lymphadenopathy. Respiratory: Bilateral coarse rhonchi throughout all hardin No retractions, no distress, no wheezes, and no accessory muscle use. Cardiovascular: Regular rate and rhythm, no murmurs, rubs, or gallops. Bilateral carotid, radial, dorsalis pedis, and posterior tibial pulses intact. Good capillary refill all extremities. Gastrointestinal: Abdomen is soft, nontender, non-distended, no masses, no rebound, no guarding, no peritoneal signs. Musculoskeletal: Normal active ROM of all extremities, atraumatic. Neurological: Alert, appropriate, and interactive. The patient has normal DTRs and non-focal cranial nerves, motor, sensory, and cerebellar exam. Skin: No rashes, good turgor, no nodules on palpation. Past medical history: Hypertension, anemia, weakness, failure to thrive, alcoholism, peptic ulcer disease, insulin-dependent diabetes Past Surgical History: Peptic ulcer disease status post clips, pacemaker Family history: Denies Social History: Lives locally, daily alcohol use. DIAGNOSTICS/PROCEDURES/CRITICAL CARE TIME: Chest x-ray: Bronchitis and a possible early infiltrate. Stable chest. DIFFERENTIAL DIAGNOSIS: The differential diagnosis for the patient's shortness of breath and hypoxemia included but was not limited to pneumonia, myocardial infarction, acute mountain sickness, high altitude pulmonary edema, congestive heart failure, and pulmonary embolus. MEDICAL DECISION MAKING: The patient is an 78 y/o female with a history of a pacemaker, diabetes, and alcoholism presenting with a cough and feeling shaky, onset 1 week ago. On exam she has bilateral coarse rhonchi throughout all hardin. At triage her O2Sats were 96%, but she was mildly tachycardic and hypertensive. Chest x-ray and labs ordered; PhillipoNeb administered. 1700: I reviewed patient's chest x-ray which reveals bronchitis and a possible early infiltrate which is similar to prior chest x-ray images. Flu swab still pending. 1750: Reassessed patient and discussed imaging and laboratory findings. I have discussed Azithromycin and albuterol inhaler prescription. We will give her 40mg PO Prednisone and her first dose of Azithromycin prior to discharge. Return precautions provided; patient is comfortable with this plan. - Data Points Laboratory Results: 08/16/18 17:40 Nasal Influenza A PCR Pending Nasal Influenza B PCR Pending Medications Given: Discontinued Medications Albuterol/Ipratropium (Duoneb) 3 ml IH EDNOW ONE Stop: 08/16/18 16:41 Last Admin: 08/16/18 16:50 Dose: 3 ml Azithromycin (Zithromax) 500 mg PO EDNOW ONE PRN Reason: Protocol Stop: 08/16/18 17:07 Last Admin: 08/16/18 17:15 Dose: 500 mg Prednisone (Prednisone) 40 mg PO EDNOW ONE Stop: 08/16/18 17:07 Last Admin: 08/16/18 17:15 Dose: 40 mg Departure - Departure Disposition: Home, Routine, Self-Care Clinical Impression: Acute bronchitis Qualifiers: Bronchitis organism: other organism Qualified Code(s): J20.8 - Acute bronchitis due to other specified organisms Condition: Good Instructions: Acute Bronchitis (ED) Additional Instructions: 1. Take Azithromycin as prescribed. Make sure to take the entire prescription. 2. Use the inhaler as prescribed. 3. Follow-up with your primary doctor within 72 hours. 4. Return to the Emergency Department for fever, chest pain, shortness of breath , increasing pain or other worsening of condition. Referrals: [facility],. [Clinic] - As per Instructions Prescriptions: Albuterol [Proventil Inhaler] 1 - 2 puffs IH Q4 #1 mdi Azithromycin [Zithromax] 250 mg PO DAILY #6 tab Report Scribed for: Jassi Kaur Report Scribed by: Jeimy Dixon Date of Report: 08/16/18 Time of Report: 16:46
[2018-08-16] MEDS ORDERED: IPRATROPIUM/ALBUTEROL 3 ML DEYVIAL IH ONE (16:40)
[2018-08-16] MEDS ORDERED: predniSONE 20 MG TAB PO ONE (17:06)
[2018-08-16] MEDS ORDERED: AZITHROMYCIN 250 MG TAB PO ONE (17:06)
[2018-08-16 18:05] VITALS: BP 175/100
== END 2018-08-16 18:05 | disposition home or self-care (01) ==
DX: J20.8 Acute bronchitis due to other specified organisms (principal); E11.9 Type 2 diabetes mellitus without complications; Z95.0 Presence of cardiac pacemaker
CPT/HCPCS: 71046; 99284; J7512

== ENCOUNTER 2018-09-21 13:43 | Inpatient (IN) | payer OTHER, BC ==
[2018-09-21] MEDS ORDERED: NS 500 ML IV ONE (14:21)
--- NOTE | 2018-09-21 14:27 | EDPHY ---
H & P Stated Complaint: cough and congestion for 2 weeks, denies fevers Source: Patient Exam Limitations: No limitations - Personal History Tetanus Vaccine Date: within 10 years - Medical/Surgical History Hx Asthma: No Hx Chronic Respiratory Disease: No Hx Diabetes: Yes Hx Cardiac Disease: Yes Hx Renal Disease: No Hx Cirrhosis: No Hx Alcoholism: Yes Hx HIV/AIDS: No Hx Splenectomy or Spleen Trauma: No Other PMH: C1 C2 FX, heart arrythmia, tonsillectomy, c section, cholecystectomy , pacemaker, HTN, DM type II, hyperlipidemia, fall at home 06/09/17 r/t syncope. alcoholism ulcers - Family History Significant Family History: No pertinent family hx - Social History Smoking Status: Never smoked Alcohol Use: Heavy (She admits drinking about a bottle of wine a day on average. ) Drug Use: None Time Seen by Provider: 09/21/18 14:01 HPI/ROS: This patient presents with complaint of multiple falls. She reports that she fell 2 more times within the last 2 days complaining of right iliac pain and bruising and left sided lumbar pain today. She attributes these falls to ongoing and worsening peripheral neuropathy from her diabetes. She also complains of a headache moderate intensity diffuse in location present for more than 24 hr. She does not recall hitting her head in the last 2 falls. She reports chronic neck pain is unchanged. Patient has a primary complaint of dyspnea at baseline that is worse with exertion including some paroxysmal nocturnal dyspnea and recent nights. ROS: Constitutional: She denies any fevers or chills. HEENT: She has no facial pain or sinus pain. No sore throat. Neuro: She believes she had several head injuries but does not think that she injured her head in the last 2 falls over the past 2 days. She does remember details of the other injuries to her head. She reports chronic numbness and tingling to her feet bilaterally attributed it to paresthesias but denies any new numbness or tingling. She denies any new confusion. Pulmonary: Dyspnea, mild right posterior chest wall pain from prior fall. No cough or hemoptysis recently. Cardiovascular: She admits lightheadedness. She has noticed chest pain or heart palpitations. GI: She reports diminished appetite but is still tolerating some p. O. Intake. : She admits dysuria and urinary frequency. 10 point review of symptoms is performed and otherwise negative with exception of pertinent positives and negatives listed in HPI and ROS (Conrad Lima) - Physical Exam Exam: General Appearance: Pleasant elderly female Alert, no distress. Eyes: Pupils equal and round no pallor or injection. ENT, Mouth: Mucous membranes moist. No cranial tenderness to palpation. No sinus tenderness to percussion. Neck: Patient has midline tenderness in the upper C-spine. She has extreme kyphosis. Respiratory: Rales at the right base. She has a chest wall contusion 4 cm x 10 cm to the right mid thorax posteriorly mild tenderness this area but no crepitance is appreciated. Cardiovascular: Irregularly irregular with no murmur gallop or rub. Gastrointestinal: Abdomen is soft and nontender, no masses, bowel sounds normal. Neurological: GCS 15. Cranial nerves 2-12 intact. No focal deficits are appreciated than baseline decreased sensation light touch in her lower extremities consistent with her neuropathy Skin: Warm and dry, no rashes. Musculoskeletal: Neck is supple nontender. The patient has mild left paraspinous muscular tenderness. No midline lumbar tenderness. Back: No CVA tenderness Extremities: Patient has right iliac contusion and has mild pain with suprapubic compression in the AP direction. Psychiatric: Mood and affect normal DIFFERENTIAL DIAGNOSIS: After history and physical exam differential diagnosis was considered for closed head injury, subdural hemorrhage, cervical strain, a new cervical fracture, pneumonia, rib fracture, pleural effusion, pneumothorax, hemothorax, atrial fibrillation, myocardial ischemic disease, alcohol hepatitis , urinary tract infection, metabolic disarray, Wernicke-Korsakoff (Conrad Lima) Constitutional: Initial Vital Signs Temperature (C) 36.6 C 09/21/18 13:57 Heart Rate 68 09/21/18 13:57 Respiratory Rate 18 09/21/18 13:57 Blood Pressure 142/69 H 09/21/18 13:57 O2 Sat (%) 98 09/21/18 13:57 O2 Delivery Mode Nasal Cannula O2 (L/minute) 2 Allergies/Adverse Reactions: adhesive Allergy (Intermediate, Verified 09/21/18 13:57) Rash cephalexin Allergy (Intermediate, Verified 09/21/18 13:57) Rash niacin Allergy (Intermediate, Verified 09/21/18 13:57) Rash sulfamethoxazole [Sulfamethoxazole] Allergy (Intermediate, Verified 09/21/18 13: 57) "UPSET STOMACH" gabapentin Allergy (Unknown, Verified 09/21/18 13:57) UNABLE TO FALL ASLEEP latex Allergy (Verified 09/21/18 13:57) Rash ranolazine [From Ranexa] Allergy (Verified 09/21/18 13:57) trimethoprim [From Bactrim] Allergy (Verified 09/21/18 13:57) Home Medications: Medication Instructions Recorded Cholecalciferol Vit D3 [Vitamin D3 1,000 units PO DAILY 05/13/17 (*)] Cyanocobalamin [Vitamin B12 (*)] 1,000 mcg PO DAILY 05/13/17 DULoxetine [Cymbalta 60 MG (*)] 60 mg PO DAILY 05/13/17 Insulin Detemir [Levemir Flextouch] 20 unit SQ HS 05/13/17 Rosuvastatin Calcium [Crestor 5mg] 5 mg PO DAILY 05/13/17 Nitroglycerin [Nitrostat 0.4 mg 0.4 mg SL Q5M PRN 05/30/17 (*)] Nortriptyline HCl [Pamelor 10 mg 20 mg PO HS 05/30/17 (*)] Multivitamins [Multivitamin (*)] 1 each PO DAILY 06/14/17 Sitagliptin Phos/Metformin HCl 1 each PO BID 07/25/17 [Janumet 50-1,000 mg Tablet] Aspirin EC [Aspirin EC 81 mg (*)] 81 mg PO HS 12/10/17 Nebivolol HCl [Bystolic 5 mg (*)] 5 mg PO DAILY 12/10/17 Acetaminophen [Tylenol 325mg (*)] 650 mg PO Q4HRS PRN tab 12/13/17 Benzocaine/Menthol 15/4 [Cepacol 1 ea PO PRN PRN lozenge 12/13/17 Lozenge] Lidocaine 4%/Menthol 1% [Icy Hot 1 patch TD DAILY patch 12/13/17 Lidocaine/Menthol 4%/1% Patch (*)] Patch Removal 1 ea TD DAILY21 patch 12/13/17 traMADol [Ultram 50 mg (*)] 50 mg PO Q6HRS PRN tab 12/13/17 Pantoprazole Sodium [Protonix 40mg 40 mg PO BID #28 tab 01/15/18 (*)] Sucralfate [Carafate 1 GM (*)] 1 gm PO ACHS #28 tab 01/15/18 Albuterol [Proventil Inhaler] 1 - 2 puffs IH Q4 #1 mdi 08/16/18 Azithromycin [Zithromax] 250 mg PO DAILY #6 tab 08/16/18 Medical Decision Making - Diagnostics EKG Interpretation: 12 lead EKG performed at 2:30 p.m. Indication increased falls recently rule out dysrhythmia or myocardial ischemia Sinus rhythm at 64 Intervals: Normal throughout [place]: P of 33, QRS of 24, T of [address] segments: Normal throughout Overall assessment sinus rhythm with early R-wave transition anteriorly otherwise normal. (Conrad Lima) Imaging Results: Imaging Impressions Chest X-Ray 09/21/18 14:22 Impression: 1. Hypoventilation and bibasilar atelectasis. 2. No displaced rib fracture, pneumothorax or effusion. Head CT 09/21/18 14:22 Impression: Chronic senescent features, with no acute intracranial abnormality identified on this unenhanced CT evaluation. UNENHANCED CT SCAN OF THE CERVICAL SPINE Technique: A multidetector unenhanced helical CT scan was obtained from the clivus caudally through the upper T6 level, with images reformatted at 1.50 mm increments, and are reviewed in soft tissue, bone, and lung windows. Parasagittal and paracoronal reconstructed images are reviewed on the workstation. The DFOV is 21.6 cm. A dose reduction protocol was used. Given the history of trauma, the radiologist reviewed the osseous images in a 3D format on the computer workstation using [employer] software. Findings: There is a cervical-thoracic kyphosis and mild levo-scoliosis, and while the images are slightly degraded by motion artifact again noted is a mildly displaced fracture of the mid body of C2 seen to best advantage on sagittal series 11, images 53-55. The previous studies have also identified a nondisplaced fracture through the anterior arch of C1 which is more challenging to appreciate because of the motion artifact. There appears to be fracture through the posterior arches of C1 is well, which have been previously reported , left greater than right, again with limited evaluation because of motion artifact. There is mild C2-C3, C4-C5, C7-T1, and T2-T3 degenerative anterolistheses, stable. There are ventral traction osteophytes at multiple levels, the largest at the C5-T1 levels. There is moderate C5-C6, severe C6-C7, severe C7-T1, and moderate T1-T2 degenerative disk space narrowing. Mild uniform loss of height of the T3 centrum is stable. There is no or paravertebral or epidural hematoma identified. There is breathing artifact limiting assessment of the lung apices. There is ectasia of the aorta with atherosclerotic calcific plaque. The prevertebral soft tissues are grossly unremarkable. At the C1-C2 level, there is the aforementioned chronic mid-dens fracture, which is stable in alignment from previous studies in 2017 and 2018. There are also the aforementioned chronic fractures associated with the anterior and posterior rings of C1. There is some osseous hypertrophy and ligamentous calcification dorsal to the dens. There is no odontoid subluxation, or interval change. At the C2-C3 level, there is severe facet hypertrophy and also uncovertebral degenerative spondylosis, resulting in moderate/severe bilateral neural foraminal stenosis. The central canal remains patent. At the C3-C4 level, there is severe bilateral facet hypertrophy with uncovertebral degenerative spondylosis resulting in mild/moderate right neural foraminal stenosis. The left neural foramen is still patent. At the C4-C5 level, there is severe bilateral facet hypertrophy with some uncovertebral degenerative spondylosis and mild bilateral neural foraminal stenosis. There is a small dorsal disk osteophyte complex, without significant central canal stenosis. At C5-C6 level, there is moderate bilateral facet hypertrophy with uncovertebral degenerative spondylosis resulting in moderate bilateral neural foraminal stenosis, right greater than left. There is no significant central canal stenosis, despite a small dorsal disk osteophyte complex. At the C6-C7 level, there is moderate bilateral facet hypertrophy with uncovertebral degenerative spondylosis, resulting in mild bilateral neural foraminal stenoses. There is no significant central canal stenosis. At the C7-T1 level, there is moderate right and mild left facet hypertrophy. The central canal and neural foramina are patent. The visualized upper thoracic spine does not demonstrate any interval change from the previous studies. Impression: 1. No change in the chronic fracture features of C1 and C2, with the caveat that the study is slightly degraded by motion artifact, as compared with previous studies in 2017 and 2018. 2. Chronic multilevel degenerative changes, as above detailed, stable. Note: The presence of a dual-lead right subclavian transvenous pacemaker precludes MRI evaluation. Findings were discussed with CONRAD LIMA MD at 15:23, on 09/21/2018. Pelvis X-Ray 09/21/18 14:23 Impression: Negative single view pelvis. Cervical Spine CT 09/21/18 14:26 Impression: Chronic senescent features, with no acute intracranial abnormality identified on this unenhanced CT evaluation. UNENHANCED CT SCAN OF THE CERVICAL SPINE Technique: A multidetector unenhanced helical CT scan was obtained from the clivus caudally through the upper T6 level, with images reformatted at 1.50 mm increments, and are reviewed in soft tissue, bone, and lung windows. Parasagittal and paracoronal reconstructed images are reviewed on the workstation. The DFOV is 21.6 cm. A dose reduction protocol was used. Given the history of trauma, the radiologist reviewed the osseous images in a 3D format on the computer workstation using [employer] software. Findings: There is a cervical-thoracic kyphosis and mild levo-scoliosis, and while the images are slightly degraded by motion artifact again noted is a mildly displaced fracture of the mid body of C2 seen to best advantage on sagittal series 11, images 53-55. The previous studies have also identified a nondisplaced fracture through the anterior arch of C1 which is more challenging to appreciate because of the motion artifact. There appears to be fracture through the posterior arches of C1 is well, which have been previously reported , left greater than right, again with limited evaluation because of motion artifact. There is mild C2-C3, C4-C5, C7-T1, and T2-T3 degenerative anterolistheses, stable. There are ventral traction osteophytes at multiple levels, the largest at the C5-T1 levels. There is moderate C5-C6, severe C6-C7, severe C7-T1, and moderate T1-T2 degenerative disk space narrowing. Mild uniform loss of height of the T3 centrum is stable. There is no or paravertebral or epidural hematoma identified. There is breathing artifact limiting assessment of the lung apices. There is ectasia of the aorta with atherosclerotic calcific plaque. The prevertebral soft tissues are grossly unremarkable. At the C1-C2 level, there is the aforementioned chronic mid-dens fracture, which is stable in alignment from previous studies in 2017 and 2018. There are also the aforementioned chronic fractures associated with the anterior and posterior rings of C1. There is some osseous hypertrophy and ligamentous calcification dorsal to the dens. There is no odontoid subluxation, or interval change. At the C2-C3 level, there is severe facet hypertrophy and also uncovertebral degenerative spondylosis, resulting in moderate/severe bilateral neural foraminal stenosis. The central canal remains patent. At the C3-C4 level, there is severe bilateral facet hypertrophy with uncovertebral degenerative spondylosis resulting in mild/moderate right neural foraminal stenosis. The left neural foramen is still patent. At the C4-C5 level, there is severe bilateral facet hypertrophy with some uncovertebral degenerative spondylosis and mild bilateral neural foraminal stenosis. There is a small dorsal disk osteophyte complex, without significant central canal stenosis. At C5-C6 level, there is moderate bilateral facet hypertrophy with uncovertebral degenerative spondylosis resulting in moderate bilateral neural foraminal stenosis, right greater than left. There is no significant central canal stenosis, despite a small dorsal disk osteophyte complex. At the C6-C7 level, there is moderate bilateral facet hypertrophy with uncovertebral degenerative spondylosis, resulting in mild bilateral neural foraminal stenoses. There is no significant central canal stenosis. At the C7-T1 level, there is moderate right and mild left facet hypertrophy. The central canal and neural foramina are patent. The visualized upper thoracic spine does not demonstrate any interval change from the previous studies. Impression: 1. No change in the chronic fracture features of C1 and C2, with the caveat that the study is slightly degraded by motion artifact, as compared with previous studies in 2017 and 2018. 2. Chronic multilevel degenerative changes, as above detailed, stable. Note: The presence of a dual-lead right subclavian transvenous pacemaker precludes MRI evaluation. Findings were discussed with CONRAD LIMA MD at 15:23, on 09/21/2018. ED Course/Re-evaluation: IV 500 cc normal saline Discussion: 78-year-old female with increase in falls recently that I think will likely require admission. She has multiple symptoms and physical findings currently being worked up. I discussed this case with Dr. Hoover, [facility] emergency physician at 3:00 p.m. Will follow up with study results and disposition plan. (Conrad Lima ) Re-evaluation by me at 3:30 p.m.. She and I reviewed labs and imaging studies so far. At 4:00 p.m. A notes that the patient's hematocrit is now 25.1 and her baseline has been around 31. Patient has been sitting in a chair and we get her back in the bed for rectal exam and Hemoccult study. She has prolonged episode of coughing and dropped her saturations to about 87% and heart rate goes up to about 120 to sinus tach. Rectal exam shows brown stool and is Hemoccult negative Patient, her son, and I discussed laboratory EKG and imaging study results. We discussed recommendation for admission. At 1st the patient is reluctant however she really has had multiple falls and his weak and lightheaded when she stands up. She becomes hypoxic and tachycardic with standing. She is clearly a fall risk. She agrees to admission I consulted and discussed the case with Dr. Palacios, hospitalist, who agrees to the admission (Naun Hoover) Differential Diagnosis: I have considered closed head injury including subdural. I considered cervical spine injury and the patient has a stable but non healed C1-C2 fracture. I considered rib fractures and pneumothorax as well as pneumonia though we do not see this on chest x-ray. I considered pelvic fracture. I have considered electrolyte abnormalities as well as urinary tract infection. Urine positive for trace leuks but no nitrites. It is sent for culture. Metabolic panel is normal. Her EKG shows normal sinus rhythm without acute changes and her troponin is 0.01 (Naun Hoover) - Data Points Laboratory Results: Laboratory Results 09/21/18 14:30 09/21/18 09/21/18 09/21/18 14:39 14:37 14:30 WBC 7.00 10^3/uL 10^3/uL (3.80-9.50) RBC 3.53 10^6/uL L 10^6/uL (4.18-5.33) Hgb 7.2 g/dL L g/dL (12.6-16.3) Hct 25.1 % L % (38.0-47.0) MCV 71.1 fL L fL (81.5-99.8) MCH 20.4 pg L pg (27.9-34.1) MCHC 28.7 g/dL L g/dL (32.4-36.7) RDW 22.4 % H % (11.5-15.2) Plt Count 216 10^3/uL 10^3/uL (150-400) MPV 11.0 fL fL (8.7-11.7) Neut % (Auto) 69.6 % % (39.3-74.2) Lymph % (Auto) 18.1 % % (15.0-45.0) [place] % (Auto) 6.3 % % (4.5-13.0) Eos % (Auto) 4.7 % % (0.6-7.6) Baso % (Auto) 0.7 % % (0.3-1.7) Nucleat RBC Rel Count 0.0 % % (0.0-0.2) Absolute Neuts (auto) 4.87 10^3/uL 10^3/uL (1.70-6.50) Absolute Lymphs (auto) 1.27 10^3/uL 10^3/uL (1.00-3.00) Absolute Monos (auto) 0.44 10^3/uL 10^3/uL (0.30-0.80) Absolute Eos (auto) 0.33 10^3/uL 10^3/uL (0.03-0.40) Absolute Basos (auto) 0.05 10^3/uL 10^3/uL (0.02-0.10) Absolute Nucleated RBC 0.00 10^3/uL 10^3/uL (0-0.01) Immature Gran % 0.6 % % (0.0-1.1) Immature Gran # 0.04 10^3/uL 10^3/uL (0.00-0.10) Platelet Estimate ADEQUATE (ADEQ) Hypochromasia 2+ H Microcytic Cells 1+ H Elliptocytes 1+ H Schistocytes 1+ H POC Sodium 137 mEq/L mEq/L (135-145) POC Potassium 3.3 mEq/L mEq/L (3.3-5.0) POC Chloride 99.0 mEq/L mEq/L (97-110) POC Total CO2 24 mEq/L mEq/L (22-31) POC BUN 15 mg/dL mg/dL (7-23) POC Creatinine 0.7 mg/dL mg/dL (0.6-1.0) POC Glucose 182 mg/dL H mg/dL (70-100) POC Calcium 9.6 mg/dL mg/dL (8.5-10.4) POC Total Bilirubin 0.6 mg/dL mg/dL (0.1-1.4) POC AST 34 IU/L IU/L (14-46) POC ALT 25 IU/L IU/L (9-52) POC Alk Phosphatase 81 IU/L IU/L (38-126) POC Troponin I 0.01 ng/mL ng/mL (0.00-0.08) POC Total Protein 7.6 g/dL g/dL (6.3-8.2) POC Albumin 3.7 g/dL g/dL (3.5-5.0) Medications Given: Discontinued Medications Sodium Chloride (Ns) 500 mls @ 1,000 mls/hr IV EDNOW ONE PRN Reason: Protocol Stop: 09/21/18 14:50 Last Admin: 09/21/18 14:53 Dose: 500 mls Point of Care Test Results: Chemistry 09/21/18 09/21/18 14:39 14:37 POC Sodium 137 mEq/L mEq/L (135-145) POC Potassium 3.3 mEq/L mEq/L (3.3-5.0) POC Chloride 99.0 mEq/L mEq/L (97-110) POC Total CO2 24 mEq/L mEq/L (22-31) POC BUN 15 mg/dL mg/dL (7-23) POC Creatinine 0.7 mg/dL mg/dL (0.6-1.0) POC Glucose 182 mg/dL H mg/dL (70-100) POC Calcium 9.6 mg/dL mg/dL (8.5-10.4) POC Total Bilirubin 0.6 mg/dL mg/dL (0.1-1.4) POC AST 34 IU/L IU/L (14-46) POC ALT 25 IU/L IU/L (9-52) POC Alk Phosphatase 81 IU/L IU/L (38-126) POC Troponin I 0.01 ng/mL ng/mL (0.00-0.08) POC Total Protein 7.6 g/dL g/dL (6.3-8.2) POC Albumin 3.7 g/dL g/dL (3.5-5.0) Occult Blood Occult Blood Collection Date 09/21/18 Occult Blood Collection Time 14:15 Occult Blood Result Negative/Negative Urine Dip Collection Date 09/21/18 Collection Time 15:55 Specific [place] (1.002-1.030) 1.015 PH (5.0-7.5) 6.5 Leukocytes (Negative) Trace Nitrites (Negative) Negative Protein (Negative) Negative Glucose (Negative) Negative Ketones (Negative) Negative Urobilnogen (0.2-1.0 EU) 0.2 Bilirubin (Negative) Negative Blood (Negative) Negative Departure - Departure Disposition: [facility] Inpatient Acute Clinical Impression: Failure to thrive in adult Anemia Qualifiers: Anemia type: unspecified type Qualified Code(s): D64.9 - Anemia, unspecified Fall Qualifiers: Encounter type: initial encounter Qualified Code(s): W19.XXXA - Unspecified fall, initial encounter Condition: Fair Referrals: Poncho Terry MD [Primary Care Provider] - As per Instructions
--- NOTE | 2018-09-21 14:58 | CPEKG ---
Test Reason : OPEN Blood Pressure : / mmHG Vent. Rate : 064 BPM Atrial Rate : 063 BPM P-R Int : 127 ms QRS Dur : 095 ms QT Int : 415 ms P-R-T Axes : 033 024 041 degrees QTc Int : 428 ms Sinus rhythm Abnormal R-wave progression, early transition Confirmed by Conrad Lima ([id number]) on 09/21/2018 2:57:24 PM Referred By: CONRAD LIMA Confirmed By:Conrad Lima
[2018-09-21 15:49] LABS: PLATELET COUNT 216 10^3/uL (150-400)
[2018-09-21] MEDS ORDERED: LORazepam 2 MG/ML INJ IVP ONE ×2 (17:53→18:35)
[2018-09-21] MEDS ORDERED: ONDANSETRON DISINTEGRATING 4 MG TAB PO PRN (19:23)
[2018-09-21] MEDS ORDERED: ACETAMINOPHEN 325 MG TAB PO PRN (19:23)
[2018-09-21] MEDS ORDERED: ONDANSETRON 4 MG/2 ML VIAL IVP PRN (19:23)
--- NOTE | 2018-09-21 19:28 | PDGENHP ---
History and Physical - Chief Complaint falls - History of Present Illness 78 yo female with h/o alcohol abuse and anemia presents to ED reporting cough and fatigue. She drinks a bottle of wine a day. She says she took 2 falls today and injured her right buttock. She reports feeling dizzy / lightheaded prior to her falls. She has a h/o anemia, but hgb now 7.2 from 10 at last check. She thinks she has had a colonoscopy, but it has been years. She denies hematemesis, coffee ground emesis, hematochezia or melanotic stools. Per the ED physician, she had a negative hemoccult stool, though the last heme stool I see in [facility] is from several months ago. In the ED, her imaging was negative for fracture and her head CT was also negative for acute intracranial injury. Given her overall debility and weakness , she is admitted for further management. History Information - Allergies/Home Medication List Allergies/Adverse Reactions: adhesive Allergy (Intermediate, Verified 09/21/18 13:57) Rash cephalexin Allergy (Intermediate, Verified 09/21/18 13:57) Rash niacin Allergy (Intermediate, Verified 09/21/18 13:57) Rash sulfamethoxazole [Sulfamethoxazole] Allergy (Intermediate, Verified 09/21/18 13: 57) "UPSET STOMACH" gabapentin Allergy (Unknown, Verified 09/21/18 13:57) UNABLE TO FALL ASLEEP latex Allergy (Verified 09/21/18 13:57) Rash ranolazine [From Ranexa] Allergy (Verified 09/21/18 13:57) trimethoprim [From Bactrim] Allergy (Verified 09/21/18 13:57) Home Medications: Cholecalciferol Vit D3 [Vitamin D3 (*)] 1,000 units PO DAILY 05/13/17 [Last Taken 07/25/17] Cyanocobalamin [Vitamin B12 (*)] 1,000 mcg PO DAILY 05/13/17 [Last Taken ] DULoxetine [Cymbalta 60 MG (*)] 60 mg PO DAILY 05/13/17 [Last Taken 12/09/17] Insulin Detemir [Levemir Flextouch] 20 unit SQ HS 05/13/17 [Last Taken 07/24/17] Rosuvastatin Calcium [Crestor 5mg] 5 mg PO DAILY 05/13/17 [Last Taken 12/09/17] Nitroglycerin [Nitrostat 0.4 mg (*)] 0.4 mg SL Q5M PRN 05/30/17 [Last Taken Unknown] Nortriptyline HCl [Pamelor 10 mg (*)] 20 mg PO HS 05/30/17 [Last Taken 07/24/17] Multivitamins [Multivitamin (*)] 1 each PO DAILY 06/14/17 [Last Taken 06/14/17] Sitagliptin Phos/Metformin HCl [Janumet 50-1,000 mg Tablet] 1 each PO BID [Last Taken 12/09/17] Aspirin EC [Aspirin EC 81 mg (*)] 81 mg PO HS 12/10/17 [Last Taken 12/08/17] Nebivolol HCl [Bystolic 5 mg (*)] 5 mg PO DAILY 12/10/17 [Last Taken Unknown] I have personally reviewed and updated: family history, medical history, social history, surgical history - Past Medical History diabetes type 2, hypertension Additional medical history: ETOH abuse. PUD. Neuropathy - Surgical History Reports: pacemaker/AICD Additional surgical history: EGD 06/02 with gastric ulcer treated with 4 clips - Family History Positive for: diabetes type II - Social History Smoking Status: Never smoked Alcohol Use: Heavy (She admits drinking about a bottle of wine a day on average. ) Drug Use: None Additional social history: Lives independently in an apartment. Review of Systems Review of Systems: ROS: 10pt was reviewed & negative except for what was stated in HPI & below Physical Exam Physical Exam: Temp Pulse Resp BP Pulse Ox 36.9 C 118 H 20 150/71 H 92 09/21/18 19:16 09/21/18 19:16 09/21/18 19:16 09/21/18 19:16 09/21/18 19:16 O2 (L/minute) 2 Constitutional: no apparent distress Eyes: PERRL Ears, Nose, Mouth, Throat: moist mucous membranes Cardiovascular: regular rate and rhythym Respiratory: no respiratory distress, clear to auscultation Gastrointestinal: normoactive bowel sounds, soft, non-tender abdomen Skin: warm Musculoskeletal: full muscle strength Psychiatric: poor memory Lab Data & Imaging Review 09/21/18 14:30 WBC 7.00 10^3/uL (3.80-9.50) 09/21/18 14:30 RBC 3.53 10^6/uL (4.18-5.33) L 09/21/18 14:30 Hgb 7.2 g/dL (12.6-16.3) L 09/21/18 14:30 Hct 25.1 % (38.0-47.0) L 09/21/18 14:30 MCV 71.1 fL (81.5-99.8) L 09/21/18 14:30 MCH 20.4 pg (27.9-34.1) L 09/21/18 14:30 MCHC 28.7 g/dL (32.4-36.7) L 09/21/18 14:30 RDW 22.4 % (11.5-15.2) H 09/21/18 14:30 Plt Count 216 10^3/uL (150-400) 09/21/18 14:30 MPV 11.0 fL (8.7-11.7) 09/21/18 14:30 Neut % (Auto) 69.6 % (39.3-74.2) 09/21/18 14:30 Lymph % (Auto) 18.1 % (15.0-45.0) 09/21/18 14:30 Cocke % (Auto) 6.3 % (4.5-13.0) 09/21/18 14:30 Eos % (Auto) 4.7 % (0.6-7.6) 09/21/18 14:30 Baso % (Auto) 0.7 % (0.3-1.7) 09/21/18 14:30 Nucleat RBC Rel Count 0.0 % (0.0-0.2) 09/21/18 14:30 Absolute Neuts (auto) 4.87 10^3/uL (1.70-6.50) 09/21/18 14:30 Absolute Lymphs (auto) 1.27 10^3/uL (1.00-3.00) 09/21/18 14:30 Absolute Monos (auto) 0.44 10^3/uL (0.30-0.80) 09/21/18 14:30 Absolute Eos (auto) 0.33 10^3/uL (0.03-0.40) 09/21/18 14:30 Absolute Basos (auto) 0.05 10^3/uL (0.02-0.10) 09/21/18 14:30 Absolute Nucleated RBC 0.00 10^3/uL (0-0.01) 09/21/18 14:30 Immature Gran % 0.6 % (0.0-1.1) 09/21/18 14:30 Immature Gran # 0.04 10^3/uL (0.00-0.10) 09/21/18 14:30 Platelet Estimate ADEQUATE (ADEQ) 09/21/18 14:30 Hypochromasia 2+ H 09/21/18 14:30 Microcytic Cells 1+ H 09/21/18 14:30 Elliptocytes 1+ H 09/21/18 14:30 Schistocytes 1+ H 09/21/18 14:30 POC Sodium 137 mEq/L (135-145) 09/21/18 14:37 POC Potassium 3.3 mEq/L (3.3-5.0) 09/21/18 14:37 POC Chloride 99.0 mEq/L (97-110) 09/21/18 14:37 POC Total CO2 24 mEq/L (22-31) 09/21/18 14:37 POC BUN 15 mg/dL (7-23) 09/21/18 14:37 POC Creatinine 0.7 mg/dL (0.6-1.0) 09/21/18 14:37 POC Glucose 182 mg/dL (70-100) H 09/21/18 14:37 POC Calcium 9.6 mg/dL (8.5-10.4) 09/21/18 14:37 POC Total Bilirubin 0.6 mg/dL (0.1-1.4) 09/21/18 14:37 POC AST 34 IU/L (14-46) 09/21/18 14:37 POC ALT 25 IU/L (9-52) 09/21/18 14:37 POC Alk Phosphatase 81 IU/L (38-126) 09/21/18 14:37 POC Troponin I 0.01 ng/mL (0.00-0.08) 09/21/18 14:39 POC Total Protein 7.6 g/dL (6.3-8.2) 09/21/18 14:37 POC Albumin 3.7 g/dL (3.5-5.0) 09/21/18 14:37 Visualized and Interpreted Chest x-ray results: Yes Chest X-Ray results: no infiltrate Visualized and Interpreted EKG results: Yes EKG Interpretation: Positive for: normal sinsus rhythm Assessment & Plan Assessment: Falls - She was orthostatic positive in ED, received 500 cc's NS. Suspect etoh abuse and anemia with orthostasis is contributory. -PT/OT evals -transfusion as below Microcytic anemia - hgb 10 --> 7.2 with tachycardia and orthostatic symptoms. No e/o active bleeding. Note h/o PUD. -send iron studies, b12, folate and retic count -transfuse 1 u prbc's, trend h&h -hemoccult stool -cont PPI -may warrant GI consult and EGD Alcohol dependence - drinks 1 bottle wine daily, had CIWA 11 in ED s/p 2 mg IV ativan -CIWA protocol, vits DM type 2 - BG 182 on arrival, unclear if she is compliant with insulin regimen -SSI for now, resume home insulin when med rec completed -send a1c Hypertension - hold anti-hypertensives for now -resume home meds as indicated Full code DVT PPLX - SCd's, defer pharm with low hgb and concern for slow blood loss Dispo - admit to inpt, will need acute PT/OT and likely SNF. CM consult requested
[2018-09-21] MEDS ORDERED: NS 1,000 ML IV SCH (19:30)
[2018-09-21] MEDS ORDERED: FLUMAZENIL 0.5 MG/5 ML MDV IVP PRN (19:44)
[2018-09-21] MEDS ORDERED: LORazepam 2 MG/ML INJ IVP PRN (19:44)
[2018-09-21] MEDS ORDERED: LORazepam 1 MG TAB PO PRN (19:44)
[2018-09-21] MEDS ORDERED: D50W 25 GM/50 ML SYR IVP PRN (19:47)
[2018-09-21] MEDS: traMADol 50 MG TAB PO PRN (20:25)
[2018-09-21] MEDS: LIDOCAINE 4%/MENTHOL 1% PATCH TD SCH ×2 (20:26→22:03)
[2018-09-21] MEDS: PATCH REMOVAL 1 EA PATCH TD SCH (21:17)
[2018-09-21] MEDS: ACETAMINOPHEN 500 MG TAB PO SCH (21:55)
[2018-09-21] MEDS: NS W/ 20 KCl/L 1,000 ML IV SCH (22:05)
[2018-09-21] MEDS: risperiDONE 0.25 MG TAB PO PRN (23:57)
[2018-09-22] MEDS: ACETAMINOPHEN 500 MG TAB PO SCH ×3 (06:15→21:58)
[2018-09-22] MEDS: INSULIN LISPRO 100 UNIT/ML SC SCH ×3 (08:18→17:24)
--- NOTE | 2018-09-22 08:27 | PDMN ---
Medical Necessity Medical necessity: Pt meets IP criteria per MD & MCG M-35; est los >2 mn for eval/tx of microcytic anemia w/tachycardia, orthostatic symptoms & recent falls ; admit for further monitoring, follow-up labs, PRBC transfusion, IVFs, CIWA protocol & therapies; comorbid advanced age, alcohol abuse, diabetes; per H&P & order 09/21/18
[2018-09-22] MEDS: THIAMINE HCL 500 MG in NS 100 ML IV SCH (08:49)
[2018-09-22] MEDS ORDERED: PANTOPRAZOLE SODIUM 40 MG TAB PO SCH (09:00)
[2018-09-22] MEDS ORDERED: ENOXAPARIN 40 MG/0.4 ML SYR SC SCH (09:00)
[2018-09-22] MEDS: SODIUM FERRIC GLUCONAT/SUCROSE 125 MG in NS 100 ML IV SCH (09:31)
--- NOTE | 2018-09-22 10:00 | HOSPPROG ---
Hospitalist Progress Note Assessment/Plan: 78 yo female with h/o alcohol abuse and anemia presents to ED reporting cough and fatigue. She drinks a bottle of wine a day. She says she took 2 falls today and injured her right buttock. She reports feeling dizzy / lightheaded prior to her falls. She has a h/o anemia, but hgb now 7.2 from 10 at last check. First encounter, chart reviewed. * gait instability w falls - had orthostatic positive in ED, received 500 cc's NS - falls are likely from alcohol use and anemia - PT and OT to see *Microcytic anemia -hgb and hct lower than baseline -was transfused w some improvement -IV iron -iron def, B12 stable, retic count low -Hemoccult stool -curb sided GI- with stable BUN likely not actively bleeding, if cont to trend down, will see her -PPI BID -reviewed w GI, she has not had a colonoscopy recently and will need this in the OP setting, along w an Endoscopy *Alcohol dependence - drinks 1 bottle wine daily -CIWA protocol, iv thiamine - very sedate today (will dc IV Ativan) DM type 2 - BG 182 on arrival -SSI -A1c is 6.5 *Hypertension -resumed home med *DVT PPLX - SCd's, defer pharm with low hgb and concern for slow blood loss Dispo - admit to inpt, will need acute PT/OT and likely SNF. CM consult requested Subjective: Sarah is very sleepy during my interview, awakens when blankets are taken off. Objective: Vital Signs Temp Pulse Resp BP Pulse Ox 36.5 C 90 18 159/75 H 96 09/22/18 07:35 09/22/18 07:35 09/22/18 07:35 09/22/18 07:35 09/22/18 07:35 Laboratory Results 09/22/18 04:28 09/21/18 09/22/18 09/23/18 05:59 05:59 06:59 Intake Total 1400 Output Total 100 Balance 1300 - Physical Exam Constitutional: no apparent distress, chronically ill appearing Ears, Nose, Mouth, Throat: hearing normal Cardiovascular: regular rate and rhythym Respiratory: no respiratory distress Gastrointestinal: normoactive bowel sounds Skin: warm, No normal color (pale) Neurologic: other (very drowsy, answers to her name) ICD10 Worksheet Patient Problems: Problems Problem Status Onset Anemia Acute Failure to thrive in adult Acute Fall Acute Alcohol intoxication Acute Esophageal foreign body Acute Hyponatremia Acute Hypoxia Acute Scalp hematoma Acute Shortness of breath Acute Syncope Acute
[2018-09-22] MEDS: PANTOPRAZOLE SODIUM 40 MG VIAL IVP SCH ×2 (10:40→21:12)
[2018-09-22] MEDS: LIDOCAINE 4%/MENTHOL 1% PATCH TD SCH (14:37)
--- NOTE | 2018-09-22 15:21 | ASMTCMCOM ---
CM Note CM Note Notes: Spoke with pt in the room who gave me permission to phone her son Ravinder, but was too somnolent to answer questions regarding rehab. Pt admitted for a fall likely due to ETOH intake. Pt drinks a bottle of wine a night and is on CIWA protocol now. PT and OT are recommending SNF. Message left for son Ravinder to call CM to discuss possible SNF placement. Pt will need CAGE and resources on ETOH recovery when more alert. CM to follow. D/C Plan: SNF pending response from pt or son Ravinder Date Signed: 09/22/2018 03:21 PM Electronically Signed By:Vida Davenport
[2018-09-22] MEDS: NEBIVOLOL HCL 5 MG TAB PO SCH (15:41)
[2018-09-22] MEDS: NS W/ 20 KCl/L 1,000 ML IV SCH (16:03)
[2018-09-22] MEDS: PATCH REMOVAL 1 EA PATCH TD SCH (22:44)
[2018-09-23] MEDS: PATCH REMOVAL 1 EA PATCH TD SCH ×2 (04:00→21:32)
[2018-09-23 05:25] LABS: INR 1.16 (0.83-1.16); PROTIME(PATIENT) 14.3 SEC (12.0-15.0)
[2018-09-23] MEDS: ACETAMINOPHEN 500 MG TAB PO SCH ×3 (06:00→21:33)
[2018-09-23] MEDS: INSULIN LISPRO 100 UNIT/ML SC SCH ×3 (08:18→19:15)
[2018-09-23] MEDS: LIDOCAINE 4%/MENTHOL 1% PATCH TD SCH (08:18)
[2018-09-23] MEDS: NEBIVOLOL HCL 5 MG TAB PO SCH (08:19)
[2018-09-23] MEDS: PANTOPRAZOLE SODIUM 40 MG VIAL IVP SCH ×2 (08:19→21:59)
[2018-09-23] MEDS: THIAMINE HCL 500 MG in NS 100 ML IV SCH (08:19)
[2018-09-23] MEDS ORDERED: PROTOCOL POTASSIUM 1 DOSE MISC PRN (09:20)
[2018-09-23] MEDS ORDERED: PROTOCOL MAGNESIUM 1 DOSE IV PRN (09:20)
[2018-09-23] MEDS: SODIUM FERRIC GLUCONAT/SUCROSE 125 MG in NS 100 ML IV SCH (09:21)
--- NOTE | 2018-09-23 09:21 | HOSPPROG ---
Hospitalist Progress Note Assessment/Plan: 78 yo female with h/o alcohol abuse and anemia presents to ED reporting cough and fatigue. She drinks a bottle of wine a day. She says she took 2 falls today and injured her right buttock. She reports feeling dizzy / lightheaded prior to her falls. She has a h/o anemia, but hgb now 7.2 from 10 at last check. * gait instability w falls - falls are likely from alcohol use and anemia - PT and OT to see *Microcytic anemia -hgb and hct lower than baseline -was transfused w some improvement -IV iron -iron def, B12 stable, retic count low -Hemoccult stool (hasn't had a bowel movement yet) -will transfuse another unit of blood today, Sarah is feeling terrible, weak and lightheaded -PPI BID -reviewed w GI, she has not had a colonoscopy recently and will need this in the OP setting, along w an Endoscopy *Alcohol dependence - drinks 1 bottle wine daily - CIWA protocol, iv thiamine - no s/sx of withdrawal - prn Librium *low magnesium -electrolyte protocol DM type 2 - BG 182 on arrival -SSI -A1c is 6.5 *Hypertension -resumed home med *DVT PPLX - SCd's, defer pharm with low hgb and concern for slow blood loss Dispo -Likely to go to rehab soon, family requesting [facility] Subjective: Sarah is exhausted, feels weak. Doesn't believe she drinks very much. Objective: Vital Signs Temp Pulse Resp BP Pulse Ox 37.0 C 80 23 H 130/78 H 91 L 09/23/18 07:32 09/23/18 08:19 09/23/18 07:32 09/23/18 08:19 09/23/18 07:32 Laboratory Results 09/23/18 04:25 09/23/18 04:25 09/22/18 09/23/18 09/24/18 04:59 05:59 05:59 Intake Total Output Total Balance PT 14.3 SEC (12.0-15.0) 09/23/18 04:25 INR 1.16 (0.83-1.16) 09/23/18 04:25 - Physical Exam Constitutional: chronically ill appearing, uncomfortable (has ongoing neck pain that is chronic) Ears, Nose, Mouth, Throat: hearing normal Cardiovascular: regular rate and rhythym, No tachycardia Respiratory: no respiratory distress, reduced air movement Gastrointestinal: normoactive bowel sounds Skin: warm, No normal color (pale) Musculoskeletal: generalized weakness Neurologic: AAOx3 Psychiatric: interacting appropriately ICD10 Worksheet Patient Problems: Problems Problem Status Onset Anemia Acute Failure to thrive in adult Acute Fall Acute Alcohol intoxication Acute Esophageal foreign body Acute Hyponatremia Acute Hypoxia Acute Scalp hematoma Acute Shortness of breath Acute Syncope Acute
[2018-09-23] MEDS ORDERED: ACETAMINOPHEN 325 MG TAB PO ONE (09:41)
[2018-09-23] MEDS: FLUTICASONE NASAL 120 SPRAYS/16 GM MDI EACHNARE SCH (11:54)
[2018-09-23] MEDS: CETIRIZINE 10 MG TAB PO SCH (17:00)
[2018-09-23] MEDS ORDERED: PEG 3350/NA SULF,BICARB,CL/KCL (GAVILYTE-G) 4000 ML BTL PO ONE (17:00)
--- NOTE | 2018-09-23 17:31 | GCON ---
[f rep st] CONSULTATION REFERRING PHYSICIAN: Berna Scott NP INDICATION FOR CONSULTATION: Anemia. HPI: Mrs. Braswell is a pleasant 78-year-old female who has a history of alcoholism is known to our ewelina licea from outpatient evaluation in January of 2018 for anemia. She was scheduled for an EGD and colo noscopy. However, this was not performed at that point secondary to other issues. She did have an E GD as an inpatient in both July 2017 and July 2016. She is now readmitted with complaints of f alling, dizziness and lightheaded. She was admitted with the above, noted to have recurrent anemia, is being transfused blood, and I am called to help and evaluate her anemia. She does not complain of any nausea, vomiting, dysphagia, odynophagia, early satiety, diarrhea, constipation, hematochezia. There has been no significant weight loss. In the past, she has complained of loose bowel movements that can be black at times and says historically proton pump inhibitor have helped when she has had h eartburn and reflux symptoms. She had been noted to have microcytosis as well as iron deficiency. I am now called to help evaluate the etiology of her iron deficiency anemia. PAST MEDICAL HISTORY: Alcohol abuse, type 2 diabetes, hypertension, neuropathy. PAST SURGICAL HISTORY: EGDs as noted in the HPI back in 2017 and 2016. She did have a gastric ulcer at 1 point. She also has a pacemaker and AICD. FAMILY HISTORY: No colon cancer or colon polyps. Family history is significant for diabetes. MEDICATIONS: In hospital, include Tylenol p.r.n., Zyrtec 10 mg daily, Librium 10 mg three times britney y p.r.n., Romazicon p.r.n., Flonase 1 spray each naris daily, Humalog insulin, magnesium protocol, By stolic 5 mg daily, Zofran p.r.n., Protonix 40 mg twice daily, Risperdal p.r.n., thiamine, vitamin B1, Ultram p.r.n. ALLERGIES: Cephalexin gives a rash. Niacin gives a rash. Sulfamethoxazole causes an upset stomach. Gabapentin, unable to fall asleep. Latex allergy was rash. Ranexa, unknown reaction. Bactrim, un known reaction. SOCIAL HISTORY: She does not smoke. She drinks at least a bottle of wine a day. She lives by herse in an apartment. REVIEW OF SYSTEMS: A complete review of systems was performed and is negative other than noted in e HPI. Pertinent negatives include no dysphagia, odynophagia, early satiety, hematochezia, hematemes is, chest pain. PHYSICAL EXAM: GENERAL: Chronically ill-appearing female sitting in her bed in no acute distress. VITAL SIGNS: Blood pressure is 164/91, with a previous blood pressure 132/76, respiratory rate is 16 . She is 94% on room air. Temperature 36.8. EYES: Anicteric. LAURA, EOMI. MOUTH: No lesions. N RACH: Supple. Full range of motion. No JVD. BACK: No spine tenderness. No CVA tenderness. LUNGS : Clear. CARDIAC: S1, S2. Regular rate and rhythm. ABDOMEN: Bowel sounds are normal in pitch. Peritoneum is soft, nontender. No hepatosplenomegaly. EXTREMITIES: No cyanosis, clubbing, edema. NEUROLOGIC: Cranial nerves intact, nonfocal. SKIN: No rashes. LABORATORY DATA: From September 23, sodium 135, potassium 4.2, chloride 107, bicarb 22, BUN 14, creatini ne 0.6, calcium 8.4, magnesium 1.2. From September 21, iron saturation 4%, iron 20. TIBC 44, ferritin 14. 5, and B12 greater than a 1000, folate greater than 20. From September 21, AST 34, ALT 25, alkaline phosp hatase 81, albumin 3.7, total protein 7.6, bilirubin 0.6. Chest x-ray from September 21, 2018, hyperventilation and bibasilar atelectasis. No displaced rib fractur e, pneumothorax, or effusion. Head CT scan performed September 21, 2018, chronic senescent features with no acute intracranial abnormality identified on this unenhanced CT evaluation. An EGD performed 2017, revealed normal esophagus, small hiatal hernia with healed ulcerations and retained End oclip, normal stomach, normal examined duodenum. EGD on May 17, 2017, normal esophagus, middle s ized hiatal hernia, oozing gastric ulcer with visible vessel found on hiatal hernia and cardia, statu s post clip placement. Otherwise, normal exam. Colonoscopy at that point was canceled secondary to a poor prep. ASSESSMENT: 1. Iron deficiency anemia. 2. History of alcohol abuse. 3. Diabetes. 4. History of gastric ulcer. RECOMMENDATIONS: 1. Prep for EGD and colonoscopy given iron deficiency anemia. 2. Transfuse as per hospitalist. 3. Continue PPI, pending results of EGD. 4. Continue alcohol withdrawal protocol. 5. Recommend alcohol abstinence which I think is unlikely in this patient. 6. Further recommendation to follow results above and clinical course. Thank you for allowing me to participate in the patient's healthcare. Do not hesitate to call me kranthi h any questions. /[id number]/MODL
[2018-09-23] MEDS ORDERED: TEMAZEPAM 15 MG CAP PO PRN (18:26)
[2018-09-23] MEDS ORDERED: PANTOPRAZOLE SODIUM 40 MG TAB PO SCH (21:00)
[2018-09-23] MEDS ORDERED: MELATONIN 3 MG TAB PO SCH (21:00)
[2018-09-23] MEDS ORDERED: CEPACOL LOZENGE PO PRN (22:36)
[2018-09-24] MEDS: risperiDONE 0.25 MG TAB PO PRN (03:52)
[2018-09-24] MEDS: traMADol 50 MG TAB PO PRN (05:02)
[2018-09-24] MEDS: ACETAMINOPHEN 500 MG TAB PO SCH ×3 (06:14→21:34)
[2018-09-24] MEDS: INSULIN LISPRO 100 UNIT/ML SC SCH ×3 (09:37→18:38)
[2018-09-24] MEDS: CETIRIZINE 10 MG TAB PO SCH (09:37)
[2018-09-24] MEDS: PANTOPRAZOLE SODIUM 40 MG VIAL IVP SCH ×2 (09:38→21:36)
[2018-09-24] MEDS: NEBIVOLOL HCL 5 MG TAB PO SCH (09:40)
[2018-09-24] MEDS: LIDOCAINE 4%/MENTHOL 1% PATCH TD SCH (09:41)
[2018-09-24] MEDS: THIAMINE HCL 500 MG in NS 100 ML IV SCH (09:46)
[2018-09-24] MEDS ORDERED: MAGNESIUM SULF 2 GM/WATER 50 ML IV ONE (09:58)
[2018-09-24] MEDS ORDERED: MAGNESIUM SULF 1 GM/DEXTROSE 100 ML IV ONE (10:06)
[2018-09-24] MEDS: FLUTICASONE NASAL 120 SPRAYS/16 GM MDI EACHNARE SCH (10:28)
--- NOTE | 2018-09-24 10:43 | HOSPPROG ---
Hospitalist Progress Note Assessment/Plan: 78 yo female with h/o alcohol abuse and anemia presents to ED reporting cough and fatigue. She drinks a bottle of wine a day. She says she took 2 falls today and injured her right buttock. She reports feeling dizzy / lightheaded prior to her falls. She has a h/o anemia, but hgb now 7.2 from 10 at last check. First encounter, chart reviewed. D/W RN, CM, pharmacy. * gait instability w falls - falls are likely from alcohol use and anemia - PT and OT to see *Microcytic anemia -hgb and hct lower than baseline -was transfused w improvement -IV iron -iron def, B12 stable, retic count low -Hemoccult stool -PPI BID -appreciate GI consult, EGD and colon today *Alcohol dependence - drinks 1 bottle wine daily - CIWA protocol, iv thiamine - no s/sx of withdrawal - prn Librium *low magnesium -electrolyte protocol -added extra mag today DM type 2 - BG 182 on arrival -SSI -A1c is 6.5 *Hypertension -resumed home med *DVT PPLX - SCd's, defer pharm with low hgb and concern for slow blood loss Dispo -Likely to go to rehab soon, family requesting [facility] further eval for iron anemia Subjective: Up to bathroom. Feeling ok. Less weak. No pain. Objective: Vital Signs Temp Pulse Resp BP Pulse Ox 36.3 C 73 17 159/94 H 92 09/24/18 08:00 09/24/18 09:40 09/24/18 08:00 09/24/18 09:40 09/24/18 08:00 Laboratory Results 09/24/18 04:29 09/23/18 04:25 09/23/18 09/24/18 09/25/18 05:59 05:59 05:59 Intake Total Output Total 1100 Balance -1100 PT 14.3 SEC (12.0-15.0) 09/23/18 04:25 INR 1.16 (0.83-1.16) 09/23/18 04:25 - Physical Exam Constitutional: appears nourished, not in pain, chronically ill appearing Eyes: PERRL, anicteric sclera, EOMI Ears, Nose, Mouth, Throat: moist mucous membranes, hearing normal, ears appear normal Cardiovascular: No JVD, No tachycardia, No edema Respiratory: no respiratory distress, no rales or rhonchi, reduced air movement Gastrointestinal: normoactive bowel sounds, No tenderness, No ascites Skin: warm, normal color, No mottled Musculoskeletal: normal joint ROM, no joint effusions, generalized weakness Neurologic: AAOx3 Psychiatric: not anxious, not encephalopathic, poor insight, poor memory ICD10 Worksheet Patient Problems: Problems Problem Status Onset Hyponatremia Acute Shortness of breath Acute Hypoxia Acute Esophageal foreign body Acute Anemia Acute Syncope Acute Alcohol intoxication Acute Scalp hematoma Acute Fall Acute Failure to thrive in adult Acute
[2018-09-24] MEDS ORDERED: NITROGLYCERIN 0.4 MG BTL SL PRN (10:44)
[2018-09-24] MEDS ORDERED: ACETAMINOPHEN 325 MG TAB PO PRN (10:44)
[2018-09-24] MEDS ORDERED: LORazepam 0.5 MG TAB PO PRN (10:44)
--- NOTE | 2018-09-24 12:03 | PDANEPAE ---
ANE History of Present Illness EGD/colonoscopy for anemia ANE Past Medical History - Cardiovascular History Hx Hypertension: Yes Hx Arrhythmias: Yes Hx Chest Pain: Yes Hx Coronary Artery / Peripheral Vascular Disease: No Hx CHF / Valvular Disease: No Hx Palpitations: No - Pulmonary History Hx COPD: No Hx Asthma/Reactive Airway Disease: No Hx Recent Upper Respiratory Infection: No Hx Oxygen in Use at Home: No Hx Sleep Apnea: No Sleep Apnea Screening Result - Last Documented: Negative - Endocrine History Hx Diabetes: Yes Obesity: no - Chronic Pain History Chronic Pain: Yes (back pain) ANE Review of Systems Review of systems is: negative Review of Systems: - Exercise capacity Exercise capacity: <4 METS - 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 Model: [id number] Date Pacemaker Last Checked: during this admit ANE Patient History - Allergies Allergies/Adverse Reactions: adhesive Allergy (Intermediate, Verified 09/21/18 13:57) Rash cephalexin Allergy (Intermediate, Verified 09/21/18 13:57) Rash niacin Allergy (Intermediate, Verified 09/21/18 13:57) Rash sulfamethoxazole [Sulfamethoxazole] Allergy (Intermediate, Verified 09/21/18 13: 57) "UPSET STOMACH" gabapentin Allergy (Unknown, Verified 09/21/18 13:57) UNABLE TO FALL ASLEEP latex Allergy (Verified 09/21/18 13:57) Rash ranolazine [From Ranexa] Allergy (Verified 09/21/18 13:57) trimethoprim [From Bactrim] Allergy (Verified 09/21/18 13:57) - Home Medications Home medications: home medication list seen and reviewed Home Medications: DULoxetine [Cymbalta 60 MG (*)] 60 mg PO DAILY 05/13/17 [Last Taken 12/09/17] Insulin Detemir [Levemir Flextouch] 20 unit SQ HS 05/13/17 [Last Taken 07/24/17] Nitroglycerin [Nitrostat 0.4 mg (*)] 0.4 mg SL Q5M PRN 05/30/17 [Last Taken Unknown] Nortriptyline HCl [Pamelor 10 mg (*)] 10 - 20 mg PO HS 05/30/17 [Last Taken 03/03] Sitagliptin Phos/Metformin HCl [Janumet 50-1,000 mg Tablet] 1 each PO BID [Last Taken 12/09/17] Aspirin EC [Aspirin EC 81 mg (*)] 81 mg PO HS 12/10/17 [Last Taken 12/08/17] Nebivolol HCl [Bystolic 5 mg (*)] 5 mg PO DAILY 12/10/17 [Last Taken Unknown] Atorvastatin Calcium [Lipitor 10 mg (*)] 10 mg PO DAILY 09/24/18 [Last Taken Unknown] Cyclobenzaprine [Flexeril 10 MG (*)] 10 mg PO DAILY 09/24/18 [Last Taken Unknown ] Gabapentin [Neurontin 100 MG (*)] 100 mg PO TID 09/24/18 [Last Taken Unknown] Herbals/Supplements -Info Only 1 ea PO DAILY 09/24/18 [Last Taken Unknown] Isosorbide Mononitrate [Imdur 30 mg (*)] 30 mg PO DAILY 09/24/18 [Last Taken Unknown] LORazepam [Ativan (*)] 0.5 mg PO HS PRN 09/24/18 [Last Taken Unknown] Melatonin [Melatonin 3 MG (*)] 3 mg PO HS 09/24/18 [Last Taken Unknown] - NPO status NPO Since - Liquids (Date): 09/24/18 NPO Since - Liquids (Time): 09:00 NPO Since - Solids (Date): 09/23/18 NPO Since - Solids (Time): 16:00 - Anes Hx Anes Hx: no prior problems - Smoking Hx Smoking Status: Never smoked - Alcohol Use Alcohol Use: Heavy (She admits drinking about a bottle of wine a day on average. ) ANE Labs/Vital Signs - Labs Result Diagrams: 09/24/18 04:29 09/23/18 04:25 - Vital Signs Blood Pressure: 154/88 Heart Rate: 82 Respiratory Rate: 21 O2 Sat (%): 93 Height: 152.4 cm Weight: 54.4 kg ANE Physical Exam - Airway Neck exam: FROM Mallampati Score: Class 2 Mouth exam: poor dentition - Pulmonary Pulmonary: no respiratory distress - Cardiovascular Cardiovascular: regular rate and rhythym - ASA Status ASA Status: III ANE Anesthesia Plan Anesthesia Plan: GA with mask
[2018-09-24] MEDS ORDERED: PROPOFOL/EMULSION 500 MG/50 ML BOTTLE IV ONE (12:14)
[2018-09-24] MEDS ORDERED: LIDOCAINE 2% 5 ML SDV ONE (12:18)
[2018-09-24] MEDS: SUCRALFATE 1 GM TAB PO SCH ×3 (12:20→21:35)
[2018-09-24] MEDS ORDERED: LR 1,000 ML IV ONE (12:56)
--- NOTE | 2018-09-24 13:52 | ASMTCMCOM ---
CM Note CM Note Notes: Pt accepted by [facility] and will likely discharge in 1 - 2 days. CM to follow. D/C Plan: [facility] Date Signed: 09/24/2018 01:51 PM Electronically Signed By:Vida Davenport
[2018-09-24] MEDS ORDERED: ALBUTEROL 60 PUFFS/8 GM MDI IH PRN (14:00)
--- NOTE | 2018-09-24 15:40 | POSTANESTH ---
Post Anesthetic Evaluation Cardiovascular Status: Normal, Stable Respiratory Status: Normal, Stable Level of Consciousness/Mental Status: Can Participate in Eval, Alert and Oriented Pain Control: Adequate, Prn Tx Ordered Nausea/Vomiting Control: Adequate, Prn Tx Ordered Complications Possibly Related to Anesthesia: None Noted
[2018-09-24] MEDS ORDERED: LR 500 ML IV PRN (16:11)
[2018-09-24] MEDS ORDERED: ONDANSETRON 4 MG/2 ML VIAL IVP PRN (16:11)
[2018-09-24] MEDS ORDERED: fentaNYL 100 MCG/2 ML INJ IVP PRN (16:11)
[2018-09-24] MEDS ORDERED: NALOXONE HCL 0.4 MG/ML INJ IVP PRN (16:11)
--- NOTE | 2018-09-24 16:37 | GIREPORT ---
[facility] - Endoscopy Department Patient Name: Sarah Braswell Procedure Date: 09/24/2018 3:42 PM Patient Type: Inpatient Attending MD/ ER Physician: Anthony Bell MD Procedure: Upper GI endoscopy Indications: Suspected upper gastrointestinal bleeding in patient with unexplained i john deficiency anemia Providers: Anthony Bell MD Referring MD: Marco Terry MD Medicines: Propofol per Anesthesia Complications: No immediate complications. Estimated blood loss: Minimal. Description of Procedure: After obtaining informed consent, the endoscope was passed under direct vision. Throughout the procedure, the patient's blood pressure, pulse, and oxygen saturations were monitored continuously. The Endoscope was intro duced through the mouth, and advanced to the third part of duodenum. The uppe r GI endoscopy was accomplished without difficulty. The patient tolerated th e procedure well. Findings: The examined esophagus was normal. The entire examined stomach was normal. The examined duodenum was normal. Biopsies for histology were taken wit h a cold forceps for evaluation of celiac disease. Estimated blood loss was minimal. The exam was otherwise without abnormality. Estimated Blood Loss: Estimated blood loss was minimal. Post Op Diagnosis: - Normal esophagus. - Normal stomach. - Normal examined duodenum. Biopsied. - The examination was otherwise normal. Recommendation: - Await pathology results. - My office will call with the pathology result with 5-7 days. If you h ave not heard from my office by 12-14, do not assume the pathology is roque l, please call [phone] to get the pathology results. - Perform a colonoscopy today. - Use Protonix (pantoprazole) 40 mg PO daily for 1 month. - Thank you for allowing me to help in your patient's care. Do not hesi park to call with any questions. Attending Participation: I personally performed the entire procedure. Ray Gonzalez M.D Anthony Bell MD 09/24/2018 4:36:55 PM This report has been signed electronicallyMatthew MD Ray Number of Addenda: 0 Note Initiated On: 09/24/2018 3:42 PM [email or web address]
--- NOTE | 2018-09-24 16:40 | GIREPORT ---
[facility] Surgical Services - Endoscopy Department Patient Name: Sarah Braswell Procedure Date: 09/24/2018 3:54 PM Patient Type: Inpatient Attending MD/ ER Physician: Anthony Bell MD Procedure: Colonoscopy Indications: Unexplained iron deficiency anemia Providers: Anthony Bell MD Referring MD: Marco Terry MD Medicines: Propofol per Anesthesia = IV general whit spont resps Complications: No immediate complications. Estimated blood loss: Minimal. Description of Procedure: After obtaining informed consent, the scope was passed under direct vis ion. Throughout the procedure, the patient's blood pressure, pulse, and oxyg en saturations were monitored continuously. The Colonoscope with irrigatio n channel was introduced through the anus and advanced to the cecum, identified by the appendiceal orifice, IC valve and transillumination. The colonoscopy was performed without difficulty. The patient tolerated the procedure well. The quality of the bowel preparation was excellent. Findings: The digital rectal exam was normal. Many medium-mouthed diverticula were found in the sigmoid colon, descen ding colon, transverse colon and ascending colon. The exam was otherwise without abnormality. Estimated Blood Loss: Estimated blood loss was minimal. Post Op Diagnosis: - Diverticulosis in the sigmoid colon, in the descending colon, in the transverse colon and in the ascending colon. - The examination was otherwise normal. - No specimens collected. Recommendation: - High fiber diet indefinitely. - 30-35 grams of dietary fiber per day. Can use supplemental fiber. - A high fiber diet may decrease risk of complications from diverticulo sis. There is no need to avoid seeds or nuts. - To visualize the small bowel, perform video capsule endoscopy at appointment to be scheduled. This will be as an outpatient. - Return patient to [facility] for ongoing care. - No repeat colonoscopy due to age and the absence of colonic polyps. - Thank you for allowing me to help in your patient's care. Do not hesi park to call with any questions. Attending Participation: I personally performed the entire procedure. Ray Gonzalez M.D Anthony Bell MD 09/24/2018 4:40:09 PM This report has been signed electronicallyMatthew MD Ray Number of Addenda: 0 Note Initiated On: 09/24/2018 3:54 PM Total Procedure Duration Time 0 hours 34 minutes 46 seconds [email or web address]
[2018-09-24] MEDS: GABAPENTIN 100 MG CAP PO SCH ×2 (18:07→21:35)
[2018-09-24] MEDS ORDERED: ASPIRIN EC 81 MG TAB PO SCH (21:00)
[2018-09-24] MEDS ORDERED: MELATONIN 3 MG TAB PO SCH (21:00)
[2018-09-24] MEDS ORDERED: SITAGLIPTIN PHOS PO SCH (21:00)
[2018-09-24] MEDS ORDERED: METFORMIN HCL PO SCH (21:00)
[2018-09-24] MEDS ORDERED: [UNRECOGNIZED DRUG - OTHER] PO SCH (21:00)
[2018-09-24] MEDS ORDERED: INSULIN GLARGINE 100 UNITS/ML UNIT SC SCH (21:00)
[2018-09-24] MEDS: metFORMIN HCL 500 MG TAB PO SCH (21:34)
[2018-09-24] MEDS: THIAMINE HCL 100 MG TAB PO SCH (21:35)
[2018-09-24] MEDS: PANTOPRAZOLE SODIUM 40 MG TAB PO SCH (21:35)
[2018-09-24] MEDS: PATCH REMOVAL 1 EA PATCH TD SCH (21:36)
[2018-09-25] MEDS: traMADol 50 MG TAB PO PRN (00:37)
[2018-09-25] MEDS: ACETAMINOPHEN 500 MG TAB PO SCH (05:39)
[2018-09-25] MEDS ORDERED: MAGNESIUM SULF 1 GM/DEXTROSE 100 ML IV ONE (07:26)
[2018-09-25] MEDS ORDERED: NEBIVOLOL HCL 5 MG TAB PO SCH (09:00)
[2018-09-25] MEDS ORDERED: Herbals/Supplements -Info Only PO SCH (09:00)
[2018-09-25] MEDS ORDERED: ATORVASTATIN CALCIUM 10 MG TAB PO SCH (09:00)
[2018-09-25] MEDS ORDERED: DULoxetine 60 MG CAP PO SCH (09:00)
[2018-09-25] MEDS ORDERED: ISOSORBIDE MONONITRATE 30 MG TAB.SR PO SCH (09:00)
[2018-09-25] MEDS: INSULIN LISPRO 100 UNIT/ML SC SCH (09:21)
--- NOTE | 2018-09-25 09:36 | PDIAF ---
- Diagnosis Diagnosis: anemia Code Status: Full Code - Medication Management Discharge Medications: electronically signed and located in the Home Medication List. - Orders Services needed: Registered Nurse, Physical Therapy, Occupational Therapy Isolation Type: None Diet Texture: Dysphagia 1 - Pureed, Thin Liquids, Meds Crushed in Puree - Labs/Radiology HCT/HGB Date: 09/28/18 - Follow Up Care Current Providers and Referrals: Poncho Terry MD [Primary Care Provider] - As per Instructions Anthony Bell MD [Medical Doctor] -
[2018-09-25] MEDS: PANTOPRAZOLE SODIUM 40 MG VIAL IVP SCH (09:44)
[2018-09-25] MEDS: LIDOCAINE 4%/MENTHOL 1% PATCH TD SCH (09:49)
[2018-09-25] MEDS: CETIRIZINE 10 MG TAB PO SCH (09:52)
[2018-09-25] MEDS: THIAMINE HCL 100 MG TAB PO SCH (09:52)
[2018-09-25] MEDS: metFORMIN HCL 500 MG TAB PO SCH (09:52)
[2018-09-25] MEDS: SUCRALFATE 1 GM TAB PO SCH ×2 (09:53→10:59)
[2018-09-25] MEDS: FLUTICASONE NASAL 120 SPRAYS/16 GM MDI EACHNARE SCH (09:53)
[2018-09-25] MEDS: PANTOPRAZOLE SODIUM 40 MG TAB PO SCH (09:53)
[2018-09-25] MEDS: GABAPENTIN 100 MG CAP PO SCH (09:53)
--- NOTE | 2018-09-25 10:27 | ASMTLACE ---
LACE Length of stay for Answers: 4-6 days current admission Acuity / Level of Answers: Yes Care: Did the patient have an inpatient admission? Comorbidities - select Answers: Diabetes (uncontrolled or all that apply controlled) Opioid dependence / Chronic pain Other Notes: HTN; HLD # of Emergency department Answers: 1-2 visits in the last 6 months Social determinants Answers: History of substance abuse (ETOH, street drugs, prescription drugs, etc.) Score: 17 Date Signed: 09/25/2018 10:27 AM Electronically Signed By:GRETEL Garrido
--- NOTE | 2018-09-25 10:36 | ASDISCHSUM ---
Discharge Information Plan Status:SNF Medically Cleared to Leave:09/25/2018 Discharge Date:09/25/2018 CM D/C Disposition: ADT D/C Disposition:Snf Facility Projected Discharge Date:09/25/2018 11:00 AM Transportation at D/C: Discharge Delay Reason: Follow-Up Date:09/25/2018 11:00 AM Discharge Slot: Final Diagnosis:ETOH Anemia, falls Placement Information Referral Type:*Half-Way/SNF Referral ID:[id number] Provider Name:[facility] Address 1:[address] Address 2: City:[place] Selection Factors: State:[place] Patient Contact Information Contact Name:CORINNE Relationship:Son Address: Work Phone: City: [place] [facility] Phone: [facility] Code: Email: Financial Information Financial Class:Medicare Primary Plan Desc:MEDICARE INPATIENT Primary Plan Number:[id number] Secondary Plan Desc: OUT OF STATE [facility] Secondary Plan Number:[id number] Assessment Information [facility] CM Progress Note CM Note CM Note Notes: Spoke with pt in the room who gave me permission to phone her isaak Castellon, but was too somnolent to answer questions regarding rehab. Pt admitted for a fall likely due to ETOH intake. Pt drinks a bottle of wine a night and is on [facility] protocol now. PT and OT are recommending SNF. Message left for isaak Castellon to call CM to discuss possible SNF placement. Pt will need CAGE and resources on ETOH recovery when more alert. CM to follow. D/C Plan: SNF pending response from pt or isaak Castellon Date Signed: 09/22/2018 03:21 PM Electronically Signed By:Vida Davenport LACE LACE Length of stay for Answers: 4-6 days current admission Acuity / Level of Answers: Yes Care: Did the patient have an inpatient admission? Comorbidities - select Answers: Diabetes (uncontrolled or all that apply controlled) Opioid dependence / Chronic pain Other Notes: HTN; HLD # of Emergency department Answers: 1-2 visits in the last 6 months Social determinants Answers: History of substance abuse (ETOH, street drugs, prescription drugs, etc.) Score: 17 Date Signed: 09/25/2018 10:27 AM Electronically Signed By:GRETEL Garrido BC CM Progress Note CM Note CM Note Notes: Pt accepted by [facility] and will likely discharge in 1 - 2 days. CM to follow. D/C Plan: [facility] Date Signed: 09/24/2018 01:51 PM Electronically Signed By:Vida Davenport Case Management Discharge Plan Note Case Management Discharge Discharge Order Complete? Answers: Yes Patient to Obtain Answers: Other Notes: [facility] Medications Transportation Arranged Answers: Other [facility] Transport will Pick (Date 09/25/2018 12:00 PM & Time) [place] Complete Answers: No Case Management Transport Answers: No Form Complete Faxed Final Orders Answers: Yes Agency/Facility Transfer Answers: Yes Report Printed & Faxed to Receiving Agency Family Notified Answers: Yes Discharge Comments Notes: Pts case discussed w/ Sofy Orantes NP regarding d/c POC. Pt is being d/c'd today. DC orders sent to [facility]. JASON Saravia was given the phone number to call to give report. CM left pts son Ravinder, per pts request (P#: [phone]). CM available for changes. Plan: [facility] Date Signed: 09/25/2018 10:35 AM Electronically Signed By:GRETEL Garrido Intervention Information
--- NOTE | 2018-09-25 10:36 | ASMTDCNOTE ---
Case Management Discharge Discharge Order Complete? Answers: Yes Patient to Obtain Answers: Other Notes: [facility] Medications Transportation Arranged Answers: Other Notes: [facility] w/c picker packer Transport will Pick (Date 09/25/2018 12:00 PM & Time) EMTALA Complete Answers: No Case Management Transport Answers: No Form Complete Faxed Final Orders Answers: Yes Agency/Facility Transfer Answers: Yes Report Printed & Faxed to Receiving Agency Family Notified Answers: Yes Discharge Comments Notes: Pts case discussed w/ Sofy Orantes NP regarding d/c POC. Pt is being d/c'd today. DC orders sent to [facility]. Rani RN was given the phone number to call to give report. CM left pts son Ravinder, per pts request (P#: [phone]). CM available for changes. Plan: [facility] Date Signed: 09/25/2018 10:35 AM Electronically Signed By:GRETEL Garrido
--- NOTE | 2018-09-25 10:56 | SOAPPROG ---
SOAP Progress Note Assessment/Plan: Assessment:Plan: 1) iron def anemia - s/p egd and colon w/o sig findings, duodenal path pending. will need outpt small bowel camera study I will sign off and arrange outpt pill camera study - usually take a few weeks 09/25/18 10:50 Subjective: cc - iron def anemia s/p EGD and Colon w/o sig findings no gi sx's no overt blood loss Objective: Vital Signs Temp Pulse Resp BP Pulse Ox 36.4 C 72 19 156/80 H 94 09/25/18 07:37 09/25/18 07:37 09/25/18 07:37 09/25/18 07:37 09/25/18 07:37 Laboratory Results 09/24/18 04:29 09/23/18 04:25 09/24/18 09/25/18 09/26/18 05:59 05:59 05:59 Intake Total 760 Output Total 1100 0 Balance -1100 760 PT 14.3 SEC (12.0-15.0) 09/23/18 04:25 INR 1.16 (0.83-1.16) 09/23/18 04:25 CTA S1S2 +BS, soft nt ICD10 Worksheet Patient Problems: Problems Problem Status Onset Anemia Acute Failure to thrive in adult Acute Fall Acute Alcohol intoxication Acute Esophageal foreign body Acute Hyponatremia Acute Hypoxia Acute Scalp hematoma Acute Shortness of breath Acute Syncope Acute
[2018-09-25 11:18] VITALS: BP 118/75
--- NOTE | 2018-09-25 13:02 | GDS ---
[f rep st] DISCHARGE SUMMARY DISCHARGE DIAGNOSES: 1. Iron deficiency anemia. 2. Weakness. 3. Gait instability with falls. 4. Alcohol dependency. 5. Hypomagnesemia. 6. Diabetes type 2. 7. Hypertension. CONSULTATIONS: Gastroenterology. STUDIES AND PROCEDURES DONE: 1. Colonoscopy. 2. Cervical spine CT. PHYSICAL EXAM: GENERAL: The patient is alert. VITAL SIGNS: Afebrile at 36.7, pulse 89, respirator y rate 18, and blood pressure 118/75. She is saturating greater than 90% on room air. I have seen a nd evaluated the patient on the day of discharge. HOSPITAL COURSE: The patient is an 78-year-old female brought to the hospital after suffering a fall . She was evaluated and diagnosed with: 1. Gait instability with multiple falls. This is in the setting of anemia, as well as chronic alcoh ol use. The patient has been seen by Physical Therapy and Occupational Therapy, and requires nursing home facility for further rehabilitation and management. 2. Microcytic anemia. This is multifactorial. The patient did receive transfusion of packed red bl ood cells during this hospitalization. IV iron has been administered, as well. During this hospital course, Gastroenterology was consulted. EGD and colonoscopy were performed with no source of bleedi ng identified. The patient will continue on iron supplementation at the time of disposition and foll ow up in the outpatient setting with Gastroenterology. 3. Alcohol dependency. No signs of withdrawal. This appears to be stable at the time of dispositio n. She has been educated with regard to alcohol cessation. 4. Hypomagnesemia. This has been replaced during this hospital course. However, the patient should continue on supplemental magnesium in the outpatient setting. 5. Diabetes mellitus type 2. Sliding scale has been continued. 6. Hypertension. Medications have been continued. DISPOSITION: She will be discharged to a nursing home facility for further rehabilitation and man agement. It is recommended that she follow up in the outpatient setting with a capsule endoscopy to further evaluate her microcytic anemia. She will also continue on supplemental iron, as well as have laboratory evaluations done to assure her anemia is not worsening. I have discussed the patient's d isposition at length. TIME SPENT ON DISCHARGE: I spent greater than 35 minutes in the care, coordination, and management o f this patient's discharge. /[id number]/MODL
== END 2018-09-25 11:55 | DRG 812 ==
LOC: CED 13:43 → CEDHOLD 16:58 → F3E 19:09
PROVIDERS: ADMIT Hospitalist; ATTEND Hospitalist
PROC: 30233N1 Transfusion of Nonautologous Red Blood Cells into Peripheral Vein, Percutaneous Approach (ICD-10-PCS; 2018-09-21)
PROC: HZ2ZZZZ Detoxification Services for Substance Abuse Treatment (ICD-10-PCS; 2018-09-21)
PROC: 0DB98ZX Excision of Duodenum, Via Natural or Artificial Opening Endoscopic, Diagnostic (ICD-10-PCS; principal; 2018-09-24 16:00)
PROC: 0DJD8ZZ Inspection of Lower Intestinal Tract, Via Natural or Artificial Opening Endoscopic (ICD-10-PCS; principal; 2018-09-24 16:00)
PROC: 0DJ08ZZ Inspection of Upper Intestinal Tract, Via Natural or Artificial Opening Endoscopic (ICD-10-PCS; principal; 2018-09-24 16:00)
DX: D50.9 Iron deficiency anemia, unspecified (principal); F10.188 Alcohol abuse with other alcohol-induced disorder; R29.6 Repeated falls; R53.1 Weakness; E83.42 Hypomagnesemia; K57.30 Diverticulosis of large intestine without perforation or abscess without bleeding; E11.42 Type 2 diabetes mellitus with diabetic polyneuropathy; Z79.4 Long term (current) use of insulin; Z79.84 Long term (current) use of oral hypoglycemic drugs; M40.204 Unspecified kyphosis, thoracic region; I10 Essential (primary) hypertension; E78.5 Hyperlipidemia, unspecified; Z95.0 Presence of cardiac pacemaker
CPT/HCPCS: 70450-PO; 71046-PO; 72125-PO; 72170-PO; 80053-ER; 82607-90; 84484-ER; 86905-90; 92526-GN; 92610-GN; 96374-ER; 96376-ER; 97116-GP; 97162-GP; 97166-GO; 97535-GO; G0480; J1815; J2060; J2704; J2916; J3411; J3475; P9016; P9040